=== PATIENT | female | born 1955 | race Caucasian/White ===

== ENCOUNTER 2016-08-28 02:28 | Inpatient (IN) | payer MEDICAID, OTHER ==
[~2016-08-28] VITALS: Ht 162.6 cm; Wt 75.0 kg
[~2016-08-28 02:28] MED LIST: AMLO5TAB4 PO; CEPH-443 PO; CIPR500T4 PO; FURO20TA3 PO; GLIM4TAB PO; LISI20TA11 PO; MTF1000T PO; SIMV10TA PO
[2016-08-28] MEDS ORDERED: ONDANSETRON 4 MG INJ IV STA (03:00)
[2016-08-28] MEDS ORDERED: morphine 4 MG/ML VIAL IV STA (03:00)
[2016-08-28 04:13] LABS: ADD SCAN DIFF NO
[2016-08-28 04:16] LABS: ADD UMIC NO; URINE BLOOD (Dip) NEGATIVE (NEGATIVE); URINE COLOR YELLOW (YELLOW); URINE GLUCOSE (Dip) >=1000 % (NEGATIVE); URINE KETONES (Dip) TRACE (NEGATIVE); URINE LEUKOCYTE ESTERASE (Dip) NEGATIVE (NEGATIVE); URINE NITRITE (Dip) NEGATIVE (NEGATIVE); URINE TOTAL PROTEIN (Dip) NEGATIVE (NEGATIVE); URINE UROBILINOGEN (Dip) 1.0 E.U./dL (0.1-1.0)
[2016-08-28 04:24] LABS: BASOPHILS % 0.6 % (0.0-2.0); EOSINOPHILS # 0.1 10^3/ul (0.0-0.5); EOSINOPHILS % 1.9 % (0.0-7.0); HEMATOCRIT 32.8 % (37.0-47.0); HEMOGLOBIN 10.6 g/dl (12.0-16.0); LYMPHOCYTES # 1.4 10^3/ul (0.8-2.9); MEAN CORPUSCULAR HEMOGLOBIN 29.7 pg (29.0-33.0); MEAN CORPUSCULAR HGB CONC 32.3 g/dl (32.0-37.0); MEAN CORPUSCULAR VOLUME 91.9 fl (82.0-101.0); MONOCYTE # 0.5 10^3/ul (0.3-0.9); MONOCYTES % 10.3 % (0.0-11.0); NEUTROPHIL # 2.7 10^3/ul (1.6-7.5); PLATELET COUNT 110 10^3/UL (140-415); RED BLOOD COUNT 3.57 10^6/ul (4.20-5.40); RED CELL DISTRIBUTION WIDTH 14.6 % (11.5-14.5); WHITE BLOOD COUNT 4.7 10^3/ul (4.8-10.8)
[2016-08-28 04:35] LABS: URINE BILIRUBIN (Dip) NEGATIVE (NEGATIVE)
[2016-08-28 04:37] LABS: ALBUMIN 3.1 g/dl (3.3-4.9)
[2016-08-28 04:38] LABS: POTASSIUM 3.8 mmol/L (3.5-5.1)
[2016-08-28 04:40] LABS: ALBUMIN/GLOBULIN RATIO 0.81; BILIRUBIN,INDIRECT 0.3 mg/dl (0-1.1); BILIRUBIN,TOTAL 0.3 mg/dl (0.2-1.3); CREATININE 0.52 mg/dl (0.44-1.00); TOTAL PROTEIN 6.9 g/dl (6.1-8.1)
[2016-08-28 04:41] LABS: CALCIUM 8.3 mg/dl (8.4-10.2)
--- NOTE | 2016-08-28 05:37 | ERA ---
ER Documentation Chief Complaint Date/Time DATE: 08/28/16 TIME: 05:36 Chief Complaint diffuse abd pain w/ distended abdomen, hx-liver cirrhosis HPI This is a 61 year from with diffuse abdominal distention abdomen. Patient has history of liver cirrhosis. She has her symptoms were getting progressively more distended. Denies any fevers or chills. Denies any other current complaints ROS All systems reviewed and are negative except as per history of present illness. Medications Home Meds Active Scripts Cephalexin* (Keflex*) 500 Mg Capsule, 500 MG PO QID for 7 Days, CAP Prov:DAVIAN HAIDER. 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 04/01/15 Furosemide* (Furosemide*) 20 Mg Tablet, 20 MG PO BID Y for ascites or edema , # 60 TAB Prov:LINDSEY CANTU 03/15/15 Ciprofloxacin Hcl* (Ciprofloxacin Hcl*) 500 Mg Tab, 500 MG PO BID@06,18 for 8 Days Prov:LINDSEY CANTU 03/15/15 Reported Medications Simvastatin* (Zocor*) 10 Mg Tablet, 10 MG PO HS, TAB 03/09/15 Lisinopril* (Lisinopril*) 20 Mg Tablet, 20 MG PO DAILY, TAB 03/09/15 Amlodipine Besylate* (Norvasc*) 5 Mg Tablet, 5 MG PO DAILY, TAB 03/09/15 Glimepiride* (Glimepiride*) 4 Mg Tablet, 4 MG PO DAILY, TAB 03/09/15 Metformin* (Glucophage*) 1,000 Mg Tablet, 1000 MG PO BID, TAB 03/09/15 Allergies Allergies: Coded Allergies: No Known Allergy (Unverified , 03/09/15) PMhx/Soc History of Surgery: Yes () Anesthesia Reaction: No Hx Neurological Disorder: No Hx Respiratory Disorders: No Hx Cardiac Disorders: Yes (HTN) Hx Psychiatric Problems: No Hx Miscellaneous Medical Probl: No Hx Alcohol Use: Yes (occasional) Hx Substance Use: No Hx Tobacco Use: No Smoking Status: Never smoker Physical Exam Vitals Vital Signs Date Time Temp Pulse Resp B/P Pulse Ox O2 Delivery O2 Flow Rate FiO2 08/28/16 02:30 98.2 94 20 161/73 97 Physical Exam Const: [] Head: Atraumatic Eyes: Normal Conjunctiva ENT: Normal External Ears, Nose and Mouth. Neck: Full range of motion..~ No meningismus. Resp: Clear to auscultation bilaterally Cardio: Regular rate and rhythm, no murmurs Abd: Soft, non tender, non distended. Normal bowel sounds Skin: No petechiae or rashes Back: No midline or flank tenderness Ext: No cyanosis, or edema Neur: Awake and alert Psych: Normal Mood and Affect Result Diagram: 08/28/16 0355 08/28/16 0355 Results 24 hrs Laboratory Tests Test 08/28/16 03:55 White Blood Count 4.710^3/ul Red Blood Count 3.5710^6/ul Hemoglobin 10.6g/dl Hematocrit 32.8% Mean Corpuscular Volume 91.9fl Mean Corpuscular Hemoglobin 29.7pg Mean Corpuscular Hemoglobin Concent 32.3g/dl Red Cell Distribution Width 14.6% Platelet Count 41846^3/UL Mean Platelet Volume 12.0fl Neutrophils % 58.0% Lymphocytes % 29.0% Monocytes % 10.3% Eosinophils % 1.9% Basophils % 0.6% Nucleated Red Blood Cells % 0.0/100WBC Neutrophils # 2.710^3/ul Lymphocytes # 1.410^3/ul Monocytes # 0.510^3/ul Eosinophils # 0.110^3/ul Basophils # 0.010^3/ul Nucleated Red Blood Cells # 0.010^3/ul Urine Color YELLOW Urine Clarity CLEAR Urine pH 6.0 Urine Specific [place] 1.025 Urine Ketones TRACE Urine Nitrite NEGATIVE Urine Bilirubin NEGATIVE Urine Urobilinogen 1.0 E.U./dL Urine Leukocyte Esterase NEGATIVE Urine Hemoglobin NEGATIVE Urine Glucose >=1000% Urine Total Protein NEGATIVE Sodium Level 138mmol/L Potassium Level 3.8mmol/L Chloride Level 104mmol/L Carbon Dioxide Level 27mmol/L Anion Gap 11 Blood Urea Nitrogen 11mg/dl Creatinine 0.52mg/dl Glucose Level 364mg/dl Calcium Level 8.3mg/dl Total Bilirubin 0.3mg/dl Direct Bilirubin 0.00mg/dl Indirect Bilirubin 0.3mg/dl Aspartate Amino Transf (AST/SGOT) 69IU/L Alanine Aminotransferase (ALT/SGPT) 47IU/L Alkaline Phosphatase 305IU/L Total Protein 6.9g/dl Albumin 3.1g/dl Globulin 3.80g/dl Albumin/Globulin Ratio 0.81 Lipase 127U/L Current Medications Medications (Trade) Dose Ordered Sig/Paul Route PRN Reason Start Time Stop Time Status Last Admin Dose Admin Morphine Sulfate (morphine) 4 mg ONCE STAT IV 08/28/16 03:00 08/28/16 03:01 DC 08/28/16 04:08 Ondansetron HCl (Zofran Inj) 4 mg ONCE STAT IV 08/28/16 03:00 08/28/16 03:01 DC 08/28/16 04:08 Procedures/MDM Medical decision-makin-year-old female with tense ascites. Patient will be admitted for therapeutic tap further evaluation and management. Departure Diagnosis: Primary Impression: Ascites Qualified Code: K70.31 - Ascites due to alcoholic cirrhosis Condition: Serious MELISSA JACK Aug 28, 2016 05:37
[2016-08-28 07:15] VITALS: TEMP 98.2
[2016-08-28] MEDS ORDERED: DEXTROSE 50% 50 ML SYRINGE IV PRN ×2 (09:00)
[2016-08-28] MEDS ORDERED: NACL 0.9% 3 ML SYG IV SCH (09:00)
[2016-08-28] MEDS ORDERED: ACETAMINOPHEN 325 MG TAB PO PRN (09:00)
[2016-08-28] MEDS ORDERED: GLUCAGON 1 MG INJ IM PRN (09:00)
[2016-08-28] MEDS ORDERED: GLUCOSE GEL 15 GRAM TUBE PO PRN ×2 (09:00)
[2016-08-28] MEDS ORDERED: GLUCOSE GEL 15 GRAM TUBE BUCCAL PRN (09:00)
[2016-08-28] MEDS ORDERED: ONDANSETRON 4 MG INJ IV PRN (09:00)
[2016-08-28] MEDS ORDERED: morphine 2 MG INJ IV PRN (09:00)
[2016-08-28 09:15] LABS: INR 1.13; PROTIME 14.5 Sec (12.2-14.2); PT RATIO 1.1
[2016-08-28] MEDS: LISINOPRIL 20 MG TAB PO SCH (09:19)
[2016-08-28] MEDS: AMLODIPINE 5 MG TAB PO SCH (09:19)
[2016-08-28 09:28] LABS: ALBUMIN 3.1 g/dl (3.3-4.9)
[2016-08-28 09:31] LABS: BILIRUBIN,INDIRECT 0.3 mg/dl (0-1.1); BILIRUBIN,TOTAL 0.3 mg/dl (0.2-1.3); TOTAL PROTEIN 6.9 g/dl (6.1-8.1)
--- NOTE | 2016-08-28 09:46 | HP ---
DATE OF ADMISSION: 08/28/2016 TIME SEEN: 6:30 a.m. CHIEF COMPLAINT: Abdominal pain and distention. HISTORY OF PRESENT ILLNESS: The patient is a 61-year-old female with a history of hypertension, omar betes, liver cirrhosis who presented to the emergency department with abdominal pain and distention. The patient was admitted here in March of last year for fevers and chills. 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 She was ta belle to the OR by Dr. Stevens from General Surgery and upon exploration of the liver and the gallbladd er it was found that the patient had dense cirrhosis and the gallbladder seems to be stuck to the [facility] inferior lobe of the liver along with the jim hepatis. It was deemed to be high risk attempt doing any resection or procedure; therefore, the surgery was aborted. The patient was evaluated by Dr. Raza Green from hepatobiliary, and at that time, plan was for referral for hepatology evaluat ion and management. The patient is now coming back with generalized abdominal pain and distention w hich has been progressively getting worse over the past 1 month. She stated she was seen at [facility], but nothing was done over there. The last time last time the patient was here doing diagnostic laparoscopy when she was found to have the dense cirrhosis and porcelain gallbladder, she was also found to have ascites measuring about 800 mL. When she presented to the ER this time, blood pressure 151/73, heart rate 94, respiratory rate ____, oxygen saturation 97% on room air. Laboratory value shows a WBC 4.7, hemoglobin 10.6, platelet cou nt 110. Glucose 364, alkaline phosphatase 305, AST 69. No imaging has been done in the ER. REVIEW OF SYSTEMS: A 12-point review of systems was performed and negative except as mentioned in t he HPI. PAST MEDICAL HISTORY: As per HPI. PAST SURGICAL HISTORY: As mentioned in the HPI as well as . ALLERGIES: NO KNOWN DRUG ALLERGIES. HOME MEDICATIONS: 1. Amlodipine. 2. Lisinopril. 3. Zocor. 4. Lasix. 5. Glimepiride. 6. Metformin. PHYSICAL EXAMINATION: VITAL SIGNS: Stable. GENERAL: The patient looks somehow uncomfortable due to abdominal pain and distention. HEENT: No obvious head deformity. Pupils react to light. Extraocular muscles intact. CARDIOVASCULAR: Regular rate and rhythm. No extra sounds. LUNGS: Clear. ABDOMEN: Distended, tender. There are positive bowel sounds. EXTREMITIES: Positive for some edema. LABORATORY: Pertinent positives as mentioned in the HPI. IMPRESSION: 1. Decompensated liver cirrhosis with ascites. 2. Abdominal pain and distention, secondary to ascites. 3. 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 4. History of diabetes with hyperglycemia. . 5. History of hypertension, currently blood pressure within goal. 6. Pancytopenia, likely related to her liver disease. We will obtain abdominal ultrasound and also therapeutic paracentesis. She will be continued with L asix and will add Aldactone. Strict ins and outs. She will be on restricted sodium diet. She will be on insulin for her diabetes. We will adjust her antihypertensives as needed. We will monitor h er hemoglobin and her platelets closely and transfuse as needed. Further workup and management per clinical course. Dictated By: MELISSA THURMAN/JEET Conf#: [id number] DID#: [id number]
[2016-08-28] MEDS ORDERED: LIDOCAINE 1% (MPF) 5 ML VIAL ONE (10:02)
[2016-08-28 11:31] VITALS: Ht 162.6 cm; Wt 75.0 kg
--- NOTE | 2016-08-28 11:36 | RADRPT ---
PROCEDURE: US guided paracentesis CLINICAL INDICATION: Ascites TECHNIQUE: Multiple sonographic images were obtained through the patient's abdomen. A site in the patient's RIGHT lower abdomen was selected and marked. The area was prepped and draped in the usual sterile fashion. 1% lidocaine was utilized. A 19-gauge Yueh needle was advanced into the peritonea l space and the introducer was connected to a vacuum drainage bottle. A total of 6800 cc of clear y ellow fluid were drained at the end of the procedure. The patient tolerated the procedure well. The specimen was sent for laboratory evaluation. COMPARISON: None FINDINGS: Ascites. RPTAT: AA IMPRESSION: Successful ultrasound-guided paracentesis. Physician Alok Date Time Electronically viewed and signed by Physician Alok on 08/28/2016 11:35 /
[2016-08-28 11:43] VITALS: BP 154/72; PULSE 76; RESP 18
[2016-08-28] MEDS: INSULIN ASPART [NOVOLOG] 3 ML PEN SC SCH ×5 (13:51→20:46)
[2016-08-28 16:10] LABS: FLUID APPEARANCE CLEAR; FLUID TYPE ASCITES
[2016-08-28 16:11] LABS: FLUID LYMPHOCYTES 65 %; FLUID MONOCYTES 20 %; FLUID NEUTROPHILS 10 %; FLUID RBC EST 0; FLUID WBC'S 305 /cmm
[2016-08-28 20:20] VITALS: BP 107/54; RESP 18
[2016-08-28] MEDS ORDERED: GUAIFENESIN/CODEINE 5ML CUP PO PRN (21:00)
[2016-08-28] MEDS ORDERED: ATORVASTATIN 10 MG TAB PO SCH (21:00)
[2016-08-29 05:52] LABS: ADD SCAN DIFF NO
[2016-08-29 06:05] LABS: BASOPHILS % 0.6 % (0.0-2.0); EOSINOPHILS # 0.1 10^3/ul (0.0-0.5); EOSINOPHILS % 1.9 % (0.0-7.0); HEMATOCRIT 33.1 % (37.0-47.0); HEMOGLOBIN 10.6 g/dl (12.0-16.0); LYMPHOCYTES # 1.9 10^3/ul (0.8-2.9); LYMPHOCYTES % 40.8 % (15.0-51.0); MEAN CORPUSCULAR HEMOGLOBIN 29.8 pg (29.0-33.0); MEAN PLATELET VOLUME 12.4 fl (7.4-10.4); MONOCYTE # 0.4 10^3/ul (0.3-0.9); MONOCYTES % 9.3 % (0.0-11.0); NEUTROPHIL # 2.2 10^3/ul (1.6-7.5); NEUTROPHILS % 47.2 % (39.0-77.0); PLATELET COUNT 102 10^3/UL (140-415); RED BLOOD COUNT 3.56 10^6/ul (4.20-5.40); RED CELL DISTRIBUTION WIDTH 14.6 % (11.5-14.5); WHITE BLOOD COUNT 4.8 10^3/ul (4.8-10.8)
[2016-08-29 06:24] LABS: ALBUMIN 2.3 g/dl (3.3-4.9)
[2016-08-29 06:25] LABS: POTASSIUM 4.1 mmol/L (3.5-5.1)
[2016-08-29 06:27] LABS: BILIRUBIN,INDIRECT 0.5 mg/dl (0-1.1); BILIRUBIN,TOTAL 0.5 mg/dl (0.2-1.3); CREATININE 0.55 mg/dl (0.44-1.00)
[2016-08-29 06:28] LABS: ALBUMIN/GLOBULIN RATIO 0.58; CALCIUM 7.9 mg/dl (8.4-10.2); CHOL/HDL RATIO 4.2 RATIO; TOTAL PROTEIN 6.2 g/dl (6.1-8.1)
[2016-08-29 07:40] VITALS: BP 107/55; RESP 18
[2016-08-29] MEDS ORDERED: INSULIN GLARGINE [LANtus] 3 ML PEN SC SCH (08:00)
[2016-08-29] MEDS: INSULIN ASPART [NOVOLOG] 3 ML PEN SC SCH ×6 (08:00→17:28)
[2016-08-29] MEDS: LISINOPRIL 20 MG TAB PO SCH (09:00)
[2016-08-29] MEDS: AMLODIPINE 5 MG TAB PO SCH (09:00)
[2016-08-29] MEDS ORDERED: NOVO3I SC (13:51)
[2016-08-29] MEDS ORDERED: LANT3I SC (13:51)
[2016-08-29] MEDS ORDERED: FURO20TA3 PO (13:51)
[2016-08-29] MEDS ORDERED: SPIR50TA PO (13:51)
--- NOTE | 2016-08-29 13:54 | PDOCDIS ---
Discharge Instructions DIAGNOSIS Discharge Diagnosis: 1. DECOMPENSATED LIVER CIRRHOSIS 2. diabetes CONDITION Patient Condition: Stable HOME CARE INSTRUCTIONS: Special Diet: 1800 tasneem 2g Na FOLLOW UP/APPOINTMENTS Appointments 1. Follow up with your primary care provider in one week 2. Follow up with [facility] for further management and care of your liver cirrhosis EDIE JAUREGUI Aug 29, 2016 13:53
== END 2016-08-29 17:58 | disposition home or self-care (01) | DRG 433 ==
LOC: E/R 02:28 → PP2 05:44
PROVIDERS: ADMIT Internal Medicine; ATTEND Internal Medicine
PROC: 0W9G3ZZ Drainage of Peritoneal Cavity, Percutaneous Approach (ICD-10-PCS; principal; 2016-08-28)
DX: K70.31 Alcoholic cirrhosis of liver with ascites (principal); D61.818 Other pancytopenia; E11.65 Type 2 diabetes mellitus with hyperglycemia; I10 Essential (primary) hypertension
CPT/HCPCS: 36415; 80053; 80061; 80076; 81003; 82042; 82962; 83036; 83690; 84157; 85025; 85610; 87070; 89050; 96372; 96374; 96375; J1815; J2270; J2405

== ENCOUNTER 2016-09-04 21:53 | Inpatient (IN) | payer MEDICAID ==
[~2016-09-04] VITALS: Ht 160 cm; Wt 81.5 kg
[~2016-09-04 21:53] MED LIST changes: -CEPH-443 PO; -CIPR500T4 PO; -GLIM4TAB PO; +LANT3I SC; -MTF1000T PO; +NOVO3I SC; +SPIR50TA PO
[2016-09-04] MEDS ORDERED: IPRATROPIUM (NEB) 0.5 MG/2.5 ML AMP NEB STA (23:36)
[2016-09-04] MEDS ORDERED: ALBUTEROL 0.083% (NEB) 2.5 MG/3 ML AMP NEB STA (23:36)
[2016-09-04 23:56] LABS: ADD SCAN DIFF NO
[2016-09-04 23:58] LABS: BASOPHIL # 0.1 10^3/ul (0.0-0.1); BASOPHILS % 1.1 % (0.0-2.0); EOSINOPHILS # 0.1 10^3/ul (0.0-0.5); EOSINOPHILS % 2.4 % (0.0-7.0); HEMATOCRIT 34.4 % (37.0-47.0); HEMOGLOBIN 11.4 g/dl (12.0-16.0); LYMPHOCYTES # 1.5 10^3/ul (0.8-2.9); LYMPHOCYTES % 32.4 % (15.0-51.0); MEAN CORPUSCULAR HEMOGLOBIN 30.2 pg (29.0-33.0); MEAN CORPUSCULAR HGB CONC 33.1 g/dl (32.0-37.0); MEAN CORPUSCULAR VOLUME 91.2 fl (82.0-101.0); MEAN PLATELET VOLUME 11.9 fl (7.4-10.4); MONOCYTE # 0.4 10^3/ul (0.3-0.9); MONOCYTES % 8.4 % (0.0-11.0); NEUTROPHIL # 2.5 10^3/ul (1.6-7.5); NEUTROPHILS % 55.5 % (39.0-77.0); PLATELET COUNT 117 10^3/UL (140-415); RED BLOOD COUNT 3.77 10^6/ul (4.20-5.40); WHITE BLOOD COUNT 4.5 10^3/ul (4.8-10.8)
[2016-09-05 00:06] LABS: ALBUMIN 2.9 g/dl (3.3-4.9)
[2016-09-05 00:07] LABS: POTASSIUM 4.2 mmol/L (3.5-5.1)
[2016-09-05 00:09] LABS: ALBUMIN/GLOBULIN RATIO 0.76; BILIRUBIN,INDIRECT 0.4 mg/dl (0-1.1); BILIRUBIN,TOTAL 0.4 mg/dl (0.2-1.3); CREATININE 0.66 mg/dl (0.44-1.00); TOTAL PROTEIN 6.7 g/dl (6.1-8.1)
[2016-09-05 00:10] LABS: CALCIUM 8.4 mg/dl (8.4-10.2)
--- NOTE | 2016-09-05 00:20 | ERA ---
ER Documentation Chief Complaint Date/Time DATE: 09/05/16 TIME: 00:19 Chief Complaint RECURRENT ASCITES. TAPPED LAST WEEK. ABD PAIN HPI This is a 61-year-old female with recurrent ascites. Tap last week. Patient complaining of mild abdominal pain. Patient has history of recurrent ascites with multiple peritoneal tabs in the past ROS All systems reviewed and are negative except as per history of present illness. Medications Home Meds Active Scripts Insulin Glargine* (Lantus*) 100 Unit/Ml Soln, 15 UNIT SC DAILY@08 for 30 Days Prov:EDIE JAUREGUI 08/29/16 Insulin Aspart* (Novolog Insulin Pen*) 100 Unit/Ml Soln, 5 UNIT SC WITH MEALS for 30 Days Prov:EDIE JAUREGUI 08/29/16 Spironolactone* (Aldactone*) 50 Mg Tablet, 50 MG PO BID, #60 TAB HOLD FOR SYSTOLIC BLOOD PRESSURE LESS THAN 100 Prov:EDIE JAUREGUI 08/29/16 Furosemide* (Furosemide*) 20 Mg Tablet, 20 MG PO BID, #60 TAB Prov:EDIE JAUREGUI 08/29/16 Reported Medications Simvastatin* (Zocor*) 10 Mg Tablet, 10 MG PO HS, TAB 03/09/15 Lisinopril* (Lisinopril*) 20 Mg Tablet, 20 MG PO DAILY, TAB 03/09/15 Amlodipine Besylate* (Norvasc*) 5 Mg Tablet, 5 MG PO DAILY, TAB 03/09/15 Discontinued Reported Medications Glimepiride* (Glimepiride*) 4 Mg Tablet, 4 MG PO DAILY, TAB 03/09/15 Metformin* (Glucophage*) 1,000 Mg Tablet, 1000 MG PO BID, TAB 03/09/15 Allergies Allergies: Coded Allergies: No Known Allergy (Unverified , 03/09/15) PMhx/Soc History of Surgery: Yes (c section 1988) Anesthesia Reaction: No Hx Neurological Disorder: Yes (tingling sensation BLE) Hx Respiratory Disorders: No Hx Cardiac Disorders: No (htn ) Hx Psychiatric Problems: No Hx Miscellaneous Medical Probl: Yes (diabetes mellitus, liver fx, and ascites) Hx Alcohol Use: Yes (occasionally ) Hx Substance Use: No Hx Tobacco Use: No Smoking Status: Never smoker Physical Exam Vitals Vital Signs Date Time Temp Pulse Resp B/P Pulse Ox O2 Delivery O2 Flow Rate FiO2 09/05/16 00:09 86 17 154/76 100 09/04/16 21:58 97.5 89 22 189/84 98 Physical Exam Const: [] Head: Atraumatic Eyes: Normal Conjunctiva ENT: Normal External Ears, Nose and Mouth. Neck: Full range of motion..~ No meningismus. Resp: Clear to auscultation bilaterally Cardio: Regular rate and rhythm, no murmurs Abd: Mild distention. Distant bowel sounds. Palpable fluid wave Skin: No petechiae or rashes Back: No midline or flank tenderness Ext: No cyanosis, or edema Neur: Awake and alert Psych: Normal Mood and Affect Result Diagram: 09/04/16 4560 Results 24 hrs Laboratory Tests Test 09/04/16 23:50 White Blood Count 4.510^3/ul Red Blood Count 3.7710^6/ul Hemoglobin 11.4g/dl Hematocrit 34.4% Mean Corpuscular Volume 91.2fl Mean Corpuscular Hemoglobin 30.2pg Mean Corpuscular Hemoglobin Concent 33.1g/dl Red Cell Distribution Width 14.0% Platelet Count 63440^3/UL Mean Platelet Volume 11.9fl Neutrophils % 55.5% Lymphocytes % 32.4% Monocytes % 8.4% Eosinophils % 2.4% Basophils % 1.1% Nucleated Red Blood Cells % 0.0/100WBC Neutrophils # 2.510^3/ul Lymphocytes # 1.510^3/ul Monocytes # 0.410^3/ul Eosinophils # 0.110^3/ul Basophils # 0.110^3/ul Nucleated Red Blood Cells # 0.010^3/ul Current Medications Medications (Trade) Dose Ordered Sig/Paul Route PRN Reason Start Time Stop Time Status Last Admin Dose Admin Albuterol (Proventil 0.083% (Neb)) 5 mg ONCE STAT NEB 09/04/16 23:36 09/04/16 23:38 DC Ipratropium [place] (Atrovent 0.02% (Neb)) 0.5 mg ONCE STAT NEB 09/04/16 23:36 09/04/16 23:38 DC Procedures/MDM Medical decision-making: This patient comes in with acute abdominal pain secondary to tense ascites. Patient was admitted for therapeutic tap patient admitted to hospitalist. No evidence of spontaneous bacterial peritonitis. No evidence of surgical abdomen on multiple serial abdominal examinations Departure Diagnosis: Primary Impression: Abdominal pain Qualified Code: R10.84 - Generalized abdominal pain Additional Impression: Ascites Qualified Code: R18.8 - Other ascites Condition: Serious MELISSA JACK Sep 05, 2016 00:20
[2016-09-05 00:24] LABS: INR 1.14; PROTIME 14.6 Sec (12.2-14.2); PT RATIO 1.1
[2016-09-05 00:25] LABS: PARTIAL THROMBOPLASTIN TIME 31.4 Sec (25.0-35.0)
--- NOTE | 2016-09-05 00:38 | HP ---
Date/Time of Note Date/Time of Note DATE: 09/05/16 TIME: 00:34 Assessment/Plan VTE Prophylaxis VTE Prophylaxis Intervention: other (Lovenox) Assessment/Plan Assessment/Plan 1) Decompensated liver cirrhosis ([place]) with ascites. - Admit to Med-Surg - Ultrasound-Guided Paracentesis with Radiologist in AM, requested already by ER Physician - NPO after MN 2) Abdominal pain and distention, secondary to ascites. - Pain control while awaiting Paracentesis 3) Elevated Alkaline Phosphatase - Alkaline Phosphatase Isoenzymes as I am concerned that she may have bony involvement as her Liver Enzymes would not be expected to elevated much becasue of her extensive cirrhosis. 4) Diabetes Type 2, uncontrolled with Hyperglycemia and Diabetic Peripheral Neuropathy . - Accu-Chek Q 4 hours with Insulin sliding Scale. Change to AC and HS once taking PO 5) Essential Hypertension - Continue current medications 6) Pancytopenia, likely related to her liver disease. HPI/ROS Admit Date/Time Admit Date/Time 09/05/16 0008 Hx of Present Illness Abdominal Pain/Tense Ascites Patient presents with a painful abdomen, swollen with fluid again. She was last seen here on 08/28/16 for the same thing, and almost 7L were removed by Paracentesis.She has Cirrhosis, non-alcoholic ([place]) and a "chrystallized" gallbladder per her daughter. I asked if it was a porcelain gallbladder, and she was sure it was not. 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 She also has Diabetes with peripheral neuropathy and with her complications, she is not a candidate for liver transplant. ROS General: Admits: Denies: Fever, Chills, Poor Appetite, Generalized Body Aches Eyes: Admits: Denies: Blurry Vision, Double Vision HENT: Admits: Denies: Ear Pain/Pressure, Runny/Stuffy Nose, Sore Throat Cardiovascular: Admits: Leg Swelling, not a lot Denies: Chest Pain, Palpitations Pulmonary: Admits: Cough, worse with taking a deep breath/Hard to take a deep breath. No sputum or blood Denies: Wheeze, Shortness of Breath Gastrointestinal: Admits: Abdominal Pain and Swelling. AThe pain is worsdt in the lower abdomen, right side worse than left Denies: Nausea, Vomiting, Diarrhea, Blood in Stool, Black-Colored Stool Urogenital: Admits: Denies: Burning with Urination, Urinary Frequency, Blood in Urine Musculoskeletal: Admits: Denies: Joint Pain, Joint Swelling, Muscle Pain Neurological: Admits: Numbness, Tingling and Burning pains in both feet. Her daughter admits that she has Neuropathy Denies: Headache, Dizziness, Shooting Pains Integumentary: Admits: Thickened Skin in lower abdomen Denies: Rash, Itch Endocrine: Admits: Excessive Thirst, Excessive Hunger Denies: , Intolerant to Cold, Intolerant to Heat PMH/Family/Social Past Medical History [place]; Decompensated Cirrhosis with Ascites; DM Type 2 with Peripheral Neuropathy ; HTN; Porcelain Gallbladder Past Surgical History ; Exploratory Laparotomy; Paracentesis x 2 Family History Significant Family History: cancer (Father from Liver Cancer) Social History Alcohol Use: none Smoking Status: Never smoker Drug Use: none Exam/Review of Systems Vital Signs Vitals Vital Signs Date Time Temp Pulse Resp B/P Pulse Ox O2 Delivery O2 Flow Rate FiO2 09/05/16 00:09 86 17 154/76 100 09/04/16 21:58 97.5 Exam Exam General: Pleasant, Cam[place]onian-Speaking female, alert and oriented, stoic, in mild to moderate distress due to abdominal pain. Eyes: Sclera White, EOMI HENT: Normocephalic/Atraumatic, External Ears/Nose Normal, Moist Mucus Membranes Neck: Supple, Trachea Midline Cardiovascular: Normal Rate, Regular Rhythm, Normal S1 and S2, No Murmur, No Extra Sounds. Radial pulse +2/4. Trace pedal Edema noted. Pulmonary: Clear to Auscultation Bilaterally, Normal Respiratory Effort, No Rales, Rhonchi or Wheezes Gastrointestinal: Normoactive Bowel Sounds, Soft, Non-Tender/Non-Distended, No Hepatosplenomegaly Appreciated, No Pulsatile Masses Urogenital: Deferred Musculoskeletal: Normal Muscle Bulk and Tone Neurological: CN II - XII Grossly Intact, Non-Focal, Speech Normal Integumentary: Normal Moisture and Temperature, Good Turgor, No Jaundice, No Rash Lymphatic: No Cervical Lymphadenopathy Psychiatric: Appropriate Mood and Affect, Good Eye Contact Labs Result Diagram: 09/04/16 2350 09/04/16 2350 Medications Medications Home Meds Active Scripts Insulin Glargine* (Lantus*) 100 Unit/Ml Soln, 15 UNIT SC DAILY@08 for 30 Days Prov:EDIE JAUREGUI 08/29/16 Insulin Aspart* (Novolog Insulin Pen*) 100 Unit/Ml Soln, 5 UNIT SC WITH MEALS for 30 Days Prov:EDIE JAUREGUI 08/29/16 Spironolactone* (Aldactone*) 50 Mg Tablet, 50 MG PO BID, #60 TAB HOLD FOR SYSTOLIC BLOOD PRESSURE LESS THAN 100 Prov:EDIE JAUREGUI 08/29/16 Furosemide* (Furosemide*) 20 Mg Tablet, 20 MG PO BID, #60 TAB Prov:EDIE JAUREGUI 08/29/16 Reported Medications Simvastatin* (Zocor*) 10 Mg Tablet, 10 MG PO HS, TAB 03/09/15 Lisinopril* (Lisinopril*) 20 Mg Tablet, 20 MG PO DAILY, TAB 03/09/15 Amlodipine Besylate* (Norvasc*) 5 Mg Tablet, 5 MG PO DAILY, TAB 03/09/15 Discontinued Reported Medications Glimepiride* (Glimepiride*) 4 Mg Tablet, 4 MG PO DAILY, TAB 03/09/15 Metformin* (Glucophage*) 1,000 Mg Tablet, 1000 MG PO BID, TAB 03/09/15 Current Medications Medications (Trade) Dose Ordered Sig/Paul Route PRN Reason Start Time Stop Time Status Last Admin Dose Admin Albuterol (Proventil 0.083% (Neb)) 5 mg ONCE STAT NEB 09/04/16 23:36 09/04/16 23:38 DC Ipratropium [place] (Atrovent 0.02% (Neb)) 0.5 mg ONCE STAT NEB 09/04/16 23:36 09/04/16 23:38 DC Procedures Procedures Laboratory Tests Test 09/04/16 23:50 White Blood Count 4.510^3/ul Red Blood Count 3.7710^6/ul Hemoglobin 11.4g/dl Hematocrit 34.4% Mean Corpuscular Volume 91.2fl Mean Corpuscular Hemoglobin 30.2pg Mean Corpuscular Hemoglobin Concent 33.1g/dl Red Cell Distribution Width 14.0% Platelet Count 45799^3/UL Mean Platelet Volume 11.9fl Neutrophils % 55.5% Lymphocytes % 32.4% Monocytes % 8.4% Eosinophils % 2.4% Basophils % 1.1% Nucleated Red Blood Cells % 0.0/100WBC Neutrophils # 2.510^3/ul Lymphocytes # 1.510^3/ul Monocytes # 0.410^3/ul Eosinophils # 0.110^3/ul Basophils # 0.110^3/ul Nucleated Red Blood Cells # 0.010^3/ul JUANCHO PORTILLO DO Sep 05, 2016 00:38
[2016-09-05 02:30] VITALS: BP 156/75; PULSE 87; RESP 18
[2016-09-05 02:43] VITALS: Ht 160 cm; Wt 81.5 kg
[2016-09-05] MEDS ORDERED: morphine 2 MG INJ IV PRN (03:00)
[2016-09-05] MEDS ORDERED: NACL 0.9% 3 ML SYG IV SCH (03:00)
[2016-09-05] MEDS ORDERED: GLUCOSE GEL 15 GRAM TUBE BUCCAL PRN (03:10)
[2016-09-05] MEDS ORDERED: DEXTROSE 50% 50 ML SYRINGE IV PRN ×2 (03:10)
[2016-09-05] MEDS ORDERED: GLUCOSE GEL 15 GRAM TUBE PO PRN ×2 (03:10)
[2016-09-05] MEDS ORDERED: GLUCAGON 1 MG INJ IM PRN (03:10)
[2016-09-05] MEDS: INSULIN ASPART [NOVOLOG] 3 ML PEN SC SCH ×2 (05:09→08:59)
[2016-09-05] MEDS: FUROSEMIDE 20 MG TAB PO SCH ×2 (05:55→17:32)
[2016-09-05] MEDS: FAMOTIDINE 20 MG INJ IV SCH ×2 (07:56→20:31)
[2016-09-05 08:10] VITALS: BP 107/62; RESP 18
[2016-09-05] MEDS: AMLODIPINE 5 MG TAB PO SCH (08:14)
[2016-09-05] MEDS: INSULIN GLARGINE [LANtus] 3 ML PEN SC SCH (08:14)
[2016-09-05] MEDS: SPIRONOLACTONE 50 MG TAB PO SCH ×2 (08:14→20:31)
[2016-09-05] MEDS: LISINOPRIL 20 MG TAB PO SCH (08:14)
[2016-09-05] MEDS: ENOXAPARIN 40 MG/0.4 ML SYG SC SCH (08:59)
[2016-09-05] MEDS: Insulin NOVOLOG SS MODERATE Algorithm (SS with meals and bedtime) SC SCH ×3 (12:15→20:37)
[2016-09-05] MEDS ORDERED: LIDOCAINE 1% (MPF) 5 ML VIAL ONE (17:00)
[2016-09-05] MEDS ORDERED: INSULIN ASPART [NOVOLOG] 3 ML PEN SC SCH (17:45)
--- NOTE | 2016-09-05 17:47 | RADRPT ---
PROCEDURE: Ultrasound guided paracentesis. CLINICAL INDICATION: Ascites and shortness of breath. COMPARISON: No prior studies are available for comparison. TECHNIQUE: The risks, benefits, and alternatives were explained to the patient and/or the patient's family, inc luding but not limited to bleeding, infection, pain, visceral or vascular damage, shock, and . The patient and/or the patient's family understood the risks and the alternatives and wished to pro ceed with the procedure. Informed written consent was obtained. A procedural time out was performed . The patient's name, date of , and procedure to be performed were verified. Utilizing ultrasound guidance, optimal location for entry to the peritoneal cavity was ascertained. The overlying skin was prepped and draped in the usual sterile fashion. Approximately 10 ml of 1% Xylocaine was injected locally for pain control. Using ultrasound guidance, an 8 [place] catheter wa s introduced into the peritoneal cavity in the right lower quadrant without difficulty. FINDINGS: Initial images demonstrate ascites. Approximately 4.1 liters of serous fluid was aspirated and disc arded. The patient tolerated the procedure well without complication. IMPRESSION: 1. Successful ultrasound-guided paracentesis. RPTAT: QQ .Dudley Lanza MD, Date Time Electronically viewed and signed by .Dudley Lanza MD, on 09/05/2016 17:46 .R/
[2016-09-05] MEDS: AMITRIPTYLINE 25 MG TAB PO SCH (20:31)
[2016-09-06] MEDS: FUROSEMIDE 20 MG TAB PO SCH ×2 (05:44→07:49)
[2016-09-06 05:46] LABS: ADD SCAN DIFF NO; BASOPHIL # 0.1 10^3/ul (0.0-0.1); BASOPHILS % 1.2 % (0.0-2.0); EOSINOPHILS # 0.1 10^3/ul (0.0-0.5); HEMATOCRIT 33.4 % (37.0-47.0); HEMOGLOBIN 10.9 g/dl (12.0-16.0); LYMPHOCYTES # 1.7 10^3/ul (0.8-2.9); LYMPHOCYTES % 41.1 % (15.0-51.0); MEAN CORPUSCULAR HEMOGLOBIN 29.9 pg (29.0-33.0); MEAN CORPUSCULAR HGB CONC 32.6 g/dl (32.0-37.0); MEAN CORPUSCULAR VOLUME 91.5 fl (82.0-101.0); MEAN PLATELET VOLUME 12.5 fl (7.4-10.4); MONOCYTE # 0.3 10^3/ul (0.3-0.9); MONOCYTES % 8.4 % (0.0-11.0); NEUTROPHIL # 1.9 10^3/ul (1.6-7.5); NEUTROPHILS % 47.1 % (39.0-77.0); PLATELET COUNT 113 10^3/UL (140-415); RED BLOOD COUNT 3.65 10^6/ul (4.20-5.40); RED CELL DISTRIBUTION WIDTH 14.3 % (11.5-14.5)
[2016-09-06 05:47] LABS: INR 1.29; PROTIME 16.2 Sec (12.2-14.2); PT RATIO 1.3
[2016-09-06 05:56] LABS: PARTIAL THROMBOPLASTIN TIME 26.9 Sec (25.0-35.0)
[2016-09-06 07:00] LABS: ALBUMIN 2.3 g/dl (3.3-4.9); POTASSIUM 3.6 mmol/L (3.5-5.1)
[2016-09-06 07:02] LABS: CREATININE 0.55 mg/dl (0.44-1.00)
[2016-09-06 07:03] LABS: ALBUMIN/GLOBULIN RATIO 0.69; BILIRUBIN,INDIRECT 0.6 mg/dl (0-1.1); BILIRUBIN,TOTAL 0.6 mg/dl (0.2-1.3); CALCIUM 7.8 mg/dl (8.4-10.2); TOTAL PROTEIN 5.6 g/dl (6.1-8.1)
[2016-09-06 07:39] LABS: CHOL/HDL RATIO 4.2 RATIO
[2016-09-06] MEDS: SPIRONOLACTONE 50 MG TAB PO SCH ×2 (07:49→21:00)
[2016-09-06] MEDS: FAMOTIDINE 20 MG INJ IV SCH ×2 (07:49→20:49)
[2016-09-06] MEDS: AMLODIPINE 5 MG TAB PO SCH (07:50)
[2016-09-06 08:10] LABS: THYROID STIMULATING HORMONE 3.41 MIU/L (0.465-4.680)
[2016-09-06] MEDS: ENOXAPARIN 40 MG/0.4 ML SYG SC SCH (08:17)
[2016-09-06] MEDS: INSULIN GLARGINE [LANtus] 3 ML PEN SC SCH (08:17)
[2016-09-06] MEDS: Insulin NOVOLOG SS MODERATE Algorithm (SS with meals and bedtime) SC SCH ×4 (08:17→21:00)
[2016-09-06] MEDS: LISINOPRIL 20 MG TAB PO SCH (08:21)
[2016-09-06] MEDS: HYDROCODONE/APAP (5/325) TAB PO PRN (08:21)
[2016-09-06 08:46] VITALS: BP 107/57; RESP 18
[2016-09-06 11:28] LABS: CARCINOEMBRYONIC ANTIGEN 6.8 ng/ml (0.0-5.0)
[2016-09-06 11:29] LABS: CANCER ANTIGEN 125 > 1000.0 U/ml (0.0-35.0)
[2016-09-06] MEDS: METOCLOPRAMIDE 10 MG INJ IV PRN (12:05)
[2016-09-06] MEDS: INSULIN ASPART [NOVOLOG] 3 ML PEN SC SCH ×2 (12:15→17:31)
[2016-09-06] MEDS ORDERED: BARIUM SULF 2% 450 ML BTL (BERRY SMOOTHIE) PO ONE (13:00)
[2016-09-06] MEDS: LACTULOSE 30ML CUP PO SCH ×2 (14:07→22:17)
--- NOTE | 2016-09-06 15:26 | PN ---
DATE: 09/06/2016 SUBJECTIVE DATA: Denies any abdominal pain. Denies any nausea or vomiting. Status post paracentesis on 09/05/2016. OBJECTIVE DATA: VITAL SIGNS: Temperature 97.6, pulse rate 82, respiratory rate 18, blood pressure 107/57, oxygen saturation 98% on room air. GENERAL: This is an obese female sitting in bed, in no apparent distress. HEENT: Head normocephalic and atraumatic. Eyes: Anicteric sclerae. Conjunctivae clear. ENT: Nasal septum is midline. Oral mucosa is moist. NECK: Supple. No JVD noticed. RESPIRATORY: Bilaterally diminished breath sounds. No adventitious breath sounds heard. No use of accessory muscles of respiration. ABDOMEN: Ascitic, nontender. Bowel sounds positive in all 4 quadrants. GENITOURINARY: Deferred. EXTREMITIES: No cyanosis, no clubbing, no edema. Peripheral pulses are palpable. NEUROLOGIC: The patient is awake, alert and oriented. Cranial nerves are grossly intact. LABORATORY AND DIAGNOSTIC DATA: WBC 4.0, hemoglobin 10.9, hematocrit 33.4, platelet count 130. Sodium 133, potassium 3.6, chloride 106, carbon dioxide 26 , anion gap 11, BUN 13, creatinine 0.57, glucose 217, calcium 7.8. Magnesium 1.8. Ammonia 59. Alpha-fetoprotein 2.61. CA 125 antigen greater than 1000. ASSESSMENT AND PLAN 1. End-stage liver disease. Status post paracentesis with drainage of 4.1 liters of ascitic fluid. Continue diuretics. 2. Hyperammonemia. We will start the patient on lactulose. 3. Type 2 diabetes mellitus, uncontrolled. Hemoglobin A1c is 9.3. We will add just insulin to obtain optimal blood sugar control. 4. Normocytic normochromic anemia. Most probably secondary to underlying liver cirrhosis. Monitor hemoglobin and hematocrit closely. Transfuse as needed. We will obtain an iron panel. 5. Essential hypertension. Continue antihypertensives. 6. Elevated tumor markers. We will obtain an oncology consult. We will repeat a paracentesis and send the ascitic fluid for cytology. 7. Fluid, electrolytes and nutrition. Carbohydrate controlled diet. 8. Deep venous thrombosis prophylaxis. Bilateral sequential compression devices. 9. Gastrointestinal prophylaxis. Histamine 2 receptor blockers. PLAN: We will obtain an oncology evaluation. We will obtain a CT scan of the abdomen, pelvis and chest. Repeat paracentesis will be ordered. Case discussed with Dr. Nina. Oncology consult was called. The plan of care was explained to the patient's daughter who was at the bedside. ALIYAH NINA MD, AM/JEET Conf#: [id number] DID#: [id number]
[2016-09-06] MEDS ORDERED: METOCLOPRAMIDE 10 MG INJ IV ONE (15:30)
[2016-09-06] MEDS ORDERED: SOD CHLORIDE 0.9% 100 ML ONE (15:44)
[2016-09-06] MEDS ORDERED: IOHEXOL 300MG/ML 150 ML BTL ONE (15:44)
--- NOTE | 2016-09-06 18:15 | RADRPT ---
AMENDMENT: 09/06/2016 6:22:21 PM Dagoberto Elliott M.d Porcelain gallbladder again apparent. PROCEDURE: CT Chest, Abdomen and Pelvis with contrast. CLINICAL INDICATION: Ascites. Evaluate for malignancy. TECHNIQUE: CT scan of the chest, abdomen, and pelvis with contrast was performed on a multi-detect or high-resolution CT scanner. The patient was scanned following the intravenous administration of 100 cc of Omnipaque 300 intravenous contrast. Oral contrast was administered. Coronal and sagittal r eformatted images were obtained from the axial source images. Images were reviewed on a high-resolut [employer] PACS workstation. The total exam CTDI equals 14.79 mGy and the total exam DLP equals 1016.17 mGy -cm. One or more the following does reduction techniques were utilized: Automated exposure control, adjus tment of the mA/ or kV according to patient's size, or use of iterative reconstruction technique. COMPARISON: 04/01/2015 FINDINGS: CT chest: Calcification in thoracic aorta and great vessels. Coronary artery calcification. No enlarged medi astinal lymph nodes are seen. Small pleural effusions left larger than right. Bilateral lower lobe partial atelectasis left greater than right. Degenerative changes in thoracic spine. CT abdomen: Hepatic cirrhosis again seen. Porcelain gallbladder is again apparent. No abnormality of the splee n is seen. Stomach is not fully distended. No abnormality of the pancreas is seen. No abnormality of the adrenals seen. Sub centimeter low density structures too small to characterize are again see n in the right kidney not significantly changed compared to previous study. No imaging follow-up of these is recommended. Minimal fluid in left renal collecting system again seen. Calcification in abdominal aorta. No abdominal aortic aneurysm is seen. No abnormality of the colon is seen. No dil ated small bowel loops are seen. Appendix is unremarkable. There is appearance of nonspecific wall thickening in several loops of the small bowel in the left abdomen and upper pelvis again seen. CT pelvis: Diffuse subcutaneous edema is mildly increased compared to previous study. There is a moderate amou nt of ascites in the pelvis and in the abdomen mildly increased compared to previous study. There is appearance of mild diffuse bladder wall thickening which may at least partially be secondary to und erdistension. No abnormality of the pelvic organs is seen on CT. Likely small bone island in the le ft ischium and see. Osteoarthrosis at hips. Degenerative changes in the thoracic spine. Lumbar sp ondylosis. Spinal stenosis in lumbar spine. IMPRESSION: No specific evidence of malignancy is seen. Small pleural effusions left larger than right decrease d on the left and appearing on the right compared to previous study. Hepatic cirrhosis again seen. Moderate amount of ascites mildly increased compared to previous study. Diffuse subcutaneous edema and anterior pelvic wall skin thickening mildly increased compared to previous study. Nonspecific wa ll thickening in several loops of the small bowel in the left abdomen and upper pelvis again seen. F indings could be secondary to portal hypertension. Enteritis is possible. Please see above. RPTAT: HJES .Dagoberto Elliott MD, MD Date Time Electronically viewed and signed by .Dagoberto Elliott MD, MD on 09/06/2016 18:22 .S/
[2016-09-06 20:16] VITALS: BP 105/57; RESP 16
[2016-09-06] MEDS: AMITRIPTYLINE 25 MG TAB PO SCH (21:00)
[2016-09-07 05:40] LABS: ADD SCAN DIFF NO
[2016-09-07 05:52] LABS: BASOPHILS % 0.9 % (0.0-2.0); EOSINOPHILS # 0.1 10^3/ul (0.0-0.5); EOSINOPHILS % 2.2 % (0.0-7.0); HEMATOCRIT 33.3 % (37.0-47.0); HEMOGLOBIN 10.9 g/dl (12.0-16.0); LYMPHOCYTES # 1.5 10^3/ul (0.8-2.9); LYMPHOCYTES % 32.5 % (15.0-51.0); MEAN CORPUSCULAR HEMOGLOBIN 29.9 pg (29.0-33.0); MEAN CORPUSCULAR HGB CONC 32.7 g/dl (32.0-37.0); MEAN CORPUSCULAR VOLUME 91.2 fl (82.0-101.0); MEAN PLATELET VOLUME 12.1 fl (7.4-10.4); MONOCYTE # 0.5 10^3/ul (0.3-0.9); MONOCYTES % 9.7 % (0.0-11.0); NEUTROPHIL # 2.5 10^3/ul (1.6-7.5); NEUTROPHILS % 54.5 % (39.0-77.0); PLATELET COUNT 109 10^3/UL (140-415); RED BLOOD COUNT 3.65 10^6/ul (4.20-5.40); RED CELL DISTRIBUTION WIDTH 14.1 % (11.5-14.5); WHITE BLOOD COUNT 4.7 10^3/ul (4.8-10.8)
[2016-09-07] MEDS: LACTULOSE 30ML CUP PO SCH ×3 (05:55→21:41)
[2016-09-07] MEDS: FUROSEMIDE 20 MG TAB PO SCH ×3 (05:55→19:05)
[2016-09-07 06:01] LABS: POTASSIUM 3.3 mmol/L (3.5-5.1)
[2016-09-07 06:04] LABS: CALCIUM 7.8 mg/dl (8.4-10.2); CREATININE 0.51 mg/dl (0.44-1.00)
[2016-09-07 06:57] LABS: MAGNESIUM 1.8 mg/dl (1.7-2.5); PHOSPHORUS 3.7 mg/dl (2.5-4.9)
[2016-09-07 07:01] LABS: IRON 18 ug/dl (35-150)
[2016-09-07 07:10] LABS: TOTAL IRON BINDING CAPACITY 291 ug/dl (241-421)
[2016-09-07 07:23] LABS: FERRITIN 16.3 ng/ml (11.1-264.0)
[2016-09-07] MEDS: INSULIN ASPART [NOVOLOG] 3 ML PEN SC SCH ×3 (08:15→17:24)
[2016-09-07] MEDS: FAMOTIDINE 20 MG INJ IV SCH ×2 (08:20→21:40)
[2016-09-07] MEDS: SPIRONOLACTONE 50 MG TAB PO SCH ×3 (08:24→21:00)
[2016-09-07] MEDS: INSULIN GLARGINE [LANtus] 3 ML PEN SC SCH (08:29)
[2016-09-07] MEDS: Insulin NOVOLOG SS MODERATE Algorithm (SS with meals and bedtime) SC SCH ×4 (08:32→21:53)
[2016-09-07 08:48] VITALS: BP 120/65; RESP 16
--- NOTE | 2016-09-07 10:49 | CONS ---
Date/Time of Note Date/Time of Note DATE: 09/07/16 TIME: 10:34 Assessment/Plan Assessment/Plan Chief Complaint/Hosp Course 61 female with [place] cirrhosis and ascites in the setting of a markedly elevated CA 125. 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 We still need to consider cancer of pancreatic or hepatobiliary origin given her history of porcelin gallbladder but the elevated CA 125 makes this less likely. # Ascites, concern for malignancy -will f/u cytology from paracentesis today -I have consulted Dr. Alcocer from [facility] to see the patient given my concern for [employer] OPER[employer] primary malignancy. Pt may benefit from an exploratory laparoscopy -CA 19-9 was ordered as well given history of porcelain gall bladder # Iron Deficiency Anemia - pt has Hg of 10 with iron sat 6% -will start IV iron today. Ferrlecit ordered Problems: Consultation Date/Type/Reason Admit Date/Time 09/05/168 Date of Consultation: Sep 07, 2016 Type of Consultation: oncology Reason for Consultation concern for underlying malignancy Referring Provider: ALIYAH RYAN [employer] Hx of Present Illness 61-year-old female with uncontrolled diabetes and liver cirrhosis who initially presented to the emergency department in last August with abdominal pain and distention. Her past medical history is significant for a liver cirrhosis and a porcelain gallbladder that was found in In March [address] A/P. She was taken to the OR by Dr. Stevens from General Surgery and upon exploration of the liver and the gallbladder it was found that the patient had dense cirrhosis and the gallbladder seems to be stuck to the right inferior lobe of the liver along with the jim hepatis. It was deemed to be high risk attempt doing any resection or procedure; therefore, the surgery was aborted. The patient was then evaluated by Dr. Raza Green from hepatobiliary, and at that time, plan was for referral for hepatology evaluation and management. The patient then presented in late august 2016 with generalized abdominal pain and distention which has been progressively getting worse over the course of a month. She was found with massive ascites and a paracentesis was done on . Unfortunately this fluid was never send for cytology Constitutional: no complaints Eyes: no complaints ENT: no complaints Respiratory: no complaints Cardiovascular: no complaints Gastrointestinal: decreased appetite, nausea, other (increased abdominal distention) Genitourinary: no complaints Musculoskeletal: no complaints Past Medical History [place]; Decompensated Cirrhosis with Ascites; DM Type 2 with Peripheral Neuropathy ; HTN; Porcelain Gallbladder Past Surgical History ; Exploratory Laparotomy Mar 2015 Paracentesis x 2 Family History Significant Family History: other (father from lung cancer) Social History Alcohol Use: none Smoking Status: Never smoker Drug Use: none Exam/Review of Systems Vital Signs Vitals Vital Signs Date Time Temp Pulse Resp B/P Pulse Ox O2 Delivery O2 Flow Rate FiO2 09/07/16 08:48 98.4 78 16 120/65 95 09/05/16 02:30 Room Air Intake and Output 09/06/16 09/06/16 09/07/16 15:00 23:00 07:00 Intake Total 220 ml 200 ml Balance 220 ml 200 ml Exam Constitutional: obese Head: normocephalic ENMT: nl external ears & nose Neck: supple Respiratory: clear to auscultation, normal air movement Cardiovascular: regular rate and rhythm Gastrointestinal: ascites, soft Musculoskeletal: nl extremities to inspection, nl gait and stance Results Result Diagram: 09/07/16 0505 09/07/16 0505 Results 24 hrs Laboratory Tests Test 09/06/16 12:02 09/06/16 17:14 09/06/16 20:48 09/07/16 02:17 Bedside Glucose 223 H 178 233 H 240 H Test 09/07/16 05:05 09/07/16 08:18 White Blood Count 4.7 L Red Blood Count 3.65 L Hemoglobin 10.9 L Hematocrit 33.3 L Mean Corpuscular Volume 91.2 Mean Corpuscular Hemoglobin 29.9 Mean Corpuscular Hemoglobin Concent 32.7 Red Cell Distribution Width 14.1 Platelet Count 109 L Mean Platelet Volume 12.1 H Neutrophils % 54.5 Lymphocytes % 32.5 Monocytes % 9.7 Eosinophils % 2.2 Basophils % 0.9 Nucleated Red Blood Cells % 0.0 Neutrophils # 2.5 Lymphocytes # 1.5 Monocytes # 0.5 Eosinophils # 0.1 Basophils # 0.0 Nucleated Red Blood Cells # 0.0 Sodium Level 138 Potassium Level 3.3 L Chloride Level 105 Carbon Dioxide Level 25 Anion Gap 11 Blood Urea Nitrogen 13 Creatinine 0.51 Glucose Level 239 H Calcium Level 7.8 L Phosphorus Level 3.7 Magnesium Level 1.8 Iron Level 18 L Total Iron Binding Capacity 291 Percent Iron Saturation 6 L Ferritin 16.3 Ammonia 24 # Bedside Glucose 208 Medications Medications Current Medications Metoclopramide HCl (Reglan) 10 mg Q6H PRN IV NAUSEA AND/OR VOMITING Last administered on 09/06/16 12:05; Admin Dose 10 MG; Start 09/05/16 at 03:00 Ibuprofen (Motrin) 600 mg Q6H PRN PO PAIN LEVEL 1-3; Start 09/05/16 at 03:00 Acetaminophen/ Hydrocodone Bitart ([place] (5/325)) 1 tab Q6H PRN PO MODERATE PAIN LEVEL 4-6 Last administered on 09/06/16 08:21; Admin Dose 1 TAB; Start 09/05 at 03:00 Morphine Sulfate (morphine) 2 mg Q4H PRN IV SEVERE PAIN LEVEL 7-10; Start at 03:00 Famotidine (Pepcid Iv) 20 mg Q12 IV Last administered on 09/07/16 08:20; Admin Dose 20 MG; Start 09/05/16 at 09:00 Amlodipine Besylate (Norvasc) 5 mg DAILY PO Last administered on 09/06/16 07:50 ; Admin Dose 5 MG; Start 09/05/16 at 09:00 Lisinopril (Zestril) 20 mg DAILY PO Last administered on 09/06/16 08:21; Admin Dose 20 MG; Start 09/05/16 at 09:00 Spironolactone (Aldactone) 50 mg BID PO Last administered on 09/06/16 07:49; Admin Dose 50 MG; Start 09/05/16 at 09:00 Amitriptyline HCl (Elavil) 25 mg HS PO Last administered on 09/05/16 20:31; Admin Dose 25 MG; Start 09/05/16 at 21:00 Miscellaneous Information 1 ea NOTE XX ; Start 09/05/16 at 03:10 Glucose (Glutose) 15 gm Q15M PRN PO DECREASED GLUCOSE; Start 09/05/16 at 03:10 Glucose (Glutose) 22.5 gm Q15M PRN PO DECREASED GLUCOSE; Start 09/05/16 at 03:10 Dextrose (D50w Syringe) 25 ml Q15M PRN IV DECREASED GLUCOSE; Start 09/05/16 at 03:10 Dextrose (D50w Syringe) 50 ml Q15M PRN IV DECREASED GLUCOSE; Start 09/05/16 at 03:10 Glucagon (Glucagen) 1 mg Q15M PRN IM DECREASED GLUCOSE; Start 09/05/16 at 03:10 Glucose (Glutose) 15 gm Q15M PRN BUCCAL DECREASED GLUCOSE; Start 09/05/16 at 03: 10 Lactulose (Enulose) 10 gm Q8 PO Last administered on 09/06/16 22:17; Admin Dose 10 GM; Start 09/06/16 at 14:00 Insulin Glargine (Lantus) 15 unit DAILY@08 SC Last administered on 09/07/16 08: 29; Admin Dose 15 UNIT; Start 09/07/16 at 08:00 YOLANDA PUENTES M.D. Sep 07, 2016 10:44
[2016-09-07] MEDS ORDERED: POTASSIUM CHLORIDE (SR) 20 MEQ TAB PO STA (10:54)
[2016-09-07] MEDS ORDERED: SOD FERRIC GLUC COMPLX 125 MG in SOD CHLORIDE 0.9% 100 ML IVPB SCH (11:00)
[2016-09-07] MEDS ORDERED: LIDOCAINE 1% (MPF) 5 ML VIAL ONE (11:26)
--- NOTE | 2016-09-07 11:32 | PN ---
Date/Time of Note Date/Time of Note DATE: 09/07/16 TIME: 11:31 Assessment/Plan VTE Prophylaxis VTE Prophylaxis Intervention: SCD's Lines/Catheters IV [facility] Saline Lock Urinary Cath still in place: No Assessment/Plan Chief Complaint/Hosp Course 1. End-stage liver disease. 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 Status post paracentesis with drainage of 4.1 liters of ascitic fluid on 09/05/2016. Continue diuretics. 2. Hyperammonemia. Continue lactulose. 3. Type 2 diabetes mellitus, uncontrolled. Hemoglobin A1c is 9.3. Will add just insulin to obtain optimal blood sugar control. 4. Diabetic neuropathy. Will start the patient on gabapentin. 5. Normocytic normochromic anemia. Iron panel showing iron deficiency. Start the patient on iron supplements. 6. Essential hypertension. Continue antihypertensives. 7. Elevated tumor markers. Oncology consult was obtained. Oncology is recommending Nitrocellulose Operator/Onc consultation. Ascites fluid has been sent for cytology. 8. Fluid, electrolytes and nutrition. Carbohydrate controlled diet. 9. Deep venous thrombosis prophylaxis. Bilateral sequential compression devices. 10. Gastrointestinal prophylaxis. Histamine 2 receptor blockers. PLAN: Continue current medical care. Await cytology from the ascites fluid. Call Nitrocellulose Operator/Onc consultation. Case discussed with Dr. Murray. Case discussed with oncology. Plan of care was explained to the patient's family, who was at the bedside. Problems: Subjective 24 Hr Interval Summary Free Text/Dictation Denies any abdominal pain. Denies any dyspnea. Exam/Review of Systems Vital Signs Vitals Vital Signs Date Time Temp Pulse Resp B/P Pulse Ox O2 Delivery O2 Flow Rate FiO2 09/07/16 08:48 98.4 78 16 120/65 95 09/05/16 02:30 Room Air Intake and Output 09/06/16 09/06/16 09/07/16 15:00 23:00 07:00 Intake Total 220 ml 200 ml Balance 220 ml 200 ml Exam GENERAL: This is an obese female sitting in bed, in no apparent distress. HEENT: Head normocephalic and atraumatic. Eyes: Anicteric sclerae. Conjunctivae clear. ENT: Nasal septum is midline. Oral mucosa is moist. NECK: Supple. No JVD noticed. RESPIRATORY: Bilaterally diminished breath sounds. No adventitious breath sounds heard. No use of accessory muscles of respiration. ABDOMEN: Ascitic, nontender. Bowel sounds positive in all 4 quadrants. GENITOURINARY: Deferred. EXTREMITIES: No cyanosis, no clubbing, no edema. Peripheral pulses are palpable. NEUROLOGIC: The patient is awake, alert and oriented. Cranial nerves are grossly intact. Results Result Diagram: 09/07/16 0505 09/07/16 0505 Results 24 hrs Laboratory Tests Test 09/06/16 12:02 09/06/16 17:14 09/06/16 20:48 09/07/16 02:17 Bedside Glucose 223 H 178 233 H 240 H Test 09/07/16 05:05 09/07/16 08:18 White Blood Count 4.7 L Red Blood Count 3.65 L Hemoglobin 10.9 L Hematocrit 33.3 L Mean Corpuscular Volume 91.2 Mean Corpuscular Hemoglobin 29.9 Mean Corpuscular Hemoglobin Concent 32.7 Red Cell Distribution Width 14.1 Platelet Count 109 L Mean Platelet Volume 12.1 H Neutrophils % 54.5 Lymphocytes % 32.5 Monocytes % 9.7 Eosinophils % 2.2 Basophils % 0.9 Nucleated Red Blood Cells % 0.0 Neutrophils # 2.5 Lymphocytes # 1.5 Monocytes # 0.5 Eosinophils # 0.1 Basophils # 0.0 Nucleated Red Blood Cells # 0.0 Sodium Level 138 Potassium Level 3.3 L Chloride Level 105 Carbon Dioxide Level 25 Anion Gap 11 Blood Urea Nitrogen 13 Creatinine 0.51 Glucose Level 239 H Calcium Level 7.8 L Phosphorus Level 3.7 Magnesium Level 1.8 Iron Level 18 L Total Iron Binding Capacity 291 Percent Iron Saturation 6 L Ferritin 16.3 Ammonia 24 # Bedside Glucose 208 Medications Medications Current Medications Metoclopramide HCl (Reglan) 10 mg Q6H PRN IV NAUSEA AND/OR VOMITING Last administered on 09/06/16 12:05; Admin Dose 10 MG; Start 09/05/16 at 03:00 Ibuprofen (Motrin) 600 mg Q6H PRN PO PAIN LEVEL 1-3; Start 09/05/16 at 03:00 Acetaminophen/ Hydrocodone Bitart ([place] (5/325)) 1 tab Q6H PRN PO MODERATE PAIN LEVEL 4-6 Last administered on 09/06/16 08:21; Admin Dose 1 TAB; Start 09/05 at 03:00 Morphine Sulfate (morphine) 2 mg Q4H PRN IV SEVERE PAIN LEVEL 7-10; Start at 03:00 Famotidine (Pepcid Iv) 20 mg Q12 IV Last administered on 09/07/16 08:20; Admin Dose 20 MG; Start 09/05/16 at 09:00 Amlodipine Besylate (Norvasc) 5 mg DAILY PO Last administered on 09/06/16 07:50 ; Admin Dose 5 MG; Start 09/05/16 at 09:00 Lisinopril (Zestril) 20 mg DAILY PO Last administered on 09/06/16 08:21; Admin Dose 20 MG; Start 09/05/16 at 09:00 Spironolactone (Aldactone) 50 mg BID PO Last administered on 09/06/16 07:49; Admin Dose 50 MG; Start 09/05/16 at 09:00 Amitriptyline HCl (Elavil) 25 mg HS PO Last administered on 09/05/16 20:31; Admin Dose 25 MG; Start 09/05/16 at 21:00 Miscellaneous Information 1 ea NOTE XX ; Start 09/05/16 at 03:10 Glucose (Glutose) 15 gm Q15M PRN PO DECREASED GLUCOSE; Start 09/05/16 at 03:10 Glucose (Glutose) 22.5 gm Q15M PRN PO DECREASED GLUCOSE; Start 09/05/16 at 03:10 Dextrose (D50w Syringe) 25 ml Q15M PRN IV DECREASED GLUCOSE; Start 09/05/16 at 03:10 Dextrose (D50w Syringe) 50 ml Q15M PRN IV DECREASED GLUCOSE; Start 09/05/16 at 03:10 Glucagon (Glucagen) 1 mg Q15M PRN IM DECREASED GLUCOSE; Start 09/05/16 at 03:10 Glucose (Glutose) 15 gm Q15M PRN BUCCAL DECREASED GLUCOSE; Start 09/05/16 at 03: 10 Lactulose (Enulose) 10 gm Q8 PO Last administered on 09/06/16 22:17; Admin Dose 10 GM; Start 09/06/16 at 14:00 Insulin Glargine 15 unit 15 unit DAILY@08 SC Last administered on 09/07/16 08: 29; Admin Dose 15 UNIT; Start 09/07/16 at 08:00 Ferric Sodium Gluconate Complex/ Sodium Chloride (Ferrlecit/NS) 110 ml @ 110 mls/hr Q24H IVPB ; Start 09/07/16 at 12:00; Stop 09/11/16 at 12:59 Gabapentin (Neurontin) 300 mg TID PO ; Start 09/07/16 at 13:00; Status UNV ALIYAH RYAN DIRECTOR [employer] Sep 07, 2016 11:32
[2016-09-07 13:34] LABS: FLUID TYPE ASCITES FLUID
[2016-09-07 13:35] LABS: FLUID AMYLASE < 30 U/L; FLUID GLUCOSE 203 mg/dl; FLUID TYPE ASCITES FLUID; FLUID TYPE ASCITIES FLUID
[2016-09-07] MEDS: GABAPENTIN 300 MG CAP PO SCH ×2 (13:48→21:41)
[2016-09-07] MEDS: LISINOPRIL 20 MG TAB PO SCH (13:49)
[2016-09-07] MEDS: AMLODIPINE 5 MG TAB PO SCH (13:49)
[2016-09-07] MEDS: SOD FERRIC GLUC COMPLX 125 MG in SOD CHLORIDE 0.9% 100 ML IVPB SCH (14:01)
[2016-09-07 14:15] LABS: FLUID APPEARANCE HAZY; FLUID TYPE PARACENTHESIS
[2016-09-07 14:16] LABS: FLUID RBC EST 0; FLUID WBC'S 250 /cmm
[2016-09-07 14:18] LABS: FLUID LYMPHOCYTES 86 %; FLUID MONOCYTES 3 %; FLUID NEUTROPHILS 7 %
--- NOTE | 2016-09-07 15:27 | RADRPT ---
PROCEDURE: Ultrasound guided paracentesis. CLINICAL INDICATION: Ascites and shortness of breath. COMPARISON: 09/05/2016 TECHNIQUE: The risks, benefits, and alternatives were explained to the patient and/or the patient's family, inc luding but not limited to bleeding, infection, pain, visceral or vascular damage, shock, and . The patient and/or the patient's family understood the risks and the alternatives and wished to pro ceed with the procedure. Informed written consent was obtained. A procedural time out was performed . The patient's name, date of , and procedure to be performed were verified. Utilizing ultrasound guidance, optimal location for entry to the peritoneal cavity was ascertained. The overlying skin was prepped and draped in the usual sterile fashion. Approximately 10 ml of 1% Xylocaine was injected locally for pain control. Using ultrasound guidance, an 8 Greek catheter wa s introduced into the peritoneal cavity in the right lower quadrant without difficulty. FINDINGS: Initial images demonstrate ascites. Approximately 0.825 liters of serous fluid was aspirated and se nt for laboratory analysis. The patient tolerated the procedure well without complication. IMPRESSION: 1. Successful ultrasound-guided paracentesis. RPTAT: QQ .Dudley Lanza MD, Date Time Electronically viewed and signed by .Dudley Lanza MD, on 09/07/2016 15:27 .R/
[2016-09-07 19:05] VITALS: BP 98/54
[2016-09-07] MEDS: AMITRIPTYLINE 25 MG TAB PO SCH (21:00)
--- NOTE | 2016-09-07 22:57 | PN ---
Date/Time of Note Date/Time of Note DATE: 09/07/16 TIME: 22:52 Assessment/Plan VTE Prophylaxis VTE Prophylaxis Intervention: SCD's Lines/Catheters [facility] Saline Lock Urinary Cath still in place: No Assessment/Plan Chief Complaint/Hosp Course ascites Problems: Assessment/Plan possible laparoscopy Subjective 24 Hr Interval Summary Free Text/Dictation 61 y/o female with ascites and hx of "porcelin liver" and anatomy precluding cholecystectomy all due to uncontrolled type 2 DM. Issue now is worse ascites and some nausea. Discussed with Dr. Robles and will further review chart. Examined patient in detail. Will complete consultation note rosalio Thank you, Julien Wall M.D. Exam/Review of Systems Vital Signs Vitals Vital Signs Date Time Temp Pulse Resp B/P Pulse Ox O2 Delivery O2 Flow Rate FiO2 09/07/16 19:05 98/54 09/07/16 08:48 98.4 78 16 95 09/05/16 02:30 Room Air Intake and Output 09/06/16 09/06/16 09/07/16 15:00 23:00 07:00 Intake Total 220 ml 200 ml Balance 220 ml 200 ml Results Result Diagram: 09/07/16 0505 09/07/16 0505 Results 24 hrs Laboratory Tests Test 09/07/16 02:17 09/07/16 05:05 09/07/16 08:18 09/07/16 11:50 Bedside Glucose 240 H 208 White Blood Count 4.7 L Red Blood Count 3.65 L Hemoglobin 10.9 L Hematocrit 33.3 L Mean Corpuscular Volume 91.2 Mean Corpuscular Hemoglobin 29.9 Mean Corpuscular Hemoglobin Concent 32.7 Red Cell Distribution Width 14.1 Platelet Count 109 L Mean Platelet Volume 12.1 H Neutrophils % 54.5 Lymphocytes % 32.5 Monocytes % 9.7 Eosinophils % 2.2 Basophils % 0.9 Nucleated Red Blood Cells % 0.0 Neutrophils # 2.5 Lymphocytes # 1.5 Monocytes # 0.5 Eosinophils # 0.1 Basophils # 0.0 Nucleated Red Blood Cells # 0.0 Sodium Level 138 Potassium Level 3.3 L Chloride Level 105 Carbon Dioxide Level 25 Anion Gap 11 Blood Urea Nitrogen 13 Creatinine 0.51 Glucose Level 239 H Calcium Level 7.8 L Phosphorus Level 3.7 Magnesium Level 1.8 Iron Level 18 L Total Iron Binding Capacity 291 Percent Iron Saturation 6 L Ferritin 16.3 Ammonia 24 # CA 19-9 Antigen 53.0 H Body Fluid Type ASCITIES FLUID Body Fluid Volume 650.0 Body Fluid Color YELLOW Body Fluid Appearance HAZY Body Fluid WBC 250 Body Fluid RBC 0 Body Fluid Neutrophils % 7 Body Fluid Lymphocytes (%) 86 Body Fluid Monocytes % 3 Body Fluid Other Cells (%) 4 Body Fluid Glucose 203 Body Fluid Lactate Dehydrogenase Body Fluid Amylase < 30 Test 09/07/16 13:28 09/07/16 17:19 09/07/16 21:38 Bedside Glucose 158 164 245 H Medications Medications Current Medications Metoclopramide HCl (Reglan) 10 mg Q6H PRN IV NAUSEA AND/OR VOMITING Last administered on 09/06/16 12:05; Admin Dose 10 MG; Start 09/05/16 at 03:00 Ibuprofen (Motrin) 600 mg Q6H PRN PO PAIN LEVEL 1-3; Start 09/05/16 at 03:00 Acetaminophen/ Hydrocodone Bitart ([place] (5/325)) 1 tab Q6H PRN PO MODERATE PAIN LEVEL 4-6 Last administered on 09/06/16 08:21; Admin Dose 1 TAB; Start 09/05 at 03:00 Morphine Sulfate (morphine) 2 mg Q4H PRN IV SEVERE PAIN LEVEL 7-10; Start at 03:00 Famotidine (Pepcid Iv) 20 mg Q12 IV Last administered on 09/07/16 21:40; Admin Dose 20 MG; Start 09/05/16 at 09:00 Amlodipine Besylate (Norvasc) 5 mg DAILY PO Last administered on 09/07/16 13:49 ; Admin Dose 5 MG; Start 09/05/16 at 09:00 Lisinopril (Zestril) 20 mg DAILY PO Last administered on 09/07/16 13:49; Admin Dose 20 MG; Start 09/05/16 at 09:00 Spironolactone (Aldactone) 50 mg BID PO Last administered on 09/07/16 13:49; Admin Dose 50 MG; Start 09/05/16 at 09:00 Amitriptyline HCl (Elavil) 25 mg HS PO Last administered on 09/05/16 20:31; Admin Dose 25 MG; Start 09/05/16 at 21:00 Miscellaneous Information 1 ea NOTE XX ; Start 09/05/16 at 03:10 Glucose (Glutose) 15 gm Q15M PRN PO DECREASED GLUCOSE; Start 09/05/16 at 03:10 Glucose (Glutose) 22.5 gm Q15M PRN PO DECREASED GLUCOSE; Start 09/05/16 at 03:10 Dextrose (D50w Syringe) 25 ml Q15M PRN IV DECREASED GLUCOSE; Start 09/05/16 at 03:10 Dextrose (D50w Syringe) 50 ml Q15M PRN IV DECREASED GLUCOSE; Start 09/05/16 at 03:10 Glucagon (Glucagen) 1 mg Q15M PRN IM DECREASED GLUCOSE; Start 09/05/16 at 03:10 Glucose (Glutose) 15 gm Q15M PRN BUCCAL DECREASED GLUCOSE; Start 09/05/16 at 03: 10 Lactulose (Enulose) 10 gm Q8 PO Last administered on 09/07/16 21:41; Admin Dose 10 GM; Start 09/06/16 at 14:00 Insulin Glargine 15 unit 15 unit DAILY@08 SC Last administered on 09/07/16 08: 29; Admin Dose 15 UNIT; Start 09/07/16 at 08:00 Ferric Sodium Gluconate Complex/ Sodium Chloride (Ferrlecit/NS) 110 ml @ 110 mls/hr Q24H IVPB Last administered on 09/07/16 14:01; Admin Dose 110 MLS/HR; Start 09/07/16 at 12:00; Stop 09/11/16 at 12:59 Gabapentin (Neurontin) 300 mg TID PO Last administered on 09/07/16 21:41; Admin Dose 300 MG; Start 09/07/16 at 13:00 JULIEN WALL MD Sep 07, 2016 22:57
[2016-09-07] MEDS: HYDROCODONE/APAP (5/325) TAB PO PRN (23:37)
[2016-09-08] VITALS (12 sets, daily range): BP systolic 60–166; BP diastolic 33–70; PULSE 93–100; RESP 17–20
[2016-09-08 05:33] LABS: ADD SCAN DIFF NO; BASOPHILS % 0.3 % (0.0-2.0); EOSINOPHILS % 0.1 % (0.0-7.0); HEMATOCRIT 33.8 % (37.0-47.0); HEMOGLOBIN 11.1 g/dl (12.0-16.0); LYMPHOCYTES # 1.4 10^3/ul (0.8-2.9); LYMPHOCYTES % 19.8 % (15.0-51.0); MEAN CORPUSCULAR HEMOGLOBIN 29.8 pg (29.0-33.0); MEAN CORPUSCULAR HGB CONC 32.8 g/dl (32.0-37.0); MEAN CORPUSCULAR VOLUME 90.6 fl (82.0-101.0); MEAN PLATELET VOLUME 12.8 fl (7.4-10.4); MONOCYTE # 0.5 10^3/ul (0.3-0.9); MONOCYTES % 6.6 % (0.0-11.0); NEUTROPHILS % 72.8 % (39.0-77.0); PLATELET COUNT 120 10^3/UL (140-415); RED BLOOD COUNT 3.73 10^6/ul (4.20-5.40); RED CELL DISTRIBUTION WIDTH 14.4 % (11.5-14.5); WHITE BLOOD COUNT 6.8 10^3/ul (4.8-10.8)
[2016-09-08 05:44] LABS: MAGNESIUM 1.7 mg/dl (1.7-2.5); PHOSPHORUS 3.3 mg/dl (2.5-4.9)
[2016-09-08 05:48] LABS: ALBUMIN 2.2 g/dl (3.3-4.9); ALBUMIN/GLOBULIN RATIO 0.68; BILIRUBIN,INDIRECT 0.5 mg/dl (0-1.1); BILIRUBIN,TOTAL 0.5 mg/dl (0.2-1.3); CALCIUM 7.4 mg/dl (8.4-10.2); CREATININE 0.82 mg/dl (0.44-1.00); TOTAL PROTEIN 5.4 g/dl (6.1-8.1)
[2016-09-08] MEDS: FUROSEMIDE 20 MG TAB PO SCH ×2 (06:00→17:29)
[2016-09-08] MEDS: LACTULOSE 30ML CUP PO SCH ×3 (06:00→21:29)
[2016-09-08] MEDS ORDERED: ALBUMIN HUMAN 25% 100 ML IV ONE (07:00)
--- NOTE | 2016-09-08 08:16 | CONS ---
Date/Time of Note Date/Time of Note DATE: 09/08/16 TIME: 08:14 Assessment/Plan Assessment/Plan Chief Complaint/Hosp Course 61 female with [place] cirrhosis and ascites in the setting of a markedly elevated CA 125. 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 We still need to consider cancer of pancreatic or hepatobiliary origin given her history of porcelin gallbladder but the significantly elevated CA 125 makes this less likely as CA 19-9 (53) and CEA (6.8) only mildly elevated. # Ascites, concern for malignancy -will f/u cytology from paracentesis today -I have consulted Dr. Alcocer from [employer] [facility] to see the patient given my concern for [employer] SUPER[employer]OR primary malignancy. Pt may benefit from an exploratory laparoscopy # Iron Deficiency Anemia - pt has Hg of 10 with iron sat 6% -Ferrlecit started 09/07/16 Problems: Consultation Date/Type/Reason Admit Date/Time Sep 05, 2016 at 00:09 Initial Consult Date 09/07/16 Type of Consultation: oncology Referring Provider: ALIYAH RYAN [employer] ERECTOR 24 HR Interval Summary Free Text/Dictation The patient had a fever this morning and symptomatic hypotension. Cultures were drawn, NS and albumin given, zosyn started and patient being transferred to tele. Patient is more alert now. Exam/Review of Systems Vital Signs Vitals Vital Signs Date Time Temp Pulse Resp B/P Pulse Ox O2 Delivery O2 Flow Rate FiO2 09/08/16 08:01 91/50 09/08/16 07:58 101.1 95 18 93 09/08/16 06:39 Room Air Intake and Output 09/07/16 09/07/16 09/08/16 15:00 23:00 07:00 Intake Total 110 ml 1260 ml 240 ml Balance 110 ml 1260 ml 240 ml Exam Constitutional: obese Head: normocephalic ENMT: nl external ears & nose Neck: supple Respiratory: clear to auscultation, normal air movement Cardiovascular: regular rate and rhythm Gastrointestinal: ascites, soft Musculoskeletal: nl extremities to inspection, nl gait and stance Results Result Diagram: 09/08/16 0458 09/08/16 0458 Results 24 hrs Laboratory Tests Test 09/07/16 08:18 09/07/16 11:50 09/07/16 13:28 09/07/16 17:19 Bedside Glucose 208 158 164 Body Fluid Type ASCITIES FLUID Body Fluid Volume 650.0 Body Fluid Color YELLOW Body Fluid Appearance HAZY Body Fluid WBC 250 Body Fluid RBC 0 Body Fluid Neutrophils % 7 Body Fluid Lymphocytes (%) 86 Body Fluid Monocytes % 3 Body Fluid Other Cells (%) 4 Body Fluid Glucose 203 Body Fluid Lactate Dehydrogenase Body Fluid Amylase < 30 Test 09/07/16 21:38 09/08/16 01:57 09/08/16 04:58 09/08/16 07:47 Bedside Glucose 245 H 210 246 H White Blood Count 6.8 # Red Blood Count 3.73 L Hemoglobin 11.1 L Hematocrit 33.8 L Mean Corpuscular Volume 90.6 Mean Corpuscular Hemoglobin 29.8 Mean Corpuscular Hemoglobin Concent 32.8 Red Cell Distribution Width 14.4 Platelet Count 120 L Mean Platelet Volume 12.8 H Neutrophils % 72.8 Lymphocytes % 19.8 Monocytes % 6.6 Eosinophils % 0.1 Basophils % 0.3 Nucleated Red Blood Cells % 0.0 Neutrophils # 5.0 Lymphocytes # 1.4 Monocytes # 0.5 Eosinophils # 0.0 Basophils # 0.0 Nucleated Red Blood Cells # 0.0 Sodium Level 135 Potassium Level 4.0 Chloride Level 108 Carbon Dioxide Level 24 Anion Gap 7 L Blood Urea Nitrogen 18 Creatinine 0.82 Glucose Level 216 Calcium Level 7.4 L Phosphorus Level 3.3 Magnesium Level 1.7 Total Bilirubin 0.5 Direct Bilirubin 0.00 Indirect Bilirubin 0.5 Aspartate Amino Transf (AST/SGOT) 71 H Alanine Aminotransferase (ALT/SGPT) 43 Alkaline Phosphatase 232 H Ammonia 42 #H Total Protein 5.4 L Albumin 2.2 L Globulin 3.20 Albumin/Globulin Ratio 0.68 Test 09/08/16 07:59 Bedside Glucose 245 H Medications Medications Current Medications Metoclopramide HCl (Reglan) 10 mg Q6H PRN IV NAUSEA AND/OR VOMITING Last administered on 09/06/16 12:05; Admin Dose 10 MG; Start 09/05/16 at 03:00 Ibuprofen (Motrin) 600 mg Q6H PRN PO PAIN LEVEL 1-3; Start 09/05/16 at 03:00 Acetaminophen/ Hydrocodone Bitart ([place] (5/325)) 1 tab Q6H PRN PO MODERATE PAIN LEVEL 4-6 Last administered on 09/07/16 23:37; Admin Dose 1 TAB; Start 09/05 at 03:00 Morphine Sulfate (morphine) 2 mg Q4H PRN IV SEVERE PAIN LEVEL 7-10; Start at 03:00 Famotidine (Pepcid Iv) 20 mg Q12 IV Last administered on 09/07/16 21:40; Admin Dose 20 MG; Start 09/05/16 at 09:00 Amlodipine Besylate (Norvasc) 5 mg DAILY PO Last administered on 09/07/16 13:49 ; Admin Dose 5 MG; Start 09/05/16 at 09:00 Lisinopril (Zestril) 20 mg DAILY PO Last administered on 09/07/16 13:49; Admin Dose 20 MG; Start 09/05/16 at 09:00 Spironolactone (Aldactone) 50 mg BID PO Last administered on 09/07/16 13:49; Admin Dose 50 MG; Start 09/05/16 at 09:00 Amitriptyline HCl (Elavil) 25 mg HS PO Last administered on 09/05/16 20:31; Admin Dose 25 MG; Start 09/05/16 at 21:00 Miscellaneous Information 1 ea NOTE XX ; Start 09/05/16 at 03:10 Glucose (Glutose) 15 gm Q15M PRN PO DECREASED GLUCOSE; Start 09/05/16 at 03:10 Glucose (Glutose) 22.5 gm Q15M PRN PO DECREASED GLUCOSE; Start 09/05/16 at 03:10 Dextrose (D50w Syringe) 25 ml Q15M PRN IV DECREASED GLUCOSE; Start 09/05/16 at 03:10 Dextrose (D50w Syringe) 50 ml Q15M PRN IV DECREASED GLUCOSE; Start 09/05/16 at 03:10 Glucagon (Glucagen) 1 mg Q15M PRN IM DECREASED GLUCOSE; Start 09/05/16 at 03:10 Glucose (Glutose) 15 gm Q15M PRN BUCCAL DECREASED GLUCOSE; Start 09/05/16 at 03: 10 Lactulose (Enulose) 10 gm Q8 PO Last administered on 09/07/16 21:41; Admin Dose 10 GM; Start 09/06/16 at 14:00 Insulin Glargine 15 unit 15 unit DAILY@08 SC Last administered on 09/07/16 08: 29; Admin Dose 15 UNIT; Start 09/07/16 at 08:00 Ferric Sodium Gluconate Complex/ Sodium Chloride (Ferrlecit/NS) 110 ml @ 110 mls/hr Q24H IVPB Last administered on 09/07/16 14:01; Admin Dose 110 MLS/HR; Start 09/07/16 at 12:00; Stop 09/11/16 at 12:59 Gabapentin (Neurontin) 300 mg TID PO Last administered on 09/07/16 21:41; Admin Dose 300 MG; Start 09/07/16 at 13:00 KENNEDI LEGGETT MD Sep 08, 2016 08:16
[2016-09-08] MEDS: Insulin NOVOLOG SS MODERATE Algorithm (SS with meals and bedtime) SC SCH ×4 (08:24→21:00)
[2016-09-08] MEDS: INSULIN ASPART [NOVOLOG] 3 ML PEN SC SCH ×3 (08:25→17:33)
[2016-09-08] MEDS: INSULIN GLARGINE [LANtus] 3 ML PEN SC SCH (08:25)
[2016-09-08] MEDS: GABAPENTIN 300 MG CAP PO SCH (09:00)
[2016-09-08] MEDS: LISINOPRIL 20 MG TAB PO SCH (09:00)
[2016-09-08] MEDS: AMLODIPINE 5 MG TAB PO SCH (09:00)
[2016-09-08] MEDS: SPIRONOLACTONE 50 MG TAB PO SCH ×2 (09:00→21:30)
[2016-09-08] MEDS ORDERED: SOD CHLORIDE 0.9% 500 ML IV ONE (09:00)
[2016-09-08] MEDS: FAMOTIDINE 20 MG INJ IV SCH ×2 (09:58→21:30)
[2016-09-08] MEDS ORDERED: IBUPROFEN 200 MG TAB PO ONE (10:00)
[2016-09-08] MEDS ORDERED: PIPER-TAZO 3.375 GM IV (PMX) 100 ML IVPB SCH (10:00)
--- NOTE | 2016-09-08 12:09 | PN ---
Date/Time of Note Date/Time of Note DATE: 09/08/16 TIME: 12:03 Assessment/Plan VTE Prophylaxis VTE Prophylaxis Intervention: SCD's Lines/Catheters IV [facility]from [facility] [place] Urinary Cath still in place: No Assessment/Plan Chief Complaint/Hosp Course 1. End-stage liver disease. 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 Status post paracentesis with drainage of 4.1 liters of ascitic fluid on 09/05/2016. Continue diuretics. 2. Hyperammonemia. Continue lactulose. 3. Type 2 diabetes mellitus, uncontrolled. Hemoglobin A1c is 9.3. Will add just insulin to obtain optimal blood sugar control. 4. Sepsis. BP improved with fluid resuscitation. Start empiric antibiotics for any possible underlying SBP. Obtain lactic acid levels. 5. Normocytic normochromic anemia. Iron panel showing iron deficiency. Continue iron supplements. 6. Essential hypertension. Currently hypotensive. Hold antihypertensives. 7. Elevated tumor markers. Oncology consult and Director Music/Onc consultation obtained. Ascites fluid has been sent for cytology. 8. Fluid, electrolytes and nutrition. Carbohydrate controlled diet. 9. Deep venous thrombosis prophylaxis. Bilateral sequential compression devices. 10. Gastrointestinal prophylaxis. Histamine 2 receptor blockers. PLAN: Continue current medical care. Await cytology from the ascites fluid. Transfer the patient to telemetry floor. Obtain a 12-lead EKG, stat chest x-ray , troponins, and lactic acid levels. If the patient remains hypotensive, the patient may need to be transferred to intensive care unit for IV pressors. Case discussed with Dr. Murray. Case discussed with oncology. Plan of care was explained to the patient's family, who was at the bedside. Problems: Subjective 24 Hr Interval Summary Free Text/Dictation The patient has been hypotensive since last night. Minimal improvement in blood pressure with fluid resuscitation. Patient complains of dizziness and generalized weakness. Was also complaining of abdominal pain earlier. Denies any chest pain or dyspnea. Exam/Review of Systems Vital Signs Vitals Vital Signs Date Time Temp Pulse Resp B/P Pulse Ox O2 Delivery O2 Flow Rate FiO2 09/08/16 10:13 99.1 95/50 09/08/16 07:58 95 18 93 09/08/16 06:39 Room Air Intake and Output 09/07/16 09/07/16 09/08/16 15:00 23:00 07:00 Intake Total 110 ml 1260 ml 240 ml Balance 110 ml 1260 ml 240 ml Exam GENERAL: This is an obese female lying in bed, in no apparent distress. HEENT: Head normocephalic and atraumatic. Eyes: Anicteric sclerae. Conjunctivae clear. ENT: Nasal septum is midline. Oral mucosa is moist. NECK: Supple. No JVD noticed. RESPIRATORY: Bilaterally diminished breath sounds. No adventitious breath sounds heard. No use of accessory muscles of respiration. ABDOMEN: Ascitic, nontender. Bowel sounds positive in all 4 quadrants. GENITOURINARY: Deferred. EXTREMITIES: No cyanosis, no clubbing, no edema. Peripheral pulses are palpable. NEUROLOGIC: The patient is awake, alert and oriented. Cranial nerves are grossly intact. Results Result Diagram: 09/08/16 0458 09/08/16 0458 Results 24 hrs Laboratory Tests Test 09/07/16 13:28 09/07/16 17:19 09/07/16 21:38 09/08/16 01:57 Bedside Glucose 158 164 245 H 210 Test 09/08/16 04:58 09/08/16 07:47 09/08/16 07:59 09/08/16 11:48 White Blood Count 6.8 # Red Blood Count 3.73 L Hemoglobin 11.1 L Hematocrit 33.8 L Mean Corpuscular Volume 90.6 Mean Corpuscular Hemoglobin 29.8 Mean Corpuscular Hemoglobin Concent 32.8 Red Cell Distribution Width 14.4 Platelet Count 120 L Mean Platelet Volume 12.8 H Neutrophils % 72.8 Lymphocytes % 19.8 Monocytes % 6.6 Eosinophils % 0.1 Basophils % 0.3 Nucleated Red Blood Cells % 0.0 Neutrophils # 5.0 Lymphocytes # 1.4 Monocytes # 0.5 Eosinophils # 0.0 Basophils # 0.0 Nucleated Red Blood Cells # 0.0 Sodium Level 135 Potassium Level 4.0 Chloride Level 108 Carbon Dioxide Level 24 Anion Gap 7 L Blood Urea Nitrogen 18 Creatinine 0.82 Glucose Level 216 Calcium Level 7.4 L Phosphorus Level 3.3 Magnesium Level 1.7 Total Bilirubin 0.5 Direct Bilirubin 0.00 Indirect Bilirubin 0.5 Aspartate Amino Transf (AST/SGOT) 71 H Alanine Aminotransferase (ALT/SGPT) 43 Alkaline Phosphatase 232 H Ammonia 42 #H Total Protein 5.4 L Albumin 2.2 L Globulin 3.20 Albumin/Globulin Ratio 0.68 Bedside Glucose 246 H 245 H 243 H Medications Medications Current Medications Metoclopramide HCl (Reglan) 10 mg Q6H PRN IV NAUSEA AND/OR VOMITING Last administered on 09/06/16 12:05; Admin Dose 10 MG; Start 09/05/16 at 03:00 Ibuprofen (Motrin) 600 mg Q6H PRN PO PAIN LEVEL 1-3; Start 09/05/16 at 03:00 Acetaminophen/ Hydrocodone Bitart ([place] (5/325)) 1 tab Q6H PRN PO MODERATE PAIN LEVEL 4-6 Last administered on 09/07/16 23:37; Admin Dose 1 TAB; Start 09/05 at 03:00 Morphine Sulfate (morphine) 2 mg Q4H PRN IV SEVERE PAIN LEVEL 7-10; Start at 03:00 Famotidine (Pepcid Iv) 20 mg Q12 IV Last administered on 09/08/16 09:58; Admin Dose 20 MG; Start 09/05/16 at 09:00 Amlodipine Besylate (Norvasc) 5 mg DAILY PO Last administered on 09/07/16 13:49 ; Admin Dose 5 MG; Start 09/05/16 at 09:00 Lisinopril (Zestril) 20 mg DAILY PO Last administered on 09/07/16 13:49; Admin Dose 20 MG; Start 09/05/16 at 09:00 Spironolactone (Aldactone) 50 mg BID PO Last administered on 09/07/16 13:49; Admin Dose 50 MG; Start 09/05/16 at 09:00 Amitriptyline HCl (Elavil) 25 mg HS PO Last administered on 09/05/16 20:31; Admin Dose 25 MG; Start 09/05/16 at 21:00 Miscellaneous Information 1 ea NOTE XX ; Start 09/05/16 at 03:10 Glucose (Glutose) 15 gm Q15M PRN PO DECREASED GLUCOSE; Start 09/05/16 at 03:10 Glucose (Glutose) 22.5 gm Q15M PRN PO DECREASED GLUCOSE; Start 09/05/16 at 03:10 Dextrose (D50w Syringe) 25 ml Q15M PRN IV DECREASED GLUCOSE; Start 09/05/16 at 03:10 Dextrose (D50w Syringe) 50 ml Q15M PRN IV DECREASED GLUCOSE; Start 09/05/16 at 03:10 Glucagon (Glucagen) 1 mg Q15M PRN IM DECREASED GLUCOSE; Start 09/05/16 at 03:10 Glucose (Glutose) 15 gm Q15M PRN BUCCAL DECREASED GLUCOSE; Start 09/05/16 at 03: 10 Lactulose (Enulose) 10 gm Q8 PO Last administered on 09/07/16 21:41; Admin Dose 10 GM; Start 09/06/16 at 14:00 Insulin Glargine 15 unit 15 unit DAILY@08 SC Last administered on 09/08/16 08: 25; Admin Dose 15 UNIT; Start 09/07/16 at 08:00 Ferric Sodium Gluconate Complex 125 mg/Sodium Chloride 110 ml @ 110 mls/hr Q24H IVPB Last administered on 09/07/16 14:01; Admin Dose 110 MLS/HR; Start 09/07/16 at 12:00; Stop 09/11/16 at 12:59 Piperacillin Sod/ Tazobactam Sod (Zosyn 3.375gm/ 100 ml (Pmx)) 100 ml @ 200 mls /hr Q8 IVPB ; Start 09/08/16 at 12:00 ALIYAH RYAN NP Sep 08, 2016 12:09 ALIYAH RYAN NP Sep 08, 2016 12:09
[2016-09-08] MEDS: PIPER-TAZO 3.375 GM IV (PMX) 100 ML IVPB SCH ×2 (12:15→21:32)
--- NOTE | 2016-09-08 12:24 | RADRPT ---
PROCEDURE: XR Chest. CLINICAL INDICATION: Shortness of breath. TECHNIQUE: Single frontal view. COMPARISON: 03/09/2015. FINDINGS: There is mild atelectasis at the lung bases. The lungs are otherwise clear. The heart size is normal. There is calcification in the aorta consistent with atherosclerosis. There is no pleural effusion. There is no pneumothorax. IMPRESSION: 1. Mild atelectasis at the lung bases. 2. Atherosclerosis. 3. Otherwise normal chest x-ray. RPTAT: QQ .Dudley Lanza MD, MD Date Time Electronically viewed and signed by .Dudley Lanza MD, MD on 09/08/2016 12:23 .R/
[2016-09-08 12:42] LABS: CREATINE KINASE 24 IU/L (23-200)
[2016-09-08 12:54] LABS: TROPONIN-I 0.026 ng/ml (0.00-0.12)
[2016-09-08 12:58] LABS: CK-MB < 0.22 ng/ml (0.0-2.4)
--- NOTE | 2016-09-08 13:12 | CONS ---
Date/Time of Note Date/Time of Note DATE: 09/08/16 TIME: 13:11 Assessment/Plan Assessment/Plan Chief Complaint/Hosp Course ascites Problems: Consultation Date/Type/Reason Admit Date/Time Sep 05, 2016 at 00:09 Hx of Present Illness Julien Wall M.D. 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 Recently has increasing severe ascites Medical history/ROS: dm,htn, reviewed. 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 Medications: reviewed gardisil Allergies: No active allergies recorded Family Hx: non-contributary Social HX: non-contributary ROS: as above Colonoscopy Physical Examination General: Alert. HEENT: Pupils are equal, round, reactive to light and accommodation. Neck: Supple with no masses of lymphadenopathy. Breast: Deferred due to recent examination and responsibility of primary care physician. Chest: Clear to auscultation Heart: Normal rhythm with no murmur. Abdomen: tender, massive ascites nor organomeglay. Pelvic exam: no masses or cul-de-sac nodularity noted Rectal: confirmatory with pelvic exam. Neurological: Grossly intact Assessment: assites with known liver failure but concern about coexant primary other Plan: concur can get CT and markers and eval for pacreatic and if IM/Med Onc concur I can complete laparoscopy. Julien Wall M.D. Constitutional: no complaints Eyes: no complaints ENT: no complaints Respiratory: no complaints Cardiovascular: no complaints Gastrointestinal: decreased appetite, nausea, other (increased abdominal distention) Genitourinary: no complaints Musculoskeletal: no complaints Social History Alcohol Use: none Smoking Status: Never smoker Drug Use: none Exam/Review of Systems Vital Signs Vitals Vital Signs Date Time Temp Pulse Resp B/P Pulse Ox O2 Delivery O2 Flow Rate FiO2 09/08/16 10:13 99.1 95/50 09/08/16 07:58 95 18 93 09/08/16 06:39 Room Air Intake and Output 09/07/16 09/07/16 09/08/16 15:00 23:00 07:00 Intake Total 110 ml 1260 ml 240 ml Balance 110 ml 1260 ml 240 ml Results Result Diagram: 09/08/16 0458 09/08/16 0458 Results 24 hrs Laboratory Tests Test 09/07/16 13:28 09/07/16 17:19 09/07/16 21:38 09/08/16 01:57 Bedside Glucose 158 164 245 H 210 Test 09/08/16 04:58 09/08/16 07:47 09/08/16 07:59 09/08/16 11:48 White Blood Count 6.8 # Red Blood Count 3.73 L Hemoglobin 11.1 L Hematocrit 33.8 L Mean Corpuscular Volume 90.6 Mean Corpuscular Hemoglobin 29.8 Mean Corpuscular Hemoglobin Concent 32.8 Red Cell Distribution Width 14.4 Platelet Count 120 L Mean Platelet Volume 12.8 H Neutrophils % 72.8 Lymphocytes % 19.8 Monocytes % 6.6 Eosinophils % 0.1 Basophils % 0.3 Nucleated Red Blood Cells % 0.0 Neutrophils # 5.0 Lymphocytes # 1.4 Monocytes # 0.5 Eosinophils # 0.0 Basophils # 0.0 Nucleated Red Blood Cells # 0.0 Sodium Level 135 Potassium Level 4.0 Chloride Level 108 Carbon Dioxide Level 24 Anion Gap 7 L Blood Urea Nitrogen 18 Creatinine 0.82 Glucose Level 216 Calcium Level 7.4 L Phosphorus Level 3.3 Magnesium Level 1.7 Total Bilirubin 0.5 Direct Bilirubin 0.00 Indirect Bilirubin 0.5 Aspartate Amino Transf (AST/SGOT) 71 H Alanine Aminotransferase (ALT/SGPT) 43 Alkaline Phosphatase 232 H Ammonia 42 #H Total Protein 5.4 L Albumin 2.2 L Globulin 3.20 Albumin/Globulin Ratio 0.68 Bedside Glucose 246 H 245 H 243 H Test 09/08/16 11:55 Lactic Acid Level 1.9 Creatine Kinase 24 Creatine Kinase Index 0.9 Creatinine Kinase MB (Mass) < 0.22 Troponin I 0.026 Medications Medications Current Medications Metoclopramide HCl (Reglan) 10 mg Q6H PRN IV NAUSEA AND/OR VOMITING Last administered on 09/06/16t 12:05; Admin Dose 10 MG; Start 09/05/16 at 03:00 Ibuprofen (Motrin) 600 mg Q6H PRN PO PAIN LEVEL 1-3; Start 09/05/16 at 03:00 Acetaminophen/ Hydrocodone Bitart ([place] (5/325)) 1 tab Q6H PRN PO MODERATE PAIN LEVEL 4-6 Last administered on 09/07/16 23:37; Admin Dose 1 TAB; Start 09/05 at 03:00 Morphine Sulfate (morphine) 2 mg Q4H PRN IV SEVERE PAIN LEVEL 7-10; Start at 03:00 Famotidine (Pepcid Iv) 20 mg Q12 IV Last administered on 09/08/16 09:58; Admin Dose 20 MG; Start 09/05/16 at 09:00 Amlodipine Besylate (Norvasc) 5 mg DAILY PO Last administered on 09/07/16 13:49 ; Admin Dose 5 MG; Start 09/05/16 at 09:00 Lisinopril (Zestril) 20 mg DAILY PO Last administered on 09/07/16 13:49; Admin Dose 20 MG; Start 09/05/16 at 09:00 Spironolactone (Aldactone) 50 mg BID PO Last administered on 09/07/16 13:49; Admin Dose 50 MG; Start 09/05/16 at 09:00 Amitriptyline HCl (Elavil) 25 mg HS PO Last administered on 09/05/16 20:31; Admin Dose 25 MG; Start 09/05/16 at 21:00 Miscellaneous Information 1 ea NOTE XX ; Start 09/05/16 at 03:10 Glucose (Glutose) 15 gm Q15M PRN PO DECREASED GLUCOSE; Start 09/05/16 at 03:10 Glucose (Glutose) 22.5 gm Q15M PRN PO DECREASED GLUCOSE; Start 09/05/16 at 03:10 Dextrose (D50w Syringe) 25 ml Q15M PRN IV DECREASED GLUCOSE; Start 09/05/16 at 03:10 Dextrose (D50w Syringe) 50 ml Q15M PRN IV DECREASED GLUCOSE; Start 09/05/16 at 03:10 Glucagon (Glucagen) 1 mg Q15M PRN IM DECREASED GLUCOSE; Start 09/05/16 at 03:10 Glucose (Glutose) 15 gm Q15M PRN BUCCAL DECREASED GLUCOSE; Start 09/05/16 at 03: 10 Lactulose (Enulose) 10 gm Q8 PO Last administered on 09/07/16 21:41; Admin Dose 10 GM; Start 09/06/16 at 14:00 Insulin Glargine 15 unit 15 unit DAILY@08 SC Last administered on 09/08/16 08: 25; Admin Dose 15 UNIT; Start 09/07/16 at 08:00 Ferric Sodium Gluconate Complex 125 mg/Sodium Chloride 110 ml @ 110 mls/hr Q24H IVPB Last administered on 09/07/16 14:01; Admin Dose 110 MLS/HR; Start 09/07/16 at 12:00; Stop 09/11/16 at 12:59 Piperacillin Sod/ Tazobactam Sod (Zosyn 3.375gm/ 100 ml (Pmx)) 100 ml @ 200 mls /hr Q8 IVPB Last administered on 09/08/16 12:15; Admin Dose 200 MLS/HR; Start 09/08/16 at 12:00 JULIEN WALL MD Sep 08, 2016 13:12
[2016-09-08] MEDS: SOD FERRIC GLUC COMPLX 125 MG in SOD CHLORIDE 0.9% 100 ML IVPB SCH (15:03)
[2016-09-08 15:11] LABS: ALKALINE PHOSPHATASE 229 U/L (33-130); PLACENTAL ISOENZYMES 0 % (UNDETECTABLE)
[2016-09-08 17:43] LABS: CREATINE KINASE 25 IU/L (23-200)
[2016-09-08 17:54] LABS: CK-MB < 0.22 ng/ml (0.0-2.4)
[2016-09-08] MEDS: AMITRIPTYLINE 25 MG TAB PO SCH (21:00)
--- NOTE | 2016-09-08 22:49 | PN ---
Date/Time of Note Date/Time of Note DATE: 09/08/16 TIME: 22:45 Assessment/Plan VTE Prophylaxis VTE Prophylaxis Intervention: SCD's Lines/Catheters IV Catheter Type (from [facility]): Saline Lock Urinary Cath still in place: No Assessment/Plan Chief Complaint/Hosp Course Julien Wall M.D. [facility] History and Physical Examination Ekta Godoy Date:Sep 08, 2016 :1955 Age: 61 Physicians: Director Shopper Marketing Head Automatic Sawyer Oncologist Referring MD: History of the Present Illness: A 61 year old female with a known severe liver disease presumaly due to type 2 DM. Recently has increasing severe ascites Medical history/ROS: dm,htn, reviewed. 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 Medications: reviewed gardisil Allergies: No active allergies recorded Family Hx: non-contributary Social HX: non-contributary ROS: as above Colonoscopy Physical Examination General: Alert. HEENT: Pupils are equal, round, reactive to light and accommodation. Neck: Supple with no masses of lymphadenopathy. Breast: Deferred due to recent examination and responsibility of primary care physician. Chest: Clear to auscultation Heart: Normal rhythm with no murmur. Abdomen: tender, massive ascites nor organomeglay. Pelvic exam: no masses or cul-de-sac nodularity noted Rectal: confirmatory with pelvic exam. Neurological: Grossly intact Assessment: assites with known liver failure but concern about coexant primary other Plan: concur can get CT and markers and eval for pacreatic and if IM/Med Onc concur I can complete laparoscopy. Julien Wall M.D. Problems: Subjective 24 Hr Interval Summary Free Text/Dictation S- feels better since transfer to [facility] earlier. No problem eating and with family O Abd- unchgd Ext- some bilateral edema NT A- DM and severe liver dysfct vs same with other P - discuss with IM and Onc to determne whether additional imaging possible and whether laparoscopy would be helpful. Exam/Review of Systems Vital Signs Vitals Vital Signs Date Time Temp Pulse Resp B/P Pulse Ox O2 Delivery O2 Flow Rate FiO2 09/08/16 20:25 93 09/08/16 20:00 97.9 18 110/58 99 09/08/16 14:39 Room Air Intake and Output 09/07/16 09/07/16 09/08/16 15:00 23:00 07:00 Intake Total 110 ml 1260 ml 240 ml Balance 110 ml 1260 ml 240 ml Results Result Diagram: 09/08/16 0458 09/08/16 0458 Results 24 hrs Laboratory Tests Test 09/08/16 01:57 09/08/16 04:58 09/08/16 07:47 09/08/16 07:59 Bedside Glucose 210 246 H 245 H White Blood Count 6.8 # Red Blood Count 3.73 L Hemoglobin 11.1 L Hematocrit 33.8 L Mean Corpuscular Volume 90.6 Mean Corpuscular Hemoglobin 29.8 Mean Corpuscular Hemoglobin Concent 32.8 Red Cell Distribution Width 14.4 Platelet Count 120 L Mean Platelet Volume 12.8 H Neutrophils % 72.8 Lymphocytes % 19.8 Monocytes % 6.6 Eosinophils % 0.1 Basophils % 0.3 Nucleated Red Blood Cells % 0.0 Neutrophils # 5.0 Lymphocytes # 1.4 Monocytes # 0.5 Eosinophils # 0.0 Basophils # 0.0 Nucleated Red Blood Cells # 0.0 Sodium Level 135 Potassium Level 4.0 Chloride Level 108 Carbon Dioxide Level 24 Anion Gap 7 L Blood Urea Nitrogen 18 Creatinine 0.82 Glucose Level 216 Calcium Level 7.4 L Phosphorus Level 3.3 Magnesium Level 1.7 Total Bilirubin 0.5 Direct Bilirubin 0.00 Indirect Bilirubin 0.5 Aspartate Amino Transf (AST/SGOT) 71 H Alanine Aminotransferase (ALT/SGPT) 43 Alkaline Phosphatase 232 H Ammonia 42 #H Total Protein 5.4 L Albumin 2.2 L Globulin 3.20 Albumin/Globulin Ratio 0.68 Test 09/08/16 11:48 09/08/16 11:55 09/08/16 17:20 09/08/16 17:22 Bedside Glucose 243 H 178 Lactic Acid Level 1.9 1.5 Creatine Kinase 24 25 Creatine Kinase Index 0.9 0.9 Creatinine Kinase MB (Mass) < 0.22 < 0.22 Troponin I 0.026 0.020 Test 09/08/16 21:27 Bedside Glucose 171 Medications Medications Current Medications Metoclopramide HCl (Reglan) 10 mg Q6H PRN IV NAUSEA AND/OR VOMITING Last administered on 09/06/16 12:05; Admin Dose 10 MG; Start 09/05/16 at 03:00 Ibuprofen (Motrin) 600 mg Q6H PRN PO PAIN LEVEL 1-3; Start 09/05/16 at 03:00 Acetaminophen/ Hydrocodone Bitart ([place] (5/325)) 1 tab Q6H PRN PO MODERATE PAIN LEVEL 4-6 Last administered on 09/07/16 23:37; Admin Dose 1 TAB; Start 09/05 at 03:00 Morphine Sulfate (morphine) 2 mg Q4H PRN IV SEVERE PAIN LEVEL 7-10; Start at 03:00 Famotidine (Pepcid Iv) 20 mg Q12 IV Last administered on 09/08/16 21:30; Admin Dose 20 MG; Start 09/05/16 at 09:00 Amlodipine Besylate (Norvasc) 5 mg DAILY PO Last administered on 09/07/16 13:49 ; Admin Dose 5 MG; Start 09/05/16 at 09:00 Lisinopril (Zestril) 20 mg DAILY PO Last administered on 09/07/16 13:49; Admin Dose 20 MG; Start 09/05/16 at 09:00 Spironolactone (Aldactone) 50 mg BID PO Last administered on 09/08/16 21:30; Admin Dose 50 MG; Start 09/05/16 at 09:00 Amitriptyline HCl (Elavil) 25 mg HS PO Last administered on 09/05/16 20:31; Admin Dose 25 MG; Start 09/05/16 at 21:00 Miscellaneous Information 1 ea NOTE XX ; Start 09/05/16 at 03:10 Glucose (Glutose) 15 gm Q15M PRN PO DECREASED GLUCOSE; Start 09/05/16 at 03:10 Glucose (Glutose) 22.5 gm Q15M PRN PO DECREASED GLUCOSE; Start 09/05/16 at 03:10 Dextrose (D50w Syringe) 25 ml Q15M PRN IV DECREASED GLUCOSE; Start 09/05/16 at 03:10 Dextrose (D50w Syringe) 50 ml Q15M PRN IV DECREASED GLUCOSE; Start 09/05/16 at 03:10 Glucagon (Glucagen) 1 mg Q15M PRN IM DECREASED GLUCOSE; Start 09/05/16 at 03:10 Glucose (Glutose) 15 gm Q15M PRN BUCCAL DECREASED GLUCOSE; Start 09/05/16 at 03: 10 Lactulose (Enulose) 10 gm Q8 PO Last administered on 09/08/16 21:29; Admin Dose 10 GM; Start 09/06/16 at 14:00 Insulin Glargine 15 unit 15 unit DAILY@08 SC Last administered on 09/08/16 08: 25; Admin Dose 15 UNIT; Start 09/07/16 at 08:00 Ferric Sodium Gluconate Complex 125 mg/Sodium Chloride 110 ml @ 110 mls/hr Q24H IVPB Last administered on 09/08/16 15:03; Admin Dose 110 MLS/HR; Start 09/07/16 at 12:00; Stop 09/11/16 at 12:59 Piperacillin Sod/ Tazobactam Sod (Zosyn 3.375gm/ 100 ml (Pmx)) 100 ml @ 200 mls /hr Q8 IVPB Last administered on 09/08/16 21:32; Admin Dose 200 MLS/HR; Start 09/08/16 at 12:00 JULIEN WALL MD Sep 08, 2016 22:48
[2016-09-09] VITALS (10 sets, daily range): BP systolic 87–142; BP diastolic 48–65; PULSE 83–98; RESP 18–20
[2016-09-09] MEDS: LACTULOSE 30ML CUP PO SCH ×3 (06:00→21:52)
[2016-09-09] MEDS: FUROSEMIDE 20 MG TAB PO SCH ×2 (06:02→16:58)
[2016-09-09] MEDS: PIPER-TAZO 3.375 GM IV (PMX) 100 ML IVPB SCH ×3 (06:02→21:51)
[2016-09-09 06:46] LABS: ADD SCAN DIFF NO; BASOPHILS % 0.5 % (0.0-2.0); EOSINOPHILS % 0.5 % (0.0-7.0); HEMATOCRIT 31.9 % (37.0-47.0); HEMOGLOBIN 10.4 g/dl (12.0-16.0); LYMPHOCYTES # 2.2 10^3/ul (0.8-2.9); LYMPHOCYTES % 29.1 % (15.0-51.0); MEAN CORPUSCULAR HEMOGLOBIN 29.6 pg (29.0-33.0); MEAN CORPUSCULAR HGB CONC 32.6 g/dl (32.0-37.0); MEAN CORPUSCULAR VOLUME 90.9 fl (82.0-101.0); MEAN PLATELET VOLUME 12.1 fl (7.4-10.4); MONOCYTE # 0.8 10^3/ul (0.3-0.9); MONOCYTES % 11.3 % (0.0-11.0); NEUTROPHIL # 4.4 10^3/ul (1.6-7.5); NEUTROPHILS % 58.3 % (39.0-77.0); PLATELET COUNT 117 10^3/UL (140-415); RED BLOOD COUNT 3.51 10^6/ul (4.20-5.40); RED CELL DISTRIBUTION WIDTH 14.5 % (11.5-14.5); WHITE BLOOD COUNT 7.5 10^3/ul (4.8-10.8)
[2016-09-09 06:53] LABS: ALBUMIN 2.3 g/dl (3.3-4.9); POTASSIUM 3.6 mmol/L (3.5-5.1)
[2016-09-09 06:55] LABS: CREATININE 0.69 mg/dl (0.44-1.00)
[2016-09-09 06:56] LABS: ALBUMIN/GLOBULIN RATIO 0.74; BILIRUBIN,INDIRECT 0.9 mg/dl (0-1.1); BILIRUBIN,TOTAL 0.9 mg/dl (0.2-1.3); TOTAL PROTEIN 5.4 g/dl (6.1-8.1)
[2016-09-09 06:57] LABS: CALCIUM 7.5 mg/dl (8.4-10.2)
[2016-09-09 07:10] LABS: MAGNESIUM 1.8 mg/dl (1.7-2.5); PHOSPHORUS 3.5 mg/dl (2.5-4.9)
[2016-09-09] MEDS: Insulin NOVOLOG SS MODERATE Algorithm (SS with meals and bedtime) SC SCH ×4 (07:55→21:55)
[2016-09-09] MEDS: FAMOTIDINE 20 MG INJ IV SCH (08:13)
[2016-09-09] MEDS: INSULIN ASPART [NOVOLOG] 3 ML PEN SC SCH ×3 (08:18→17:27)
[2016-09-09] MEDS: INSULIN GLARGINE [LANtus] 3 ML PEN SC SCH (08:30)
[2016-09-09] MEDS: AMLODIPINE 5 MG TAB PO SCH (09:00)
[2016-09-09] MEDS: SPIRONOLACTONE 50 MG TAB PO SCH ×2 (09:00→22:01)
[2016-09-09] MEDS: LISINOPRIL 20 MG TAB PO SCH (09:00)
--- NOTE | 2016-09-09 09:50 | PN ---
Date/Time of Note Date/Time of Note DATE: 09/09/16 TIME: 09:49 Assessment/Plan VTE Prophylaxis VTE Prophylaxis Intervention: SCD's Lines/Catheters IV [facility] Saline Lock Urinary Cath still in place: No Assessment/Plan Chief Complaint/Hosp Course 1. End-stage liver disease. 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 Status post paracentesis with drainage of 4.1 liters of ascitic fluid on 09/05/2016. Continue diuretics. 2. Hyperammonemia. Continue lactulose. 3. Type 2 diabetes mellitus, uncontrolled. Hemoglobin A1c is 9.3. Will add just insulin to obtain optimal blood sugar control. 4. S/P Sepsis. BP improved with fluid resuscitation. On empiric antibiotics for any possible underlying SBP. Antunez cultures pending. 5. Normocytic normochromic anemia. Iron panel showing iron deficiency. Continue iron supplements. 6. Essential hypertension. Hold antihypertensives if hypotensive. 7. Elevated tumor markers. Oncology consult and Design Lead/Onc consultation obtained. Ascites fluid has been sent for cytology. 8. Fluid, electrolytes and nutrition. Carbohydrate controlled diet. 9. Deep venous thrombosis prophylaxis. Bilateral sequential compression devices. 10. Gastrointestinal prophylaxis. Histamine 2 receptor blockers. PLAN: Continue current medical care. Await cytology from the ascites fluid. Case discussed with Dr. Murray. Plan of care was explained to the patient's family, who was at the bedside. Problems: Subjective 24 Hr Interval Summary Free Text/Dictation The patient remains afebrile. No more episodes of hypotension. Exam/Review of Systems Vital Signs Vitals Vital Signs Date Time Temp Pulse Resp B/P Pulse Ox O2 Delivery O2 Flow Rate FiO2 09/09/16 08:13 83 09/09/16 07:28 98.6 19 87/48 92 09/08/16 14:39 Room Air Intake and Output 09/08/16 09/08/16 09/09/16 15:00 23:00 07:00 Intake Total 100 ml 200 ml Balance 100 ml 200 ml Exam GENERAL: This is an obese female lying in bed, in no apparent distress. HEENT: Head normocephalic and atraumatic. Eyes: Anicteric sclerae. Conjunctivae clear. ENT: Nasal septum is midline. Oral mucosa is moist. NECK: Supple. No JVD noticed. RESPIRATORY: Bilaterally diminished breath sounds. No adventitious breath sounds heard. No use of accessory muscles of respiration. ABDOMEN: Ascitic, nontender. Bowel sounds positive in all 4 quadrants. GENITOURINARY: Deferred. EXTREMITIES: No cyanosis, no clubbing, no edema. Peripheral pulses are palpable. NEUROLOGIC: The patient is awake, alert and oriented. Cranial nerves are grossly intact. Results Result Diagram: 09/09/16 0605 09/09/16 0605 Results 24 hrs Laboratory Tests Test 09/08/16 11:48 09/08/16 11:55 09/08/16 17:20 09/08/16 17:22 Bedside Glucose 243 H 178 Lactic Acid Level 1.9 1.5 Creatine Kinase 24 25 Creatine Kinase Index 0.9 0.9 Creatinine Kinase MB (Mass) < 0.22 < 0.22 Troponin I 0.026 0.020 Test 09/08/16 21:27 09/09/16 06:05 09/09/16 07:58 Bedside Glucose 171 127 White Blood Count 7.5 Red Blood Count 3.51 L Hemoglobin 10.4 L Hematocrit 31.9 L Mean Corpuscular Volume 90.9 Mean Corpuscular Hemoglobin 29.6 Mean Corpuscular Hemoglobin Concent 32.6 Red Cell Distribution Width 14.5 Platelet Count 117 L Mean Platelet Volume 12.1 H Neutrophils % 58.3 Lymphocytes % 29.1 Monocytes % 11.3 H Eosinophils % 0.5 Basophils % 0.5 Nucleated Red Blood Cells % 0.0 Neutrophils # 4.4 Lymphocytes # 2.2 Monocytes # 0.8 Eosinophils # 0.0 Basophils # 0.0 Nucleated Red Blood Cells # 0.0 Sodium Level 135 Potassium Level 3.6 Chloride Level 104 Carbon Dioxide Level 25 Anion Gap 10 Blood Urea Nitrogen 20 Creatinine 0.69 Glucose Level 134 # Lactic Acid Level 1.0 Calcium Level 7.5 L Phosphorus Level 3.5 Magnesium Level 1.8 Total Bilirubin 0.9 Direct Bilirubin 0.00 Indirect Bilirubin 0.9 Aspartate Amino Transf (AST/SGOT) 51 H Alanine Aminotransferase (ALT/SGPT) 40 Alkaline Phosphatase 172 H Ammonia 12 # Total Protein 5.4 L Albumin 2.3 L Globulin 3.10 Albumin/Globulin Ratio 0.74 Medications Medications Current Medications Metoclopramide HCl (Reglan) 10 mg Q6H PRN IV NAUSEA AND/OR VOMITING Last administered on 09/06/16 12:05; Admin Dose 10 MG; Start 09/05/16 at 03:00 Ibuprofen (Motrin) 600 mg Q6H PRN PO PAIN LEVEL 1-3; Start 09/05/16 at 03:00 Acetaminophen/ Hydrocodone Bitart ([place] (5/325)) 1 tab Q6H PRN PO MODERATE PAIN LEVEL 4-6 Last administered on 09/07/16 23:37; Admin Dose 1 TAB; Start 09/05 at 03:00 Morphine Sulfate (morphine) 2 mg Q4H PRN IV SEVERE PAIN LEVEL 7-10; Start at 03:00 Famotidine (Pepcid Iv) 20 mg Q12 IV Last administered on 09/09/16 08:13; Admin Dose 20 MG; Start 09/05/16 at 09:00 Amlodipine Besylate (Norvasc) 5 mg DAILY PO Last administered on 09/07/16 13:49 ; Admin Dose 5 MG; Start 09/05/16 at 09:00 Lisinopril (Zestril) 20 mg DAILY PO Last administered on 09/07/16 13:49; Admin Dose 20 MG; Start 09/05/16 at 09:00 Spironolactone (Aldactone) 50 mg BID PO Last administered on 09/08/16 21:30; Admin Dose 50 MG; Start 09/05/16 at 09:00 Amitriptyline HCl (Elavil) 25 mg HS PO Last administered on 09/05/16 20:31; Admin Dose 25 MG; Start 09/05/16 at 21:00 Miscellaneous Information 1 ea NOTE XX ; Start 09/05/16 at 03:10 Glucose (Glutose) 15 gm Q15M PRN PO DECREASED GLUCOSE; Start 09/05/16 at 03:10 Glucose (Glutose) 22.5 gm Q15M PRN PO DECREASED GLUCOSE; Start 09/05/16 at 03:10 Dextrose (D50w Syringe) 25 ml Q15M PRN IV DECREASED GLUCOSE; Start 09/05/16 at 03:10 Dextrose (D50w Syringe) 50 ml Q15M PRN IV DECREASED GLUCOSE; Start 09/05/16 at 03:10 Glucagon (Glucagen) 1 mg Q15M PRN IM DECREASED GLUCOSE; Start 09/05/16 at 03:10 Glucose (Glutose) 15 gm Q15M PRN BUCCAL DECREASED GLUCOSE; Start 09/05/16 at 03: 10 Lactulose (Enulose) 10 gm Q8 PO Last administered on 09/09/16 06:00; Admin Dose 10 GM; Start 09/06/16 at 14:00 Insulin Glargine 15 unit 15 unit DAILY@08 SC Last administered on 09/09/16 08: 30; Admin Dose 15 UNIT; Start 09/07/16 at 08:00 Ferric Sodium Gluconate Complex 125 mg/Sodium Chloride 110 ml @ 110 mls/hr Q24H IVPB Last administered on 09/08/16 15:03; Admin Dose 110 MLS/HR; Start 09/07/16 at 12:00; Stop 09/11/16 at 12:59 Piperacillin Sod/ Tazobactam Sod (Zosyn 3.375gm/ 100 ml (Pmx)) 100 ml @ 200 mls /hr Q8 IVPB Last administered on 09/09/16 06:02; Admin Dose 200 MLS/HR; Start 09/08/16 at 12:00 ALIYAH RYAN NP Sep 09, 2016 09:50
[2016-09-09] MEDS: SOD FERRIC GLUC COMPLX 125 MG in SOD CHLORIDE 0.9% 100 ML IVPB SCH (12:37)
[2016-09-09] MEDS: AMITRIPTYLINE 25 MG TAB PO SCH (21:00)
[2016-09-09] MEDS: FAMOTIDINE 20 MG TAB PO SCH (21:51)
[2016-09-10] VITALS (7 sets, daily range): BP systolic 99–121; BP diastolic 55–66; PULSE 66–91; RESP 18–19
[2016-09-10] MEDS: IBUPROFEN 600 MG TAB PO PRN (03:12)
[2016-09-10] MEDS: LACTULOSE 30ML CUP PO SCH ×3 (06:00→22:00)
[2016-09-10] MEDS: PIPER-TAZO 3.375 GM IV (PMX) 100 ML IVPB SCH ×3 (06:24→22:42)
[2016-09-10] MEDS: FUROSEMIDE 20 MG TAB PO SCH ×2 (06:25→17:48)
[2016-09-10 07:11] LABS: ADD SCAN DIFF NO
[2016-09-10 07:14] LABS: BASOPHILS % 0.5 % (0.0-2.0); EOSINOPHILS # 0.1 10^3/ul (0.0-0.5); HEMATOCRIT 30.7 % (37.0-47.0); HEMOGLOBIN 10.2 g/dl (12.0-16.0); LYMPHOCYTES # 1.9 10^3/ul (0.8-2.9); LYMPHOCYTES % 30.9 % (15.0-51.0); MEAN CORPUSCULAR HEMOGLOBIN 30.4 pg (29.0-33.0); MEAN CORPUSCULAR HGB CONC 33.2 g/dl (32.0-37.0); MEAN CORPUSCULAR VOLUME 91.4 fl (82.0-101.0); MONOCYTE # 0.7 10^3/ul (0.3-0.9); MONOCYTES % 11.3 % (0.0-11.0); NEUTROPHIL # 3.4 10^3/ul (1.6-7.5); NEUTROPHILS % 56.1 % (39.0-77.0); PLATELET COUNT 124 10^3/UL (140-415); RED BLOOD COUNT 3.36 10^6/ul (4.20-5.40); RED CELL DISTRIBUTION WIDTH 14.4 % (11.5-14.5); WHITE BLOOD COUNT 6.1 10^3/ul (4.8-10.8)
[2016-09-10 07:25] LABS: ALBUMIN 2.1 g/dl (3.3-4.9)
[2016-09-10 07:26] LABS: POTASSIUM 3.5 mmol/L (3.5-5.1)
[2016-09-10 07:28] LABS: ALBUMIN/GLOBULIN RATIO 0.7; BILIRUBIN,INDIRECT 0.8 mg/dl (0-1.1); BILIRUBIN,TOTAL 0.8 mg/dl (0.2-1.3); CREATININE 0.61 mg/dl (0.44-1.00); TOTAL PROTEIN 5.1 g/dl (6.1-8.1)
[2016-09-10 07:29] LABS: CALCIUM 7.5 mg/dl (8.4-10.2)
[2016-09-10 08:04] LABS: PHOSPHORUS 3.1 mg/dl (2.5-4.9)
[2016-09-10] MEDS: AMLODIPINE 5 MG TAB PO SCH (09:00)
[2016-09-10] MEDS: LISINOPRIL 20 MG TAB PO SCH (09:00)
[2016-09-10] MEDS: SPIRONOLACTONE 50 MG TAB PO SCH ×2 (09:34→21:30)
[2016-09-10] MEDS: FAMOTIDINE 20 MG TAB PO SCH ×2 (09:34→21:30)
[2016-09-10] MEDS: Insulin NOVOLOG SS MODERATE Algorithm (SS with meals and bedtime) SC SCH ×4 (09:39→21:00)
[2016-09-10] MEDS: INSULIN ASPART [NOVOLOG] 3 ML PEN SC SCH ×3 (09:40→17:52)
[2016-09-10] MEDS: INSULIN GLARGINE [LANtus] 3 ML PEN SC SCH (09:41)
[2016-09-10] MEDS: SOD FERRIC GLUC COMPLX 125 MG in SOD CHLORIDE 0.9% 100 ML IVPB SCH (12:30)
--- NOTE | 2016-09-10 14:59 | PN ---
Date/Time of Note Date/Time of Note DATE: 09/10/16 TIME: 14:56 Assessment/Plan VTE Prophylaxis VTE Prophylaxis Intervention: SCD's Lines/Catheters IV [facility] Type [facility]from [facility] Saline Lock Urinary Cath still in place: No Assessment/Plan Chief Complaint/Hosp Course Assessment and plan 1. End-stage liver disease. Nonalcoholic. Patient status post paracentesis. Continue on diuretics with monitoring for hypertension. We will increase diuretic medication as tolerated 2. Hyperammonemia. Continue lactulose 3. Type 2 diabetes. A1c noted at 9.3. Continue on insulin regimen and adjust as needed 4. Suspect SBP. Currently on antibiotics. We'll monitor 5. Iron anemia. Continue on iron supplement 6. Essential hypertension. Continue antihypertensives and adjust as needed 7. Elevated tumor markers. Surgical oncologist and oncologist following. Follow up on ascites cytology. Follow-up with recommendation should surgical intervention needed. GERD prophylaxis: His H2 maggie DVT prophylaxis: His SCDs Disposition and plan: Continue diuretics and consider possible increase in diuretic therapy. Follow-up cytology of ascites fluid. Await oncology and surgical oncology recommendations. Continue inpatient monitoring for now. Discussed plan of care with Dr. Younger Problems: Subjective 24 Hr Interval Summary Free Text/Dictation Still with reported abdominal discomfort. But less today Exam/Review of Systems Vital Signs Vitals Vital Signs Date Time Temp Pulse Resp B/P Pulse Ox O2 Delivery O2 Flow Rate FiO2 09/10/16 12:00 97.7 73 18 99/58 98 Room Air Intake and Output 09/09/16 09/09/16 09/10/16 15:00 23:00 07:00 Intake Total 250 ml 400 ml Balance 250 ml 400 ml Exam General: Minimal distress secondary to abdominal discomfort Eyes: Lately anicteric sclera Neck: Supple nontender, no JVD Cardiac: S1, S2 auscultated, regular rhythm and rate Pulmonary: No coarse rhonchi or breathing auscultated GI: Distended. Soft minimally tender Extremities: Some edema noted bilateral lower extremities Skin: Clean dry and intact Neurologic: Alert to person place and time and situation Results Result Diagram: 09/10/1628 09/10/16627 Results 24 hrs Laboratory Tests Test 09/09/16 16:52 09/09/16 21:49 09/10/16 02:36 09/10/16 06:28 Bedside Glucose 128 245 H 193 White Blood Count 6.1 Red Blood Count 3.36 L Hemoglobin 10.2 L Hematocrit 30.7 L Mean Corpuscular Volume 91.4 Mean Corpuscular Hemoglobin 30.4 Mean Corpuscular Hemoglobin Concent 33.2 Red Cell Distribution Width 14.4 Platelet Count 124 L Mean Platelet Volume 12.0 H Neutrophils % 56.1 Lymphocytes % 30.9 Monocytes % 11.3 H Eosinophils % 1.0 Basophils % 0.5 Nucleated Red Blood Cells % 0.0 Neutrophils # 3.4 Lymphocytes # 1.9 Monocytes # 0.7 Eosinophils # 0.1 Basophils # 0.0 Nucleated Red Blood Cells # 0.0 Sodium Level 135 Potassium Level 3.5 Chloride Level 105 Carbon Dioxide Level 24 Anion Gap 10 Blood Urea Nitrogen 17 Creatinine 0.61 Glucose Level 169 Calcium Level 7.5 L Phosphorus Level 3.1 Magnesium Level 2.0 Total Bilirubin 0.8 Direct Bilirubin 0.00 Indirect Bilirubin 0.8 Aspartate Amino Transf (AST/SGOT) 49 H Alanine Aminotransferase (ALT/SGPT) 34 Alkaline Phosphatase 182 H Ammonia 18 Total Protein 5.1 L Albumin 2.1 L Globulin 3.00 Albumin/Globulin Ratio 0.70 Test 09/10/16 08:15 09/10/16 12:24 Bedside Glucose 149 153 Medications Medications Current Medications Metoclopramide HCl (Reglan) 10 mg Q6H PRN IV NAUSEA AND/OR VOMITING Last administered on 09/06/16 12:05; Admin Dose 10 MG; Start 09/05/16 at 03:00 Ibuprofen (Motrin) 600 mg Q6H PRN PO PAIN LEVEL 1-3 Last administered on 03:12; Admin Dose 600 MG; Start 09/05/16 at 03:00 Acetaminophen/ Hydrocodone Bitart ([place] (5/325)) 1 tab Q6H PRN PO MODERATE PAIN LEVEL 4-6 Last administered on 09/07/16 23:37; Admin Dose 1 TAB; Start 09/05 at 03:00 Morphine Sulfate (morphine) 2 mg Q4H PRN IV SEVERE PAIN LEVEL 7-10; Start at 03:00 Amlodipine Besylate (Norvasc) 5 mg DAILY PO Last administered on 09/07/16 13:49 ; Admin Dose 5 MG; Start 09/05/16 at 09:00 Lisinopril (Zestril) 20 mg DAILY PO Last administered on 09/07/16 13:49; Admin Dose 20 MG; Start 09/05/16 at 09:00 Spironolactone (Aldactone) 50 mg BID PO Last administered on 09/10/16 09:34; Admin Dose 50 MG; Start 09/05/16 at 09:00 Amitriptyline HCl (Elavil) 25 mg HS PO Last administered on 09/05/16 20:31; Admin Dose 25 MG; Start 09/05/16 at 21:00 Miscellaneous Information 1 ea NOTE XX ; Start 09/05/16 at 03:10 Glucose (Glutose) 15 gm Q15M PRN PO DECREASED GLUCOSE; Start 09/05/16 at 03:10 Glucose (Glutose) 22.5 gm Q15M PRN PO DECREASED GLUCOSE; Start 09/05/16 at 03:10 Dextrose (D50w Syringe) 25 ml Q15M PRN IV DECREASED GLUCOSE; Start 09/05/16 at 03:10 Dextrose (D50w Syringe) 50 ml Q15M PRN IV DECREASED GLUCOSE; Start 09/05/16 at 03:10 Glucagon (Glucagen) 1 mg Q15M PRN IM DECREASED GLUCOSE; Start 09/05/16 at 03:10 Glucose (Glutose) 15 gm Q15M PRN BUCCAL DECREASED GLUCOSE; Start 09/05/16 at 03: 10 Lactulose (Enulose) 10 gm Q8 PO Last administered on 09/09/16 06:00; Admin Dose 10 GM; Start 09/06/16 at 14:00 Insulin Glargine 15 unit 15 unit DAILY@08 SC Last administered on 09/10/16 09: 41; Admin Dose 15 UNIT; Start 09/07/16 at 08:00 Ferric Sodium Gluconate Complex 125 mg/Sodium Chloride 110 ml @ 110 mls/hr Q24H IVPB Last administered on 09/10/16 12:30; Admin Dose 110 MLS/HR; Start at 12:00; Stop 09/11/16 at 12:59 Piperacillin Sod/ Tazobactam Sod (Zosyn 3.375gm/ 100 ml (Pmx)) 100 ml @ 200 mls /hr Q8 IVPB Last administered on 09/10/16 14:01; Admin Dose 200 MLS/HR; Start 09/08/16 at 12:00 Famotidine (Pepcid) 20 mg Q12 PO Last administered on 09/10/16t 09:34; Admin Dose 20 MG; Start 09/09/16 at 21:00 DEIE JAUREGUI Sep 10, 2016 14:59
--- NOTE | 2016-09-10 15:33 | CONS ---
Date/Time of Note Date/Time of Note DATE: 09/10/16 TIME: 15:32 Assessment/Plan Assessment/Plan Chief Complaint/Hosp Course 61 female with [place] cirrhosis and ascites in the setting of a markedly elevated CA 125. 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 # Ascites, concern for malignancy -will f/u cytology from paracentesis -Appreciates recs from Dr. Noyola given my concern for GROUP PRODUCT MANAGER primary malignancy. Agree that pt may benefit from an exploratory laparoscopy. # Iron Deficiency Anemia - pt has Hg of 10 with iron sat 6% -Ferrlecit started 09/07/16 (planned for 5 doses through 09/11/16) Problems: Consultation Date/Type/Reason Admit Date/Time Sep 05, 2016 at 00:09 Initial Consult Date 09/07/16 Type of Consultation: oncology Referring Provider: ALIYAH RYAN AIR CONDITIONING SERVICE TECHNICIAN 24 HR Interval Summary Free Text/Dictation Patient is doing well though states ascites appears to be reaccumulating. Exam/Review of Systems Vital Signs Vitals Vital Signs Date Time Temp Pulse Resp B/P Pulse Ox O2 Delivery O2 Flow Rate FiO2 09/10/16 12:00 97.7 73 18 99/58 98 Room Air Intake and Output 09/09/16 09/09/16 09/10/16 15:00 23:00 07:00 Intake Total 250 ml 400 ml Balance 250 ml 400 ml Exam Constitutional: obese Head: normocephalic ENMT: nl external ears & nose Neck: supple Respiratory: clear to auscultation, normal air movement Cardiovascular: regular rate and rhythm Gastrointestinal: ascites, soft Musculoskeletal: nl extremities to inspection, nl gait and stance Results Result Diagram: 09/10/1662709/10/16627 Results 24 hrs Laboratory Tests Test 09/09/16 16:52 09/09/16 21:49 09/10/16 02:36 09/10/16 06:28 Bedside Glucose 128 245 H 193 White Blood Count 6.1 Red Blood Count 3.36 L Hemoglobin 10.2 L Hematocrit 30.7 L Mean Corpuscular Volume 91.4 Mean Corpuscular Hemoglobin 30.4 Mean Corpuscular Hemoglobin Concent 33.2 Red Cell Distribution Width 14.4 Platelet Count 124 L Mean Platelet Volume 12.0 H Neutrophils % 56.1 Lymphocytes % 30.9 Monocytes % 11.3 H Eosinophils % 1.0 Basophils % 0.5 Nucleated Red Blood Cells % 0.0 Neutrophils # 3.4 Lymphocytes # 1.9 Monocytes # 0.7 Eosinophils # 0.1 Basophils # 0.0 Nucleated Red Blood Cells # 0.0 Sodium Level 135 Potassium Level 3.5 Chloride Level 105 Carbon Dioxide Level 24 Anion Gap 10 Blood Urea Nitrogen 17 Creatinine 0.61 Glucose Level 169 Calcium Level 7.5 L Phosphorus Level 3.1 Magnesium Level 2.0 Total Bilirubin 0.8 Direct Bilirubin 0.00 Indirect Bilirubin 0.8 Aspartate Amino Transf (AST/SGOT) 49 H Alanine Aminotransferase (ALT/SGPT) 34 Alkaline Phosphatase 182 H Ammonia 18 Total Protein 5.1 L Albumin 2.1 L Globulin 3.00 Albumin/Globulin Ratio 0.70 Test 09/10/16 08:15 09/10/16 12:24 Bedside Glucose 149 153 Medications Medications Current Medications Metoclopramide HCl (Reglan) 10 mg Q6H PRN IV NAUSEA AND/OR VOMITING Last administered on 09/06/16 12:05; Admin Dose 10 MG; Start 09/05/16 at 03:00 Ibuprofen (Motrin) 600 mg Q6H PRN PO PAIN LEVEL 1-3 Last administered on 03:12; Admin Dose 600 MG; Start 09/05/16 at 03:00 Acetaminophen/ Hydrocodone Bitart ([place] (5/325)) 1 tab Q6H PRN PO MODERATE PAIN LEVEL 4-6 Last administered on 09/07/16 23:37; Admin Dose 1 TAB; Start 09/05 at 03:00 Morphine Sulfate (morphine) 2 mg Q4H PRN IV SEVERE PAIN LEVEL 7-10; Start at 03:00 Amlodipine Besylate (Norvasc) 5 mg DAILY PO Last administered on 09/07/16 13:49 ; Admin Dose 5 MG; Start 09/05/16 at 09:00 Lisinopril (Zestril) 20 mg DAILY PO Last administered on 09/07/16 13:49; Admin Dose 20 MG; Start 09/05/16 at 09:00 Spironolactone (Aldactone) 50 mg BID PO Last administered on 09/10/16 09:34; Admin Dose 50 MG; Start 09/05/16 at 09:00 Amitriptyline HCl (Elavil) 25 mg HS PO Last administered on 09/05/16 20:31; Admin Dose 25 MG; Start 09/05/16 at 21:00 Miscellaneous Information 1 ea NOTE XX ; Start 09/05/16 at 03:10 Glucose (Glutose) 15 gm Q15M PRN PO DECREASED GLUCOSE; Start 09/05/16 at 03:10 Glucose (Glutose) 22.5 gm Q15M PRN PO DECREASED GLUCOSE; Start 09/05/16 at 03:10 Dextrose (D50w Syringe) 25 ml Q15M PRN IV DECREASED GLUCOSE; Start 09/05/16 at 03:10 Dextrose (D50w Syringe) 50 ml Q15M PRN IV DECREASED GLUCOSE; Start 09/05/16 at 03:10 Glucagon (Glucagen) 1 mg Q15M PRN IM DECREASED GLUCOSE; Start 09/05/16 at 03:10 Glucose (Glutose) 15 gm Q15M PRN BUCCAL DECREASED GLUCOSE; Start 09/05/16 at 03: 10 Lactulose (Enulose) 10 gm Q8 PO Last administered on 09/09/16 06:00; Admin Dose 10 GM; Start 09/06/16 at 14:00 Insulin Glargine 15 unit 15 unit DAILY@08 SC Last administered on 09/10/16 09: 41; Admin Dose 15 UNIT; Start 09/07/16 at 08:00 Ferric Sodium Gluconate Complex 125 mg/Sodium Chloride 110 ml @ 110 mls/hr Q24H IVPB Last administered on 09/10/16 12:30; Admin Dose 110 MLS/HR; Start at 12:00; Stop 09/11/16 at 12:59 Piperacillin Sod/ Tazobactam Sod (Zosyn 3.375gm/ 100 ml (Pmx)) 100 ml @ 200 mls /hr Q8 IVPB Last administered on 09/10/16 14:01; Admin Dose 200 MLS/HR; Start 09/08/16 at 12:00 Famotidine (Pepcid) 20 mg Q12 PO Last administered on 09/10/16t 09:34; Admin Dose 20 MG; Start 09/09/16 at 21:00 TOKENNEDI MD Sep 10, 2016 15:33
[2016-09-10] MEDS: AMITRIPTYLINE 25 MG TAB PO SCH (21:00)
[2016-09-11] VITALS (12 sets, daily range): BP systolic 106–129; BP diastolic 56–72; PULSE 80–95; RESP 18–20
[2016-09-11] MEDS: FUROSEMIDE 20 MG TAB PO SCH ×2 (06:00→18:13)
[2016-09-11] MEDS: LACTULOSE 30ML CUP PO SCH ×3 (06:00→22:00)
[2016-09-11] MEDS: PIPER-TAZO 3.375 GM IV (PMX) 100 ML IVPB SCH ×3 (06:00→21:02)
[2016-09-11] MEDS: INSULIN GLARGINE [LANtus] 3 ML PEN SC SCH (08:23)
[2016-09-11] MEDS: INSULIN ASPART [NOVOLOG] 3 ML PEN SC SCH ×4 (08:24→18:05)
[2016-09-11] MEDS: Insulin NOVOLOG SS MODERATE Algorithm (SS with meals and bedtime) SC SCH ×4 (08:24→21:00)
[2016-09-11] MEDS: AMLODIPINE 5 MG TAB PO SCH ×2 (09:00→09:12)
[2016-09-11] MEDS: FAMOTIDINE 20 MG TAB PO SCH ×3 (09:00→21:00)
[2016-09-11] MEDS: LISINOPRIL 20 MG TAB PO SCH ×2 (09:00→09:12)
[2016-09-11] MEDS: SPIRONOLACTONE 50 MG TAB PO SCH ×2 (09:12→21:00)
--- NOTE | 2016-09-11 10:16 | RADRPT ---
Vent Rate: 93 bpm RR Interval: 0 msec [place] Interval: 142 msec QRS Duration: 94 msec QT Interval: 370 msec QTC Interval: 460 msec P-R-T [place]: 30 - -16 - 25 degrees Normal sinus rhythm Minimal voltage criteria for LVH, may be normal variant Anterolateral infarct , age undetermined Abnormal ECG Electronically Signed By: Amauri Diaz [id number]
--- NOTE | 2016-09-11 15:52 | PN ---
Date/Time of Note Date/Time of Note DATE: 09/11/16 TIME: 15:48 Assessment/Plan VTE Prophylaxis VTE Prophylaxis Intervention: SCD's Lines/Catheters IV [facility]ter Type (from [facility] Saline Lock Urinary Cath still in place: No Assessment/Plan Chief Complaint/Hosp Course Assessment and plan 1. End-stage liver disease. Nonalcoholic. Patient status post paracentesis for recurrent ascites. Continue on diuretics with monitoring for hypotension. We will increase diuretic medication as tolerated. plan for paracentesis prn 2. Hyperammonemia. Continue lactulose 3. Type 2 diabetes. A1c noted at 9.3. Continue on insulin regimen and adjust as needed 4. Suspect SBP. Currently on antibiotics. We'll monitor 5. Iron anemia. Continue on iron supplement 6. Essential hypertension. Continue antihypertensives and adjust as needed 7. Elevated tumor markers. Surgical oncologist and oncologist following. Follow up on ascites cytology. Follow-up with recommendation should surgical intervention needed. GERD prophylaxis: H2 maggie DVT prophylaxis: SCDs Disposition and plan:follow up cytology for fluids. machine assistant to follow for pre-op. follow up with onc recs for possible exploratory lap. Discussed plan of care with Dr. Younger Problems: Subjective 24 Hr Interval Summary Free Text/Dictation reports abd pain but little less. states she has some abd distention Exam/Review of Systems Vital Signs Vitals Vital Signs Date Time Temp Pulse Resp B/P Pulse Ox O2 Delivery O2 Flow Rate FiO2 09/11/16 15:25 98.1 88 20 106/56 98 09/10/16 16:00 Room Air Intake and Output 09/10/16 09/10/16 09/11/16 15:00 23:00 07:00 Intake Total 210 ml 600 ml Output Total 400 ml Balance 210 ml 200 ml Exam General: no s/s of distress Eyes: equal round Neck: Supple nontender, no JVD Cardiac: S1, S2 auscultated, regular rhythm and rate Pulmonary: No coarse rhonchi or breathing auscultated GI: Distended, tender Extremities: Some edema noted bilateral lower extremities Skin: Clean dry and intact Neurologic: Alert to person place and time and situation Results Result Diagram: 09/10/16 0628 09/10/1628 Results 24 hrs Laboratory Tests Test 09/10/16 17:43 09/10/16 21:29 09/11/16 08:19 09/11/16 12:10 Bedside Glucose 136 159 168 172 Medications Medications Current Medications Metoclopramide HCl (Reglan) 10 mg Q6H PRN IV NAUSEA AND/OR VOMITING Last administered on 09/06/16 12:05; Admin Dose 10 MG; Start 09/05/16 at 03:00 Ibuprofen (Motrin) 600 mg Q6H PRN PO PAIN LEVEL 1-3 Last administered on 03:12; Admin Dose 600 MG; Start 09/05/16 at 03:00 Acetaminophen/ Hydrocodone Bitart ([place] (5/325)) 1 tab Q6H PRN PO MODERATE PAIN LEVEL 4-6 Last administered on 09/07/16 23:37; Admin Dose 1 TAB; Start 09/05 at 03:00 Morphine Sulfate (morphine) 2 mg Q4H PRN IV SEVERE PAIN LEVEL 7-10; Start at 03:00 Amlodipine Besylate (Norvasc) 5 mg DAILY PO Last administered on 09/07/16 13:49 ; Admin Dose 5 MG; Start 09/05/16 at 09:00 Lisinopril (Zestril) 20 mg DAILY PO Last administered on 09/07/16 13:49; Admin Dose 20 MG; Start 09/05/16 at 09:00 Spironolactone (Aldactone) 50 mg BID PO Last administered on 09/11/16 09:12; Admin Dose 50 MG; Start 09/05/16 at 09:00 Amitriptyline HCl (Elavil) 25 mg HS PO Last administered on 09/05/16 20:31; Admin Dose 25 MG; Start 09/05/16 at 21:00 Miscellaneous Information 1 ea NOTE XX ; Start 09/05/16 at 03:10 Glucose (Glutose) 15 gm Q15M PRN PO DECREASED GLUCOSE; Start 09/05/16 at 03:10 Glucose (Glutose) 22.5 gm Q15M PRN PO DECREASED GLUCOSE; Start 09/05/16 at 03:10 Dextrose (D50w Syringe) 25 ml Q15M PRN IV DECREASED GLUCOSE; Start 09/05/16 at 03:10 Dextrose (D50w Syringe) 50 ml Q15M PRN IV DECREASED GLUCOSE; Start 09/05/16 at 03:10 Glucagon (Glucagen) 1 mg Q15M PRN IM DECREASED GLUCOSE; Start 09/05/16 at 03:10 Glucose (Glutose) 15 gm Q15M PRN BUCCAL DECREASED GLUCOSE; Start 09/05/16 at 03: 10 Lactulose (Enulose) 10 gm Q8 PO Last administered on 09/09/16 06:00; Admin Dose 10 GM; Start 09/06/16 at 14:00 Insulin Glargine 15 unit 15 unit DAILY@08 SC Last administered on 09/11/16 08: 23; Admin Dose 15 UNIT; Start 09/07/16 at 08:00 Piperacillin Sod/ Tazobactam Sod (Zosyn 3.375gm/ 100 ml (Pmx)) 100 ml @ 200 mls /hr Q8 IVPB Last administered on 09/11/16 14:41; Admin Dose 200 MLS/HR; Start 09/08/16 at 12:00 Famotidine (Pepcid) 20 mg Q12 PO Last administered on 09/10/16 21:30; Admin Dose 20 MG; Start 09/09/16 at 21:00 EDIE JAUREGUI Sep 11, 2016 15:51
[2016-09-11] MEDS: SOD FERRIC GLUC COMPLX 125 MG in SOD CHLORIDE 0.9% 100 ML IVPB SCH (16:01)
--- NOTE | 2016-09-11 16:18 | CONS ---
Date/Time of Note Date/Time of Note DATE: 09/11/16 TIME: 16:17 Assessment/Plan Assessment/Plan Chief Complaint/Hosp Course 61 female with [place] cirrhosis and ascites in the setting of a markedly elevated CA 125. At this time, I am very concerned for cancer of GYRO MECHANIC given the CA 125> 10,000. 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 # Ascites, concern for malignancy -ascitic fluid cytology 09/07/16 showed no malignant cells -Appreciates recs from Dr. Noyola given my concern for GYRO MECHANIC primary malignancy. Agree that pt may benefit from an exploratory laparoscopy. Pending cardiology clearance for surgery. # Iron Deficiency Anemia - pt has Hg of 10 with iron sat 6% -Ferrlecit started 09/07/16 (planned for 5 doses through 09/11/16) Problems: Consultation Date/Type/Reason Admit Date/Time Sep 05, 2016 at 00:09 Initial Consult Date 09/07/16 Type of Consultation: oncology Referring Provider: ALIYAH RYAN ASSEMBLER ARRANGER 24 HR Interval Summary Free Text/Dictation Patient states that she is having increased ascites, otherwise no complaints. Exam/Review of Systems Vital Signs Vitals Vital Signs Date Time Temp Pulse Resp B/P Pulse Ox O2 Delivery O2 Flow Rate FiO2 09/11/16 15:25 98.1 88 20 106/56 98 09/10/16 16:00 Room Air Intake and Output 09/10/16 09/10/16 09/11/16 15:00 23:00 07:00 Intake Total 210 ml 600 ml Output Total 400 ml Balance 210 ml 200 ml Exam Constitutional: obese Head: normocephalic ENMT: nl external ears & nose Neck: supple Respiratory: clear to auscultation, normal air movement Cardiovascular: regular rate and rhythm Gastrointestinal: ascites, soft Musculoskeletal: nl extremities to inspection, nl gait and stance Results Result Diagram: 09/10/16 0628 09/10/16627 Results 24 hrs Laboratory Tests Test 09/10/16 17:43 09/10/16 21:29 09/11/16 08:19 09/11/16 12:10 Bedside Glucose 136 159 168 172 Medications Medications Current Medications Metoclopramide HCl (Reglan) 10 mg Q6H PRN IV NAUSEA AND/OR VOMITING Last administered on 09/06/16 12:05; Admin Dose 10 MG; Start 09/05/16 at 03:00 Ibuprofen (Motrin) 600 mg Q6H PRN PO PAIN LEVEL 1-3 Last administered on 03:12; Admin Dose 600 MG; Start 09/05/16 at 03:00 Acetaminophen/ Hydrocodone Bitart ([place] (5/325)) 1 tab Q6H PRN PO MODERATE PAIN LEVEL 4-6 Last administered on 09/07/16 23:37; Admin Dose 1 TAB; Start 09/05 at 03:00 Morphine Sulfate (morphine) 2 mg Q4H PRN IV SEVERE PAIN LEVEL 7-10; Start at 03:00 Amlodipine Besylate (Norvasc) 5 mg DAILY PO Last administered on 09/07/16 13:49 ; Admin Dose 5 MG; Start 09/05/16 at 09:00 Lisinopril (Zestril) 20 mg DAILY PO Last administered on 09/07/16 13:49; Admin Dose 20 MG; Start 09/05/16 at 09:00 Spironolactone (Aldactone) 50 mg BID PO Last administered on 09/11/16 09:12; Admin Dose 50 MG; Start 09/05/16 at 09:00 Amitriptyline HCl (Elavil) 25 mg HS PO Last administered on 09/05/16 20:31; Admin Dose 25 MG; Start 09/05/16 at 21:00 Miscellaneous Information 1 ea NOTE XX ; Start 09/05/16 at 03:10 Glucose (Glutose) 15 gm Q15M PRN PO DECREASED GLUCOSE; Start 09/05/16 at 03:10 Glucose (Glutose) 22.5 gm Q15M PRN PO DECREASED GLUCOSE; Start 09/05/16 at 03:10 Dextrose (D50w Syringe) 25 ml Q15M PRN IV DECREASED GLUCOSE; Start 09/05/16 at 03:10 Dextrose (D50w Syringe) 50 ml Q15M PRN IV DECREASED GLUCOSE; Start 09/05/16 at 03:10 Glucagon (Glucagen) 1 mg Q15M PRN IM DECREASED GLUCOSE; Start 09/05/16 at 03:10 Glucose (Glutose) 15 gm Q15M PRN BUCCAL DECREASED GLUCOSE; Start 09/05/16 at 03: 10 Lactulose (Enulose) 10 gm Q8 PO Last administered on 09/09/16 06:00; Admin Dose 10 GM; Start 09/06/16 at 14:00 Insulin Glargine 15 unit 15 unit DAILY@08 SC Last administered on 09/11/16 08: 23; Admin Dose 15 UNIT; Start 09/07/16 at 08:00 Piperacillin Sod/ Tazobactam Sod (Zosyn 3.375gm/ 100 ml (Pmx)) 100 ml @ 200 mls /hr Q8 IVPB Last administered on 09/11/16 14:41; Admin Dose 200 MLS/HR; Start 09/08/16 at 12:00 Famotidine (Pepcid) 20 mg Q12 PO Last administered on 09/10/16 21:30; Admin Dose 20 MG; Start 09/09/16 at 21:00 KENNEDI LEGGETT MD Sep 11, 2016 16:18
--- NOTE | 2016-09-11 16:19 | RADRPT ---
Echocardiogram Report Patient Name: HERRERA CHAPIN Gender: Female Date: 1955 Study Date: 11-Sep-2016 Embedded Software Engineer: Location: [id number] Ref. Physician: EDIE JAUREGUI Quality: Adequate Procedures: Transthoracic echocardiogram with complete 2D, M-Mode, and doppler examination. Indications: Pre-op. 2D/M Mode Doppler Measurement Value Normal Ranges Measurement Value Normal Ranges LVIDd 2D 4.2 3.5 - 5.6 cm AV Peak Aydin 1.4 m/sec LVIDs 2D 2.5 2.1 - 4.1 cm AV Peak PG 7.8 mmHg LVPWd 2D 1.3 0.6 - 1.1 cm LVOT Peak Aydin 0.9 m/sec IVSd 2D 1.3 0.6 - 1.1 cm LVOT Peak PG 3.2 mmHg AoR Diam 2D 3.1 2.0 - 3.7 cm MV E Peak Aydin 1.0 m/sec EDV 2D 77.5 cm3 MV A Peak Aydin 1.1 m/sec ESV 2D 16.2 cm3 MV E/A 0.9 MV Decel Time 175 msec MV Decel Weston 5 MV E/A 0.9 Findings Left Ventricle: Normal left ventricular systolic function. Normal left ventricular cavity size. Moderate concentric left ventricular hypertrophy. Ejection fraction is visually estimated at 65 %. Tissue Doppler/Mitral Doppler indices are consistent with impaired relaxation (Stage I diastolic dysfunction). Right Ventricle: Normal right ventricular size. Normal right ventricular systolic function. Left Atrium: There is mild enlargement of left atrium. Right Atrium: The right atrium is normal in size. Mitral Valve: Moderate mitral annular calcification. Trace mitral regurgitation. Aortic Valve: No significant aortic stenosis or insufficiency. Aortic cusps appear mildly calcified. Tricuspid Valve: Unable to obtain RVSP due to minimal presence of tricuspid regurgitation. There is trace tricuspid regurgitation. Pulmonic Valve: There is trace pulmonic regurgitation. Pericardium: Normal pericardium with no significant pericardial effusion. Aorta: Normal aortic root. IVC: Normal size and normal respiratory collapse consistent with normal right atrial pressure. Conclusions 1.Normal left ventricular systolic function. Normal left ventricular cavity size. Moderate concentric left ventricular hypertrophy. Ejection fraction is visually estimated at 65 %. Tissue Doppler/Mitral Doppler indices are consistent with impaired relaxation (Stage I diastolic dysfunction). 2.No significant valvular stenosis or regurgitation seen. 3.Unable to obtain RVSP due to minimal presence of tricuspid regurgitation. RA pressure is 3 mmHg. Electronically Signed By: Dean Veloz 11-Sep-2016 16:18:02 -0700 Patient Name: HERRERA CHAPNI Study Date: 11-Sep-[id number]
--- NOTE | 2016-09-11 16:38 | CONS ---
Date/Time of Note Date/Time of Note DATE: 09/11/16 TIME: 16:32 Assessment/Plan Assessment/Plan Chief Complaint/Hosp Course Pre-operative evaluation: The pt is to undergo moderate risk surgery. She is asymptomatic with activity. She has normal LVEF by echo, no suggestion of ischemia, no heart failure, or cardiac arrhythmias. She is at low-intermediate risk for her surgery and can proceed without further testing. 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 The plan is for exploratory laparoscopy. The pt denies prior cardiac history, MD, CVA. She denies exertional dyspnea or chest pain. She has intermittent leg edema but better after diuretics for her liver disease. Non-smoker. per HPI Constitutional: no complaints Eyes: no complaints ENT: no complaints Respiratory: no complaints Cardiovascular: no complaints Gastrointestinal: decreased appetite, nausea, other (increased abdominal distention) Genitourinary: no complaints Musculoskeletal: no complaints Social History Alcohol Use: none Smoking Status: Never smoker Drug Use: none Exam/Review of Systems Vital Signs Vitals Vital Signs Date Time Temp Pulse Resp B/P Pulse Ox O2 Delivery O2 Flow Rate FiO2 09/11/16 16:22 83 09/11/16 15:25 98.1 20 106/56 98 09/10/16 16:00 Room Air Intake and Output 09/10/16 09/10/16 09/11/16 15:00 23:00 07:00 Intake Total 210 ml 600 ml Output Total 400 ml Balance 210 ml 200 ml Exam Constitutional: alert, oriented Psych: nl mood/affect, no complaints Head: atraumatic, normocephalic Neck: No jvd Respiratory: clear to auscultation, No crackles/rales Cardiovascular: regular rate and rhythm, systolic murmur (2/6 ROSAMARIA), No edema Gastrointestinal: non-tender, soft Neurological: nl mental status, nl speech Results Result Diagram: 09/10/1662709/10/16627 Results 24 hrs Laboratory Tests Test 09/10/16 17:43 09/10/16 21:29 09/11/16 08:19 09/11/16 12:10 Bedside Glucose 136 159 168 172 Medications Medications Current Medications Metoclopramide HCl (Reglan) 10 mg Q6H PRN IV NAUSEA AND/OR VOMITING Last administered on 09/06/16 12:05; Admin Dose 10 MG; Start 09/05/16 at 03:00 Ibuprofen (Motrin) 600 mg Q6H PRN PO PAIN LEVEL 1-3 Last administered on 03:12; Admin Dose 600 MG; Start 09/05/16 at 03:00 Acetaminophen/ Hydrocodone Bitart ([place] (5/325)) 1 tab Q6H PRN PO MODERATE PAIN LEVEL 4-6 Last administered on 09/07/16 23:37; Admin Dose 1 TAB; Start 09/05 at 03:00 Morphine Sulfate (morphine) 2 mg Q4H PRN IV SEVERE PAIN LEVEL 7-10; Start at 03:00 Amlodipine Besylate (Norvasc) 5 mg DAILY PO Last administered on 09/07/16 13:49 ; Admin Dose 5 MG; Start 09/05/16 at 09:00 Lisinopril (Zestril) 20 mg DAILY PO Last administered on 09/07/16 13:49; Admin Dose 20 MG; Start 09/05/16 at 09:00 Spironolactone (Aldactone) 50 mg BID PO Last administered on 09/11/16 09:12; Admin Dose 50 MG; Start 09/05/16 at 09:00 Amitriptyline HCl (Elavil) 25 mg HS PO Last administered on 09/05/16 20:31; Admin Dose 25 MG; Start 09/05/16 at 21:00 Miscellaneous Information 1 ea NOTE XX ; Start 09/05/16 at 03:10 Glucose (Glutose) 15 gm Q15M PRN PO DECREASED GLUCOSE; Start 09/05/16 at 03:10 Glucose (Glutose) 22.5 gm Q15M PRN PO DECREASED GLUCOSE; Start 09/05/16 at 03:10 Dextrose (D50w Syringe) 25 ml Q15M PRN IV DECREASED GLUCOSE; Start 09/05/16 at 03:10 Dextrose (D50w Syringe) 50 ml Q15M PRN IV DECREASED GLUCOSE; Start 09/05/16 at 03:10 Glucagon (Glucagen) 1 mg Q15M PRN IM DECREASED GLUCOSE; Start 09/05/16 at 03:10 Glucose (Glutose) 15 gm Q15M PRN BUCCAL DECREASED GLUCOSE; Start 09/05/16 at 03: 10 Lactulose (Enulose) 10 gm Q8 PO Last administered on 09/09/16 06:00; Admin Dose 10 GM; Start 09/06/16 at 14:00 Insulin Glargine 15 unit 15 unit DAILY@08 SC Last administered on 09/11/16 08: 23; Admin Dose 15 UNIT; Start 09/07/16 at 08:00 Piperacillin Sod/ Tazobactam Sod (Zosyn 3.375gm/ 100 ml (Pmx)) 100 ml @ 200 mls /hr Q8 IVPB Last administered on 09/11/16 14:41; Admin Dose 200 MLS/HR; Start 09/08/16 at 12:00 Famotidine (Pepcid) 20 mg Q12 PO Last administered on 09/10/16 21:30; Admin Dose 20 MG; Start 09/09/16 at 21:00 DARIAN KAY Sep 11, 2016 16:38
--- NOTE | 2016-09-11 19:51 | PN ---
Date/Time of Note Date/Time of Note DATE: 09/11/16 TIME: 19:47 Assessment/Plan VTE Prophylaxis VTE Prophylaxis Intervention: LMWH Lines/Catheters IV Catheter Type (from [facility] [place] Saline Lock Urinary Cath still in place: No Assessment/Plan Chief Complaint/Hosp Course Ascites with known liver failure but concern about coexant primary other Problems: Assessment/Plan A- ascites and cirrhosis but r/o peritoneal ca P- Given clearance willl see when ORT available Subjective 24 Hr Interval Summary Free Text/Dictation S- feels slightly better but still compromised by ascites and immobility O- Resp- clear CVS-nsr Abd no chg ext- baseline edema A- ascites and cirrhosis but r/o peritoneal ca P- Given clearance willl see when ORT available Exam/Review of Systems Vital Signs Vitals Vital Signs Date Time Temp Pulse Resp B/P Pulse Ox O2 Delivery O2 Flow Rate FiO2 09/11/16 16:22 83 09/11/16 15:25 98.1 20 106/56 98 09/10/16 16:00 Room Air Intake and Output 09/10/16 09/10/16 09/11/16 15:00 23:00 07:00 Intake Total 210 ml 600 ml Output Total 400 ml Balance 210 ml 200 ml Results Result Diagram: 09/10/1628 09/10/16627 Results 24 hrs Laboratory Tests Test 09/10/16 21:29 09/11/16 08:19 09/11/16 12:10 09/11/16 17:28 Bedside Glucose 159 168 172 123 Medications Medications Current Medications Metoclopramide HCl (Reglan) 10 mg Q6H PRN IV NAUSEA AND/OR VOMITING Last administered on 09/06/16 12:05; Admin Dose 10 MG; Start 09/05/16 at 03:00 Ibuprofen (Motrin) 600 mg Q6H PRN PO PAIN LEVEL 1-3 Last administered on 03:12; Admin Dose 600 MG; Start 09/05/16 at 03:00 Acetaminophen/ Hydrocodone Bitart ([place] (5/325)) 1 tab Q6H PRN PO MODERATE PAIN LEVEL 4-6 Last administered on 09/07/16 23:37; Admin Dose 1 TAB; Start 09/05 at 03:00 Morphine Sulfate (morphine) 2 mg Q4H PRN IV SEVERE PAIN LEVEL 7-10; Start at 03:00 Amlodipine Besylate (Norvasc) 5 mg DAILY PO Last administered on 09/07/16 13:49 ; Admin Dose 5 MG; Start 09/05/16 at 09:00 Lisinopril (Zestril) 20 mg DAILY PO Last administered on 09/07/16 13:49; Admin Dose 20 MG; Start 09/05/16 at 09:00 Spironolactone (Aldactone) 50 mg BID PO Last administered on 09/11/16 09:12; Admin Dose 50 MG; Start 09/05/16 at 09:00 Amitriptyline HCl (Elavil) 25 mg HS PO Last administered on 09/05/16 20:31; Admin Dose 25 MG; Start 09/05/16 at 21:00 Miscellaneous Information 1 ea NOTE XX ; Start 09/05/16 at 03:10 Glucose (Glutose) 15 gm Q15M PRN PO DECREASED GLUCOSE; Start 09/05/16 at 03:10 Glucose (Glutose) 22.5 gm Q15M PRN PO DECREASED GLUCOSE; Start 09/05/16 at 03:10 Dextrose (D50w Syringe) 25 ml Q15M PRN IV DECREASED GLUCOSE; Start 09/05/16 at 03:10 Dextrose (D50w Syringe) 50 ml Q15M PRN IV DECREASED GLUCOSE; Start 09/05/16 at 03:10 Glucagon (Glucagen) 1 mg Q15M PRN IM DECREASED GLUCOSE; Start 09/05/16 at 03:10 Glucose (Glutose) 15 gm Q15M PRN BUCCAL DECREASED GLUCOSE; Start 09/05/16 at 03: 10 Lactulose (Enulose) 10 gm Q8 PO Last administered on 09/09/16 06:00; Admin Dose 10 GM; Start 09/06/16 at 14:00 Insulin Glargine 15 unit 15 unit DAILY@08 SC Last administered on 09/11/16 08: 23; Admin Dose 15 UNIT; Start 09/07/16 at 08:00 Piperacillin Sod/ Tazobactam Sod (Zosyn 3.375gm/ 100 ml (Pmx)) 100 ml @ 200 mls /hr Q8 IVPB Last administered on 09/11/16 14:41; Admin Dose 200 MLS/HR; Start 09/08/16 at 12:00 Famotidine (Pepcid) 20 mg Q12 PO Last administered on 09/10/16t 21:30; Admin Dose 20 MG; Start 09/09/16 at 21:00 CARIN WALL MD Sep 11, 2016 19:51
[2016-09-11] MEDS: AMITRIPTYLINE 25 MG TAB PO SCH (21:00)
[2016-09-12] VITALS (10 sets, daily range): BP systolic 120–137; BP diastolic 58–73; PULSE 73–87; RESP 16–20
[2016-09-12] MEDS: LACTULOSE 30ML CUP PO SCH ×3 (06:12→22:11)
[2016-09-12] MEDS: PIPER-TAZO 3.375 GM IV (PMX) 100 ML IVPB SCH ×3 (06:13→22:11)
[2016-09-12] MEDS: FUROSEMIDE 20 MG TAB PO SCH (06:13)
[2016-09-12 06:59] LABS: ADD SCAN DIFF NO
[2016-09-12 07:01] LABS: BASOPHILS % 0.7 % (0.0-2.0); EOSINOPHILS # 0.1 10^3/ul (0.0-0.5); EOSINOPHILS % 1.8 % (0.0-7.0); HEMATOCRIT 31.6 % (37.0-47.0); HEMOGLOBIN 10.4 g/dl (12.0-16.0); LYMPHOCYTES # 1.7 10^3/ul (0.8-2.9); LYMPHOCYTES % 38.1 % (15.0-51.0); MEAN CORPUSCULAR HEMOGLOBIN 30.4 pg (29.0-33.0); MEAN CORPUSCULAR HGB CONC 32.9 g/dl (32.0-37.0); MEAN CORPUSCULAR VOLUME 92.4 fl (82.0-101.0); MEAN PLATELET VOLUME 11.3 fl (7.4-10.4); MONOCYTE # 0.5 10^3/ul (0.3-0.9); MONOCYTES % 10.9 % (0.0-11.0); NEUTROPHIL # 2.2 10^3/ul (1.6-7.5); NEUTROPHILS % 48.3 % (39.0-77.0); PLATELET COUNT 157 10^3/UL (140-415); RED BLOOD COUNT 3.42 10^6/ul (4.20-5.40); RED CELL DISTRIBUTION WIDTH 14.6 % (11.5-14.5); WHITE BLOOD COUNT 4.5 10^3/ul (4.8-10.8)
[2016-09-12 07:23] LABS: CALCIUM 7.6 mg/dl (8.4-10.2); CREATININE 0.53 mg/dl (0.44-1.00); POTASSIUM 3.9 mmol/L (3.5-5.1)
[2016-09-12] MEDS: LISINOPRIL 20 MG TAB PO SCH (09:00)
[2016-09-12] MEDS: AMLODIPINE 5 MG TAB PO SCH (09:00)
[2016-09-12] MEDS: FAMOTIDINE 20 MG TAB PO SCH ×2 (09:00→22:11)
[2016-09-12] MEDS: INSULIN GLARGINE [LANtus] 3 ML PEN SC SCH (09:04)
[2016-09-12] MEDS: Insulin NOVOLOG SS MODERATE Algorithm (SS with meals and bedtime) SC SCH ×4 (09:04→22:00)
[2016-09-12] MEDS: INSULIN ASPART [NOVOLOG] 3 ML PEN SC SCH ×4 (09:05→18:18)
[2016-09-12] MEDS: SPIRONOLACTONE 50 MG TAB PO SCH ×2 (09:43→16:11)
--- NOTE | 2016-09-12 15:01 | PN ---
Date/Time of Note Date/Time of Note DATE: 09/12/16 TIME: 14:58 Assessment/Plan VTE Prophylaxis VTE Prophylaxis Intervention: SCD's Lines/Catheters IV [facility]from [facility] Saline Lock Urinary Cath still in place: No Assessment/Plan Chief Complaint/Hosp Course Assessment and plan 1. End-stage liver disease. Nonalcoholic. Patient status post paracentesis for recurrent ascites. Continue on diuretics with monitoring for renal function. Diuretic increased. Patient with abdominal distention and ascites. Using paracentesis today. Will follow up 2. Hyperammonemia. Continue lactulose 3. Type 2 diabetes. A1c noted at 9.3. Continue on insulin regimen and adjust as needed 4. Suspect SBP. Currently on antibiotics. We'll monitor 5. Iron anemia. Continue on iron supplement 6. Essential hypertension. On antihypertensives 7. Elevated tumor markers. Surgical oncologist and oncologist following. Pathology of ascites fluid negative for malignancy. Continue with the neurologist recommendations. GERD prophylaxis: H2 maggie DVT prophylaxis: SCDs Disposition and plan: Diuretic increased. Still noted with abdominal distention. Patient refusing paracentesis today. Will follow up. Follow-up with surgeon for possible surgical intervention Discussed plan of care with Dr. Younger Problems: Subjective 24 Hr Interval Summary Free Text/Dictation Reports having abdominal distention. Little worse today Exam/Review of Systems Vital Signs Vitals Vital Signs Date Time Temp Pulse Resp B/P Pulse Ox O2 Delivery O2 Flow Rate FiO2 09/12/16 12:14 98.5 85 19 130/67 96 09/10/16 16:00 Room Air Intake and Output 09/11/16 09/11/16 09/12/16 15:00 23:00 07:00 Intake Total 660 ml 100 ml Output Total 350 ml Balance 310 ml 100 ml Exam General: Minimal distress because of reported abdominal distention Eyes: equal round Neck: Supple nontender, no JVD Cardiac: S1, S2 auscultated, regular rhythm and rate Pulmonary: No coarse rhonchi or breathing auscultated GI: Distended, tender Extremities: edema noted bilateral lower extremities Skin: Clean dry and intact Neurologic: Alert to person place and time and situation Results Result Diagram: 09/12/16 0630 09/12/16 0630 Results 24 hrs Laboratory Tests Test 09/11/16 17:28 09/11/16 20:55 09/12/16 06:30 09/12/16 09:01 Bedside Glucose 123 152 151 White Blood Count 4.5 #L Red Blood Count 3.42 L Hemoglobin 10.4 L Hematocrit 31.6 L Mean Corpuscular Volume 92.4 Mean Corpuscular Hemoglobin 30.4 Mean Corpuscular Hemoglobin Concent 32.9 Red Cell Distribution Width 14.6 H Platelet Count 157 # Mean Platelet Volume 11.3 H Neutrophils % 48.3 Lymphocytes % 38.1 Monocytes % 10.9 Eosinophils % 1.8 Basophils % 0.7 Nucleated Red Blood Cells % 0.0 Neutrophils # 2.2 Lymphocytes # 1.7 Monocytes # 0.5 Eosinophils # 0.1 Basophils # 0.0 Nucleated Red Blood Cells # 0.0 Sodium Level 135 Potassium Level 3.9 Chloride Level 107 Carbon Dioxide Level 25 Anion Gap 7 L Blood Urea Nitrogen 10 Creatinine 0.53 Glucose Level 122 Calcium Level 7.6 L Test 09/12/16 09:20 09/12/16 11:24 Lab Scanned Report REFERENCE LAB Bedside Glucose 140 Medications Medications Current Medications Metoclopramide HCl (Reglan) 10 mg Q6H PRN IV NAUSEA AND/OR VOMITING Last administered on 09/06/16 12:05; Admin Dose 10 MG; Start 09/05/16 at 03:00 Ibuprofen (Motrin) 600 mg Q6H PRN PO PAIN LEVEL 1-3 Last administered on 03:12; Admin Dose 600 MG; Start 09/05/16 at 03:00 Acetaminophen/ Hydrocodone Bitart ([place] (5/325)) 1 tab Q6H PRN PO MODERATE PAIN LEVEL 4-6 Last administered on 09/07/16 23:37; Admin Dose 1 TAB; Start 09/05 at 03:00 Morphine Sulfate (morphine) 2 mg Q4H PRN IV SEVERE PAIN LEVEL 7-10; Start at 03:00 Amlodipine Besylate (Norvasc) 5 mg DAILY PO Last administered on 09/07/16 13:49 ; Admin Dose 5 MG; Start 09/05/16 at 09:00 Lisinopril (Zestril) 20 mg DAILY PO Last administered on 09/07/16 13:49; Admin Dose 20 MG; Start 09/05/16 at 09:00 Spironolactone (Aldactone) 50 mg BID PO Last administered on 09/12/16 09:43; Admin Dose 50 MG; Start 09/05/16 at 09:00 Amitriptyline HCl (Elavil) 25 mg HS PO Last administered on 09/05/16 20:31; Admin Dose 25 MG; Start 09/05/16 at 21:00 Miscellaneous Information 1 ea NOTE XX ; Start 09/05/16 at 03:10 Glucose (Glutose) 15 gm Q15M PRN PO DECREASED GLUCOSE; Start 09/05/16 at 03:10 Glucose (Glutose) 22.5 gm Q15M PRN PO DECREASED GLUCOSE; Start 09/05/16 at 03:10 Dextrose (D50w Syringe) 25 ml Q15M PRN IV DECREASED GLUCOSE; Start 09/05/16 at 03:10 Dextrose (D50w Syringe) 50 ml Q15M PRN IV DECREASED GLUCOSE; Start 09/05/16 at 03:10 Glucagon (Glucagen) 1 mg Q15M PRN IM DECREASED GLUCOSE; Start 09/05/16 at 03:10 Glucose (Glutose) 15 gm Q15M PRN BUCCAL DECREASED GLUCOSE; Start 09/05/16 at 03: 10 Lactulose (Enulose) 10 gm Q8 PO Last administered on 09/12/16 06:12; Admin Dose 10 GM; Start 09/06/16 at 14:00 Insulin Glargine 15 unit 15 unit DAILY@08 SC Last administered on 09/12/16 09: 04; Admin Dose 15 UNIT; Start 09/07/16 at 08:00 Piperacillin Sod/ Tazobactam Sod (Zosyn 3.375gm/ 100 ml (Pmx)) 100 ml @ 200 mls /hr Q8 IVPB Last administered on 09/12/16 14:05; Admin Dose 200 MLS/HR; Start 09/08/16 at 12:00 Famotidine (Pepcid) 20 mg Q12 PO Last administered on 09/10/16 21:30; Admin Dose 20 MG; Start 09/09/16 at 21:00 Spironolactone (Aldactone) 100 mg DAILY PO ; Start 09/12/16 at 14:30 EDIE JAUREGUI Sep 12, 2016 15:01
--- NOTE | 2016-09-12 17:55 | QN ---
Documentation Comment Reviewed and briefly see. Surgery being schedule depending OR availability; likely Saturday or Saturday. CARIN WALL MD Sep 12, 2016 17:55
[2016-09-12] MEDS: FUROSEMIDE 40 MG INJ IV SCH (18:55)
[2016-09-12] MEDS: AMITRIPTYLINE 25 MG TAB PO SCH (21:00)
[2016-09-13] VITALS (12 sets, daily range): BP systolic 104–129; BP diastolic 55–70; PULSE 72–83; RESP 18–20
[2016-09-13] MEDS: LACTULOSE 30ML CUP PO SCH ×4 (06:00→22:00)
[2016-09-13] MEDS: PIPER-TAZO 3.375 GM IV (PMX) 100 ML IVPB SCH ×3 (06:09→22:19)
[2016-09-13] MEDS: FUROSEMIDE 40 MG INJ IV SCH ×2 (06:09→18:01)
[2016-09-13 07:23] LABS: ADD SCAN DIFF NO
[2016-09-13 07:25] LABS: BASOPHIL # 0.1 10^3/ul (0.0-0.1); BASOPHILS % 0.8 % (0.0-2.0); EOSINOPHILS # 0.1 10^3/ul (0.0-0.5); HEMATOCRIT 33.6 % (37.0-47.0); HEMOGLOBIN 10.9 g/dl (12.0-16.0); LYMPHOCYTES # 2.2 10^3/ul (0.8-2.9); LYMPHOCYTES % 36.3 % (15.0-51.0); MEAN CORPUSCULAR HEMOGLOBIN 29.7 pg (29.0-33.0); MEAN CORPUSCULAR HGB CONC 32.4 g/dl (32.0-37.0); MEAN CORPUSCULAR VOLUME 91.6 fl (82.0-101.0); MEAN PLATELET VOLUME 11.4 fl (7.4-10.4); MONOCYTE # 0.5 10^3/ul (0.3-0.9); MONOCYTES % 8.7 % (0.0-11.0); NEUTROPHIL # 3.2 10^3/ul (1.6-7.5); NEUTROPHILS % 51.9 % (39.0-77.0); PLATELET COUNT 192 10^3/UL (140-415); RED BLOOD COUNT 3.67 10^6/ul (4.20-5.40); RED CELL DISTRIBUTION WIDTH 15.1 % (11.5-14.5); WHITE BLOOD COUNT 6.1 10^3/ul (4.8-10.8)
[2016-09-13] MEDS: Insulin NOVOLOG SS MODERATE Algorithm (SS with meals and bedtime) SC SCH ×4 (07:49→21:00)
[2016-09-13] MEDS: SPIRONOLACTONE 50 MG TAB PO SCH (08:16)
[2016-09-13] MEDS: FAMOTIDINE 20 MG TAB PO SCH ×2 (08:16→22:19)
[2016-09-13] MEDS: AMLODIPINE 5 MG TAB PO SCH (08:18)
[2016-09-13] MEDS: LISINOPRIL 20 MG TAB PO SCH (08:19)
[2016-09-13 08:32] LABS: CALCIUM 7.8 mg/dl (8.4-10.2); CREATININE 0.56 mg/dl (0.44-1.00); POTASSIUM 3.7 mmol/L (3.5-5.1)
[2016-09-13] MEDS: INSULIN ASPART [NOVOLOG] 3 ML PEN SC SCH ×3 (09:02→17:50)
[2016-09-13] MEDS: INSULIN GLARGINE [LANtus] 3 ML PEN SC SCH (09:03)
--- NOTE | 2016-09-13 13:38 | PN ---
Date/Time of Note Date/Time of Note DATE: 09/13/16 TIME: 13:36 Assessment/Plan VTE Prophylaxis VTE Prophylaxis Intervention: SCD's Lines/Catheters [facility] Type [facility] Saline Lock Urinary Cath still in place: No Assessment/Plan Chief Complaint/Hosp Course Assessment and plan 1. End-stage liver disease. Nonalcoholic. Patient status post paracentesis for recurrent ascites. Continue on diuretics with monitoring for hypotension. We will increase diuretic medication as tolerated. Willing for paracentesis today. Will order 2. Hyperammonemia. Continue lactulose 3. Type 2 diabetes. A1c noted at 9.3. Continue on insulin regimen and adjust as needed 4. Suspect SBP. Currently on antibiotics. We'll monitor 5. Iron anemia. Continue on iron supplement 6. Essential hypertension. Continue antihypertensives and adjust as needed 7. Elevated tumor markers. Surgical oncologist and oncologist following. Tentative plan for exploratory lap per surgeon GERD prophylaxis: H2 maggie DVT prophylaxis: SCDs Disposition and plan: Plan for paracentesis. exploratory lap per surgeon once time available in OR Discussed plan of care with Dr. Younger Problems: Subjective 24 Hr Interval Summary Free Text/Dictation reports worse abdominal distention at this time Exam/Review of Systems Vital Signs Vitals Vital Signs Date Time Temp Pulse Resp B/P Pulse Ox O2 Delivery O2 Flow Rate FiO2 09/13/16 12:07 72 09/13/16 12:00 98.3 18 126/68 97 09/10/16 16:00 Room Air Intake and Output 09/12/16 09/12/16 09/13/16 15:00 23:00 07:00 Intake Total 700 ml 700 ml Balance 700 ml 700 ml Exam General: Minimal distress because of reported abdominal distention, no dyspnea today Eyes: equal round Neck:No JVD seen Cardiac: remains regular rate Pulmonary: No coarse rhonchi or breathing auscultated GI: Distended, tender Extremities: edema noted bilateral lower extremities Skin: Clean dry and intact Neurologic: Alert to person place and time and situation Results Result Diagram: 09/13/16 0640 09/13/16 0640 Results 24 hrs Laboratory Tests Test 09/12/16 17:47 09/12/16 22:10 09/13/16 06:40 09/13/16 07:40 Bedside Glucose 92 128 128 White Blood Count 6.1 # Red Blood Count 3.67 L Hemoglobin 10.9 L Hematocrit 33.6 L Mean Corpuscular Volume 91.6 Mean Corpuscular Hemoglobin 29.7 Mean Corpuscular Hemoglobin Concent 32.4 Red Cell Distribution Width 15.1 H Platelet Count 192 # Mean Platelet Volume 11.4 H Neutrophils % 51.9 Lymphocytes % 36.3 Monocytes % 8.7 Eosinophils % 2.0 Basophils % 0.8 Nucleated Red Blood Cells % 0.0 Neutrophils # 3.2 Lymphocytes # 2.2 Monocytes # 0.5 Eosinophils # 0.1 Basophils # 0.1 Nucleated Red Blood Cells # 0.0 Sodium Level 136 Potassium Level 3.7 Chloride Level 105 Carbon Dioxide Level 24 Anion Gap 11 Blood Urea Nitrogen 9 Creatinine 0.56 Glucose Level 114 Calcium Level 7.8 L Test 09/13/16 11:44 Bedside Glucose 123 Medications Medications Current Medications Metoclopramide HCl (Reglan) 10 mg Q6H PRN IV NAUSEA AND/OR VOMITING Last administered on 09/06/16 12:05; Admin Dose 10 MG; Start 09/05/16 at 03:00 Ibuprofen (Motrin) 600 mg Q6H PRN PO PAIN LEVEL 1-3 Last administered on 03:12; Admin Dose 600 MG; Start 09/05/16 at 03:00 Acetaminophen/ Hydrocodone Bitart ([place] (5/325)) 1 tab Q6H PRN PO MODERATE PAIN LEVEL 4-6 Last administered on 09/07/16 23:37; Admin Dose 1 TAB; Start 09/05 at 03:00 Morphine Sulfate (morphine) 2 mg Q4H PRN IV SEVERE PAIN LEVEL 7-10; Start at 03:00 Amlodipine Besylate (Norvasc) 5 mg DAILY PO Last administered on 09/07/16 13:49 ; Admin Dose 5 MG; Start 09/05/16 at 09:00 Lisinopril (Zestril) 20 mg DAILY PO Last administered on 09/07/16 13:49; Admin Dose 20 MG; Start 09/05/16 at 09:00 Amitriptyline HCl (Elavil) 25 mg HS PO Last administered on 09/05/16 20:31; Admin Dose 25 MG; Start 09/05/16 at 21:00 Miscellaneous Information 1 ea NOTE XX ; Start 09/05/16 at 03:10 Glucose (Glutose) 15 gm Q15M PRN PO DECREASED GLUCOSE; Start 09/05/16 at 03:10 Glucose (Glutose) 22.5 gm Q15M PRN PO DECREASED GLUCOSE; Start 09/05/16 at 03:10 Dextrose (D50w Syringe) 25 ml Q15M PRN IV DECREASED GLUCOSE; Start 09/05/16 at 03:10 Dextrose (D50w Syringe) 50 ml Q15M PRN IV DECREASED GLUCOSE; Start 09/05/16 at 03:10 Glucagon (Glucagen) 1 mg Q15M PRN IM DECREASED GLUCOSE; Start 09/05/16 at 03:10 Glucose (Glutose) 15 gm Q15M PRN BUCCAL DECREASED GLUCOSE; Start 09/05/16 at 03: 10 Lactulose (Enulose) 10 gm Q8 PO Last administered on 09/12/16 22:11; Admin Dose 10 GM; Start 09/06/16 at 14:00 Insulin Glargine 15 unit 15 unit DAILY@08 SC Last administered on 09/13/16 09: 03; Admin Dose 15 UNIT; Start 09/07/16 at 08:00 Piperacillin Sod/ Tazobactam Sod (Zosyn 3.375gm/ 100 ml (Pmx)) 100 ml @ 200 mls /hr Q8 IVPB Last administered on 09/13/16 06:09; Admin Dose 200 MLS/HR; Start 09/08/16 at 12:00 Famotidine (Pepcid) 20 mg Q12 PO Last administered on 09/13/16 08:16; Admin Dose 20 MG; Start 09/09/16 at 21:00 Spironolactone (Aldactone) 100 mg DAILY PO Last administered on 09/13/16 08:16 ; Admin Dose 100 MG; Start 09/12/16 at 14:30 EDIE JAUREGUI Sep 13, 2016 13:38
--- NOTE | 2016-09-13 15:27 | CONS ---
Date/Time of Note Date/Time of Note DATE: 09/13/16 TIME: 15:26 Assessment/Plan Assessment/Plan Chief Complaint/Hosp Course 61 female with [place] cirrhosis and ascites in the setting of a markedly elevated CA 125. At this time, I am very concerned for cancer of INORGANIC CHEMIST given the CA 125> 10,000. 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 # Ascites, concern for malignancy -ascitic fluid cytology 09/07/16 showed no malignant cells -appreciates recs from Dr. Noyola given my concern for INORGANIC CHEMIST primary malignancy. Agree that pt may benefit from an exploratory laparoscopy. Cardiology clearance for surgery received, pending OR time possibly Saturday or Saturday -plan for repeat paracentesis today # Iron Deficiency Anemia - pt has Hg of 10 with iron sat 6%. Hgb stable. -Ferrlecit started 09/07/16 (planned for 5 doses through 09/11/16) Problems: Consultation Date/Type/Reason Admit Date/Time Sep 05, 2016 at 00:09 Initial Consult Date 09/07/16 Type of Consultation: Oncology Referring Provider: EDIE JAUREGUI 24 HR Interval Summary Free Text/Dictation Patient in radiology for paracentesis. Exam/Review of Systems Vital Signs Vitals Vital Signs Date Time Temp Pulse Resp B/P Pulse Ox O2 Delivery O2 Flow Rate FiO2 09/13/16 12:07 72 09/13/16 12:00 98.3 18 126/68 97 09/10/16 16:00 Room Air Intake and Output 09/12/16 09/12/16 09/13/16 15:00 23:00 07:00 Intake Total 700 ml 700 ml Balance 700 ml 700 ml Results Result Diagram: 09/13/16 0640 09/13/16 0640 Results 24 hrs Laboratory Tests Test 09/12/16 17:47 09/12/16 22:10 09/13/16 06:40 09/13/16 07:40 Bedside Glucose 92 128 128 White Blood Count 6.1 # Red Blood Count 3.67 L Hemoglobin 10.9 L Hematocrit 33.6 L Mean Corpuscular Volume 91.6 Mean Corpuscular Hemoglobin 29.7 Mean Corpuscular Hemoglobin Concent 32.4 Red Cell Distribution Width 15.1 H Platelet Count 192 # Mean Platelet Volume 11.4 H Neutrophils % 51.9 Lymphocytes % 36.3 Monocytes % 8.7 Eosinophils % 2.0 Basophils % 0.8 Nucleated Red Blood Cells % 0.0 Neutrophils # 3.2 Lymphocytes # 2.2 Monocytes # 0.5 Eosinophils # 0.1 Basophils # 0.1 Nucleated Red Blood Cells # 0.0 Sodium Level 136 Potassium Level 3.7 Chloride Level 105 Carbon Dioxide Level 24 Anion Gap 11 Blood Urea Nitrogen 9 Creatinine 0.56 Glucose Level 114 Calcium Level 7.8 L Test 09/13/16 11:44 Bedside Glucose 123 Medications Medications Current Medications Metoclopramide HCl (Reglan) 10 mg Q6H PRN IV NAUSEA AND/OR VOMITING Last administered on 09/06/16 12:05; Admin Dose 10 MG; Start 09/05/16 at 03:00 Ibuprofen (Motrin) 600 mg Q6H PRN PO PAIN LEVEL 1-3 Last administered on 03:12; Admin Dose 600 MG; Start 09/05/16 at 03:00 Acetaminophen/ Hydrocodone Bitart ([place] (5/325)) 1 tab Q6H PRN PO MODERATE PAIN LEVEL 4-6 Last administered on 09/07/16 23:37; Admin Dose 1 TAB; Start 09/05 at 03:00 Morphine Sulfate (morphine) 2 mg Q4H PRN IV SEVERE PAIN LEVEL 7-10; Start at 03:00 Amlodipine Besylate (Norvasc) 5 mg DAILY PO Last administered on 09/07/16 13:49 ; Admin Dose 5 MG; Start 09/05/16 at 09:00 Lisinopril (Zestril) 20 mg DAILY PO Last administered on 09/07/16 13:49; Admin Dose 20 MG; Start 09/05/16 at 09:00 Amitriptyline HCl (Elavil) 25 mg HS PO Last administered on 09/05/16 20:31; Admin Dose 25 MG; Start 09/05/16 at 21:00 Miscellaneous Information 1 ea NOTE XX ; Start 09/05/16 at 03:10 Glucose (Glutose) 15 gm Q15M PRN PO DECREASED GLUCOSE; Start 09/05/16 at 03:10 Glucose (Glutose) 22.5 gm Q15M PRN PO DECREASED GLUCOSE; Start 09/05/16 at 03:10 Dextrose (D50w Syringe) 25 ml Q15M PRN IV DECREASED GLUCOSE; Start 09/05/16 at 03:10 Dextrose (D50w Syringe) 50 ml Q15M PRN IV DECREASED GLUCOSE; Start 09/05/16 at 03:10 Glucagon (Glucagen) 1 mg Q15M PRN IM DECREASED GLUCOSE; Start 09/05/16 at 03:10 Glucose (Glutose) 15 gm Q15M PRN BUCCAL DECREASED GLUCOSE; Start 09/05/16 at 03: 10 Lactulose (Enulose) 10 gm Q8 PO Last administered on 09/12/16 22:11; Admin Dose 10 GM; Start 09/06/16 at 14:00 Insulin Glargine 15 unit 15 unit DAILY@08 SC Last administered on 09/13/16 09: 03; Admin Dose 15 UNIT; Start 09/07/16 at 08:00 Piperacillin Sod/ Tazobactam Sod (Zosyn 3.375gm/ 100 ml (Pmx)) 100 ml @ 200 mls /hr Q8 IVPB Last administered on 09/13/16 13:52; Admin Dose 200 MLS/HR; Start 09/08/16 at 12:00 Famotidine (Pepcid) 20 mg Q12 PO Last administered on 09/13/16 08:16; Admin Dose 20 MG; Start 09/09/16 at 21:00 Spironolactone (Aldactone) 100 mg DAILY PO Last administered on 09/13/16 08:16 ; Admin Dose 100 MG; Start 09/12/16 at 14:30 TOKENNEDI MD Sep 13, 2016 15:27 Spironolactone (Aldactone) 100 mg DAILY PO Last administered on 09/13/16 08:16 ; Admin Dose 100 MG; Start 09/12/16 at 14:30 KENNEDI LEGGETT MD Sep 13, 2016 15:27
--- NOTE | 2016-09-13 18:00 | RADRPT ---
PROCEDURE: Ultrasound guided paracentesis. CLINICAL INDICATION: Ascites and shortness of breath. COMPARISON: 09/07/2016. TECHNIQUE: The risks, benefits, and alternatives were explained to the patient and/or the patient's family, inc luding but not limited to bleeding, infection, pain, visceral or vascular damage, shock, and . The patient and/or the patient's family understood the risks and the alternatives and wished to pro ceed with the procedure. Informed written consent was obtained. A procedural time out was performed . The patient's name, date of , and procedure to be performed were verified. Utilizing ultrasound guidance, optimal location for entry to the peritoneal cavity was ascertained. The overlying skin was prepped and draped in the usual sterile fashion. Approximately 10 ml of 1% Xylocaine was injected locally for pain control. Using ultrasound guidance, an 8 [place] catheter wa s introduced into the peritoneal cavity in the right upper quadrant without difficulty. FINDINGS: Initial images demonstrate ascites. Approximately 3.6 liters of serous fluid was aspirated and disc arded. The patient tolerated the procedure well without complication. IMPRESSION: 1. Successful ultrasound-guided paracentesis. RPTAT: QQ .Dudley Lanza MD, Date Time Electronically viewed and signed by .Dudley Lanza MD, on 09/13/2016 17:59 .R/
--- NOTE | 2016-09-13 21:08 | PN ---
Date/Time of Note Date/Time of Note DATE: 09/13/16 TIME: 21:06 Assessment/Plan VTE Prophylaxis VTE Prophylaxis Intervention: LMWH Lines/Catheters IV [facility] Type [facility]from [email or web address] Saline Lock Urinary Cath still in place: No Assessment/Plan Chief Complaint/Hosp Course Ascites with known liver failure but concern about coexant primary other Problems: Assessment/Plan A- ascites and cirrhosis but r/o peritoneal ca P- awaits paracentesis apparently due to resp issues Laparoscopy schd Saturday Subjective 24 Hr Interval Summary Free Text/Dictation S- feels uncomfortable due to ascites with immobility O- Resp- clear CVS-nsr Abd no chg ext- baseline edema A- ascites and cirrhosis but r/o peritoneal ca P- awaits paracentesis apparently due to resp issues Laparoscopy schd Saturday Exam/Review of Systems Vital Signs Vitals Vital Signs Date Time Temp Pulse Resp B/P Pulse Ox O2 Delivery O2 Flow Rate FiO2 09/13/16 20:01 97.5 85 20 118/56 99 09/10/16 16:00 Room Air Intake and Output 09/12/16 09/12/16 09/13/16 15:00 23:00 07:00 Intake Total 700 ml 700 ml Balance 700 ml 700 ml Results Result Diagram: 09/13/16 0640 09/13/16 0640 Results 24 hrs Laboratory Tests Test 09/12/16 22:10 09/13/16 06:40 09/13/16 07:40 09/13/16 11:44 Bedside Glucose 128 128 123 White Blood Count 6.1 # Red Blood Count 3.67 L Hemoglobin 10.9 L Hematocrit 33.6 L Mean Corpuscular Volume 91.6 Mean Corpuscular Hemoglobin 29.7 Mean Corpuscular Hemoglobin Concent 32.4 Red Cell Distribution Width 15.1 H Platelet Count 192 # Mean Platelet Volume 11.4 H Neutrophils % 51.9 Lymphocytes % 36.3 Monocytes % 8.7 Eosinophils % 2.0 Basophils % 0.8 Nucleated Red Blood Cells % 0.0 Neutrophils # 3.2 Lymphocytes # 2.2 Monocytes # 0.5 Eosinophils # 0.1 Basophils # 0.1 Nucleated Red Blood Cells # 0.0 Sodium Level 136 Potassium Level 3.7 Chloride Level 105 Carbon Dioxide Level 24 Anion Gap 11 Blood Urea Nitrogen 9 Creatinine 0.56 Glucose Level 114 Calcium Level 7.8 L Test 09/13/16 17:45 Bedside Glucose 114 Medications Medications Current Medications Metoclopramide HCl (Reglan) 10 mg Q6H PRN IV NAUSEA AND/OR VOMITING Last administered on 09/06/16 12:05; Admin Dose 10 MG; Start 09/05/16 at 03:00 Ibuprofen (Motrin) 600 mg Q6H PRN PO PAIN LEVEL 1-3 Last administered on 03:12; Admin Dose 600 MG; Start 09/05/16 at 03:00 Acetaminophen/ Hydrocodone Bitart ([place] (5/325)) 1 tab Q6H PRN PO MODERATE PAIN LEVEL 4-6 Last administered on 09/07/16 23:37; Admin Dose 1 TAB; Start 09/05 at 03:00 Morphine Sulfate (morphine) 2 mg Q4H PRN IV SEVERE PAIN LEVEL 7-10; Start at 03:00 Amlodipine Besylate (Norvasc) 5 mg DAILY PO Last administered on 09/07/16 13:49 ; Admin Dose 5 MG; Start 09/05/16 at 09:00 Lisinopril (Zestril) 20 mg DAILY PO Last administered on 09/07/16 13:49; Admin Dose 20 MG; Start 09/05/16 at 09:00 Amitriptyline HCl (Elavil) 25 mg HS PO Last administered on 09/05/16 20:31; Admin Dose 25 MG; Start 09/05/16 at 21:00 Miscellaneous Information 1 ea NOTE XX ; Start 09/05/16 at 03:10 Glucose (Glutose) 15 gm Q15M PRN PO DECREASED GLUCOSE; Start 09/05/16 at 03:10 Glucose (Glutose) 22.5 gm Q15M PRN PO DECREASED GLUCOSE; Start 09/05/16 at 03:10 Dextrose (D50w Syringe) 25 ml Q15M PRN IV DECREASED GLUCOSE; Start 09/05/16 at 03:10 Dextrose (D50w Syringe) 50 ml Q15M PRN IV DECREASED GLUCOSE; Start 09/05/16 at 03:10 Glucagon (Glucagen) 1 mg Q15M PRN IM DECREASED GLUCOSE; Start 09/05/16 at 03:10 Glucose (Glutose) 15 gm Q15M PRN BUCCAL DECREASED GLUCOSE; Start 09/05/16 at 03: 10 Lactulose (Enulose) 10 gm Q8 PO Last administered on 09/12/16 22:11; Admin Dose 10 GM; Start 09/06/16 at 14:00 Insulin Glargine 15 unit 15 unit DAILY@08 SC Last administered on 09/13/16 09: 03; Admin Dose 15 UNIT; Start 09/07/16 at 08:00 Piperacillin Sod/ Tazobactam Sod (Zosyn 3.375gm/ 100 ml (Pmx)) 100 ml @ 200 mls /hr Q8 IVPB Last administered on 09/13/16 13:52; Admin Dose 200 MLS/HR; Start 09/08/16 at 12:00 Famotidine (Pepcid) 20 mg Q12 PO Last administered on 09/13/16 08:16; Admin Dose 20 MG; Start 09/09/16 at 21:00 Spironolactone (Aldactone) 100 mg DAILY PO Last administered on 09/13/16 08:16 ; Admin Dose 100 MG; Start 09/12/16 at 14:30 CARIN WALL MD Sep 13, 2016 21:08
[2016-09-13] MEDS ORDERED: LIDOCAINE 1% (MPF) 5 ML VIAL ONE ×2 (21:43→21:44)
[2016-09-13] MEDS: AMITRIPTYLINE 25 MG TAB PO SCH (22:19)
[2016-09-14] VITALS (12 sets, daily range): BP systolic 103–124; BP diastolic 53–76; PULSE 77–85; RESP 18–20
[2016-09-14] MEDS: LACTULOSE 30ML CUP PO SCH ×3 (06:00→21:44)
[2016-09-14] MEDS: PIPER-TAZO 3.375 GM IV (PMX) 100 ML IVPB SCH ×3 (06:39→21:45)
[2016-09-14] MEDS: FUROSEMIDE 40 MG INJ IV SCH ×2 (06:39→17:51)
[2016-09-14 07:06] LABS: ADD SCAN DIFF NO
[2016-09-14 07:12] LABS: POTASSIUM 3.6 mmol/L (3.5-5.1)
[2016-09-14 07:14] LABS: CREATININE 0.58 mg/dl (0.44-1.00)
[2016-09-14 07:15] LABS: BASOPHILS % 0.9 % (0.0-2.0); CALCIUM 7.9 mg/dl (8.4-10.2); EOSINOPHILS # 0.1 10^3/ul (0.0-0.5); EOSINOPHILS % 1.9 % (0.0-7.0); HEMATOCRIT 31.8 % (37.0-47.0); HEMOGLOBIN 10.6 g/dl (12.0-16.0); LYMPHOCYTES # 1.5 10^3/ul (0.8-2.9); MEAN CORPUSCULAR HEMOGLOBIN 30.8 pg (29.0-33.0); MEAN CORPUSCULAR HGB CONC 33.3 g/dl (32.0-37.0); MEAN CORPUSCULAR VOLUME 92.4 fl (82.0-101.0); MEAN PLATELET VOLUME 11.3 fl (7.4-10.4); MONOCYTE # 0.5 10^3/ul (0.3-0.9); MONOCYTES % 10.7 % (0.0-11.0); NEUTROPHIL # 2.2 10^3/ul (1.6-7.5); PLATELET COUNT 150 10^3/UL (140-415); RED BLOOD COUNT 3.44 10^6/ul (4.20-5.40); RED CELL DISTRIBUTION WIDTH 14.9 % (11.5-14.5); WHITE BLOOD COUNT 4.3 10^3/ul (4.8-10.8)
[2016-09-14] MEDS: FAMOTIDINE 20 MG TAB PO SCH ×2 (08:16→21:42)
[2016-09-14] MEDS: SPIRONOLACTONE 50 MG TAB PO SCH (08:17)
[2016-09-14] MEDS: AMLODIPINE 5 MG TAB PO SCH (08:17)
[2016-09-14] MEDS: LISINOPRIL 20 MG TAB PO SCH (08:17)
[2016-09-14] MEDS: INSULIN GLARGINE [LANtus] 3 ML PEN SC SCH (08:19)
[2016-09-14] MEDS: Insulin NOVOLOG SS MODERATE Algorithm (SS with meals and bedtime) SC SCH ×4 (08:20→21:00)
[2016-09-14] MEDS: INSULIN ASPART [NOVOLOG] 3 ML PEN SC SCH ×3 (08:20→17:52)
--- NOTE | 2016-09-14 15:34 | PN ---
Date/Time of Note Date/Time of Note DATE: 09/14/16 TIME: 15:32 Assessment/Plan VTE Prophylaxis VTE Prophylaxis Intervention: SCD's Lines/Catheters IV Catheter Type (from Nrs): Peripheral IV Urinary Cath still in place: No Assessment/Plan Chief Complaint/Hosp Course Assessment and plan 1. End-stage liver disease. Nonalcoholic. Continue paracentesis as needed. Continue on diuretics with monitoring for hypotension. Continue on diuretic. 2. Hyperammonemia. Continue lactulose 3. Type 2 diabetes. A1c noted at 9.3. Continue on insulin regimen and adjust as needed 4. Suspect SBP. Currently on antibiotics. We'll monitor 5. Iron anemia. Continue on iron supplement 6. Essential hypertension. Continue antihypertensives and adjust as needed 7. Elevated tumor markers. Surgical oncologist and oncologist following. Tentative plan for exploratory lap per surgeon GERD prophylaxis: H2 maggie DVT prophylaxis: SCDs Disposition and plan: exploratory lap per surgeon once time available in OR. Continue supportive care. Monitor respiratory status. Discussed plan of care with Dr. Younger Problems: Subjective 24 Hr Interval Summary Free Text/Dictation reports less abd pain s/p paracentesis 09/13/16 Exam/Review of Systems Vital Signs Vitals Vital Signs Date Time Temp Pulse Resp B/P Pulse Ox O2 Delivery O2 Flow Rate FiO2 09/14/16 15:15 98.0 78 18 124/64 95 09/10/16 16:00 Room Air Intake and Output 09/13/16 09/13/16 09/14/16 15:00 23:00 07:00 Intake Total 650 ml 800 ml Balance 650 ml 800 ml Exam Constitutional: alert Psych: nl mood/affect, no complaints Head: atraumatic, normocephalic Eyes: nl conjunctiva Neck: non-tender, supple Respiratory: clear to auscultation, normal air movement Cardiovascular: regular rate and rhythm Gastrointestinal: ascites, distended Musculoskeletal: swelling (ble) Extremities: normal pulses 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, nl mental status, nl speech Results Result Diagram: 09/14/16 0600 09/14/16 0600 Results 24 hrs Laboratory Tests Test 09/13/16 17:45 09/13/16 22:22 09/14/16 06:00 09/14/16 07:49 Bedside Glucose 114 173 188 White Blood Count 4.3 #L Red Blood Count 3.44 L Hemoglobin 10.6 L Hematocrit 31.8 L Mean Corpuscular Volume 92.4 Mean Corpuscular Hemoglobin 30.8 Mean Corpuscular Hemoglobin Concent 33.3 Red Cell Distribution Width 14.9 H Platelet Count 150 # Mean Platelet Volume 11.3 H Neutrophils % 52.0 Lymphocytes % 34.0 Monocytes % 10.7 Eosinophils % 1.9 Basophils % 0.9 Nucleated Red Blood Cells % 0.0 Neutrophils # 2.2 Lymphocytes # 1.5 Monocytes # 0.5 Eosinophils # 0.1 Basophils # 0.0 Nucleated Red Blood Cells # 0.0 Sodium Level 136 Potassium Level 3.6 Chloride Level 104 Carbon Dioxide Level 26 Anion Gap 10 Blood Urea Nitrogen 11 Creatinine 0.58 Glucose Level 218 # Calcium Level 7.9 L Test 09/14/16 11:49 Bedside Glucose 202 Medications Medications Current Medications Metoclopramide HCl (Reglan) 10 mg Q6H PRN IV NAUSEA AND/OR VOMITING Last administered on 09/06/16 12:05; Admin Dose 10 MG; Start 09/05/16 at 03:00 Ibuprofen (Motrin) 600 mg Q6H PRN PO PAIN LEVEL 1-3 Last administered on 03:12; Admin Dose 600 MG; Start 09/05/16 at 03:00 Acetaminophen/ Hydrocodone Bitart ([place] (5/325)) 1 tab Q6H PRN PO MODERATE PAIN LEVEL 4-6 Last administered on 09/07/16 23:37; Admin Dose 1 TAB; Start 09/05 at 03:00 Morphine Sulfate (morphine) 2 mg Q4H PRN IV SEVERE PAIN LEVEL 7-10; Start at 03:00 Amlodipine Besylate (Norvasc) 5 mg DAILY PO Last administered on 09/07/16 13:49 ; Admin Dose 5 MG; Start 09/05/16 at 09:00 Lisinopril (Zestril) 20 mg DAILY PO Last administered on 09/07/16 13:49; Admin Dose 20 MG; Start 09/05/16 at 09:00 Amitriptyline HCl (Elavil) 25 mg HS PO Last administered on 09/13/16 22:19; Admin Dose 25 MG; Start 09/05/16 at 21:00 Miscellaneous Information 1 ea NOTE XX ; Start 09/05/16 at 03:10 Glucose (Glutose) 15 gm Q15M PRN PO DECREASED GLUCOSE; Start 09/05/16 at 03:10 Glucose (Glutose) 22.5 gm Q15M PRN PO DECREASED GLUCOSE; Start 09/05/16 at 03:10 Dextrose (D50w Syringe) 25 ml Q15M PRN IV DECREASED GLUCOSE; Start 09/05/16 at 03:10 Dextrose (D50w Syringe) 50 ml Q15M PRN IV DECREASED GLUCOSE; Start 09/05/16 at 03:10 Glucagon (Glucagen) 1 mg Q15M PRN IM DECREASED GLUCOSE; Start 09/05/16 at 03:10 Glucose (Glutose) 15 gm Q15M PRN BUCCAL DECREASED GLUCOSE; Start 09/05/16 at 03: 10 Lactulose (Enulose) 10 gm Q8 PO Last administered on 09/12/16 22:11; Admin Dose 10 GM; Start 09/06/16 at 14:00 Insulin Glargine 15 unit 15 unit DAILY@08 SC Last administered on 09/14/16 08: 19; Admin Dose 15 UNIT; Start 09/07/16 at 08:00 Piperacillin Sod/ Tazobactam Sod (Zosyn 3.375gm/ 100 ml (Pmx)) 100 ml @ 200 mls /hr Q8 IVPB Last administered on 09/14/16 14:27; Admin Dose 200 MLS/HR; Start 09/08/16 at 12:00 Famotidine (Pepcid) 20 mg Q12 PO Last administered on 09/14/16 08:16; Admin Dose 20 MG; Start 09/09/16 at 21:00 Spironolactone (Aldactone) 100 mg DAILY PO Last administered on 09/13/16 08:16 ; Admin Dose 100 MG; Start 09/12/16 at 14:30 EDIE JAUREGUI Sep 14, 2016 15:34
[2016-09-14] MEDS: CARBOXYMETHYLCELLULOSE 0.5% 0.1 ML OPH BOTH EYES SCH ×2 (17:56→21:42)
--- NOTE | 2016-09-14 19:46 | CONS ---
Date/Time of Note Date/Time of Note DATE: 09/14/16 TIME: 19:45 Assessment/Plan Assessment/Plan Chief Complaint/Hosp Course 61 female with [place] cirrhosis and ascites in the setting of a markedly elevated CA 125. At this time, I am very concerned for cancer of INTAKE NURSE given the CA 125> 10,000. 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 # Ascites, concern for malignancy -ascitic fluid cytology 09/07/16 showed no malignant cells -appreciates recs from Dr. Noyola given my concern for INTAKE NURSE primary malignancy. Agree that pt may benefit from an exploratory laparoscopy. Cardiology clearance for surgery received, laparoscopy scheduled for Saturday per Dr. Noyola. -s/p repeat paracentesis yesterday 09/13/16 with 3.6L removed # Iron Deficiency Anemia - pt has Hg of 10 with iron sat 6%. Hgb stable. -Ferrlecit started 09/07/16 (planned for 5 doses through 09/11/16) Problems: Consultation Date/Type/Reason Admit Date/Time Sep 05, 2016 at 00:09 Initial Consult Date 09/07/16 Type of Consultation: Oncology Referring Provider: EDIE JAUREGUI 24 HR Interval Summary Free Text/Dictation Patient doing well, eating dinner. States abdominal pressure improved status post paracentesis yesterday. Exam/Review of Systems Vital Signs Vitals Vital Signs Date Time Temp Pulse Resp B/P Pulse Ox O2 Delivery O2 Flow Rate FiO2 09/14/16 19:03 98.6 86 18 124/65 99 09/10/16 16:00 Room Air Intake and Output 09/13/16 09/13/16 09/14/16 15:00 23:00 07:00 Intake Total 650 ml 800 ml Balance 650 ml 800 ml Exam Constitutional: obese Head: normocephalic ENMT: nl external ears & nose Neck: supple Respiratory: clear to auscultation, normal air movement Cardiovascular: regular rate and rhythm Gastrointestinal: ascites, soft Musculoskeletal: nl extremities to inspection, nl gait and stance Results Result Diagram: 09/14/16 0600 09/14/16 0600 Results 24 hrs Laboratory Tests Test 09/13/16 22:22 09/14/16 06:00 09/14/16 07:49 09/14/16 11:49 Bedside Glucose 173 188 202 White Blood Count 4.3 #L Red Blood Count 3.44 L Hemoglobin 10.6 L Hematocrit 31.8 L Mean Corpuscular Volume 92.4 Mean Corpuscular Hemoglobin 30.8 Mean Corpuscular Hemoglobin Concent 33.3 Red Cell Distribution Width 14.9 H Platelet Count 150 # Mean Platelet Volume 11.3 H Neutrophils % 52.0 Lymphocytes % 34.0 Monocytes % 10.7 Eosinophils % 1.9 Basophils % 0.9 Nucleated Red Blood Cells % 0.0 Neutrophils # 2.2 Lymphocytes # 1.5 Monocytes # 0.5 Eosinophils # 0.1 Basophils # 0.0 Nucleated Red Blood Cells # 0.0 Sodium Level 136 Potassium Level 3.6 Chloride Level 104 Carbon Dioxide Level 26 Anion Gap 10 Blood Urea Nitrogen 11 Creatinine 0.58 Glucose Level 218 # Calcium Level 7.9 L Test 09/14/16 16:53 Bedside Glucose 164 Medications Medications Current Medications Metoclopramide HCl (Reglan) 10 mg Q6H PRN IV NAUSEA AND/OR VOMITING Last administered on 09/06/16 12:05; Admin Dose 10 MG; Start 09/05/16 at 03:00 Ibuprofen (Motrin) 600 mg Q6H PRN PO PAIN LEVEL 1-3 Last administered on 03:12; Admin Dose 600 MG; Start 09/05/16 at 03:00 Acetaminophen/ Hydrocodone Bitart ([place] (5/325)) 1 tab Q6H PRN PO MODERATE PAIN LEVEL 4-6 Last administered on 09/07/16 23:37; Admin Dose 1 TAB; Start 09/05 at 03:00 Morphine Sulfate (morphine) 2 mg Q4H PRN IV SEVERE PAIN LEVEL 7-10; Start at 03:00 Amlodipine Besylate (Norvasc) 5 mg DAILY PO Last administered on 09/07/16 13:49 ; Admin Dose 5 MG; Start 09/05/16 at 09:00 Lisinopril (Zestril) 20 mg DAILY PO Last administered on 09/07/16 13:49; Admin Dose 20 MG; Start 09/05/16 at 09:00 Amitriptyline HCl (Elavil) 25 mg HS PO Last administered on 09/13/16 22:19; Admin Dose 25 MG; Start 09/05/16 at 21:00 Miscellaneous Information 1 ea NOTE XX ; Start 09/05/16 at 03:10 Glucose (Glutose) 15 gm Q15M PRN PO DECREASED GLUCOSE; Start 09/05/16 at 03:10 Glucose (Glutose) 22.5 gm Q15M PRN PO DECREASED GLUCOSE; Start 09/05/16 at 03:10 Dextrose (D50w Syringe) 25 ml Q15M PRN IV DECREASED GLUCOSE; Start 09/05/16 at 03:10 Dextrose (D50w Syringe) 50 ml Q15M PRN IV DECREASED GLUCOSE; Start 09/05/16 at 03:10 Glucagon (Glucagen) 1 mg Q15M PRN IM DECREASED GLUCOSE; Start 09/05/16 at 03:10 Glucose (Glutose) 15 gm Q15M PRN BUCCAL DECREASED GLUCOSE; Start 09/05/16 at 03: 10 Lactulose (Enulose) 10 gm Q8 PO Last administered on 09/12/16 22:11; Admin Dose 10 GM; Start 09/06/16 at 14:00 Insulin Glargine 15 unit 15 unit DAILY@08 SC Last administered on 09/14/16 08: 19; Admin Dose 15 UNIT; Start 09/07/16 at 08:00 Piperacillin Sod/ Tazobactam Sod (Zosyn 3.375gm/ 100 ml (Pmx)) 100 ml @ 200 mls /hr Q8 IVPB Last administered on 09/14/16 14:27; Admin Dose 200 MLS/HR; Start 09/08/16 at 12:00 Famotidine (Pepcid) 20 mg Q12 PO Last administered on 09/14/16 08:16; Admin Dose 20 MG; Start 09/09/16 at 21:00 Spironolactone (Aldactone) 100 mg DAILY PO Last administered on 09/13/16 08:16 ; Admin Dose 100 MG; Start 09/12/16 at 14:30 Eye Lubricant (Refresh Plus) 1 drop QID BOTH EYES Last administered on 17:56; Admin Dose 1 DROP; Start 09/14/16 at 18:00 KENNEDI LEGGETT MD Sep 14, 2016 19:46
[2016-09-14] MEDS: AMITRIPTYLINE 25 MG TAB PO SCH (21:00)
[2016-09-15] VITALS (9 sets, daily range): BP systolic 106–119; BP diastolic 56–83; PULSE 72–90; RESP 17–20
[2016-09-15] MEDS: PIPER-TAZO 3.375 GM IV (PMX) 100 ML IVPB SCH ×2 (05:24→14:14)
[2016-09-15] MEDS: FUROSEMIDE 40 MG INJ IV SCH ×2 (05:26→18:36)
[2016-09-15] MEDS: LACTULOSE 30ML CUP PO SCH ×3 (05:26→21:32)
[2016-09-15 06:15] LABS: ADD SCAN DIFF NO
[2016-09-15 06:27] LABS: BASOPHILS % 0.6 % (0.0-2.0); EOSINOPHILS # 0.1 10^3/ul (0.0-0.5); EOSINOPHILS % 1.5 % (0.0-7.0); HEMATOCRIT 34.5 % (37.0-47.0); HEMOGLOBIN 11.1 g/dl (12.0-16.0); LYMPHOCYTES % 37.8 % (15.0-51.0); MEAN CORPUSCULAR HEMOGLOBIN 29.8 pg (29.0-33.0); MEAN CORPUSCULAR HGB CONC 32.2 g/dl (32.0-37.0); MEAN CORPUSCULAR VOLUME 92.5 fl (82.0-101.0); MONOCYTE # 0.4 10^3/ul (0.3-0.9); MONOCYTES % 8.3 % (0.0-11.0); NEUTROPHIL # 2.7 10^3/ul (1.6-7.5); NEUTROPHILS % 51.6 % (39.0-77.0); PLATELET COUNT 162 10^3/UL (140-415); RED BLOOD COUNT 3.73 10^6/ul (4.20-5.40); RED CELL DISTRIBUTION WIDTH 15.3 % (11.5-14.5); WHITE BLOOD COUNT 5.2 10^3/ul (4.8-10.8)
[2016-09-15 06:47] LABS: POTASSIUM 3.8 mmol/L (3.5-5.1)
[2016-09-15 06:50] LABS: CALCIUM 8.3 mg/dl (8.4-10.2); CREATININE 0.61 mg/dl (0.44-1.00)
[2016-09-15] MEDS: INSULIN ASPART [NOVOLOG] 3 ML PEN SC SCH ×4 (07:55→17:55)
[2016-09-15] MEDS: Insulin NOVOLOG SS MODERATE Algorithm (SS with meals and bedtime) SC SCH ×4 (07:55→21:37)
[2016-09-15] MEDS: LISINOPRIL 20 MG TAB PO SCH (09:00)
[2016-09-15] MEDS: AMLODIPINE 5 MG TAB PO SCH (09:00)
[2016-09-15] MEDS: SPIRONOLACTONE 50 MG TAB PO SCH (09:26)
[2016-09-15] MEDS: CARBOXYMETHYLCELLULOSE 0.5% 0.1 ML OPH BOTH EYES SCH ×4 (09:26→21:38)
[2016-09-15] MEDS: FAMOTIDINE 20 MG TAB PO SCH ×2 (09:28→21:38)
[2016-09-15] MEDS: INSULIN GLARGINE [LANtus] 3 ML PEN SC SCH (09:41)
--- NOTE | 2016-09-15 15:18 | PN ---
Date/Time of Note Date/Time of Note DATE: 09/15/16 TIME: 15:09 Assessment/Plan VTE Prophylaxis VTE Prophylaxis Intervention: SCD's Lines/Catheters [facility] [facility] Urinary Cath still in place: No Assessment/Plan Chief Complaint/Hosp Course Assessment and plan 1. End-stage liver disease. Nonalcoholic. Continue paracentesis as needed. Continue on diuretics with monitoring for hypotension. Continue on diuretic. 2. Hyperammonemia. Continue lactulose 3. Type 2 diabetes. A1c noted at 9.3. Continue on insulin regimen and adjust as needed 4. Iron anemia. Continue on iron supplement 5. Essential hypertension. Continue antihypertensives and adjust as needed 6. Elevated tumor markers. Surgical oncologist and oncologist following. Tentative plan for exploratory lap per surgeon GERD prophylaxis: H2 maggie DVT prophylaxis: SCDs Disposition and plan: exploratory lap per surgeon 09/17/16. Continue supportive care. Monitor respiratory status. Discussed plan of care with Dr. Younger Problems: Subjective 24 Hr Interval Summary Free Text/Dictation no s/s of distress. comfortable Exam/Review of Systems Vital Signs Vitals Vital Signs Date Time Temp Pulse Resp B/P Pulse Ox O2 Delivery O2 Flow Rate FiO2 09/15/16 12:17 79 09/15/16 11:24 98.5 17 108/63 96 09/15/16 04:06 Room Air Intake and Output 09/14/16 09/14/16 09/15/16 15:00 23:00 07:00 Intake Total 1050 ml 700 ml Balance 1050 ml 700 ml Exam Constitutional: alert, oriented Psych: nl mood/affect, no complaints Head: normocephalic Eyes: nl conjunctiva Neck: non-tender, supple Respiratory: clear to auscultation Cardiovascular: regular rate and rhythm Gastrointestinal: distended, soft Extremities: No edema Neurological: NURSE CASE MANAGEMENT II-XII intact, nl mental status, nl speech Skin: nl turgor, rash or lesions Results Result Diagram: 09/15/16 0535 09/15/16 0535 Results 24 hrs Laboratory Tests Test 09/14/16 16:53 09/14/16 21:35 09/15/16 05:35 09/15/16 08:18 Bedside Glucose 164 138 126 White Blood Count 5.2 # Red Blood Count 3.73 L Hemoglobin 11.1 L Hematocrit 34.5 L Mean Corpuscular Volume 92.5 Mean Corpuscular Hemoglobin 29.8 Mean Corpuscular Hemoglobin Concent 32.2 Red Cell Distribution Width 15.3 H Platelet Count 162 Mean Platelet Volume 11.0 H Neutrophils % 51.6 Lymphocytes % 37.8 Monocytes % 8.3 Eosinophils % 1.5 Basophils % 0.6 Nucleated Red Blood Cells % 0.0 Neutrophils # 2.7 Lymphocytes # 2.0 Monocytes # 0.4 Eosinophils # 0.1 Basophils # 0.0 Nucleated Red Blood Cells # 0.0 Sodium Level 139 Potassium Level 3.8 Chloride Level 101 Carbon Dioxide Level 27 Anion Gap 15 Blood Urea Nitrogen 9 Creatinine 0.61 Glucose Level 120 # Calcium Level 8.3 L Test 09/15/16 09:24 09/15/16 12:06 Bedside Glucose 193 97 Medications Medications Current Medications Metoclopramide HCl (Reglan) 10 mg Q6H PRN IV NAUSEA AND/OR VOMITING Last administered on 09/06/16 12:05; Admin Dose 10 MG; Start 09/05/16 at 03:00 Ibuprofen (Motrin) 600 mg Q6H PRN PO PAIN LEVEL 1-3 Last administered on 03:12; Admin Dose 600 MG; Start 09/05/16 at 03:00 Acetaminophen/ Hydrocodone Bitart ([place] (5/325)) 1 tab Q6H PRN PO MODERATE PAIN LEVEL 4-6 Last administered on 09/07/16 23:37; Admin Dose 1 TAB; Start 09/05 at 03:00 Morphine Sulfate (morphine) 2 mg Q4H PRN IV SEVERE PAIN LEVEL 7-10; Start at 03:00 Amlodipine Besylate (Norvasc) 5 mg DAILY PO Last administered on 09/07/16 13:49 ; Admin Dose 5 MG; Start 09/05/16 at 09:00 Lisinopril (Zestril) 20 mg DAILY PO Last administered on 09/07/16 13:49; Admin Dose 20 MG; Start 09/05/16 at 09:00 Amitriptyline HCl (Elavil) 25 mg HS PO Last administered on 09/13/16 22:19; Admin Dose 25 MG; Start 09/05/16 at 21:00 Miscellaneous Information 1 ea NOTE XX ; Start 09/05/16 at 03:10 Glucose (Glutose) 15 gm Q15M PRN PO DECREASED GLUCOSE; Start 09/05/16 at 03:10 Glucose (Glutose) 22.5 gm Q15M PRN PO DECREASED GLUCOSE; Start 09/05/16 at 03:10 Dextrose (D50w Syringe) 25 ml Q15M PRN IV DECREASED GLUCOSE; Start 09/05/16 at 03:10 Dextrose (D50w Syringe) 50 ml Q15M PRN IV DECREASED GLUCOSE; Start 09/05/16 at 03:10 Glucagon (Glucagen) 1 mg Q15M PRN IM DECREASED GLUCOSE; Start 09/05/16 at 03:10 Glucose (Glutose) 15 gm Q15M PRN BUCCAL DECREASED GLUCOSE; Start 09/05/16 at 03: 10 Lactulose (Enulose) 10 gm Q8 PO Last administered on 09/12/16 22:11; Admin Dose 10 GM; Start 09/06/16 at 14:00 Insulin Glargine 15 unit 15 unit DAILY@08 SC Last administered on 09/15/16 09: 41; Admin Dose 15 UNIT; Start 09/07/16 at 08:00 Piperacillin Sod/ Tazobactam Sod (Zosyn 3.375gm/ 100 ml (Pmx)) 100 ml @ 200 mls /hr Q8 IVPB Last administered on 09/15/16 14:14; Admin Dose 200 MLS/HR; Start 09/08/16 at 12:00 Famotidine (Pepcid) 20 mg Q12 PO Last administered on 09/15/16 09:28; Admin Dose 20 MG; Start 09/09/16 at 21:00 Spironolactone (Aldactone) 100 mg DAILY PO Last administered on 09/15/16 09:26 ; Admin Dose 100 MG; Start 09/12/16 at 14:30 Eye Lubricant (Refresh Plus) 1 drop QID BOTH EYES Last administered on 14:14; Admin Dose 1 DROP; Start 09/14/16 at 18:00 EDIE JAUREGUI Sep 15, 2016 15:18
--- NOTE | 2016-09-15 20:06 | PN ---
Date/Time of Note Date/Time of Note DATE: 09/15/16 TIME: 20:04 Assessment/Plan VTE Prophylaxis VTE Prophylaxis Intervention: SCD's Lines/Catheters IV Catheter Type (from [facility]): Saline Lock Urinary Cath still in place: No Assessment/Plan Chief Complaint/Hosp Course Ascites with known liver failure but concern about coexant primary other Problems: Assessment/Plan A- ascites and cirrhosis but r/o peritoneal ca P- Laparoscopy schd Saturday Subjective 24 Hr Interval Summary Free Text/Dictation S- feels uncomfortable due to ascites with immobility but some impvt O- Resp- clear CVS-nsr Abd no chg ext- baseline edema A- ascites and cirrhosis but r/o peritoneal ca P- Laparoscopy schd Saturday Exam/Review of Systems Vital Signs Vitals Vital Signs Date Time Temp Pulse Resp B/P Pulse Ox O2 Delivery O2 Flow Rate FiO2 09/15/16 16:04 81 09/15/16 15:48 98.0 17 115/83 96 09/15/16 04:06 Room Air Intake and Output 09/14/16 09/14/16 09/15/16 15:00 23:00 07:00 Intake Total 1050 ml 700 ml Balance 1050 ml 700 ml Results Result Diagram: 09/15/16 0535 09/15/16 0535 Results 24 hrs Laboratory Tests Test 09/14/16 21:35 09/15/16 05:35 09/15/16 08:18 09/15/16 09:24 Bedside Glucose 138 126 193 White Blood Count 5.2 # Red Blood Count 3.73 L Hemoglobin 11.1 L Hematocrit 34.5 L Mean Corpuscular Volume 92.5 Mean Corpuscular Hemoglobin 29.8 Mean Corpuscular Hemoglobin Concent 32.2 Red Cell Distribution Width 15.3 H Platelet Count 162 Mean Platelet Volume 11.0 H Neutrophils % 51.6 Lymphocytes % 37.8 Monocytes % 8.3 Eosinophils % 1.5 Basophils % 0.6 Nucleated Red Blood Cells % 0.0 Neutrophils # 2.7 Lymphocytes # 2.0 Monocytes # 0.4 Eosinophils # 0.1 Basophils # 0.0 Nucleated Red Blood Cells # 0.0 Sodium Level 139 Potassium Level 3.8 Chloride Level 101 Carbon Dioxide Level 27 Anion Gap 15 Blood Urea Nitrogen 9 Creatinine 0.61 Glucose Level 120 # Calcium Level 8.3 L Test 09/15/16 12:06 09/15/16 17:43 Bedside Glucose 97 143 Medications Medications Current Medications Metoclopramide HCl (Reglan) 10 mg Q6H PRN IV NAUSEA AND/OR VOMITING Last administered on 09/06/16 12:05; Admin Dose 10 MG; Start 09/05/16 at 03:00 Ibuprofen (Motrin) 600 mg Q6H PRN PO PAIN LEVEL 1-3 Last administered on 03:12; Admin Dose 600 MG; Start 09/05/16 at 03:00 Acetaminophen/ Hydrocodone Bitart ([place] (5/325)) 1 tab Q6H PRN PO MODERATE PAIN LEVEL 4-6 Last administered on 09/07/16 23:37; Admin Dose 1 TAB; Start 09/05 at 03:00 Morphine Sulfate (morphine) 2 mg Q4H PRN IV SEVERE PAIN LEVEL 7-10; Start at 03:00 Amlodipine Besylate (Norvasc) 5 mg DAILY PO Last administered on 09/07/16 13:49 ; Admin Dose 5 MG; Start 09/05/16 at 09:00 Lisinopril (Zestril) 20 mg DAILY PO Last administered on 09/07/16 13:49; Admin Dose 20 MG; Start 09/05/16 at 09:00 Amitriptyline HCl (Elavil) 25 mg HS PO Last administered on 09/13/16 22:19; Admin Dose 25 MG; Start 09/05/16 at 21:00 Miscellaneous Information 1 ea NOTE XX ; Start 09/05/16 at 03:10 Glucose (Glutose) 15 gm Q15M PRN PO DECREASED GLUCOSE; Start 09/05/16 at 03:10 Glucose (Glutose) 22.5 gm Q15M PRN PO DECREASED GLUCOSE; Start 09/05/16 at 03:10 Dextrose (D50w Syringe) 25 ml Q15M PRN IV DECREASED GLUCOSE; Start 09/05/16 at 03:10 Dextrose (D50w Syringe) 50 ml Q15M PRN IV DECREASED GLUCOSE; Start 09/05/16 at 03:10 Glucagon (Glucagen) 1 mg Q15M PRN IM DECREASED GLUCOSE; Start 09/05/16 at 03:10 Glucose (Glutose) 15 gm Q15M PRN BUCCAL DECREASED GLUCOSE; Start 09/05/16 at 03: 10 Lactulose (Enulose) 10 gm Q8 PO Last administered on 09/12/16 22:11; Admin Dose 10 GM; Start 09/06/16 at 14:00 Insulin Glargine (Lantus) 15 unit DAILY@08 SC Last administered on 09/15/16 09 :41; Admin Dose 15 UNIT; Start 09/07/16 at 08:00 Famotidine (Pepcid) 20 mg Q12 PO Last administered on 09/15/16 09:28; Admin Dose 20 MG; Start 09/09/16 at 21:00 Spironolactone (Aldactone) 100 mg DAILY PO Last administered on 09/15/16 09:26 ; Admin Dose 100 MG; Start 09/12/16 at 14:30 Eye Lubricant (Refresh Plus) 1 drop QID BOTH EYES Last administered on 14:14; Admin Dose 1 DROP; Start 09/14/16 at 18:00 CARIN WALL MD Sep 15, 2016 20:06
[2016-09-15] MEDS: AMITRIPTYLINE 25 MG TAB PO SCH (21:00)
[2016-09-16] VITALS (12 sets, daily range): BP systolic 106–129; BP diastolic 58–85; PULSE 82–90; RESP 18–20
[2016-09-16] MEDS: LACTULOSE 30ML CUP PO SCH ×3 (05:36→22:00)
[2016-09-16] MEDS: FUROSEMIDE 40 MG INJ IV SCH ×2 (05:37→18:02)
[2016-09-16 06:29] LABS: ADD SCAN DIFF NO
[2016-09-16 06:47] LABS: CALCIUM 7.9 mg/dl (8.4-10.2); CREATININE 0.57 mg/dl (0.44-1.00); POTASSIUM 3.8 mmol/L (3.5-5.1)
[2016-09-16 06:54] LABS: BASOPHILS % 0.7 % (0.0-2.0); EOSINOPHILS # 0.1 10^3/ul (0.0-0.5); EOSINOPHILS % 1.4 % (0.0-7.0); HEMATOCRIT 32.2 % (37.0-47.0); HEMOGLOBIN 10.8 g/dl (12.0-16.0); LYMPHOCYTES # 1.7 10^3/ul (0.8-2.9); LYMPHOCYTES % 30.1 % (15.0-51.0); MEAN CORPUSCULAR HEMOGLOBIN 30.9 pg (29.0-33.0); MEAN CORPUSCULAR HGB CONC 33.5 g/dl (32.0-37.0); MEAN PLATELET VOLUME 11.2 fl (7.4-10.4); MONOCYTE # 0.6 10^3/ul (0.3-0.9); MONOCYTES % 10.4 % (0.0-11.0); NEUTROPHIL # 3.3 10^3/ul (1.6-7.5); NEUTROPHILS % 57.1 % (39.0-77.0); PLATELET COUNT 165 10^3/UL (140-415); RED CELL DISTRIBUTION WIDTH 15.4 % (11.5-14.5); WHITE BLOOD COUNT 5.8 10^3/ul (4.8-10.8)
[2016-09-16] MEDS: INSULIN ASPART [NOVOLOG] 3 ML PEN SC SCH ×3 (08:32→17:41)
[2016-09-16] MEDS: Insulin NOVOLOG SS MODERATE Algorithm (SS with meals and bedtime) SC SCH ×4 (08:43→21:00)
[2016-09-16] MEDS: LISINOPRIL 20 MG TAB PO SCH (09:00)
[2016-09-16] MEDS: AMLODIPINE 5 MG TAB PO SCH (09:00)
[2016-09-16] MEDS: FAMOTIDINE 20 MG TAB PO SCH ×2 (09:22→23:07)
[2016-09-16] MEDS: CARBOXYMETHYLCELLULOSE 0.5% 0.1 ML OPH BOTH EYES SCH ×4 (09:22→23:08)
[2016-09-16] MEDS: SPIRONOLACTONE 50 MG TAB PO SCH (09:23)
[2016-09-16] MEDS: INSULIN GLARGINE [LANtus] 3 ML PEN SC SCH (09:26)
--- NOTE | 2016-09-16 14:13 | PN ---
Date/Time of Note Date/Time of Note DATE: 09/16/16 TIME: 14:11 Assessment/Plan VTE Prophylaxis VTE Prophylaxis Intervention: SCD's Lines/Catheters IV Catheter Type (from [facility]): Saline Lock Urinary Cath still in place: No Assessment/Plan Chief Complaint/Hosp Course Assessment and plan 1. End-stage liver disease. Nonalcoholic. Continue paracentesis as needed. Continue on diuretics with monitoring for hypotension. Continue on diuretic. 2. Hyperammonemia. Continue lactulose 3. Type 2 diabetes. A1c noted at 9.3. Continue on insulin regimen and adjust as needed. stable 4. Iron anemia. Continue on iron supplement 5. Essential hypertension. Continue antihypertensives and adjust as needed 6. Elevated tumor markers. Surgeon and oncologist following. Tentative plan for exploratory lap per surgeon GERD prophylaxis: H2 maggie DVT prophylaxis: SCDs Disposition and plan: exploratory lap per surgeon 09/17/16. Continue diuretics. Follow-up a.m. labs Discussed plan of care with Dr. Younger Problems: Subjective 24 Hr Interval Summary Free Text/Dictation No specific complaints. Comfortable at present Exam/Review of Systems Vital Signs Vitals Vital Signs Date Time Temp Pulse Resp B/P Pulse Ox O2 Delivery O2 Flow Rate FiO2 09/16/16 12:19 90 09/16/16 11:32 98.1 20 125/85 99 09/16/16 04:19 Room Air Intake and Output 09/15/16 09/15/16 09/16/16 15:00 23:00 07:00 Intake Total 100 ml 950 ml 800 ml Balance 100 ml 950 ml 800 ml Exam Constitutional: alert, oriented Psych: nl mood/affect Head: normocephalic Eyes: nl conjunctiva Neck: non-tender, supple, No jvd Respiratory: clear to auscultation, normal air movement Cardiovascular: regular rate and rhythm Gastrointestinal: distended, soft Neurological: [employer] II-XII intact, nl mental status, nl speech Skin: nl turgor Results Result Diagram: 09/16/1651609/16/16516 Results 24 hrs Laboratory Tests Test 09/15/16 17:43 09/15/16 21:31 09/16/16 02:45 09/16/16 05:17 Bedside Glucose 143 211 233 H White Blood Count 5.8 Red Blood Count 3.50 L Hemoglobin 10.8 L Hematocrit 32.2 L Mean Corpuscular Volume 92.0 Mean Corpuscular Hemoglobin 30.9 Mean Corpuscular Hemoglobin Concent 33.5 Red Cell Distribution Width 15.4 H Platelet Count 165 Mean Platelet Volume 11.2 H Neutrophils % 57.1 Lymphocytes % 30.1 Monocytes % 10.4 Eosinophils % 1.4 Basophils % 0.7 Nucleated Red Blood Cells % 0.0 Neutrophils # 3.3 Lymphocytes # 1.7 Monocytes # 0.6 Eosinophils # 0.1 Basophils # 0.0 Nucleated Red Blood Cells # 0.0 Sodium Level 133 L Potassium Level 3.8 Chloride Level 103 Carbon Dioxide Level 26 Anion Gap 8 Blood Urea Nitrogen 12 Creatinine 0.57 Glucose Level 185 Calcium Level 7.9 L Test 09/16/16 08:20 09/16/16 12:11 Bedside Glucose 157 207 Medications Medications Current Medications Metoclopramide HCl (Reglan) 10 mg Q6H PRN IV NAUSEA AND/OR VOMITING Last administered on 09/06/16 12:05; Admin Dose 10 MG; Start 09/05/16 at 03:00 Ibuprofen (Motrin) 600 mg Q6H PRN PO PAIN LEVEL 1-3 Last administered on 03:12; Admin Dose 600 MG; Start 09/05/16 at 03:00 Acetaminophen/ Hydrocodone Bitart ([place] (5/325)) 1 tab Q6H PRN PO MODERATE PAIN LEVEL 4-6 Last administered on 09/07/16 23:37; Admin Dose 1 TAB; Start 09/05 at 03:00 Morphine Sulfate (morphine) 2 mg Q4H PRN IV SEVERE PAIN LEVEL 7-10; Start at 03:00 Amlodipine Besylate (Norvasc) 5 mg DAILY PO Last administered on 09/07/16 13:49 ; Admin Dose 5 MG; Start 09/05/16 at 09:00 Lisinopril (Zestril) 20 mg DAILY PO Last administered on 09/07/16 13:49; Admin Dose 20 MG; Start 09/05/16 at 09:00 Amitriptyline HCl (Elavil) 25 mg HS PO Last administered on 09/13/16 22:19; Admin Dose 25 MG; Start 09/05/16 at 21:00 Miscellaneous Information 1 ea NOTE XX ; Start 4/5/17 at 03:10 Glucose (Glutose) 15 gm Q15M PRN PO DECREASED GLUCOSE; Start 09/05/16 at 03:10 Glucose (Glutose) 22.5 gm Q15M PRN PO DECREASED GLUCOSE; Start 09/05/16 at 03:10 Dextrose (D50w Syringe) 25 ml Q15M PRN IV DECREASED GLUCOSE; Start 09/05/16 at 03:10 Dextrose (D50w Syringe) 50 ml Q15M PRN IV DECREASED GLUCOSE; Start 09/05/16 at 03:10 Glucagon (Glucagen) 1 mg Q15M PRN IM DECREASED GLUCOSE; Start 09/05/16 at 03:10 Glucose (Glutose) 15 gm Q15M PRN BUCCAL DECREASED GLUCOSE; Start 09/05/16 at 03: 10 Lactulose (Enulose) 10 gm Q8 PO Last administered on 09/12/16 22:11; Admin Dose 10 GM; Start 09/06/16 at 14:00 Insulin Glargine (Lantus) 15 unit DAILY@08 SC Last administered on 09/16/16 09 :26; Admin Dose 15 UNIT; Start 09/07/16 at 08:00 Famotidine (Pepcid) 20 mg Q12 PO Last administered on 09/16/16 09:22; Admin Dose 20 MG; Start 09/09/16 at 21:00 Spironolactone (Aldactone) 100 mg DAILY PO Last administered on 09/16/16 09:23 ; Admin Dose 100 MG; Start 09/12/16 at 14:30 Eye Lubricant (Refresh Plus) 1 drop QID BOTH EYES Last administered on 13:33; Admin Dose 1 DROP; Start 09/14/16 at 18:00 EDIE JAUREGUI Sep 16, 2016 14:13
[2016-09-16] MEDS ORDERED: MAGNESIUM CITRATE 300 ML BTL PO ONE (18:30)
[2016-09-16 18:58] LABS: INR 1.14; PROTIME 14.6 Sec (12.2-14.2); PT RATIO 1.1
[2016-09-16] MEDS: AMITRIPTYLINE 25 MG TAB PO SCH ×2 (21:00→23:07)
[2016-09-17] VITALS (22 sets, daily range): BP systolic 92–193; BP diastolic 50–92; PULSE 64–103; RESP 12–20
[2016-09-17] MEDS: LACTULOSE 30ML CUP PO SCH ×3 (05:42→22:00)
[2016-09-17] MEDS: FUROSEMIDE 40 MG INJ IV SCH ×2 (05:43→18:19)
[2016-09-17] MEDS ORDERED: EPHEDrine SULFATE 50 MG/5 ML SYG ONE (07:00)
[2016-09-17] MEDS: INSULIN ASPART [NOVOLOG] 3 ML PEN SC SCH ×3 (07:36→18:18)
[2016-09-17] MEDS: Insulin NOVOLOG SS MODERATE Algorithm (SS with meals and bedtime) SC SCH ×4 (07:37→20:15)
[2016-09-17] MEDS ORDERED: THROMBIN 5000 UNIT VIAL ONE (07:38)
[2016-09-17] MEDS ORDERED: METHYLENE BLUE 1% 10 ML INJ ONE (07:38)
[2016-09-17] MEDS ORDERED: VASOPRESSIN 20 UNITS INJ ONE (07:38)
[2016-09-17] MEDS ORDERED: morphine SULFATE/PF (10 MG/10 ML) INJ ONE (07:50)
[2016-09-17] MEDS ORDERED: PROPOFOL 20 ML ONE (07:50)
[2016-09-17] MEDS ORDERED: ROCURONIUM 50 MG INJ ONE (07:50)
[2016-09-17] MEDS ORDERED: MIDAZOLAM 1 MG/ML 2 ML INJ ONE (07:51)
[2016-09-17] MEDS ORDERED: FENTAnyl 50 MCG/ML VIAL ONE (07:51)
[2016-09-17] MEDS ORDERED: LIDOCAINE 1% (MDV) 20 ML INJ ONE (08:15)
[2016-09-17] MEDS ORDERED: ETOMIDATE 20 MG INJ ONE (08:15)
[2016-09-17] MEDS ORDERED: PHENYLephrine (100 MCG/ML) 5ML SYG ONE ×3 (08:25→10:43)
[2016-09-17] MEDS ORDERED: metroNIDAZOLE 500 MG/NS (PMX) 100 ML IVPB ONE (08:39)
[2016-09-17] MEDS ORDERED: CEFAZOLIN 1 GM INJ ONE (08:39)
[2016-09-17] MEDS ORDERED: ONDANSETRON 4 MG INJ ONE (08:59)
[2016-09-17] MEDS ORDERED: FAMOTIDINE 20 MG INJ ONE (09:00)
[2016-09-17] MEDS: CARBOXYMETHYLCELLULOSE 0.5% 0.1 ML OPH BOTH EYES SCH ×4 (09:00→20:13)
[2016-09-17] MEDS ORDERED: DEXAMETHASONE 4 MG/ML 1 ML INJ ONE (09:00)
[2016-09-17] MEDS: AMLODIPINE 5 MG TAB PO SCH ×2 (09:00→13:27)
[2016-09-17] MEDS ORDERED: ROPIVACAINE 0.5 % 30 ML VIAL ONE (10:18)
[2016-09-17] MEDS ORDERED: GLYCOPYRROLATE 0.4 MG INJ ONE (10:30)
[2016-09-17] MEDS ORDERED: NEOSTIGMINE 3 MG/3 ML SYRINGE ONE (10:30)
[2016-09-17] MEDS ORDERED: morphine 2 MG INJ IV PRN (11:00)
[2016-09-17] MEDS ORDERED: metroNIDAZOLE 500 MG/NS (PMX) 100 ML IVPB SCH (11:00)
[2016-09-17] MEDS ORDERED: OXYCODONE/ACETAMINOPHEN (5/325) TAB PO PRN (11:00)
--- NOTE | 2016-09-17 11:48 | PN ---
Date/Time of Note Date/Time of Note DATE: 09/17/16 TIME: 11:46 Assessment/Plan VTE Prophylaxis VTE Prophylaxis Intervention: SCD's Lines/Catheters IV Catheter Type (from Nrsg): A Line Urinary Cath still in place: No Assessment/Plan Chief Complaint/Hosp Course Assessment and plan 1. End-stage liver disease. Nonalcoholic. Continue paracentesis as needed. Continue on diuretics with monitoring for hypotension. Continue on diuretic. patient for exploratory lap today 2. Hyperammonemia. Continue lactulose 3. Type 2 diabetes. A1c noted at 9.3. Continue on insulin regimen and adjust as needed. stable 4. Iron anemia. Continue on iron supplement 5. Essential hypertension. Continue antihypertensives and adjust as needed 6. Elevated tumor markers. Surgeon and oncologist followingplan for exploratory lap per surgeon today GERD prophylaxis: H2 maggie DVT prophylaxis: SCDs Disposition and plan: exploratory lap per surgeon 09/17/16. follow up post up care. follow up clinical education consultant recs and findings Discussed plan of care with Dr. Murray Problems: Subjective 24 Hr Interval Summary Free Text/Dictation patient for exploratory lap Exam/Review of Systems Vital Signs Vitals Vital Signs Date Time Temp Pulse Resp B/P Pulse Ox O2 Delivery O2 Flow Rate FiO2 09/17/16 04:32 80 09/17/16 04:12 98.2 20 106/63 97 09/16/16 04:19 Room Air Intake and Output 09/16/16 09/16/16 09/17/16 15:00 23:00 07:00 Intake Total 780 ml 360 ml Balance 780 ml 360 ml Exam patient for exploratory lap Results Result Diagram: 09/16/16 0517 09/16/16516 Results 24 hrs Laboratory Tests Test 09/16/16 12:11 09/16/16 17:40 09/16/16 18:40 09/16/16 22:33 Bedside Glucose 207 102 163 Prothrombin Time 14.6 H Prothrombin Time Ratio 1.1 INR International Normalized Ratio 1.14 Test 09/17/16 05:56 Bedside Glucose 115 Medications Medications Current Medications Metoclopramide HCl (Reglan) 10 mg Q6H PRN IV NAUSEA AND/OR VOMITING Last administered on 09/06/16t 12:05; Admin Dose 10 MG; Start 09/05/16 at 03:00 Ibuprofen (Motrin) 600 mg Q6H PRN PO PAIN LEVEL 1-3 Last administered on 03:12; Admin Dose 600 MG; Start 09/05/16 at 03:00 Acetaminophen/ Hydrocodone Bitart ([place] (5/325)) 1 tab Q6H PRN PO MODERATE PAIN LEVEL 4-6 Last administered on 09/07/16 23:37; Admin Dose 1 TAB; Start 09/05 at 03:00 Morphine Sulfate (morphine) 2 mg Q4H PRN IV SEVERE PAIN LEVEL 7-10; Start at 03:00 Amlodipine Besylate (Norvasc) 5 mg DAILY PO Last administered on 09/07/16 13:49 ; Admin Dose 5 MG; Start 09/05/16 at 09:00 Lisinopril (Zestril) 20 mg DAILY PO Last administered on 09/07/16 13:49; Admin Dose 20 MG; Start 09/05/16 at 09:00 Amitriptyline HCl (Elavil) 25 mg HS PO Last administered on 09/13/16 22:19; Admin Dose 25 MG; Start 09/05/16 at 21:00 Miscellaneous Information 1 ea NOTE XX ; Start 09/05/16 at 03:10 Glucose (Glutose) 15 gm Q15M PRN PO DECREASED GLUCOSE; Start 09/05/16 at 03:10 Glucose (Glutose) 22.5 gm Q15M PRN PO DECREASED GLUCOSE; Start 09/05/16 at 03:10 Dextrose (D50w Syringe) 25 ml Q15M PRN IV DECREASED GLUCOSE; Start 09/05/16 at 03:10 Dextrose (D50w Syringe) 50 ml Q15M PRN IV DECREASED GLUCOSE; Start 09/05/16 at 03:10 Glucagon (Glucagen) 1 mg Q15M PRN IM DECREASED GLUCOSE; Start 09/05/16 at 03:10 Glucose (Glutose) 15 gm Q15M PRN BUCCAL DECREASED GLUCOSE; Start 09/05/16 at 03: 10 Lactulose (Enulose) 10 gm Q8 PO Last administered on 09/12/16 22:11; Admin Dose 10 GM; Start 09/06/16 at 14:00 Insulin Glargine (Lantus) 15 unit DAILY@08 SC Last administered on 09/16/16 09 :26; Admin Dose 15 UNIT; Start 09/07/16 at 08:00 Famotidine (Pepcid) 20 mg Q12 PO Last administered on 09/16/16 23:07; Admin Dose 20 MG; Start 09/09/16 at 21:00 Spironolactone (Aldactone) 100 mg DAILY PO Last administered on 09/16/16 09:23 ; Admin Dose 100 MG; Start 09/12/16 at 14:30 Eye Lubricant 1 drop 1 drop QID BOTH EYES Last administered on 09/16/16 23:08 ; Admin Dose 1 DROP; Start 09/14/16 at 18:00 Cefotaxime Sodium 50 ml @ 100 mls/hr Q8H IVPB ; Start 09/17/16 at 11:00; Stop 09/18/16 at 10:59 Metronidazole (Flagyl 500 Mg (Pmx)) 100 ml @ 100 mls/hr Q8H IVPB ; Start at 11:00; Stop 09/18/16 at 10:59 Morphine Sulfate (morphine) 2 mg Q2H PRN IV PAIN LEVEL 6-10; Start 09/17/16 at 11:00 Oxycodone/ Acetaminophen (Percocet (5/ 325)) 1 tab Q6H PRN PO PAIN LEVEL 6-10; Start 09/17/16 at 11:00 Ondansetron HCl (Zofran Inj) 4 mg Q6H PRN IV NAUSEA AND/OR VOMITING; Start at 11:00 Famotidine 20 mg 20 mg Q12 IV ; Start 09/17/16 at 21:00 Potassium Chloride/Lactated Ringer's (KCl/Lr) 1,010 ml @ 100 mls/hr Q10H6M IV ; Start 09/17/16 at 10:44 EDIE JAUREGUI Sep 17, 2016 11:48
[2016-09-17] MEDS: ONDANSETRON 4 MG INJ IV PRN (11:51)
[2016-09-17] MEDS: POTASSIUM CHLORIDE 20 MEQ in LACTATED RINGER'S 1,000 ML IV SCH ×2 (12:57→20:13)
[2016-09-17] MEDS: FAMOTIDINE 20 MG TAB PO SCH ×2 (12:59→20:12)
[2016-09-17] MEDS ORDERED: ZOLPIDEM 5 MG TAB PO PRN (13:00)
[2016-09-17] MEDS ORDERED: NALOXONE (0.4 MG/ML) INJ IV PRN (13:00)
[2016-09-17] MEDS ORDERED: HYDROmorphONE 1 MG/ML SYG IV PRN ×2 (13:00)
[2016-09-17] MEDS ORDERED: ONDANSETRON 4 MG INJ IV PRN (13:00)
[2016-09-17] MEDS: LISINOPRIL 20 MG TAB PO SCH (13:01)
[2016-09-17] MEDS: INSULIN GLARGINE [LANtus] 3 ML PEN SC SCH (13:03)
[2016-09-17] MEDS: SPIRONOLACTONE 50 MG TAB PO SCH (13:26)
[2016-09-17] MEDS: CEFOTAXIME 1 GM/50 ML (PMX) 50 ML IVPB SCH ×2 (15:38→18:29)
--- NOTE | 2016-09-17 15:54 | CONS ---
Date/Time of Note Date/Time of Note DATE: 09/17/16 TIME: 15:51 Assessment/Plan Assessment/Plan Chief Complaint/Hosp Course 61 female with [place] cirrhosis and ascites in the setting of a markedly elevated CA 125. At this time, I am very concerned for cancer of HEAD HOLDER given the CA 125> 10,000. We still need to consider cancer of pancreatic or hepatobiliary origin ( given her history of "crystallized" gallbladder) gallbladder but the significantly elevated CA 125 makes this less likely as CA 19-9 (53) and CEA ( 6.8) only mildly elevated. # Ascites, concern for malignancy -ascitic fluid cytology 09/07/16 showed no malignant cells -appreciates recs from Dr. Noyola given my concern for HEAD HOLDER primary malignancy. pt now s/p exploratory laparoscopy. Cardiology clearance for surgery received. -s/p repeat paracentesis yesterday 09/13/16 with 3.6L removed -will follow up pathology # Iron Deficiency Anemia - pt has Hg of 10 with iron sat 6%. Hgb stable. -Ferrlecit started 09/07/16, s/p 5 doses Problems: Consultation Date/Type/Reason Admit Date/Time Sep 05, 2016 at 00:09 Initial Consult Date 09/11/16 Type of Consultation: Oncology Reason for Consultation HEAD HOLDER malignancy Referring Provider: EDIE JAUREGUI 24 HR Interval Summary Free Text/Dictation s/p laparoscopy this morning Exam/Review of Systems Vital Signs Vitals Vital Signs Date Time Temp Pulse Resp B/P Pulse Ox O2 Delivery O2 Flow Rate FiO2 09/17/16 15:28 97.8 101 20 111/59 96 09/17/16 14:31 Nasal Cannula 2.0 Intake and Output 09/16/16 09/16/16 09/17/16 15:00 23:00 07:00 Intake Total 780 ml 360 ml Balance 780 ml 360 ml Exam Constitutional: alert, distress, oriented, other ([place]) Psych: anxiety, depression Head: normocephalic Eyes: nl conjunctiva Neck: non-tender, supple Respiratory: clear to auscultation Cardiovascular: regular rate and rhythm Gastrointestinal: ascites, soft, tender Musculoskeletal: nl extremities to inspection Extremities: normal pulses Results Result Diagram: 09/16/1651609/16/1617 Results 24 hrs Laboratory Tests Test 09/16/16 17:40 09/16/16 18:40 09/16/16 22:33 09/17/16 05:56 Bedside Glucose 102 163 115 Prothrombin Time 14.6 H Prothrombin Time Ratio 1.1 INR International Normalized Ratio 1.14 Test 09/17/16 12:32 Bedside Glucose 179 Medications Medications Current Medications Metoclopramide HCl (Reglan) 10 mg Q6H PRN IV NAUSEA AND/OR VOMITING Last administered on 09/06/16 12:05; Admin Dose 10 MG; Start 09/05/16 at 03:00 Ibuprofen (Motrin) 600 mg Q6H PRN PO PAIN LEVEL 1-3 Last administered on 03:12; Admin Dose 600 MG; Start 09/05/16 at 03:00 Acetaminophen/ Hydrocodone Bitart ([place] (5/325)) 1 tab Q6H PRN PO MODERATE PAIN LEVEL 4-6 Last administered on 09/07/16 23:37; Admin Dose 1 TAB; Start 09/05 at 03:00 Morphine Sulfate (morphine) 2 mg Q4H PRN IV SEVERE PAIN LEVEL 7-10; Start at 03:00 Amlodipine Besylate (Norvasc) 5 mg DAILY PO Last administered on 09/17/16 13: 27; Admin Dose 5 MG; Start 09/05/16 at 09:00 Lisinopril (Zestril) 20 mg DAILY PO Last administered on 09/17/16 13:01; Admin Dose 20 MG; Start 09/05/16 at 09:00 Amitriptyline HCl (Elavil) 25 mg HS PO Last administered on 09/13/16 22:19; Admin Dose 25 MG; Start 09/05/16 at 21:00 Miscellaneous Information 1 ea NOTE XX ; Start 09/05/16 at 03:10 Glucose (Glutose) 15 gm Q15M PRN PO DECREASED GLUCOSE; Start 09/05/16 at 03:10 Glucose (Glutose) 22.5 gm Q15M PRN PO DECREASED GLUCOSE; Start 09/05/16 at 03:10 Dextrose (D50w Syringe) 25 ml Q15M PRN IV DECREASED GLUCOSE; Start 09/05/16 at 03:10 Dextrose (D50w Syringe) 50 ml Q15M PRN IV DECREASED GLUCOSE; Start 09/05/16 at 03:10 Glucagon (Glucagen) 1 mg Q15M PRN IM DECREASED GLUCOSE; Start 09/05/16 at 03:10 Glucose (Glutose) 15 gm Q15M PRN BUCCAL DECREASED GLUCOSE; Start 09/05/16 at 03: 10 Lactulose (Enulose) 10 gm Q8 PO Last administered on 09/12/16 22:11; Admin Dose 10 GM; Start 09/06/16 at 14:00 Insulin Glargine (Lantus) 15 unit DAILY@08 SC Last administered on 09/17/16 13 :03; Admin Dose 15 UNIT; Start 09/07/16 at 08:00 Famotidine (Pepcid) 20 mg Q12 PO Last administered on 09/17/16 12:59; Admin Dose 20 MG; Start 09/09/16 at 21:00 Spironolactone (Aldactone) 100 mg DAILY PO Last administered on 09/17/16 13:26 ; Admin Dose 100 MG; Start 09/12/16 at 14:30 Eye Lubricant 1 drop 1 drop QID BOTH EYES Last administered on 09/16/16 23:08 ; Admin Dose 1 DROP; Start 09/14/16 at 18:00 Cefotaxime Sodium 50 ml @ 100 mls/hr Q8H IVPB Last administered on 09/17/16 15:38; Admin Dose 100 MLS/HR; Start 09/17/16 at 11:00; Stop 09/18/16 at 10:59 Metronidazole (Flagyl 500 Mg (Pmx)) 100 ml @ 100 mls/hr Q8H IVPB Last administered on 09/17/16 12:58; Admin Dose 100 MLS/HR; Start 09/17/16 at 11:00 ; Stop 09/18/16 at 10:59 Morphine Sulfate (morphine) 2 mg Q2H PRN IV PAIN LEVEL 6-10; Start 09/17/16 at 11:00 Oxycodone/ Acetaminophen (Percocet (5/ 325)) 1 tab Q6H PRN PO PAIN LEVEL 6-10; Start 09/17/16 at 11:00 Ondansetron HCl (Zofran Inj) 4 mg Q6H PRN IV NAUSEA AND/OR VOMITING Last administered on 09/17/16 11:51; Admin Dose 4 MG; Start 09/17/16 at 11:00 Famotidine 20 mg 20 mg Q12 IV ; Start 09/17/16 at 21:00 Potassium Chloride/Lactated Ringer's (KCl/Lr) 1,010 ml @ 100 mls/hr Q10H6M IV Last administered on 09/17/16 12:57; Admin Dose 100 MLS/HR; Start 09/17/16 at 10:44 Naloxone HCl (Narcan) 0.1 mg Q2M PRN IV FOR RESP RATE 8 OR LESS; Start at 13:00; Stop 09/18/16 at 12:59 Hydromorphone HCl (Dilaudid) 0.2 mg Q3H PRN IV PAIN LEVEL 1-5; Start 09/17/16 at 13:00; Stop 09/18/16 at 12:59 Hydromorphone HCl (Dilaudid) 0.4 mg Q3H PRN IV PAIN LEVEL 6-10; Start 09/17/16 at 13:00; Stop 09/18/16 at 12:59 Ondansetron HCl (Zofran Inj) 4 mg Q6H PRN IV NAUSEA AND/OR VOMITING Last administered on 09/17/16 13:35; Admin Dose 4 MG; Start 09/17/16 at 13:00; Stop 09/18/16 at 12:59 YOLANDA PUENTES M.D. Sep 17, 2016 15:54
[2016-09-17] MEDS: METOCLOPRAMIDE 10 MG INJ IV PRN (17:43)
[2016-09-17] MEDS: AMITRIPTYLINE 25 MG TAB PO SCH (20:12)
[2016-09-17] MEDS: FAMOTIDINE 20 MG INJ IV SCH (20:13)
[2016-09-17] MEDS: metroNIDAZOLE 500 MG/NS (PMX) 100 ML IVPB SCH (22:06)
[2016-09-18] VITALS (11 sets, daily range): BP systolic 70–104; BP diastolic 41–57; PULSE 67–81; RESP 16–18
[2016-09-18] MEDS: CEFOTAXIME 1 GM/50 ML (PMX) 50 ML IVPB SCH (02:58)
[2016-09-18] MEDS: LACTULOSE 30ML CUP PO SCH ×3 (05:31→22:00)
[2016-09-18] MEDS: FUROSEMIDE 40 MG INJ IV SCH ×2 (05:35→18:00)
[2016-09-18] MEDS: metroNIDAZOLE 500 MG/NS (PMX) 100 ML IVPB SCH ×2 (05:35→15:01)
[2016-09-18] MEDS: POTASSIUM CHLORIDE 20 MEQ in LACTATED RINGER'S 1,000 ML IV SCH ×2 (06:09→15:02)
[2016-09-18] MEDS: INSULIN ASPART [NOVOLOG] 3 ML PEN SC SCH ×3 (08:09→18:26)
[2016-09-18] MEDS: Insulin NOVOLOG SS MODERATE Algorithm (SS with meals and bedtime) SC SCH ×4 (08:10→20:24)
[2016-09-18] MEDS: INSULIN GLARGINE [LANtus] 3 ML PEN SC SCH (08:11)
[2016-09-18 08:12] LABS: ADD SCAN DIFF NO
[2016-09-18] MEDS: CARBOXYMETHYLCELLULOSE 0.5% 0.1 ML OPH BOTH EYES SCH ×4 (08:17→20:20)
[2016-09-18] MEDS: FAMOTIDINE 20 MG TAB PO SCH (08:17)
[2016-09-18 08:18] LABS: HEMATOCRIT 31.3 % (37.0-47.0); HEMOGLOBIN 10.5 g/dl (12.0-16.0); LYMPHOCYTES # 1.3 10^3/ul (0.8-2.9); LYMPHOCYTES % 16.9 % (15.0-51.0); MEAN CORPUSCULAR HEMOGLOBIN 31.3 pg (29.0-33.0); MEAN CORPUSCULAR HGB CONC 33.5 g/dl (32.0-37.0); MEAN CORPUSCULAR VOLUME 93.4 fl (82.0-101.0); MEAN PLATELET VOLUME 11.3 fl (7.4-10.4); MONOCYTE # 0.6 10^3/ul (0.3-0.9); MONOCYTES % 7.7 % (0.0-11.0); NEUTROPHIL # 5.6 10^3/ul (1.6-7.5); PLATELET COUNT 145 10^3/UL (140-415); RED BLOOD COUNT 3.35 10^6/ul (4.20-5.40); RED CELL DISTRIBUTION WIDTH 15.3 % (11.5-14.5); WHITE BLOOD COUNT 7.5 10^3/ul (4.8-10.8)
[2016-09-18] MEDS: SPIRONOLACTONE 50 MG TAB PO SCH (08:22)
[2016-09-18] MEDS: LISINOPRIL 20 MG TAB PO SCH (08:22)
[2016-09-18] MEDS: FAMOTIDINE 20 MG INJ IV SCH ×2 (08:22→20:20)
[2016-09-18 08:26] LABS: INR 1.38; PT RATIO 1.3
[2016-09-18 08:28] LABS: CALCIUM 7.4 mg/dl (8.4-10.2); CREATININE 0.58 mg/dl (0.44-1.00); POTASSIUM 4.6 mmol/L (3.5-5.1)
[2016-09-18] MEDS: ONDANSETRON 4 MG INJ IV PRN (15:05)
[2016-09-18] MEDS: IBUPROFEN 600 MG TAB PO PRN (15:11)
--- NOTE | 2016-09-18 15:34 | PN ---
Date/Time of Note Date/Time of Note DATE: 09/18/16 TIME: 15:31 Assessment/Plan VTE Prophylaxis VTE Prophylaxis Intervention: SCD's Lines/Catheters [facility] Saline Lock [place] line still needed: Yes Urinary Cath still in place: Yes Reason Cath still needed: urinary retention Assessment/Plan Chief Complaint/Hosp Course Ascites with known liver failure but concern about coexant primary other Problems: Assessment/Plan A- doing well. P- adv diet. Discussed no cancer finding with patient and family per IM/GI/Onc Subjective 24 Hr Interval Summary Free Text/Dictation comfortable and + flatus. OOB Exam/Review of Systems Vital Signs Vitals Vital Signs Date Time Temp Pulse Resp B/P Pulse Ox O2 Delivery O2 Flow Rate FiO2 09/18/16 15:15 97.8 74 18 90/54 98 09/18/16 10:00 Nasal Cannula 2.0 Intake and Output 09/17/16 09/17/16 09/18/16 15:00 23:00 07:00 Intake Total 1500 ml 800 ml Output Total 285 ml 230 ml Balance 1215 ml 570 ml Exam O- resp- clear cvs-nsr abd- clean, NT, less distension ext- nt mild edema Results Result Diagram: 09/18/16 0730 09/18/16 0730 Results 24 hrs Laboratory Tests Test 09/17/16 17:40 09/17/16 20:11 09/18/16 07:30 09/18/16 07:51 Bedside Glucose 219 254 H 200 White Blood Count 7.5 # Red Blood Count 3.35 L Hemoglobin 10.5 L Hematocrit 31.3 L Mean Corpuscular Volume 93.4 Mean Corpuscular Hemoglobin 31.3 Mean Corpuscular Hemoglobin Concent 33.5 Red Cell Distribution Width 15.3 H Platelet Count 145 Mean Platelet Volume 11.3 H Neutrophils % 75.0 Lymphocytes % 16.9 Monocytes % 7.7 Eosinophils % 0.0 Basophils % 0.0 Nucleated Red Blood Cells % 0.0 Neutrophils # 5.6 Lymphocytes # 1.3 Monocytes # 0.6 Eosinophils # 0.0 Basophils # 0.0 Nucleated Red Blood Cells # 0.0 Prothrombin Time 17.0 H Prothrombin Time Ratio 1.3 INR International Normalized Ratio 1.38 Sodium Level 136 Potassium Level 4.6 Chloride Level 108 Carbon Dioxide Level 25 Anion Gap 8 Blood Urea Nitrogen 16 Creatinine 0.58 Glucose Level 182 Calcium Level 7.4 L Test 09/18/16 11:54 Bedside Glucose 187 Medications Medications Current Medications Metoclopramide HCl (Reglan) 10 mg Q6H PRN IV NAUSEA AND/OR VOMITING Last administered on 09/17/16 17:43; Admin Dose 10 MG; Start 09/05/16 at 03:00 Ibuprofen (Motrin) 600 mg Q6H PRN PO PAIN LEVEL 1-3 Last administered on 15:11; Admin Dose 600 MG; Start 09/05/16 at 03:00 Acetaminophen/ Hydrocodone Bitart ([place] (5/325)) 1 tab Q6H PRN PO MODERATE PAIN LEVEL 4-6 Last administered on 09/07/16 23:37; Admin Dose 1 TAB; Start 09/05 at 03:00 Morphine Sulfate (morphine) 2 mg Q4H PRN IV SEVERE PAIN LEVEL 7-10; Start at 03:00 Amlodipine Besylate (Norvasc) 5 mg DAILY PO Last administered on 09/17/16 13: 27; Admin Dose 5 MG; Start 09/05/16 at 09:00 Lisinopril (Zestril) 20 mg DAILY PO Last administered on 09/18/16 08:22; Admin Dose 20 MG; Start 09/05/16 at 09:00 Amitriptyline HCl (Elavil) 25 mg HS PO Last administered on 09/13/16 22:19; Admin Dose 25 MG; Start 09/05/16 at 21:00 Miscellaneous Information 1 ea NOTE XX ; Start 09/05/16 at 03:10 Glucose (Glutose) 15 gm Q15M PRN PO DECREASED GLUCOSE; Start 09/05/16 at 03:10 Glucose (Glutose) 22.5 gm Q15M PRN PO DECREASED GLUCOSE; Start 09/05/16 at 03:10 Dextrose (D50w Syringe) 25 ml Q15M PRN IV DECREASED GLUCOSE; Start 09/05/16 at 03:10 Dextrose (D50w Syringe) 50 ml Q15M PRN IV DECREASED GLUCOSE; Start 09/05/16 at 03:10 Glucagon (Glucagen) 1 mg Q15M PRN IM DECREASED GLUCOSE; Start 09/05/16 at 03:10 Glucose (Glutose) 15 gm Q15M PRN BUCCAL DECREASED GLUCOSE; Start 09/05/16 at 03: 10 Lactulose (Enulose) 10 gm Q8 PO Last administered on 09/12/16 22:11; Admin Dose 10 GM; Start 09/06/16 at 14:00 Insulin Glargine (Lantus) 15 unit DAILY@08 SC Last administered on 09/18/16 08 :11; Admin Dose 15 UNIT; Start 09/07/16 at 08:00 Famotidine (Pepcid) 20 mg Q12 PO Last administered on 09/18/16 08:17; Admin Dose 20 MG; Start 09/09/16 at 21:00 Spironolactone (Aldactone) 100 mg DAILY PO Last administered on 09/18/16 08:22 ; Admin Dose 100 MG; Start 09/12/16 at 14:30 Eye Lubricant (Refresh Plus) 1 drop QID BOTH EYES Last administered on 08:17; Admin Dose 1 DROP; Start 09/14/16 at 18:00 Morphine Sulfate (morphine) 2 mg Q2H PRN IV PAIN LEVEL 6-10; Start 09/17/16 at 11:00 Oxycodone/ Acetaminophen (Percocet (5/ 325)) 1 tab Q6H PRN PO PAIN LEVEL 6-10; Start 09/17/16 at 11:00 Ondansetron HCl (Zofran Inj) 4 mg Q6H PRN IV NAUSEA AND/OR VOMITING Last administered on 09/18/16 15:05; Admin Dose 4 MG; Start 09/17/16 at 11:00 Famotidine 20 mg 20 mg Q12 IV Last administered on 09/17/16 20:13; Admin Dose 20 MG; Start 09/17/16 at 21:00 Potassium Chloride/Lactated Ringer's (KCl/Lr) 1,010 ml @ 100 mls/hr Q10H6M IV Last administered on 09/18/16 15:02; Admin Dose 100 MLS/HR; Start 09/17/16 at 10:44 CARIN WALL MD Sep 18, 2016 15:34
[2016-09-18] MEDS: AMITRIPTYLINE 25 MG TAB PO SCH (20:21)
--- NOTE | 2016-09-18 21:00 | OPR ---
Date/Time of Note Date/Time of Note DATE: 09/18/16 TIME: 21:00 Operative Report Free Text/Dictation 3 OPERATIVE REPORT [facility] Name: Ekta Godoy Medical Date: 09/17/16 Preoperative Diagnosis: 1- Ascites and elevated CA-125 2- Anasarca 3- Pelvic/abdominal discomfort Postoperative Diagnosis: 1- Cirrhosis- pathology pending 2- Extensive anterior adhesions 3- Pelvic adhesions 4- Umbilical hernia Procedures: 1- Bilateral left salpingoophorectomy 2- Left ureteral dissection with repositioning 3- Liver biopsy and needle biopsies 4- Umbilical hernia repair 5- Extensive enterolysis Surgeon: Dr. Noyola Pearl Diver: Dr. Charla Neely [facility] Anesthesia: General Indications for procedure: The patient is a 61- year old female with fatigue, discomfort some SOB, anasarca , some ascites and an elevated CA-125 and history of cirrhosis with increasing symptoms and ascites. She was taken to the operating room to undertake a diagnostic laparoscopic procedure with possible unilateral or bilateral salpingoophorectomy with omental and liver biopsies with possibl Name: Ekta Scott debulking if needed after considering all options with risks and benefits. Findings and Summary After laparoscopic placement extensive anterior omental adhesions densely adherent to the anterior abdominal wall which were lysed with sharp dissection and the Omni and Thunderbeat when able. Subsequently an omental biopsy was completed and left salpingoophorectomy with a ureteral dissection with repositioning due to adhesions distorting the retroperitoneal anatomy. Additional enterolysis was completed and the liver biopsies completed without incident. The specimens were removed periumbilically with repair of a hernia Procedure: After being prepped and draped in the usual manner we placed a 5 mm trocar cephlad to the umbilicus without incident due to a midline incision and an umbilical level incisional hernia, and insufflated to 15 mm Hg, after which we noted extensive omental adhesions densely adherent to the anterior abdominal wall and placed two 5 millimeter trocars laterally. Omental adhesions densely adherent to the anterior abdominal wall which were lysed with sharp dissection and the Omni and Thunderbeat when able leaving a section of distal omentum attached to the anterior abdomen which was then removed with the Thunderbeat and Omni an used as a partial omentectomy. Subsequently a 12-millimeter trocar was inserted periumbilically just distal to the hernia. Subsequently we explored and noted small adnexia densely adherent to the pelvic sidewalls with additional small bowel adhesions that were lysed with sharp dissection although there was still distortion the retroperitoneal anatomy with the left adnexia irregular in shape. Hence, on the left side, the round ligament was cauterized and transected with a Thunderbeat and the retroperitoneum opened parallel to the infundibulo-pelvic (IP) ligament with the Thunderbeat and Omni laterally. The sigmoid colon was mobilized without incident with sharp dissection and the Omni, Name: Ekta [facility] after which the ureter was identified, and noted to be also be adherent to the adnexia requiring a ureteral dissection/repositioning as a separate procedure. The ureter was dissected away and repositioned with care using the endo- dissector, with both the Omni and the Thunderbeat, after which the ureter was repositioned laterally. Of note there was no enlarged wei tissue. The Omni and the Thunderbeat were used to address any small bleeding areas with the ureter visualized. This process was carried out throughout the ureteral length in the pelvis and it peristalsed normally once repositioned. Subsequently, the IP ligament was cauterized and transected with a Thunderbeat. The adnexia with adherent peritoneum was mobilized with a Omni while visualizing the ureter. Hence the andexia were fully by transaction of the triple pedicle with a Thunderbeat. The adnexia and omentum were removed in a sac thru the periumbilical site and trocar reinserted. Subsequently, additional upper abdominal enterolysis and omental adhesions were addressed adjacent to the liver and a liver needle was used to biopsy with nodular white minimal tissue, due to fibrosis and nodularity. Hence a ratcheted laparoscopic grasping instrument was used to retract the edge of the right lobe and a scissors used to begin a wedge resection/biopsy after which the process was continued with a Thunderbeat and the specimen removed thru the 12-millimeter trocar. The aforementioned resection site was further ablated with the argon beam avionics systems technician as were the needle biopsy sites. After irrigating and assuring hemostasis the 12 millimeter trocar was removed and the fascia/hernia was removed and closed with 1- Prolene suture using an endo-close devise. The gas was removed and the skin of all sites then closed with 6-0 Monocryl suture. The EBL was 50ml and the patient tolerated the procedure well and left the OR in good condition. Julien Noyola M.D. JULIEN NOYOLA MD Sep 18, 2016 21:00
[2016-09-19] VITALS (11 sets, daily range): BP systolic 89–137; BP diastolic 44–68; PULSE 55–101; RESP 16–19
[2016-09-19] MEDS: IBUPROFEN 600 MG TAB PO PRN (02:57)
[2016-09-19] MEDS: POTASSIUM CHLORIDE 20 MEQ in LACTATED RINGER'S 1,000 ML IV SCH ×2 (03:08→14:30)
[2016-09-19] MEDS: FUROSEMIDE 40 MG INJ IV SCH ×2 (05:00→18:23)
[2016-09-19] MEDS: LACTULOSE 30ML CUP PO SCH ×3 (05:00→21:01)
[2016-09-19] MEDS: Insulin NOVOLOG SS MODERATE Algorithm (SS with meals and bedtime) SC SCH ×4 (07:55→21:15)
[2016-09-19] MEDS: AMLODIPINE 5 MG TAB PO SCH (08:39)
[2016-09-19] MEDS: LISINOPRIL 20 MG TAB PO SCH (08:41)
[2016-09-19] MEDS: FAMOTIDINE 20 MG INJ IV SCH (09:00)
[2016-09-19] MEDS: CARBOXYMETHYLCELLULOSE 0.5% 0.1 ML OPH BOTH EYES SCH ×4 (09:00→20:59)
[2016-09-19] MEDS: SPIRONOLACTONE 50 MG TAB PO SCH (09:00)
[2016-09-19] MEDS: INSULIN ASPART [NOVOLOG] 3 ML PEN SC SCH ×3 (09:19→17:55)
[2016-09-19] MEDS: INSULIN GLARGINE [LANtus] 3 ML PEN SC SCH (09:19)
--- NOTE | 2016-09-19 16:20 | PN ---
Date/Time of Note Date/Time of Note DATE: 09/19/16 TIME: 16:18 Assessment/Plan VTE Prophylaxis VTE Prophylaxis Intervention: SCD's Lines/Catheters IV [facility] Type (from [facility] Saline Lock Urinary Cath still in place: No Assessment/Plan Assessment/Plan 1. End-stage liver disease. Nonalcoholic. Continue paracentesis as needed. Continue on diuretics with monitoring for hypotension. Continue on diuretic. patient for exploratory lap today 2. Hyperammonemia. Continue lactulose 3. Type 2 diabetes. A1c noted at 9.3. Continue on insulin regimen and adjust as needed. stable 4. Iron anemia. Continue on iron supplement 5. Essential hypertension. Continue antihypertensives and adjust as needed 6. Elevated tumor markers. Surgeon and oncologist followingplan for exploratory lap per surgeon today GERD prophylaxis: H2 maggie DVT prophylaxis: SCDs Subjective 24 Hr Interval Summary Free Text/Dictation pt refused to take meds and IVF Exam/Review of Systems Vital Signs Vitals Vital Signs Date Time Temp Pulse Resp B/P Pulse Ox O2 Delivery O2 Flow Rate FiO2 09/19/16 16:05 94 09/19/16 12:37 98.2 19 137/68 97 Room Air 09/18/16 10:00 2.0 Intake and Output 09/18/16 09/18/16 09/19/16 15:00 23:00 07:00 Intake Total 1720 ml 600 ml Output Total 1100 ml 600 ml Balance 620 ml 0 ml Exam Constitutional: alert, oriented, well developed Head: atraumatic, normocephalic Eyes: EOMI, PERRL Neck: non-tender, supple Respiratory: clear to auscultation, normal air movement Cardiovascular: nl pulses, regular rate and rhythm Gastrointestinal: soft, surgical scars, tender (at surgical site) Extremities: normal pulses Results Result Diagram: 09/18/16 0730 09/18/16 0730 Results 24 hrs Laboratory Tests Test 09/18/16 17:42 09/18/16 20:23 09/19/16 07:49 09/19/16 09:18 Bedside Glucose 140 115 79 126 Test 09/19/16 12:33 Bedside Glucose 153 Medications Medications Current Medications Metoclopramide HCl (Reglan) 10 mg Q6H PRN IV NAUSEA AND/OR VOMITING Last administered on 09/17/16t 17:43; Admin Dose 10 MG; Start 09/05/16 at 03:00 Ibuprofen (Motrin) 600 mg Q6H PRN PO PAIN LEVEL 1-3 Last administered on 02:57; Admin Dose 600 MG; Start 09/05/16 at 03:00 Acetaminophen/ Hydrocodone Bitart ([place] (5/325)) 1 tab Q6H PRN PO MODERATE PAIN LEVEL 4-6 Last administered on 09/07/16 23:37; Admin Dose 1 TAB; Start 09/05 at 03:00 Morphine Sulfate (morphine) 2 mg Q4H PRN IV SEVERE PAIN LEVEL 7-10; Start at 03:00 Amlodipine Besylate (Norvasc) 5 mg DAILY PO Last administered on 09/17/16 13: 27; Admin Dose 5 MG; Start 09/05/16 at 09:00 Lisinopril (Zestril) 20 mg DAILY PO Last administered on 09/18/16 08:22; Admin Dose 20 MG; Start 09/05/16 at 09:00 Amitriptyline HCl (Elavil) 25 mg HS PO Last administered on 09/13/16 22:19; Admin Dose 25 MG; Start 09/05/16 at 21:00 Miscellaneous Information 1 ea NOTE XX ; Start 09/05/16 at 03:10 Glucose (Glutose) 15 gm Q15M PRN PO DECREASED GLUCOSE; Start 09/05/16 at 03:10 Glucose (Glutose) 22.5 gm Q15M PRN PO DECREASED GLUCOSE; Start 09/05/16 at 03:10 Dextrose (D50w Syringe) 25 ml Q15M PRN IV DECREASED GLUCOSE; Start 09/05/16 at 03:10 Dextrose (D50w Syringe) 50 ml Q15M PRN IV DECREASED GLUCOSE; Start 09/05/16 at 03:10 Glucagon (Glucagen) 1 mg Q15M PRN IM DECREASED GLUCOSE; Start 09/05/16 at 03:10 Glucose (Glutose) 15 gm Q15M PRN BUCCAL DECREASED GLUCOSE; Start 09/05/16 at 03: 10 Lactulose (Enulose) 10 gm Q8 PO Last administered on 09/12/16 22:11; Admin Dose 10 GM; Start 09/06/16 at 14:00 Insulin Glargine (Lantus) 15 unit DAILY@08 SC Last administered on 09/18/16 08 :11; Admin Dose 15 UNIT; Start 09/07/16 at 08:00 Spironolactone (Aldactone) 100 mg DAILY PO Last administered on 09/18/16 08:22 ; Admin Dose 100 MG; Start 09/12/16 at 14:30 Eye Lubricant (Refresh Plus) 1 drop QID BOTH EYES Last administered on 08:17; Admin Dose 1 DROP; Start 09/14/16 at 18:00 Morphine Sulfate (morphine) 2 mg Q2H PRN IV PAIN LEVEL 6-10; Start 09/17/16 at 11:00 Oxycodone/ Acetaminophen (Percocet (5/ 325)) 1 tab Q6H PRN PO PAIN LEVEL 6-10; Start 09/17/16 at 11:00 Ondansetron HCl 4 mg 4 mg Q6H PRN IV NAUSEA AND/OR VOMITING Last administered on 09/18/16 15:05; Admin Dose 4 MG; Start 09/17/16 at 11:00 Potassium Chloride/Lactated Ringer's (KCl/Lr) 1,010 ml @ 100 mls/hr Q10H6M IV Last administered on 09/18/16 15:02; Admin Dose 100 MLS/HR; Start 09/17/16 at 10:44 Famotidine (Pepcid) 20 mg Q12 PO ; Start 09/19/16 at 21:00 MELISSA BOSWELL MD Sep 19, 2016 16:20
[2016-09-19] MEDS ORDERED: ALBUMIN HUMAN 25% 50 ML IV ONE (18:30)
[2016-09-19] MEDS: FAMOTIDINE 20 MG TAB PO SCH (21:00)
[2016-09-19] MEDS: AMITRIPTYLINE 25 MG TAB PO SCH (21:00)
--- NOTE | 2016-09-19 22:25 | PN ---
Date/Time of Note Date/Time of Note DATE: 09/19/16 TIME: 22:20 Assessment/Plan VTE Prophylaxis VTE Prophylaxis Intervention: SCD's Lines/Catheters IV Catheter Type (from Nrs): Saline Lock Urinary Cath still in place: No Assessment/Plan Chief Complaint/Hosp Course Ascites with known liver failure but concern about coexant primary other Problems: Assessment/Plan A- doing well surgically but apparently symptomatic due to cirrhosis P- Please note that although path is pending the issue is hepatic Subjective 24 Hr Interval Summary Free Text/Dictation minimal discomfort and tolerated diet; although tolerated less and less appetite as ascites increases Exam/Review of Systems Vital Signs Vitals Vital Signs Date Time Temp Pulse Resp B/P Pulse Ox O2 Delivery O2 Flow Rate FiO2 09/19/16 20:21 101 09/19/16 20:20 98.2 16 122/58 98 09/19/16 16:25 Room Air 09/18/16 10:00 2.0 Intake and Output 09/18/16 09/18/16 09/19/16 15:00 23:00 07:00 Intake Total 1720 ml 600 ml Output Total 1100 ml 600 ml Balance 620 ml 0 ml Exam Resp- clear CVS- NSR Abd- NT with ascites. incisions clean Ext- NT with baseline edema Results Result Diagram: 09/18/16 0730 09/18/16 0730 Results 24 hrs Laboratory Tests Test 09/19/16 07:49 09/19/16 09:18 09/19/16 12:33 09/19/16 18:13 Bedside Glucose 79 126 153 211 Test 09/19/16 21:05 Bedside Glucose 240 H Medications Medications Current Medications Metoclopramide HCl (Reglan) 10 mg Q6H PRN IV NAUSEA AND/OR VOMITING Last administered on 09/17/16 17:43; Admin Dose 10 MG; Start 09/05/16 at 03:00 Ibuprofen (Motrin) 600 mg Q6H PRN PO PAIN LEVEL 1-3 Last administered on 02:57; Admin Dose 600 MG; Start 09/05/16 at 03:00 Acetaminophen/ Hydrocodone Bitart ([place] (5/325)) 1 tab Q6H PRN PO MODERATE PAIN LEVEL 4-6 Last administered on 09/07/16 23:37; Admin Dose 1 TAB; Start 09/05 at 03:00 Morphine Sulfate (morphine) 2 mg Q4H PRN IV SEVERE PAIN LEVEL 7-10; Start at 03:00 Amlodipine Besylate (Norvasc) 5 mg DAILY PO Last administered on 09/17/16 13: 27; Admin Dose 5 MG; Start 09/05/16 at 09:00 Lisinopril (Zestril) 20 mg DAILY PO Last administered on 09/18/16 08:22; Admin Dose 20 MG; Start 09/05/16 at 09:00 Amitriptyline HCl (Elavil) 25 mg HS PO Last administered on 09/13/16 22:19; Admin Dose 25 MG; Start 09/05/16 at 21:00 Miscellaneous Information 1 ea NOTE XX ; Start 09/05/16 at 03:10 Glucose (Glutose) 15 gm Q15M PRN PO DECREASED GLUCOSE; Start 09/05/16 at 03:10 Glucose (Glutose) 22.5 gm Q15M PRN PO DECREASED GLUCOSE; Start 09/05/16 at 03:10 Dextrose (D50w Syringe) 25 ml Q15M PRN IV DECREASED GLUCOSE; Start 09/05/16 at 03:10 Dextrose (D50w Syringe) 50 ml Q15M PRN IV DECREASED GLUCOSE; Start 09/05/16 at 03:10 Glucagon (Glucagen) 1 mg Q15M PRN IM DECREASED GLUCOSE; Start 09/05/16 at 03:10 Glucose (Glutose) 15 gm Q15M PRN BUCCAL DECREASED GLUCOSE; Start 09/05/16 at 03: 10 Lactulose (Enulose) 10 gm Q8 PO Last administered on 09/12/16 22:11; Admin Dose 10 GM; Start 09/06/16 at 14:00 Insulin Glargine (Lantus) 15 unit DAILY@08 SC Last administered on 09/18/16 08 :11; Admin Dose 15 UNIT; Start 09/07/16 at 08:00 Spironolactone (Aldactone) 100 mg DAILY PO Last administered on 09/18/16 08:22 ; Admin Dose 100 MG; Start 09/12/16 at 14:30 Eye Lubricant (Refresh Plus) 1 drop QID BOTH EYES Last administered on 20:59; Admin Dose 1 DROP; Start 4/14/17 at 18:00 Morphine Sulfate (morphine) 2 mg Q2H PRN IV PAIN LEVEL 6-10; Start 09/17/16 at 11:00 Oxycodone/ Acetaminophen (Percocet (5/ 325)) 1 tab Q6H PRN PO PAIN LEVEL 6-10; Start 09/17/16 at 11:00 Ondansetron HCl (Zofran Inj) 4 mg Q6H PRN IV NAUSEA AND/OR VOMITING Last administered on 09/18/16t 15:05; Admin Dose 4 MG; Start 09/17/16 at 11:00 Famotidine (Pepcid) 20 mg Q12 PO ; Start 09/19/16 at 21:00 CARIN WALL MD Sep 19, 2016 22:25
[2016-09-20] VITALS (12 sets, daily range): BP systolic 106–141; BP diastolic 53–67; PULSE 89–100; RESP 16–19
[2016-09-20] MEDS: LACTULOSE 30ML CUP PO SCH ×3 (05:43→22:00)
[2016-09-20] MEDS: FUROSEMIDE 40 MG INJ IV SCH ×2 (06:01→17:52)
[2016-09-20] MEDS: INSULIN ASPART [NOVOLOG] 3 ML PEN SC SCH ×3 (08:42→17:49)
[2016-09-20] MEDS: Insulin NOVOLOG SS MODERATE Algorithm (SS with meals and bedtime) SC SCH ×4 (08:43→20:22)
[2016-09-20] MEDS: INSULIN GLARGINE [LANtus] 3 ML PEN SC SCH (08:44)
[2016-09-20] MEDS: AMLODIPINE 5 MG TAB PO SCH (09:00)
[2016-09-20] MEDS: FAMOTIDINE 20 MG TAB PO SCH ×3 (09:00→20:20)
[2016-09-20] MEDS: CARBOXYMETHYLCELLULOSE 0.5% 0.1 ML OPH BOTH EYES SCH ×4 (09:00→20:17)
[2016-09-20] MEDS: LISINOPRIL 20 MG TAB PO SCH (09:00)
[2016-09-20] MEDS: SPIRONOLACTONE 50 MG TAB PO SCH (09:14)
--- NOTE | 2016-09-20 11:57 | PN ---
Date/Time of Note Date/Time of Note DATE: 09/20/16 TIME: 11:53 Assessment/Plan VTE Prophylaxis VTE Prophylaxis Intervention: SCD's Lines/Catheters Urinary Cath still in place: No Assessment/Plan Chief Complaint/Hosp Course Assessment/Plan 1. End-stage liver disease. Nonalcoholic. Continue paracentesis as needed - apparently discussed with surgery team and family yesterday - possibly needs it again today. Continue on diuretics with monitoring for hypotension. 2. Hyperammonemia - will recheck NH3 levels in AM, pt alert. Continue lactulose 3. Type 2 diabetes. A1c noted at 9.3. Continue on insulin regimen and adjust as needed. stable 4. Iron anemia. Continue on iron supplement 5. Essential hypertension. Continue antihypertensives and adjust as needed 6. Elevated tumor markers - pt s/p Bilateral left salpingoophorectomy, Left ureteral dissection with repositioning, Liver biopsy and needle biopsies, Umbilical hernia repair, Extensive enterolysis POD # 2 - f/u Surgeon and oncologist following GERD prophylaxis: H2 maggie DVT prophylaxis: SCDs Problems: Subjective 24 Hr Interval Summary Free Text/Dictation Pt complaining of some abd discomfort/distension, alert. Exam/Review of Systems Vital Signs Vitals Vital Signs Date Time Temp Pulse Resp B/P Pulse Ox O2 Delivery O2 Flow Rate FiO2 09/20/16 08:09 90 09/20/16 08:02 98.6 18 119/65 98 09/19/16 16:25 Room Air 09/18/16 10:00 2.0 Intake and Output 09/19/16 09/19/16 09/20/16 15:00 23:00 07:00 Intake Total 100 ml 600 ml Balance 100 ml 600 ml Exam Constitutional: alert, oriented, well developed Head: atraumatic, normocephalic Eyes: EOMI, PERRL Neck: non-tender, supple Respiratory: clear to auscultation, normal air movement Cardiovascular: nl pulses, regular rate and rhythm Gastrointestinal: soft, surgical scars, tender (at surgical site) Extremities: normal pulses Results Result Diagram: 09/18/16 0730 09/18/16 0730 Results 24 hrs Laboratory Tests Test 09/19/16 12:33 09/19/16 18:13 09/19/16 21:05 09/20/16 08:37 Bedside Glucose 153 211 240 H 163 Medications Medications Current Medications Metoclopramide HCl (Reglan) 10 mg Q6H PRN IV NAUSEA AND/OR VOMITING Last administered on 09/17/16 17:43; Admin Dose 10 MG; Start 09/05/16 at 03:00 Ibuprofen (Motrin) 600 mg Q6H PRN PO PAIN LEVEL 1-3 Last administered on 02:57; Admin Dose 600 MG; Start 09/05/16 at 03:00 Acetaminophen/ Hydrocodone Bitart ([place] (5/325)) 1 tab Q6H PRN PO MODERATE PAIN LEVEL 4-6 Last administered on 09/07/16 23:37; Admin Dose 1 TAB; Start 09/05 at 03:00 Morphine Sulfate (morphine) 2 mg Q4H PRN IV SEVERE PAIN LEVEL 7-10; Start at 03:00 Amlodipine Besylate (Norvasc) 5 mg DAILY PO Last administered on 09/17/16 13: 27; Admin Dose 5 MG; Start 09/05/16 at 09:00 Lisinopril (Zestril) 20 mg DAILY PO Last administered on 09/18/16 08:22; Admin Dose 20 MG; Start 09/05/16 at 09:00 Amitriptyline HCl (Elavil) 25 mg HS PO Last administered on 09/13/16 22:19; Admin Dose 25 MG; Start 09/05/16 at 21:00 Miscellaneous Information 1 ea NOTE XX ; Start 09/05/16 at 03:10 Glucose (Glutose) 15 gm Q15M PRN PO DECREASED GLUCOSE; Start 09/05/16 at 03:10 Glucose (Glutose) 22.5 gm Q15M PRN PO DECREASED GLUCOSE; Start 09/05/16 at 03:10 Dextrose (D50w Syringe) 25 ml Q15M PRN IV DECREASED GLUCOSE; Start 09/05/16 at 03:10 Dextrose (D50w Syringe) 50 ml Q15M PRN IV DECREASED GLUCOSE; Start 09/05/16 at 03:10 Glucagon (Glucagen) 1 mg Q15M PRN IM DECREASED GLUCOSE; Start 09/05/16 at 03:10 Glucose (Glutose) 15 gm Q15M PRN BUCCAL DECREASED GLUCOSE; Start 09/05/16 at 03: 10 Lactulose (Enulose) 10 gm Q8 PO Last administered on 09/12/16 22:11; Admin Dose 10 GM; Start 09/06/16 at 14:00 Insulin Glargine (Lantus) 15 unit DAILY@08 SC Last administered on 09/20/16 08 :44; Admin Dose 15 UNIT; Start 09/07/16 at 08:00 Spironolactone (Aldactone) 100 mg DAILY PO Last administered on 09/20/16 09:14 ; Admin Dose 100 MG; Start 09/12/16 at 14:30 Eye Lubricant (Refresh Plus) 1 drop QID BOTH EYES Last administered on 20:59; Admin Dose 1 DROP; Start 09/14/16 at 18:00 Morphine Sulfate (morphine) 2 mg Q2H PRN IV PAIN LEVEL 6-10; Start 09/17/16 at 11:00 Oxycodone/ Acetaminophen (Percocet (5/ 325)) 1 tab Q6H PRN PO PAIN LEVEL 6-10; Start 09/17/16 at 11:00 Ondansetron HCl (Zofran Inj) 4 mg Q6H PRN IV NAUSEA AND/OR VOMITING Last administered on 09/18/16 15:05; Admin Dose 4 MG; Start 09/17/16 at 11:00 Famotidine (Pepcid) 20 mg Q12 PO ; Start 09/19/16 at 21:00 MYLA MARTINEZ Sep 20, 2016 11:57
--- NOTE | 2016-09-20 15:20 | CONS ---
Date/Time of Note Date/Time of Note DATE: 09/20/16 TIME: 15:16 Assessment/Plan Assessment/Plan Chief Complaint/Hosp Course 61 female with [place] cirrhosis and ascites in the setting of a markedly elevated CA 125. At this time, I am very concerned for cancer of BRICK MAKER given the CA 125> 10,000. We still need to consider cancer of pancreatic or hepatobiliary origin ( given her history of "crystallized" gallbladder) gallbladder but the significantly elevated CA 125 makes this less likely as CA 19-9 (53) and CEA ( 6.8) only mildly elevated. # Ascites, concern for malignancy -ascitic fluid cytology 09/07/16 showed no malignant cells -appreciates recs from Dr. Noyola given my concern for BRICK MAKER primary malignancy. pt now s/p exploratory laparoscopy. -s/p repeat paracentesis yesterday 09/13/16 with 3.6L removed -will follow up pathology -Exploratory laparoscopy did not reveal evidence of cancer per BRICK MAKER ONC . pt's ascites is likely secondary to [place] cirrhosis # Iron Deficiency Anemia - pt has Hg of 10 with iron sat 6%. Hgb stable. -Ferrlecit started 09/07/16, s/p 5 doses Problems: Consultation Date/Type/Reason Admit Date/Time Sep 05, 2016 at 00:09 Initial Consult Date 09/11/16 Type of Consultation: Oncology Reason for Consultation concern for BRICK MAKER malignancy Referring Provider: EDIE JAUREGUI 24 HR Interval Summary Free Text/Dictation pt states her ascites is slightly worse since surgery. supposed to have paracentesis today Exam/Review of Systems Vital Signs Vitals Vital Signs Date Time Temp Pulse Resp B/P Pulse Ox O2 Delivery O2 Flow Rate FiO2 09/20/16 12:09 92 09/20/16 12:08 98.3 18 127/67 99 09/19/16 16:25 Room Air 09/18/16 10:00 2.0 Intake and Output 09/19/16 09/19/16 09/20/16 15:00 23:00 07:00 Intake Total 100 ml 600 ml Balance 100 ml 600 ml Exam Constitutional: alert, frail, oriented Psych: depression, no complaints Head: normocephalic Eyes: nl conjunctiva ENMT: nl external ears & nose Neck: non-tender, supple Respiratory: clear to auscultation Cardiovascular: nl pulses, regular rate and rhythm Gastrointestinal: ascites, other (eccymosis), soft Musculoskeletal: nl extremities to inspection, nl gait and stance Results Result Diagram: 09/18/16 0730 09/18/16 0730 Results 24 hrs Laboratory Tests Test 09/19/16 18:13 09/19/16 21:05 09/20/16 08:37 09/20/16 12:23 Bedside Glucose 211 240 H 163 232 H Medications Medications Current Medications Metoclopramide HCl (Reglan) 10 mg Q6H PRN IV NAUSEA AND/OR VOMITING Last administered on 09/17/16 17:43; Admin Dose 10 MG; Start 09/05/16 at 03:00 Ibuprofen (Motrin) 600 mg Q6H PRN PO PAIN LEVEL 1-3 Last administered on 02:57; Admin Dose 600 MG; Start 09/05/16 at 03:00 Acetaminophen/ Hydrocodone Bitart ([place] (5/325)) 1 tab Q6H PRN PO MODERATE PAIN LEVEL 4-6 Last administered on 09/07/16 23:37; Admin Dose 1 TAB; Start 09/05 at 03:00 Morphine Sulfate (morphine) 2 mg Q4H PRN IV SEVERE PAIN LEVEL 7-10; Start at 03:00 Amlodipine Besylate (Norvasc) 5 mg DAILY PO Last administered on 09/17/16 13: 27; Admin Dose 5 MG; Start 09/05/16 at 09:00 Lisinopril (Zestril) 20 mg DAILY PO Last administered on 09/18/16 08:22; Admin Dose 20 MG; Start 09/05/16 at 09:00 Amitriptyline HCl (Elavil) 25 mg HS PO Last administered on 09/13/16 22:19; Admin Dose 25 MG; Start 09/05/16 at 21:00 Miscellaneous Information 1 ea NOTE XX ; Start 09/05/16 at 03:10 Glucose (Glutose) 15 gm Q15M PRN PO DECREASED GLUCOSE; Start 09/05/16 at 03:10 Glucose (Glutose) 22.5 gm Q15M PRN PO DECREASED GLUCOSE; Start 09/05/16 at 03:10 Dextrose (D50w Syringe) 25 ml Q15M PRN IV DECREASED GLUCOSE; Start 09/05/16 at 03:10 Dextrose (D50w Syringe) 50 ml Q15M PRN IV DECREASED GLUCOSE; Start 09/05/16 at 03:10 Glucagon (Glucagen) 1 mg Q15M PRN IM DECREASED GLUCOSE; Start 09/05/16 at 03:10 Glucose (Glutose) 15 gm Q15M PRN BUCCAL DECREASED GLUCOSE; Start 09/05/16 at 03: 10 Lactulose (Enulose) 10 gm Q8 PO Last administered on 09/12/16 22:11; Admin Dose 10 GM; Start 09/06/16 at 14:00 Insulin Glargine (Lantus) 15 unit DAILY@08 SC Last administered on 09/20/16 08 :44; Admin Dose 15 UNIT; Start 09/07/16 at 08:00 Spironolactone (Aldactone) 100 mg DAILY PO Last administered on 09/20/16 09:14 ; Admin Dose 100 MG; Start 09/12/16 at 14:30 Eye Lubricant (Refresh Plus) 1 drop QID BOTH EYES Last administered on 20:59; Admin Dose 1 DROP; Start 09/14/16 at 18:00 Morphine Sulfate (morphine) 2 mg Q2H PRN IV PAIN LEVEL 6-10; Start 09/17/16 at 11:00 Oxycodone/ Acetaminophen (Percocet (5/ 325)) 1 tab Q6H PRN PO PAIN LEVEL 6-10; Start 09/17/16 at 11:00 Ondansetron HCl (Zofran Inj) 4 mg Q6H PRN IV NAUSEA AND/OR VOMITING Last administered on 09/18/16 15:05; Admin Dose 4 MG; Start 09/17/16 at 11:00 Famotidine (Pepcid) 20 mg Q12 PO ; Start 09/19/16 at 21:00 YOLANDA PUENTES M.D. Sep 20, 2016 15:20
[2016-09-20] MEDS: AMITRIPTYLINE 25 MG TAB PO SCH ×2 (20:18→20:20)
[2016-09-21] VITALS (10 sets, daily range): BP systolic 113–140; BP diastolic 56–78; PULSE 84–97; RESP 16–20
[2016-09-21] MEDS: IBUPROFEN 600 MG TAB PO PRN (00:19)
[2016-09-21] MEDS: LACTULOSE 30ML CUP PO SCH ×2 (05:57→12:59)
[2016-09-21] MEDS: FUROSEMIDE 40 MG INJ IV SCH (05:59)
[2016-09-21 06:06] LABS: ADD SCAN DIFF NO
[2016-09-21 06:29] LABS: BASOPHILS % 0.3 % (0.0-2.0); EOSINOPHILS # 0.1 10^3/ul (0.0-0.5); EOSINOPHILS % 0.8 % (0.0-7.0); HEMATOCRIT 32.5 % (37.0-47.0); HEMOGLOBIN 10.8 g/dl (12.0-16.0); LYMPHOCYTES # 2.2 10^3/ul (0.8-2.9); LYMPHOCYTES % 29.1 % (15.0-51.0); MEAN CORPUSCULAR HEMOGLOBIN 30.6 pg (29.0-33.0); MEAN CORPUSCULAR HGB CONC 33.2 g/dl (32.0-37.0); MEAN CORPUSCULAR VOLUME 92.1 fl (82.0-101.0); MEAN PLATELET VOLUME 10.9 fl (7.4-10.4); MONOCYTE # 0.6 10^3/ul (0.3-0.9); MONOCYTES % 8.4 % (0.0-11.0); NEUTROPHIL # 4.6 10^3/ul (1.6-7.5); NEUTROPHILS % 61.1 % (39.0-77.0); PLATELET COUNT 153 10^3/UL (140-415); RED BLOOD COUNT 3.53 10^6/ul (4.20-5.40); RED CELL DISTRIBUTION WIDTH 15.8 % (11.5-14.5); WHITE BLOOD COUNT 7.5 10^3/ul (4.8-10.8)
[2016-09-21 07:00] LABS: CALCIUM 7.9 mg/dl (8.4-10.2); CREATININE 0.67 mg/dl (0.44-1.00); POTASSIUM 4.2 mmol/L (3.5-5.1)
[2016-09-21] MEDS: Insulin NOVOLOG SS MODERATE Algorithm (SS with meals and bedtime) SC SCH ×2 (07:55→12:23)
[2016-09-21] MEDS: CARBOXYMETHYLCELLULOSE 0.5% 0.1 ML OPH BOTH EYES SCH ×2 (08:42→12:23)
[2016-09-21] MEDS: INSULIN GLARGINE [LANtus] 3 ML PEN SC SCH (08:44)
[2016-09-21] MEDS: FAMOTIDINE 20 MG TAB PO SCH (08:47)
[2016-09-21] MEDS: INSULIN ASPART [NOVOLOG] 3 ML PEN SC SCH ×2 (08:47→12:22)
[2016-09-21] MEDS: SPIRONOLACTONE 50 MG TAB PO SCH (08:47)
[2016-09-21] MEDS: LISINOPRIL 20 MG TAB PO SCH (08:47)
[2016-09-21] MEDS: AMLODIPINE 5 MG TAB PO SCH (08:47)
--- NOTE | 2016-09-21 09:10 | PN ---
Date/Time of Note Date/Time of Note DATE: 09/21/16 TIME: 09:08 Assessment/Plan VTE Prophylaxis VTE Prophylaxis Intervention: SCD's Lines/Catheters IV C[facility]ter Type [facility]from [facility] Saline Lock Urinary Cath still in place: No Assessment/Plan Chief Complaint/Hosp Course Assessment/Plan 1. End-stage liver disease. Nonalcoholic. Continue paracentesis as needed - scheduled for today. Continue on diuretics with monitoring for hypotension. 2. Hyperammonemia - NH3 levels nL, pt alert. Continue lactulose 3. Type 2 diabetes. A1c noted at 9.3. Continue on insulin regimen and adjust as needed. stable 4. Iron anemia. Continue on iron supplement 5. Essential hypertension. Continue antihypertensives and adjust as needed 6. Elevated tumor markers - pt s/p Bilateral left salpingoophorectomy, Left ureteral dissection with repositioning, Liver biopsy and needle biopsies, Umbilical hernia repair, Extensive enterolysis POD # 3 - f/u Surgeon and oncologist rec's GERD prophylaxis: H2 maggie DVT prophylaxis: SCDs Problems: Subjective 24 Hr Interval Summary Free Text/Dictation Pt ordered for paracentesis, but will be scheduled for today. No acute events overnight. Exam/Review of Systems Vital Signs Vitals Vital Signs Date Time Temp Pulse Resp B/P Pulse Ox O2 Delivery O2 Flow Rate FiO2 09/21/16 09:01 84 09/21/16 07:22 97.9 16 140/73 97 09/20/16 20:00 Room Air 09/20/16 20:00 2.0 Intake and Output 09/20/16 09/20/16 09/21/16 15:00 23:00 07:00 Intake Total 600 ml 400 ml Balance 600 ml 400 ml Exam Constitutional: alert, oriented, well developed Head: atraumatic, normocephalic Eyes: EOMI, PERRL Neck: non-tender, supple Respiratory: clear to auscultation, normal air movement Cardiovascular: nl pulses, regular rate and rhythm Gastrointestinal: soft, surgical scars, tender (at surgical site) Extremities: normal pulses Results Result Diagram: 09/21/16 0540 09/21/16 0540 Results 24 hrs Laboratory Tests Test 09/20/16 12:23 09/20/16 17:43 09/20/16 20:22 09/21/16 05:40 Bedside Glucose 232 H 171 136 White Blood Count 7.5 Red Blood Count 3.53 L Hemoglobin 10.8 L Hematocrit 32.5 L Mean Corpuscular Volume 92.1 Mean Corpuscular Hemoglobin 30.6 Mean Corpuscular Hemoglobin Concent 33.2 Red Cell Distribution Width 15.8 H Platelet Count 153 Mean Platelet Volume 10.9 H Neutrophils % 61.1 Lymphocytes % 29.1 Monocytes % 8.4 Eosinophils % 0.8 Basophils % 0.3 Nucleated Red Blood Cells % 0.0 Neutrophils # 4.6 Lymphocytes # 2.2 Monocytes # 0.6 Eosinophils # 0.1 Basophils # 0.0 Nucleated Red Blood Cells # 0.0 Sodium Level 133 L Potassium Level 4.2 Chloride Level 107 Carbon Dioxide Level 25 Anion Gap 5 L Blood Urea Nitrogen 18 Creatinine 0.67 Glucose Level 165 Calcium Level 7.9 L Test 09/21/16 05:44 09/21/16 08:09 Ammonia 20 Bedside Glucose 143 Medications Medications Current Medications Metoclopramide HCl (Reglan) 10 mg Q6H PRN IV NAUSEA AND/OR VOMITING Last administered on 09/17/16 17:43; Admin Dose 10 MG; Start 09/05/16 at 03:00 Ibuprofen (Motrin) 600 mg Q6H PRN PO PAIN LEVEL 1-3 Last administered on 00:19; Admin Dose 600 MG; Start 09/05/16 at 03:00 Acetaminophen/ Hydrocodone Bitart ([place] (5/325)) 1 tab Q6H PRN PO MODERATE PAIN LEVEL 4-6 Last administered on 09/07/16 23:37; Admin Dose 1 TAB; Start 09/05 at 03:00 Morphine Sulfate (morphine) 2 mg Q4H PRN IV SEVERE PAIN LEVEL 7-10; Start at 03:00 Amlodipine Besylate (Norvasc) 5 mg DAILY PO Last administered on 09/17/16 13: 27; Admin Dose 5 MG; Start 09/05/16 at 09:00 Lisinopril (Zestril) 20 mg DAILY PO Last administered on 09/18/16 08:22; Admin Dose 20 MG; Start 09/05/16 at 09:00 Amitriptyline HCl (Elavil) 25 mg HS PO Last administered on 09/13/16 22:19; Admin Dose 25 MG; Start 09/05/16 at 21:00 Miscellaneous Information 1 ea NOTE XX ; Start 09/05/16 at 03:10 Glucose (Glutose) 15 gm Q15M PRN PO DECREASED GLUCOSE; Start 09/05/16 at 03:10 Glucose (Glutose) 22.5 gm Q15M PRN PO DECREASED GLUCOSE; Start 09/05/16 at 03:10 Dextrose (D50w Syringe) 25 ml Q15M PRN IV DECREASED GLUCOSE; Start 09/05/16 at 03:10 Dextrose (D50w Syringe) 50 ml Q15M PRN IV DECREASED GLUCOSE; Start 09/05/16 at 03:10 Glucagon (Glucagen) 1 mg Q15M PRN IM DECREASED GLUCOSE; Start 09/05/16 at 03:10 Glucose (Glutose) 15 gm Q15M PRN BUCCAL DECREASED GLUCOSE; Start 09/05/16 at 03: 10 Lactulose (Enulose) 10 gm Q8 PO Last administered on 09/12/16 22:11; Admin Dose 10 GM; Start 09/06/16 at 14:00 Insulin Glargine (Lantus) 15 unit DAILY@08 SC Last administered on 09/21/16 08 :44; Admin Dose 15 UNIT; Start 09/07/16 at 08:00 Spironolactone (Aldactone) 100 mg DAILY PO Last administered on 09/20/16 09:14 ; Admin Dose 100 MG; Start 09/12/16 at 14:30 Eye Lubricant (Refresh Plus) 1 drop QID BOTH EYES Last administered on 08:42; Admin Dose 1 DROP; Start 09/14/16 at 18:00 Morphine Sulfate (morphine) 2 mg Q2H PRN IV PAIN LEVEL 6-10; Start 09/17/16 at 11:00 Oxycodone/ Acetaminophen (Percocet (5/ 325)) 1 tab Q6H PRN PO PAIN LEVEL 6-10; Start 09/17/16 at 11:00 Ondansetron HCl (Zofran Inj) 4 mg Q6H PRN IV NAUSEA AND/OR VOMITING Last administered on 09/18/16 15:05; Admin Dose 4 MG; Start 09/17/16 at 11:00 Famotidine (Pepcid) 20 mg Q12 PO ; Start 09/19/16 at 21:00 MYLA MARTINEZ Sep 21, 2016 09:10
--- NOTE | 2016-09-21 14:09 | CONS ---
Date/Time of Note Date/Time of Note DATE: 09/21/16 TIME: 14:04 Assessment/Plan Assessment/Plan Chief Complaint/Hosp Course 61 female with [place] cirrhosis and ascites in the setting of a markedly elevated CA 125. At this time, I am very concerned for cancer of RECREATION MANAGER given the CA 125> 10,000. We still need to consider cancer of pancreatic or hepatobiliary origin ( given her history of "crystallized" gallbladder) gallbladder but the significantly elevated CA 125 makes this less likely as CA 19-9 (53) and CEA ( 6.8) only mildly elevated. # Ascites, concern for malignancy -ascitic fluid cytology 09/07/16 showed no malignant cells -appreciates recs from Dr. Noyola given my concern for RECREATION MANAGER primary malignancy. pt now s/p exploratory laparoscopy. -s/p repeat paracentesis yesterday 09/13/16 with 3.6L removed -pathology demonstrates no evidence of malignancy -Exploratory laparoscopy did not reveal evidence of cancer per RECREATION MANAGER ONC . pt's ascites is likely secondary to [place] cirrhosis # Iron Deficiency Anemia - pt has Hg of 10 with iron sat 6%. Hgb stable. -Ferrlecit started 09/07/16, s/p 5 doses Problems: Consultation Date/Type/Reason Admit Date/Time Sep 05, 2016 at 00:09 Initial Consult Date 09/11/16 Type of Consultation: Oncology Reason for Consultation concern for ovarian cancer Referring Provider: EDIE JAUREGUI 24 HR Interval Summary Free Text/Dictation no acute overnight events. pt had paracentesis yesterday. feels better Exam/Review of Systems Vital Signs Vitals Vital Signs Date Time Temp Pulse Resp B/P Pulse Ox O2 Delivery O2 Flow Rate FiO2 09/21/16 12:07 93 09/21/16 11:03 98.2 16 121/68 99 09/20/16 20:00 Room Air 09/20/16 20:00 2.0 Intake and Output 09/20/16 09/20/16 09/21/16 15:00 23:00 07:00 Intake Total 600 ml 400 ml Balance 600 ml 400 ml Exam Constitutional: alert, oriented Psych: nl mood/affect, no complaints Head: atraumatic, normocephalic Eyes: nl conjunctiva ENMT: nl external ears & nose Neck: non-tender, supple Respiratory: clear to auscultation, normal air movement Cardiovascular: regular rate and rhythm Gastrointestinal: ascites, soft Musculoskeletal: nl extremities to inspection, nl gait and stance Results Result Diagram: 09/21/16 0540 09/21/16 0540 Results 24 hrs Laboratory Tests Test 09/20/16 17:43 09/20/16 20:22 09/21/16 05:40 09/21/16 05:44 Bedside Glucose 171 136 White Blood Count 7.5 Red Blood Count 3.53 L Hemoglobin 10.8 L Hematocrit 32.5 L Mean Corpuscular Volume 92.1 Mean Corpuscular Hemoglobin 30.6 Mean Corpuscular Hemoglobin Concent 33.2 Red Cell Distribution Width 15.8 H Platelet Count 153 Mean Platelet Volume 10.9 H Neutrophils % 61.1 Lymphocytes % 29.1 Monocytes % 8.4 Eosinophils % 0.8 Basophils % 0.3 Nucleated Red Blood Cells % 0.0 Neutrophils # 4.6 Lymphocytes # 2.2 Monocytes # 0.6 Eosinophils # 0.1 Basophils # 0.0 Nucleated Red Blood Cells # 0.0 Sodium Level 133 L Potassium Level 4.2 Chloride Level 107 Carbon Dioxide Level 25 Anion Gap 5 L Blood Urea Nitrogen 18 Creatinine 0.67 Glucose Level 165 Calcium Level 7.9 L Ammonia 20 Test 09/21/16 08:09 09/21/16 12:21 Bedside Glucose 143 178 Medications Medications Current Medications Metoclopramide HCl (Reglan) 10 mg Q6H PRN IV NAUSEA AND/OR VOMITING Last administered on 09/17/16 17:43; Admin Dose 10 MG; Start 09/05/16 at 03:00 Ibuprofen (Motrin) 600 mg Q6H PRN PO PAIN LEVEL 1-3 Last administered on 00:19; Admin Dose 600 MG; Start 09/05/16 at 03:00 Acetaminophen/ Hydrocodone Bitart ([place] (5/325)) 1 tab Q6H PRN PO MODERATE PAIN LEVEL 4-6 Last administered on 09/07/16 23:37; Admin Dose 1 TAB; Start 09/05 at 03:00 Morphine Sulfate (morphine) 2 mg Q4H PRN IV SEVERE PAIN LEVEL 7-10; Start at 03:00 Amlodipine Besylate (Norvasc) 5 mg DAILY PO Last administered on 09/17/16 13: 27; Admin Dose 5 MG; Start 09/05/16 at 09:00 Lisinopril (Zestril) 20 mg DAILY PO Last administered on 09/18/16 08:22; Admin Dose 20 MG; Start 09/05/16 at 09:00 Amitriptyline HCl (Elavil) 25 mg HS PO Last administered on 09/13/16 22:19; Admin Dose 25 MG; Start 09/05/16 at 21:00 Miscellaneous Information 1 ea NOTE XX ; Start 09/05/16 at 03:10 Glucose (Glutose) 15 gm Q15M PRN PO DECREASED GLUCOSE; Start 09/05/16 at 03:10 Glucose (Glutose) 22.5 gm Q15M PRN PO DECREASED GLUCOSE; Start 09/05/16 at 03:10 Dextrose (D50w Syringe) 25 ml Q15M PRN IV DECREASED GLUCOSE; Start 09/05/16 at 03:10 Dextrose (D50w Syringe) 50 ml Q15M PRN IV DECREASED GLUCOSE; Start 09/05/16 at 03:10 Glucagon (Glucagen) 1 mg Q15M PRN IM DECREASED GLUCOSE; Start 09/05/16 at 03:10 Glucose (Glutose) 15 gm Q15M PRN BUCCAL DECREASED GLUCOSE; Start 09/05/16 at 03: 10 Lactulose (Enulose) 10 gm Q8 PO Last administered on 09/12/16 22:11; Admin Dose 10 GM; Start 09/06/16 at 14:00 Insulin Glargine (Lantus) 15 unit DAILY@08 SC Last administered on 09/21/16 08 :44; Admin Dose 15 UNIT; Start 09/07/16 at 08:00 Spironolactone (Aldactone) 100 mg DAILY PO Last administered on 09/20/16 09:14 ; Admin Dose 100 MG; Start 09/12/16 at 14:30 Eye Lubricant (Refresh Plus) 1 drop QID BOTH EYES Last administered on 08:42; Admin Dose 1 DROP; Start 09/14/16 at 18:00 Morphine Sulfate (morphine) 2 mg Q2H PRN IV PAIN LEVEL 6-10; Start 09/17/16 at 11:00 Oxycodone/ Acetaminophen (Percocet (5/ 325)) 1 tab Q6H PRN PO PAIN LEVEL 6-10; Start 09/17/16 at 11:00 Ondansetron HCl (Zofran Inj) 4 mg Q6H PRN IV NAUSEA AND/OR VOMITING Last administered on 09/18/16t 15:05; Admin Dose 4 MG; Start 09/17/16 at 11:00 Famotidine (Pepcid) 20 mg Q12 PO ; Start 09/19/16 at 21:00 YOLANDA PUENTES M.D. Sep 21, 2016 14:09
--- NOTE | 2016-09-21 15:15 | PDOCDIS ---
Discharge Instructions CONDITION Patient Condition: Stable HOME CARE INSTRUCTIONS: Special Diet: mechanical soft ACTIVITY: Activity Restrictions: Slowly Increase Activity FOLLOW UP/APPOINTMENTS Appointments Take your medications as prescribed. See your doctor in one week. MYLA MARTINEZ Sep 21, 2016 15:15
[2016-09-21] MEDS ORDERED: AMLO-145 PO (15:20)
[2016-09-21] MEDS ORDERED: NOVO3I SC (15:20)
[2016-09-21] MEDS ORDERED: SPIR50TA PO (15:20)
[2016-09-21] MEDS ORDERED: LISI20TA11 PO (15:20)
[2016-09-21] MEDS ORDERED: LANT3I SC (15:20)
[2016-09-21] MEDS ORDERED: AMI25 PO (15:20)
[2016-09-21] MEDS ORDERED: SIMV10TA PO (15:20)
[2016-09-21] MEDS ORDERED: FURO20TA3 PO (15:20)
--- NOTE | 2016-09-21 15:31 | RADRPT ---
PROCEDURE: Abdominal ultrasound CLINICAL INDICATION: Abdominal pain and distension TECHNIQUE: Axial and longitudinal camejo scale images of the four abdominal quadrants COMPARISON: None FINDINGS: Four quadrant abdominal ultrasound demonstrates no ascites. IMPRESSION: No ascites identified RPTAT: HH .Marco Antonio Busby MD, MD Date Time Electronically viewed and signed by .Marco Antonio Busby MD, MD on 09/21/2016 15:31 .W/
--- NOTE | 2016-09-21 18:45 | DS ---
DATE OF ADMISSION: 09/05/2016 DATE OF DISCHARGE: 09/21/2016 HOSPITAL COURSE: This is a 61-year-old female originally admitted on 09/05/2016 and being discharge d home pending approval from AQUATICS COORDINATOR/ONC surgery team on 09/21/2016. The patient initially came in with abdominal pain with a painful abdomen and swollen with fluid. She was diagnosed with decompensated liver, possible liver cirrhosis versus [place] with ascites. She was admitted and underwent ultrasoun d-guided paracentesis during this hospital stay. She actually had that performed 3 separate times d uring this hospital stay and there were some blood tests performed and there was a concern about fly vated tumor markers, as she was found with elevated CEA level, CA 19-9 level and CA-125 level, so h ematology/oncology team and AQUATICS COORDINATOR/ONC team were consulted as well. The ascitic fluid that was drained from the paracentesis was negative for any malignant cells, however. The patient was also treated for iron deficiency anemia and started on ____ as well and the AQUATICS COORDINATOR/ONC team performed surgery as wel l, specifically exploratory laparotomy, and also ended up undergoing a bilateral left salpingo-oopho rectomy and left ureteral dissection with respositioning. A liver biopsy and needle biopsies were p erformed. There was an umbilical hernia repair and extent enterolysis was performed as well. The patient's pathology report was negative for malignancy, including negative in the ovarian area tube, fallopian tube area, omental area and liver area. There was, however, the ____diagnosis of cirrhos is but again, all negative for malignancy from where the biopsies were taken, as mentioned above. A fterwards, the patient was given pain control medications. She was able to ambulate and tolerate a p.o. diet. After speaking with hematology/oncology team, they felt the patient was stable for outpa tient followup and we are going to speak the AQUATICS COORDINATOR/ONC team, given the fact that the patient did have a surgery on 09/18/2014 and she seems to be recovering well. If she gets clearance from the AQUATICS COORDINATOR/ON C surgery team, she will be discharged home today in improved condition. If she does go today, she will be sent with the following medications: DISCHARGE MEDICATIONS: 1. Elavil 25 mg at bedtime. 2. Amlodipine 5 mg daily. 3. Lisinopril 20 mg daily. 4. Aldactone 100 mg daily. 5. Lasix 20 mg b.i.d. 6. Aspart insulin 5 units with meals. 7. Lantus 15 units daily. 8. Zocor 10 mg at bedtime. She will need to follow up with the primary care doctor in the clinic in the next 1 to 2 weeks. FINAL DIAGNOSES: 1. Abdominal pain with ascites most likely secondary to a combination of cirrhosis and possible non -alcoholic steatohepatitis. Status post exploratory laparotomy with negative malignancy of either t he AQUATICS COORDINATOR/ONC area or liver area. 2. Elevated tumor markers again, but negative biopsy results. 3. Iron deficiency anemia. 4. Type 2 diabetes with A1c of 9.3. 5. Elevated ammonia levels, now stable after getting lactulose. 6. Essential hypertension. Time spent discharging patient 50 minutes. Dictated By: MYLA WOOD Conf#: [id number] DID#: [id number]
== END 2016-09-21 16:49 | disposition home or self-care (01) | DRG 420 ==
LOC: E/R 21:53 → MS2 09-05 00:09 → TEL 09-08 13:46
PROVIDERS: ADMIT Family Medicine; ATTEND Family Medicine
PROC: 0W9G3ZZ Drainage of Peritoneal Cavity, Percutaneous Approach (ICD-10-PCS; 2016-09-05)
PROC: 0W9G3ZX Drainage of Peritoneal Cavity, Percutaneous Approach, Diagnostic (ICD-10-PCS; 2016-09-07)
PROC: 0W9G3ZZ Drainage of Peritoneal Cavity, Percutaneous Approach (ICD-10-PCS; 2016-09-13)
PROC: 0FB04ZX Excision of Liver, Percutaneous Endoscopic Approach, Diagnostic (ICD-10-PCS; 2016-09-17)
PROC: 0DNS4ZZ (ICD-10-PCS; 2016-09-17)
PROC: 0UT64ZZ Resection of Left Fallopian Tube, Percutaneous Endoscopic Approach (ICD-10-PCS; 2016-09-17)
PROC: 0WQF4ZZ Repair Abdominal Wall, Percutaneous Endoscopic Approach (ICD-10-PCS; 2016-09-17)
PROC: 0TS74ZZ Reposition Left Ureter, Percutaneous Endoscopic Approach (ICD-10-PCS; 2016-09-17)
PROC: 0DBS4ZX (ICD-10-PCS; 2016-09-17)
PROC: 0UT14ZZ Resection of Left Ovary, Percutaneous Endoscopic Approach (ICD-10-PCS; principal; 2016-09-17 07:30)
DX: K74.69 Other cirrhosis of liver (principal); A41.9 Sepsis, unspecified organism; D61.818 Other pancytopenia; R18.8 Other ascites; E72.20 Disorder of urea cycle metabolism, unspecified; I10 Essential (primary) hypertension; K75.81 Nonalcoholic steatohepatitis (NASH); R74.8 Abnormal levels of other serum enzymes; E11.65 Type 2 diabetes mellitus with hyperglycemia; E11.42 Type 2 diabetes mellitus with diabetic polyneuropathy; Z80.0 Family history of malignant neoplasm of digestive organs; R97.1 Elevated cancer antigen 125 [CA 125]; R97.0 Elevated carcinoembryonic antigen [CEA]; K66.0 Peritoneal adhesions (postprocedural) (postinfection); K42.9 Umbilical hernia without obstruction or gangrene; K72.90 Hepatic failure, unspecified without coma; D50.9 Iron deficiency anemia, unspecified; Z79.4 Long term (current) use of insulin
CPT/HCPCS: 36415; 71010; 71260; 74177; 76705; 80048; 80053; 80061; 82105; 82140; 82150; 82378; 82550; 82553; 82728; 82945; 82962; 83036; 83540; 83605; 83615; 83690; 83735; 84080; 84100; 84439; 84443; 84484; 85025; 85610; 85730; 86301; 86304; 86850; 86870; 86900; 86901; 86902; 86920; 87040; 87070; 87081; 87086; 88104; 88305; 88307; 88311; 89050; 93005; 93306; J0690; J0698; J1100; J1644; J1650; J1815; J1940; J2250; J2270; J2274; J2370; J2405; J2543; J2710; J2765; J2795; J2916; J3010; J3480; J7040; J7120; P9047; Q9967

== ENCOUNTER 2016-09-28 20:11 | Emergency (ER) | payer MEDICAID ==
[~2016-09-28] VITALS: Ht 157.5 cm; Wt 79.5 kg
[~2016-09-28 20:11] MED LIST changes: +AMI25 PO; +AMLO-145 PO; -AMLO5TAB4 PO
[2016-09-28 21:03] VITALS: Ht 157.5 cm; Wt 79.5 kg
--- NOTE | 2016-09-28 22:29 | ERA ---
ER Documentation Chief Complaint Date/Time DATE: 09/28/16 TIME: 22:27 Chief Complaint Abdominal distention HPI The patient is a 61-year-old female, presenting to the ER because of abdominal distention. She was admitted and discharged last week when she had abdominocentesis that remove 8 L and 4 L about 2 day later. She had exploratory laparotomy for possible malignancy, with left salpingo-oophorectomy , left ureteral dissection and reposition, liver biopsy, enterolysis, umbilical herniorrhaphy. She came back to the ER because of recurrent abdominal distention, denies fever, chills, cough, neck pain, chest pain, dyspnea, nausea , vomiting, dysuria, diarrhea. She does not smoke or drink Past medical history: Diabetes mellitus, hypertension, dyslipidemia, anemia, cirrhosis ROS All systems reviewed and are negative except as per history of present illness. Medications Home Meds Active Scripts Spironolactone* (Aldactone*) 50 Mg Tablet, 100 MG PO DAILY for 30 Days, TAB 3 Refills Prov:MYLA MARTINEZ S. 09/21/16 Amitriptyline Hcl* (Elavil*) 25 Mg Tab, 25 MG PO HS, #30 TAB 2 Refills Prov:MYLA MARTINEZ S. 09/21/16 Lisinopril* (Lisinopril*) 20 Mg Tablet, 20 MG PO DAILY, #30 TAB 2 Refills Prov:MYLA MARTINEZ S. 09/21/16 Amlodipine Besylate* (Amlodipine Besylate*) 5 Mg Tablet, 5 MG PO DAILY, #30 TAB 2 Refills Prov:MYLA MARTINEZ S. 09/21/16 Insulin Glargine* (Lantus*) 100 Unit/Ml Soln, 15 UNIT SC DAILY@08 for 30 Days, # 1 4 Refills Prov:MYLA MARTINEZ S. 09/21/16 Insulin Aspart* (Novolog Insulin Pen*) 100 Unit/Ml Soln, 5 UNIT SC WITH MEALS for 30 Days, #1 4 Refills Prov:MYLA MARTINEZ S. 09/21/16 Furosemide* (Furosemide*) 20 Mg Tablet, 20 MG PO BID, #60 TAB 2 Refills Prov:MYLA MARTINEZ S. 09/21/16 Simvastatin* (Zocor*) 10 Mg Tablet, 10 MG PO HS, #30 TAB 3 Refills Prov:MYLA MARTINEZ 09/21/16 Reported Medications Ibuprofen* (Ibuprofen*) 800 Mg Tab, 800 MG PO QID, TAB 09/28/16 Ibuprofen* (Ibuprofen*) 600 Mg Tablet, 600 MG PO Q8 Y for PAIN, TAB 09/28/16 Allergies Allergies: Coded Allergies: No Known Allergy (Unverified , 09/28/16) PMhx/Soc History of Surgery: Yes ( X1) Anesthesia Reaction: No Hx Neurological Disorder: Yes (NEUROPATHY) Hx Respiratory Disorders: No Hx Cardiac Disorders: Yes (HTN) Hx Psychiatric Problems: No Hx Miscellaneous Medical Probl: No Hx Alcohol Use: Yes (OCCASIONAL) Hx Substance Use: No Hx Tobacco Use: No Physical Exam Vitals Vital Signs Date Time Temp Pulse Resp B/P Pulse Ox O2 Delivery O2 Flow Rate FiO2 09/29/16 00:57 80 16 123/67 98 Room Air 09/28/16 22:29 94 16 142/85 98 Room Air 09/28/16 21:03 99.4 94 16 150/71 96 Physical Exam Const: No acute distress. Head: Atraumatic. Eyes: Normal Conjunctiva. ENT: Normal External Ears, Nose and Mouth. Neck: Full range of motion. No meningismus. Resp: Clear to auscultation bilaterally. Cardio: Regular rate and rhythm, no murmurs. Abd: Soft, non distended, normal bowel sounds, massive ascites, puncture wound is healing well Skin: No petechiae or rashes. Back: No midline or flank tenderness. Ext: No cyanosis, or edema. Neur: Awake and alert. No focal deficit Psych: Normal Mood and Affect. Result Diagram: 09/28/16224609/28/162246 Results 24 hrs Laboratory Tests Test 09/28/16 22:47 09/28/16 22:51 09/28/16 23:00 White Blood Count 5.810^3/ul Red Blood Count 3.8310^6/ul Hemoglobin 11.9g/dl Hematocrit 34.9% Mean Corpuscular Volume 91.1fl Mean Corpuscular Hemoglobin 31.1pg Mean Corpuscular Hemoglobin Concent 34.1g/dl Red Cell Distribution Width 16.3% Platelet Count 06746^3/UL Mean Platelet Volume 10.9fl Neutrophils % 66.0% Lymphocytes % 22.9% Monocytes % 9.3% Eosinophils % 1.0% Basophils % 0.5% Nucleated Red Blood Cells % 0.0/100WBC Neutrophils # 3.810^3/ul Lymphocytes # 1.310^3/ul Monocytes # 0.510^3/ul Eosinophils # 0.110^3/ul Basophils # 0.010^3/ul Nucleated Red Blood Cells # 0.010^3/ul Sodium Level 132mmol/L Potassium Level 4.3mmol/L Chloride Level 105mmol/L Carbon Dioxide Level 25mmol/L Anion Gap 6 Blood Urea Nitrogen 14mg/dl Creatinine 0.57mg/dl Glucose Level 318mg/dl Calcium Level 8.0mg/dl Total Bilirubin 0.2mg/dl Direct Bilirubin 0.00mg/dl Indirect Bilirubin 0.2mg/dl Aspartate Amino Transf (AST/SGOT) 95IU/L Alanine Aminotransferase (ALT/SGPT) 65IU/L Alkaline Phosphatase 345IU/L Total Protein 5.9g/dl Albumin 2.5g/dl Globulin 3.40g/dl Albumin/Globulin Ratio 0.73 Lipase 100U/L Bedside Urine pH (LAB) 5.5 Bedside Urine Protein (LAB) Negative Bedside Urine Glucose (UA) 0.50% Bedside Urine Ketones (LAB) Negative Bedside Urine Blood Negative Bedside Urine Nitrite (LAB) Negative Bedside Urine Leukocyte Esterase (L Negative Prothrombin Time 15.1Sec Prothrombin Time Ratio 1.2 INR International Normalized Ratio 1.18 Activated Partial Thromboplast Time 25.6Sec Procedures/[place] [id number] Radiology Main Line: [phone] DIAGNOSTIC IMAGING REPORT Patient: HERRERA CHAPIN : 1955 Age: 61 Sex: F MR #: [id number] DOS: 09/28/16 0000 Ordering MD: ZULEIKA MCCARTY MD Location: E/R Room/Bed: PROCEDURE: XR Chest. CLINICAL INDICATION: Shortness of breath. TECHNIQUE: Portable AP upright view of the chest was obtained. COMPARISON: 03/09/2015 FINDINGS: The cardiomediastinal silhouette is within normal limits. The lungs are clear. There is no evidence for pleural effusion, pneumothorax or pulmonary vascular congestion. The osseous structures are intact with no evidence for acute abnormality. RPTAT:HJJR IMPRESSION: No evidence for acute intrathoracic pathology. Pepito Stevens Physician Date Time Electronically viewed and signed by Pepito Stevens Physician on 09/29/2016 00:06 JR/ CC: ZULEIKA MCCARTY MD MEDICAL MAKING DECISION: The patient is a 61-year-old female, presenting with acute recurrent ascites, acute diabetic hyperglycemia. She will be admitted for abdominal paracentesis in the morning. The differential diagnoses considered include but are not limited to SBP, cholelithiasis, cholecystitis, cystitis, pancreatitis, hepatitis, gastritis, peptic ulcer disease, gastric ulcer, appendicitis, diverticulitis, cholangitis, choledocholithiasis, partial small bowel obstruction. Departure Diagnosis: Primary Impression: Ascites Additional Impressions: Diabetes mellitus with hyperglycemia Anemia Condition: Stable Comments I discussed the findings with the patient. I discussed the patient with the on- call hospitalist Dr. Christine who was made aware of the lab, the treatment, the patient condition. The patient is admitted to medical surgery bed ZULEIKA MCCARTY MD Sep 28, 2016 22:29
[2016-09-28] MEDS ORDERED: IBUP800T25 PO (22:35)
[2016-09-28] MEDS ORDERED: IBUP-1542 PO (22:35)
[2016-09-28 22:50] LABS: URINE BLOOD (Dip) POC Negative (NEGATIVE)
[2016-09-28 22:57] LABS: ADD SCAN DIFF NO
[2016-09-28 23:07] LABS: BASOPHILS % 0.5 % (0.0-2.0); EOSINOPHILS # 0.1 10^3/ul (0.0-0.5); HEMATOCRIT 34.9 % (37.0-47.0); HEMOGLOBIN 11.9 g/dl (12.0-16.0); LYMPHOCYTES # 1.3 10^3/ul (0.8-2.9); LYMPHOCYTES % 22.9 % (15.0-51.0); MEAN CORPUSCULAR HEMOGLOBIN 31.1 pg (29.0-33.0); MEAN CORPUSCULAR HGB CONC 34.1 g/dl (32.0-37.0); MEAN CORPUSCULAR VOLUME 91.1 fl (82.0-101.0); MEAN PLATELET VOLUME 10.9 fl (7.4-10.4); MONOCYTE # 0.5 10^3/ul (0.3-0.9); MONOCYTES % 9.3 % (0.0-11.0); NEUTROPHIL # 3.8 10^3/ul (1.6-7.5); PLATELET COUNT 148 10^3/UL (140-415); RED BLOOD COUNT 3.83 10^6/ul (4.20-5.40); RED CELL DISTRIBUTION WIDTH 16.3 % (11.5-14.5); WHITE BLOOD COUNT 5.8 10^3/ul (4.8-10.8)
[2016-09-28 23:12] LABS: ALBUMIN 2.5 g/dl (3.3-4.9); ALBUMIN/GLOBULIN RATIO 0.73; BILIRUBIN,INDIRECT 0.2 mg/dl (0-1.1); BILIRUBIN,TOTAL 0.2 mg/dl (0.2-1.3); CREATININE 0.57 mg/dl (0.44-1.00); POTASSIUM 4.3 mmol/L (3.5-5.1); TOTAL PROTEIN 5.9 g/dl (6.1-8.1)
[2016-09-28 23:57] LABS: INR 1.18; PROTIME 15.1 Sec (12.2-14.2); PT RATIO 1.2
[2016-09-28 23:58] LABS: PARTIAL THROMBOPLASTIN TIME 25.6 Sec (25.0-35.0)
--- NOTE | 2016-09-29 00:06 | RADRPT ---
PROCEDURE: XR Chest. CLINICAL INDICATION: Shortness of breath. TECHNIQUE: Portable AP upright view of the chest was obtained. COMPARISON: 03/09/2015 FINDINGS: The cardiomediastinal silhouette is within normal limits. The lungs are clear. There is no evidenc e for pleural effusion, pneumothorax or pulmonary vascular congestion. The osseous structures are i ntact with no evidence for acute abnormality. RPTAT:HJJR IMPRESSION: No evidence for acute intrathoracic pathology. Physician [place] Date Time Electronically viewed and signed by Pepito Stevens Physician on 09/29/2016 00:06 JR/
--- NOTE | 2016-09-29 04:04 | HP ---
Date/Time of Note Date/Time of Note DATE: 09/29/16 TIME: 03:56 Assessment/Plan VTE Prophylaxis VTE Prophylaxis Intervention: SCD's Assessment/Plan Assessment/Plan IMPRESSION 1. Decompensated Liver cirrhosis 2. Diabetes mellitus 3. Hypertension 4. Dyslipidemia 5. Anemia of chronic disease 6. s/p Recent exploratory Laparotomy PLAN u/s Guided paracentesis cont current medical mgmt with adjustment as needed will f/u recent bx result. no report under pathology HPI/ROS Admit Date/Time Admit Date/Time Hx of Present Illness The patient is a 61-year-old female with hx of Diabetes mellitus, hypertension, dyslipidemia, anemia, Decompensated Liver cirrhosis presenting to the ER because of abdominal distention. She was admitted and discharged last week when she had abdominocentesis that remove a total of 14 liters on 3 different occasions. She said she has not been taking her diuretics saying she was suppose to get them from [facility]. During recent hospitalization, there was a concern for malignancy because of elevated tumor markers. cytology from paracentesis was negative for malignant cells. She had exploratory laparotomy for possible malignancy, with left salpingo-oophorectomy, left ureteral dissection and reposition, liver biopsy, enterolysis, umbilical herniorrhaphy. Her current complain is abdominal distension and pain. PMH/Family/Social Past Medical History Diabetes mellitus, hypertension, dyslipidemia, anemia, Decompensated Liver cirrhosis Social History Alcohol Use: none Smoking Status: Never smoker Drug Use: none Exam/Review of Systems Vital Signs Vitals Vital Signs Date Time Temp Pulse Resp B/P Pulse Ox O2 Delivery O2 Flow Rate FiO2 09/29/16 00:57 80 16 123/67 98 Room Air 09/28/16 21:03 99.4 Exam Constitutional: alert, oriented, other (apears weak/tired) Head: atraumatic, normocephalic Eyes: EOMI, PERRL Respiratory: diminished breath sounds Cardiovascular: nl pulses, regular rate and rhythm Gastrointestinal: distended, tender Extremities: normal pulses Labs Result Diagram: 09/28/16224609/[id number]/[id number] MELISSA BOSWELL MD Sep 29, 2016 04:03
[2016-09-29] MEDS ORDERED: IBUPROFEN 600 MG TAB PO ONE (04:30)
[2016-09-29] MEDS ORDERED: ONDANSETRON (ODT) 4 MG TAB ODT ONE (04:35)
[2016-09-29] MEDS ORDERED: IBUPROFEN 600 MG TAB PO PRN (07:00)
[2016-09-29] MEDS ORDERED: NACL 0.9% 3 ML SYG IV SCH (07:00)
[2016-09-29] MEDS ORDERED: morphine 2 MG INJ IV PRN (07:00)
[2016-09-29] MEDS ORDERED: ONDANSETRON 4 MG INJ IV PRN (07:00)
[2016-09-29] MEDS ORDERED: ALBUTEROL/IPRATROPIUM (NEB) 3 ML AMP HHN PRN (07:00)
[2016-09-29] MEDS ORDERED: ACETAMINOPHEN 325 MG TAB PO PRN (07:00)
[2016-09-29] MEDS: INSULIN ASPART [NOVOLOG] 3 ML PEN SC SCH ×2 (08:00→12:00)
[2016-09-29] MEDS ORDERED: GLUCOSE GEL 15 GRAM TUBE BUCCAL PRN (08:00)
[2016-09-29] MEDS ORDERED: GLUCAGON 1 MG INJ IM PRN (08:00)
[2016-09-29] MEDS ORDERED: DEXTROSE 50% 50 ML SYRINGE IV PRN ×2 (08:00)
[2016-09-29] MEDS ORDERED: INSULIN GLARGINE [LANtus] 3 ML PEN SC SCH (08:00)
[2016-09-29] MEDS ORDERED: GLUCOSE GEL 15 GRAM TUBE PO PRN ×2 (08:00)
[2016-09-29] MEDS ORDERED: FUROSEMIDE 20 MG TAB PO SCH (08:00)
[2016-09-29] MEDS: AMLODIPINE 5 MG TAB PO SCH ×2 (08:54→08:58)
[2016-09-29] MEDS ORDERED: SPIRONOLACTONE 50 MG TAB PO SCH (09:00)
[2016-09-29] MEDS ORDERED: LISINOPRIL 20 MG TAB PO SCH (09:00)
[2016-09-29] MEDS ORDERED: FAMOTIDINE 20 MG TAB PO SCH (09:00)
[2016-09-29] MEDS ORDERED: INSULIN ASPART [NOVOLOG] 3 ML PEN SC SCH (12:00)
--- NOTE | 2016-09-29 15:12 | PDOCDIS ---
Discharge Instructions CONDITION Patient Condition: Stable HOME CARE INSTRUCTIONS: Special Diet: low sodium diet ACTIVITY: Activity Restrictions: Slowly Increase Activity FOLLOW UP/APPOINTMENTS Appointments Please take your medications, see your doctor in the clinic in 1 week. MYLA MARTINEZ Sep 29, 2016 15:12
--- NOTE | 2016-09-29 15:19 | DS ---
Date/Time of Note Date/Time of Note DATE: 09/29/16 TIME: 15:15 Discharge Summary Admission/Discharge Info Admit Date/Time Discharge Date/Time Final Diagnosis FINAL DIAGNOSES: 1. Abdominal pain with ascites most likely secondary to a combination of cirrhosis and possible non-alcoholic steatohepatitis. Paracentesis attempted, but not enough fluid to aspirate this admission 2. Elevated tumor markers elevated CEA level, CA 19-9 level and CA-125 level, but negative biopsy results 1 week ago on biopsy 3. Iron deficiency anemia. 4. Type 2 diabetes with A1c of 9.3. 5. Elevated ammonia levels, now stable after getting lactulose. 6. Essential hypertension. Time spent discharging patient 50 minutes. Hx of Present Illness The patient is a 61-year-old female with hx of Diabetes mellitus, hypertension, dyslipidemia, anemia, Decompensated Liver cirrhosis presenting to the ER because of abdominal distention. She was admitted and discharged last week when she had abdominocentesis that remove a total of 14 liters on 3 different occasions. She said she has not been taking her diuretics saying she was suppose to get them from [facility]. During recent hospitalization, there was a concern for malignancy because of elevated tumor markers. cytology from paracentesis was negative for malignant cells. She had exploratory laparotomy for possible malignancy, with left salpingo-oophorectomy, left ureteral dissection and reposition, liver biopsy, enterolysis, umbilical herniorrhaphy. Her current complain is abdominal distension and pain. Hospital Course 61-year-old female originally admitted on 09/28/2016 and being discharged home on 09/29/2016. The patient initially came in with abdominal pain with a painful abdomen and swollen with fluid. She was diagnosed with decompensated liver, possible liver cirrhosis versus [place] with ascites. She was admitted and underwent ultrasound-guided paracentesis attempt during this hospital stay, but not enough fluid available to be removed, pt had not been able to fill her prescriptions x 1 week as well thought to be contributing to her symptoms. She received lasix, had less abd pain, and VS are stable, has been instructed to see her PMD, and will be discharged home today in an improved condition. Discharge Med List: 1. Elavil 25 mg at bedtime. 2. Amlodipine 5 mg daily. 3. Lisinopril 20 mg daily. 4. Aldactone 100 mg daily. 5. Lasix 20 mg b.i.d. 6. Aspart insulin 5 units with meals. 7. Lantus 15 units daily. 8. Zocor 10 mg at bedtime. Home Meds Active Scripts Spironolactone* (Aldactone*) 50 Mg Tablet, 100 MG PO DAILY for 30 Days, TAB 3 Refills Prov:RUBINA MARTINEZP S. 09/21/16 Amitriptyline Hcl* (Elavil*) 25 Mg Tab, 25 MG PO HS, #30 TAB 2 Refills Prov:RUBINA MARTINEZP S. 09/21/16 Lisinopril* (Lisinopril*) 20 Mg Tablet, 20 MG PO DAILY, #30 TAB 2 Refills Prov:RUBINA MARTINEZP S. 09/21/16 Amlodipine Besylate* (Amlodipine Besylate*) 5 Mg Tablet, 5 MG PO DAILY, #30 TAB 2 Refills Prov:RUBINA MARTINEZP S. 09/21/16 Insulin Glargine* (Lantus*) 100 Unit/Ml Soln, 15 UNIT SC DAILY@08 for 30 Days, # 1 4 Refills Prov:RUBINA MARTINEZP S. 09/21/16 Insulin Aspart* (Novolog Insulin Pen*) 100 Unit/Ml Soln, 5 UNIT SC WITH MEALS for 30 Days, #1 4 Refills Prov:MYLA MARTINEZ S. 09/21/16 Furosemide* (Furosemide*) 20 Mg Tablet, 20 MG PO BID, #60 TAB 2 Refills Prov:RUBINA MARTINEZP S. 09/21/16 Simvastatin* (Zocor*) 10 Mg Tablet, 10 MG PO HS, #30 TAB 3 Refills Prov:COOPER MARTINEZEEP S. 09/21/16 Reported Medications Ibuprofen* (Ibuprofen*) 800 Mg Tab, 800 MG PO QID, TAB 09/28/16 Ibuprofen* (Ibuprofen*) 600 Mg Tablet, 600 MG PO Q8 Y for PAIN, TAB 09/28/16 Pending Labs Laboratory Tests Test 09/28/16 22:47 09/28/16 22:51 09/28/16 23:00 09/29/16 08:00 White Blood Count 5.810^3/ul (4.8-10.8) Red Blood Count 3.8310^6/ul (4.20-5.40) Hemoglobin 11.9g/dl (12.0-16.0) Hematocrit 34.9% (37.0-47.0) Mean Corpuscular Volume 91.1fl (82.0-101.0) Mean Corpuscular Hemoglobin 31.1pg (29.0-33.0) Mean Corpuscular Hemoglobin Concent 34.1g/dl (32.0-37.0) Red Cell Distribution Width 16.3% (11.5-14.5) Platelet Count 40592^3/UL (140-415) Mean Platelet Volume 10.9fl (7.4-10.4) Neutrophils % 66.0% (39.0-77.0) Lymphocytes % 22.9% (15.0-51.0) Monocytes % 9.3% (0.0-11.0) Eosinophils % 1.0% (0.0-7.0) Basophils % 0.5% (0.0-2.0) Nucleated Red Blood Cells % 0.0/100WBC (0.0-0.0) Neutrophils # 3.810^3/ul (1.6-7.5) Lymphocytes # 1.310^3/ul (0.8-2.9) Monocytes # 0.510^3/ul (0.3-0.9) Eosinophils # 0.110^3/ul (0.0-0.5) Basophils # 0.010^3/ul (0.0-0.1) Nucleated Red Blood Cells # 0.010^3/ul (0.0-0.0) Sodium Level 132mmol/L (135-144) Potassium Level 4.3mmol/L (3.5-5.1) Chloride Level 105mmol/L (97-110) Carbon Dioxide Level 25mmol/L (21-31) Anion Gap 6 (8-16) Blood Urea Nitrogen 14mg/dl (7-20) Creatinine 0.57mg/dl (0.44-1.00) Glucose Level 318mg/dl (70-220) Calcium Level 8.0mg/dl (8.4-10.2) Total Bilirubin 0.2mg/dl (0.2-1.3) Direct Bilirubin 0.00mg/dl (0.00-0.20) Indirect Bilirubin 0.2mg/dl (0-1.1) Aspartate Amino Transf (AST/SGOT) 95IU/L (15-46) Alanine Aminotransferase (ALT/SGPT) 65IU/L (13-69) Alkaline Phosphatase 345IU/L (42-121) Total Protein 5.9g/dl (6.1-8.1) Albumin 2.5g/dl (3.3-4.9) Globulin 3.40g/dl (1.3-3.2) Albumin/Globulin Ratio 0.73 Lipase 100U/L (23-300) Bedside Urine pH (LAB) 5.5 (5.0-8.5) Bedside Urine Protein (LAB) Negative (NEGATIVE) Bedside Urine Glucose (UA) 0.50% (NEGATIVE) Bedside Urine Ketones (LAB) Negative (NEGATIVE) Bedside Urine Blood Negative (NEGATIVE) Bedside Urine Nitrite (LAB) Negative (NEGATIVE) Bedside Urine Leukocyte Esterase (L Negative (NEGATIVE) Prothrombin Time 15.1Sec (12.2-14.2) Prothrombin Time Ratio 1.2 INR International Normalized Ratio 1.18 Activated Partial Thromboplast Time 25.6Sec (25.0-35.0) Bedside Glucose 185mg/dL (70-220) Test 09/29/16 12:08 Bedside Glucose 234mg/dL (70-220) MYLA MARTINEZ Sep 29, 2016 15:19
[2016-09-29 15:35] VITALS: BP 98/58; PULSE 77; RESP 18; TEMP 98.2
--- NOTE | 2016-09-29 16:55 | RADRPT ---
PROCEDURE: US Abdomen (limited). CLINICAL INDICATION: Abdominal pain and distension. TECHNIQUE: Multiple real-time longitudinal and transverse images of the four quadrants of the abdo men were acquired utilizing a curved array transducer. Images were reviewed on a high-resolution PAC S workstation. COMPARISON: None FINDINGS: There is minimal free fluid in the abdomen. Paracentesis was not performed. IMPRESSION: 1. Minimal free fluid in the abdomen. 2. Paracentesis was not performed. RPTAT: QQ .Dudley Lanza MD, MD Date Time Electronically viewed and signed by .Dudley Lanza MD, on 09/29/2016 16:55 .R/
[2016-09-29] MEDS ORDERED: AMITRIPTYLINE 25 MG TAB PO SCH (21:00)
[2016-09-29] MEDS ORDERED: ATORVASTATIN 10 MG TAB PO SCH (21:00)
== END 2016-09-29 15:35 | disposition home or self-care (01) ==
LOC: E/R 20:11 → FTE 09-29 15:35
DX: R18.8 Other ascites (principal); E11.65 Type 2 diabetes mellitus with hyperglycemia; D64.9 Anemia, unspecified; I10 Essential (primary) hypertension
CPT/HCPCS: 71010; 76705; 80053; 81003; 82962; 83690; 85025; 85610; 85730; J1815; Z7610; 36415; 96372

== ENCOUNTER 2016-10-06 01:27 | Inpatient (IN) | payer MEDICAID ==
[~2016-10-06] VITALS: Ht 162.6 cm; Wt 84.2 kg
[~2016-10-06 01:27] MED LIST changes: +IBUP-1542 PO; +IBUP800T25 PO
[2016-10-06 02:18] VITALS: BP 127/60; PULSE 85; RESP 18
[2016-10-06] MEDS ORDERED: NACL 0.9% 3 ML SYG IV SCH (04:30)
[2016-10-06] MEDS ORDERED: GLUCAGON 1 MG INJ IM PRN (04:30)
[2016-10-06] MEDS ORDERED: DEXTROSE 50% 50 ML SYRINGE IV PRN ×2 (04:30)
[2016-10-06] MEDS ORDERED: ONDANSETRON 4 MG INJ IV PRN (04:30)
[2016-10-06] MEDS ORDERED: ACETAMINOPHEN 325 MG TAB PO PRN (04:30)
[2016-10-06] MEDS ORDERED: VANCOMYCIN IV PER PHARMACY XX SCH (04:30)
[2016-10-06] MEDS ORDERED: GLUCOSE GEL 15 GRAM TUBE PO PRN ×2 (04:30)
[2016-10-06] MEDS ORDERED: GLUCOSE GEL 15 GRAM TUBE BUCCAL PRN (04:30)
[2016-10-06 04:38] VITALS: Ht 162.6 cm; Wt 84.2 kg
[2016-10-06] MEDS ORDERED: VANCOMYCIN 1.5 GM in SOD CHLORIDE 0.9% 250 ML IVPB ONE (05:00)
[2016-10-06] MEDS ORDERED: FUROSEMIDE 20 MG TAB PO SCH (06:00)
[2016-10-06] MEDS: LACTULOSE 30ML CUP PO SCH ×4 (06:00→20:44)
--- NOTE | 2016-10-06 06:11 | HP ---
Date/Time of Note Date/Time of Note DATE: 10/06/16 TIME: 05:41 Assessment/Plan VTE Prophylaxis VTE Prophylaxis Intervention: SCD's Lines/Catheters [facility] Peripheral IV Central line still needed: No Urinary Cath still in place: No Assessment/Plan Chief Complaint/Hosp Course This is a 61-year-old female [facility]: #1 Ascites: Likely due to [place] cirrhosis however there also is a possibility of it being contributing from underlying pathology. At the present time will start patient on IV Lasix 40 mg IV twice daily. Will consult IR for ultrasound-guided paracentesis. We will also consult public relations senior associate/onc for further input.. #2 Cellulitis/soft tissue infection: On the CT scan from the outside facility there was a 3.2 x 3.5 cm rim-enhancing fluid collection. At the current time will treat with antibiotics vancomycin. Patient had an umbilical hernia repair by public relations senior associate/onc neurology on consult for #1 #3 cirrhosis: At this time there is consideration for decompensation: Patient started on Lasix 40 mg IV twice daily, restart spironolactone, will order an ammonia level and restart lactulose. #4 diabetes: Most recent A1c 9.3, will continue home Lantus and insulin sliding scale, continue statin #5 hypertension: Continue amlodipine and lisinopril along with sternal lactone #6 DVT and GI prophylaxis, SCDs, H2 maggie Problems: HPI/ROS Admit Date/Time Admit Date/Time October 06, 2016 at 01:27 Hx of Present Illness This is a 61-year-old female who was a direct admit from [facility]. Patient presented there on 10/05/2016 with complaints of increased abdominal fullness with ascites. Patient was also diagnosed with an abdominal subcutaneous skin infection for which she was started on antibiotics. As patient had her care at [facility] as well as her most recent diagnostic laparoscopic surgery she was transferred to [facility] for continuity of care. Patient states that after her procedure she has noticed worsening over abdominal ascites and fluid accumulation in areas that she did not have prior to her procedure. Patient also has noticed a rash on her abdomen around the umbilicus area. She states that she is on her Lasix however her urination has been less. Allergies: NKDA Medications: See ZACHARIAH ROS Const: Fatigue Eyes : No pain discharge or redness or change in visual acuity ENT: No pain, sore throat, congestion, congestion, dysphagia or discharge Respiratory: No shortness of breath, cough, sputum, wheezing, or pleuritic pain Cardiovascular: No chest pain, palpitation, PND, or edema GI : Increased abdominal ascites, abdominal skin changes Genitourinary: No dysuria, hematuria, flank pain , discharge or CVA tenderness Musculoskeletal: Increased swelling of the bilateral legs Skin: No rash, bruising or hives Neuro: No headache, dizziness, syncope, seizure, focal weakness Endocrine: No polyuria, polydipsia, temperature intolerance Psych: No hallucination, depression, anxiety or suicidal ideation PMH/Family/Social Past Medical History Diabetes mellitus, hypertension, dyslipidemia, anemia, Liver cirrhosis Past Surgical History ; Exploratory Laparotomy; Paracentesis , diagnostic laparotomy Family History Significant Family History: cancer (Father: Liver cancer) Social History Alcohol Use: none Smoking Status: Never smoker Drug Use: none Exam/Review of Systems Vital Signs Vitals Vital Signs Date Time Temp Pulse Resp B/P Pulse Ox O2 Delivery O2 Flow Rate FiO2 10/06/16 02:18 98.0 85 18 127/60 97 Room Air Exam Exam General: Pleasant female in no acute distress, lying in bed with discomfort from abdominal fluid The patient is alert oriented -3 HEENT: Atraumatic, normocephalic. The pupils are equal, round and reactive. Extraocular motor are intact Neck: Supple with full range of motion. No rigidity or meningismus Chest: Nontender Lungs: Clear to auscultation bilaterally no crackles rales or wheezing Heart: Normal S1-S2, Regular rhythm and rate. Abdomen: There appears to be a moderate amount of abdominal ascites, some tenderness to palpation at the umbilicus region, redness erythema noted at the umbilicus region, pue' d' orange appearing skin at the lower abdomen Extremities: Bilateral 1+ pitting edema of the lower extremities at the level above the knees Neurologic: Normal mental status, speech normal, cranial nerves II through XII are intact, motor and sensory are intact, Additional Comments CT findings from 10/05/2016 done at [facility] #1 cirrhotic morphology of the liver with large volume ascites and mild splenomegaly #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 #3 asymptomatic prominence of the right adnexa relative to the left adnexa an underlying lesion is not entirely excluded given elevated CEA consider further evaluation with pelvic ultrasound and TITLE SEARCH MANAGER consultation #4 rim-enhancing fluid collection in the subcutaneous periumbilical soft tissues measuring 3.2 x 3.5 cm concerning for abscess, correlate clinically no subcutaneous air identified Medications Medications Current Medications Ondansetron HCl (Zofran Inj) 4 mg Q6H PRN IV NAUSEA AND/OR VOMITING; Start 10/06 at 04:30 Acetaminophen (Tylenol Tab) 650 mg Q6H PRN PO PAIN LEVEL 1-3 OR FEVER; Start at 04:30 Famotidine (Pepcid) 20 mg Q12 PO ; Start 10/06/16 at 09:00 Amitriptyline HCl (Elavil) 25 mg HS PO ; Start 10/06/16 at 21:00 Amlodipine Besylate (Norvasc) 5 mg DAILY PO ; Start 10/06/16 at 09:00 Insulin Glargine (Lantus) 15 unit DAILY@08 SC ; Start 10/06/16 at 08:00 Lisinopril (Zestril) 20 mg DAILY PO ; Start 10/06/16 at 09:00 Spironolactone (Aldactone) 100 mg DAILY PO ; Start 10/06/16 at 09:00 Atorvastatin Calcium (Lipitor) 5 mg DAILY@21 PO ; Start 10/06/16 at 21:00 Lactulose (Enulose) 20 gm Q8 PO ; Start 10/06/16 at 06:00 Diagnostic Test (Pha) (Accu-Chek) 1 ea 02 XX ; Start 10/07/16 at 02:00 Miscellaneous Information 1 ea NOTE XX ; Start 10/06/16 at 04:30 Glucose (Glutose) 15 gm Q15M PRN PO DECREASED GLUCOSE; Start 10/06/16 at 04:30 Glucose (Glutose) 22.5 gm Q15M PRN PO DECREASED GLUCOSE; Start 10/06/16 at 04:30 Dextrose (D50w Syringe) 25 ml Q15M PRN IV DECREASED GLUCOSE; Start 10/06/16 at 04:30 Dextrose (D50w Syringe) 50 ml Q15M PRN IV DECREASED GLUCOSE; Start 10/06/16 at 04:30 Glucagon (Glucagen) 1 mg Q15M PRN IM DECREASED GLUCOSE; Start 5/6/17 at 04:30 Glucose 15 gm 15 gm Q15M PRN BUCCAL DECREASED GLUCOSE; Start 10/06/16 at 04:30 Vancomycin HCl 1.5 gm/Sodium Chloride 250 ml @ 83.333 mls/ hr ONCE ONCE IVPB ; Start 10/06/16 at 05:00; Stop 10/06/16 at 07:59 Vancomycin HCl (Vancocin) 250 ml @ 125 mls/hr Q12H IVPB ; Start 10/06/16 at 17: 00 DAYLIN JADE October 06, 2016 05:52
[2016-10-06] MEDS: FUROSEMIDE 40 MG INJ IV SCH ×2 (06:20→17:32)
[2016-10-06 08:07] VITALS: BP 126/66; PULSE 80
[2016-10-06] MEDS: SPIRONOLACTONE 50 MG TAB PO SCH (08:33)
[2016-10-06] MEDS: INSULIN GLARGINE [LANtus] 3 ML PEN SC SCH (08:39)
[2016-10-06] MEDS: INSULIN ASPART [NOVOLOG] 3 ML PEN SC SCH ×7 (08:40→21:00)
[2016-10-06] MEDS: LISINOPRIL 20 MG TAB PO SCH (08:44)
[2016-10-06] MEDS: AMLODIPINE 5 MG TAB PO SCH (08:44)
[2016-10-06] MEDS ORDERED: FAMOTIDINE 20 MG TAB PO SCH (09:00)
[2016-10-06 10:53] LABS: ADD SCAN DIFF NO
[2016-10-06 11:04] LABS: BASOPHILS % 0.8 % (0.0-2.0); EOSINOPHILS # 0.1 10^3/ul (0.0-0.5); EOSINOPHILS % 2.3 % (0.0-7.0); HEMATOCRIT 33.3 % (37.0-47.0); HEMOGLOBIN 10.9 g/dl (12.0-16.0); LYMPHOCYTES # 1.3 10^3/ul (0.8-2.9); LYMPHOCYTES % 27.7 % (15.0-51.0); MEAN CORPUSCULAR HEMOGLOBIN 30.1 pg (29.0-33.0); MEAN CORPUSCULAR HGB CONC 32.7 g/dl (32.0-37.0); MEAN PLATELET VOLUME 11.4 fl (7.4-10.4); MONOCYTE # 0.5 10^3/ul (0.3-0.9); MONOCYTES % 10.3 % (0.0-11.0); NEUTROPHIL # 2.8 10^3/ul (1.6-7.5); NEUTROPHILS % 58.7 % (39.0-77.0); PLATELET COUNT 127 10^3/UL (140-415); RED BLOOD COUNT 3.62 10^6/ul (4.20-5.40); RED CELL DISTRIBUTION WIDTH 16.4 % (11.5-14.5); WHITE BLOOD COUNT 4.8 10^3/ul (4.8-10.8)
[2016-10-06 11:12] LABS: INR 1.16; PROTIME 14.8 Sec (12.2-14.2); PT RATIO 1.2
[2016-10-06 11:13] LABS: ALBUMIN 2.1 g/dl (3.3-4.9); ALBUMIN/GLOBULIN RATIO 0.75; BILIRUBIN,INDIRECT 0.5 mg/dl (0-1.1); BILIRUBIN,TOTAL 0.5 mg/dl (0.2-1.3); CREATININE 0.49 mg/dl (0.44-1.00); POTASSIUM 3.8 mmol/L (3.5-5.1); TOTAL PROTEIN 4.9 g/dl (6.1-8.1)
--- NOTE | 2016-10-06 13:48 | CONS ---
Date/Time of Note Date/Time of Note DATE: 10/06/16 TIME: 13:44 Assessment/Plan Assessment/Plan Additional Assessment/Plan Transaminitis Likely secondary to liver cirrhosis Acute Hepatitis panel, negative Abdominal US in process Trend LFTs Liver cirrhosis/ascites May benefit from TIPS procedure Case management consult process Continue diuretics Paracentesis as needed Status post paracentesis 09/07/16: Ascitic fluid for cytology: Negative for malignant cells. Liver biopsies 09/17/16: #1-Liver biopsy: Consistent with non-alcoholic steatohepatitis showing grade 1 (mild), necroinflammatory change and stage 4, fibrosis (cirrhosis). There is no evidence of malignancy. #2-Liver, superficial wedge biopsy: Cirrhosis.There is no evidence of malignancy. May benefit from TIPS procedure Morbid obesity Management per Primary Encourage weight loss Type 2 diabetes Management per Primary Accu-Cheks per protocol Further recommendations depend on clinical course Patient seen in collaboration with Dr. Thorne Consultation Date/Type/Reason Admit Date/Time October 06, 2016 at 01:27 Type of Consultation: Gastroenterology Reason for Consultation Ascites Hx of Present Illness Ms. Ekta Godoy is a 61-year-old woman with a past medical history of diabetes and nonalcoholic liver cirrhosis. Patient previously evaluated September 07 underwent exploratory laparotomy, and also ended up undergoing a bilateral left salpingo-oophorectomy and left ureteral dissection with repositioning. A liver biopsy and needle biopsies were performed. There was an umbilical hernia repair and extent enterolysis was performed as well. The patient's pathology report was negative for malignancy, including negative in the ovarian area tube , fallopian tube area, omental area and liver area. Patient was discharged home and advised to continue inpatient medications and follow-up. Patient reports for the last week increasing abdominal girth and abdominal pain. At bedside patient reports incisional pain at umbilicus. Per patient's daughter, she is not a candidate for liver transplant secondary to crystallize gallbladder and history of diabetes. Patient has not followed up with outpatient derrick boat operator yet. Past Medical History Medical History: diabetes, other (Liver disease) Social History Alcohol Use: none Smoking Status: Never smoker Drug Use: none Exam/Review of Systems Vital Signs Vitals Vital Signs Date Time Temp Pulse Resp B/P Pulse Ox O2 Delivery O2 Flow Rate FiO2 10/06/16 08:07 98.2 80 126/66 96 Room Air 10/06/16 02:18 18 Intake and Output 10/05/16 10/05/16 10/06/16 14:59 22:59 06:59 Intake Total 200 ml Balance 200 ml Exam Constitutional: alert, oriented, well developed, morbidly obese Psych: nl mood/affect Head: normocephalic Eyes: EOMI, nl conjunctiva, nl lids ENMT: nl external ears & nose, nl lips & teeth, nl nasal mucosa & septum Respiratory: clear to auscultation, normal air movement Cardiovascular: regular rate and rhythm Gastrointestinal: soft, diffuse abdominal tenderness, abdominal incisions from exploratory laparotomy, bilat left salpingo-oophorectomy, left ureteral dissection with respositioning, liver biopsy, umbilical hernia repair and extent enterolysis Musculoskeletal: nl extremities to inspection Neurological: RESEARCH HYDROLOGIST II-XII intact Results Result Diagram: 10/06/16 1037 10/06/16 1037 Results 24 hrs Laboratory Tests Test 10/06/16 08:05 10/06/16 10:37 10/06/16 12:00 Bedside Glucose 149 201 White Blood Count 4.8 Red Blood Count 3.62 L Hemoglobin 10.9 L Hematocrit 33.3 L Mean Corpuscular Volume 92.0 Mean Corpuscular Hemoglobin 30.1 Mean Corpuscular Hemoglobin Concent 32.7 Red Cell Distribution Width 16.4 H Platelet Count 127 L Mean Platelet Volume 11.4 H Neutrophils % 58.7 Lymphocytes % 27.7 Monocytes % 10.3 Eosinophils % 2.3 Basophils % 0.8 Nucleated Red Blood Cells % 0.0 Neutrophils # 2.8 Lymphocytes # 1.3 Monocytes # 0.5 Eosinophils # 0.1 Basophils # 0.0 Nucleated Red Blood Cells # 0.0 Prothrombin Time 14.8 H Prothrombin Time Ratio 1.2 INR International Normalized Ratio 1.16 Activated Partial Thromboplast Time 31.0 Sodium Level 134 L Potassium Level 3.8 Chloride Level 107 Carbon Dioxide Level 24 Anion Gap 7 L Blood Urea Nitrogen 18 Creatinine 0.49 Glucose Level 144 Calcium Level 8.0 L Phosphorus Level 3.2 Magnesium Level 1.8 Total Bilirubin 0.5 Direct Bilirubin 0.00 Indirect Bilirubin 0.5 Aspartate Amino Transf (AST/SGOT) 72 H Alanine Aminotransferase (ALT/SGPT) 48 Alkaline Phosphatase 239 H Ammonia 30 Total Protein 4.9 L Albumin 2.1 L Globulin 2.80 Albumin/Globulin Ratio 0.75 Medications Medications Current Medications Ondansetron HCl (Zofran Inj) 4 mg Q6H PRN IV NAUSEA AND/OR VOMITING; Start 10/06 at 04:30 Acetaminophen (Tylenol Tab) 650 mg Q6H PRN PO PAIN LEVEL 1-3 OR FEVER; Start at 04:30 Amitriptyline HCl (Elavil) 25 mg HS PO ; Start 10/06/16 at 21:00 Amlodipine Besylate (Norvasc) 5 mg DAILY PO ; Start 10/06/16 at 09:00 Insulin Glargine (Lantus) 15 unit DAILY@08 SC Last administered on 10/06/16 08: 39; Admin Dose 15 UNIT; Start 10/06/16 at 08:00 Lisinopril (Zestril) 20 mg DAILY PO ; Start 10/06/16 at 09:00 Spironolactone (Aldactone) 100 mg DAILY PO Last administered on 10/06/16 08:33 ; Admin Dose 100 MG; Start 10/06/16 at 09:00 Atorvastatin Calcium (Lipitor) 5 mg DAILY@21 PO ; Start 10/06/16 at 21:00 Lactulose (Enulose) 20 gm Q8 PO ; Start 10/06/16 at 06:00 Diagnostic Test (Pha) (Accu-Chek) 1 ea 02 XX ; Start 10/07/16 at 02:00 Miscellaneous Information 1 ea NOTE XX ; Start 10/06/16 at 04:30 Glucose (Glutose) 15 gm Q15M PRN PO DECREASED GLUCOSE; Start 10/06/16 at 04:30 Glucose (Glutose) 22.5 gm Q15M PRN PO DECREASED GLUCOSE; Start 10/06/16 at 04:30 Dextrose (D50w Syringe) 25 ml Q15M PRN IV DECREASED GLUCOSE; Start 10/06/16 at 04:30 Dextrose (D50w Syringe) 50 ml Q15M PRN IV DECREASED GLUCOSE; Start 10/06/16 at 04:30 Glucagon (Glucagen) 1 mg Q15M PRN IM DECREASED GLUCOSE; Start 10/06/16 at 04:30 Glucose 15 gm 15 gm Q15M PRN BUCCAL DECREASED GLUCOSE; Start 10/06/16 at 04:30 Vancomycin HCl (Vancocin) 250 ml @ 125 mls/hr Q12H IVPB ; Start 10/06/16 at 17: 00 GANGA FERNÁNDEZ October 06, 2016 13:48
--- NOTE | 2016-10-06 16:34 | CONS ---
Date/Time of Note Date/Time of Note DATE: 10/06/16 TIME: 16:33 Consultation Date/Type/Reason Admit Date/Time October 06, 2016 at 01:27 Reason for Consultation Julien Wall M.D. [facility] History and Physical Examination Ekta Godoy Date: October 06, 2016 :1955 Age: 61 Physicians: Bonus Clerk Corporate Tax Preparer Oncologist Referring MD: History of the Present Illness: A 61 year old female with a known severe liver disease presumaly due to type 2 DM. Recently has increasing severe ascites. s/p recent laparoscopy with omental bx, liver bx and LSO. Now presents with cellulitis and questionable other wound issue. Medical history/ROS: dm,htn, reviewed. Surgical history: undoable GB by VERY competant GS and other procedure dueto "procelin liver", as above. Medications: reviewed gardisil Allergies: No active allergies recorded Family Hx: non-contributary Social HX: non-contributary ROS: as above Colonoscopy Physical Examination General: Alert. HEENT: Pupils are equal, round, reactive to light and accommodation. Neck: Supple with no masses of lymphadenopathy. Breast: Deferred due to recent examination and responsibility of primary care physician. Chest: Clear to auscultation Heart: Normal rhythm with no murmur. Abdomen: incision minimally erythmatous laterally and minimally tender, no massive or suggestion of an abscess. ascites with no organomeglay. Pelvic exam: deferred Rectal: deferrer Ext: NT, mild peripheral edema Neurological: Grossly intact Assessment: asciites with known liver failure/cirrhosis Concur with mild/moderate cellulitis; but not clear than collection per CT is wound abscess considering that it appears deeper than supcutaneous and can be drained, also WBC OK and aftbrile Plan: Continue abx and radiology to repeat imaging and drain loculated collection. If loculated ascites or seroma no further treatment for wound ther than abx needed. If purulent and superficial I can open and pack; although area not tender and not erythematous where hernia repair was 19 days ago. Julien Wall M.D. Past Medical History Medical History: diabetes, other (Liver disease) Social History Alcohol Use: none Smoking Status: Never smoker Drug Use: none Exam/Review of Systems Vital Signs Vitals Vital Signs Date Time Temp Pulse Resp B/P Pulse Ox O2 Delivery O2 Flow Rate FiO2 10/06/16 08:07 98.2 80 126/66 96 Room Air 10/06/16 02:18 18 Intake and Output 10/05/16 10/05/16 10/06/16 15:00 23:00 07:00 Intake Total 200 ml Balance 200 ml Results Result Diagram: 10/06/16 1037 10/06/16 1037 Results 24 hrs Laboratory Tests Test 10/06/16 08:05 10/06/16 10:37 10/06/16 12:00 Bedside Glucose 149 201 White Blood Count 4.8 Red Blood Count 3.62 L Hemoglobin 10.9 L Hematocrit 33.3 L Mean Corpuscular Volume 92.0 Mean Corpuscular Hemoglobin 30.1 Mean Corpuscular Hemoglobin Concent 32.7 Red Cell Distribution Width 16.4 H Platelet Count 127 L Mean Platelet Volume 11.4 H Neutrophils % 58.7 Lymphocytes % 27.7 Monocytes % 10.3 Eosinophils % 2.3 Basophils % 0.8 Nucleated Red Blood Cells % 0.0 Neutrophils # 2.8 Lymphocytes # 1.3 Monocytes # 0.5 Eosinophils # 0.1 Basophils # 0.0 Nucleated Red Blood Cells # 0.0 Prothrombin Time 14.8 H Prothrombin Time Ratio 1.2 INR International Normalized Ratio 1.16 Activated Partial Thromboplast Time 31.0 Sodium Level 134 L Potassium Level 3.8 Chloride Level 107 Carbon Dioxide Level 24 Anion Gap 7 L Blood Urea Nitrogen 18 Creatinine 0.49 Glucose Level 144 Calcium Level 8.0 L Phosphorus Level 3.2 Magnesium Level 1.8 Total Bilirubin 0.5 Direct Bilirubin 0.00 Indirect Bilirubin 0.5 Aspartate Amino Transf (AST/SGOT) 72 H Alanine Aminotransferase (ALT/SGPT) 48 Alkaline Phosphatase 239 H Ammonia 30 Total Protein 4.9 L Albumin 2.1 L Globulin 2.80 Albumin/Globulin Ratio 0.75 Medications Medications Current Medications Ondansetron HCl (Zofran Inj) 4 mg Q6H PRN IV NAUSEA AND/OR VOMITING; Start 10/06 at 04:30 Acetaminophen (Tylenol Tab) 650 mg Q6H PRN PO PAIN LEVEL 1-3 OR FEVER; Start at 04:30 Amitriptyline HCl (Elavil) 25 mg HS PO ; Start 10/06/16 at 21:00 Amlodipine Besylate (Norvasc) 5 mg DAILY PO ; Start 10/06/16 at 09:00 Insulin Glargine (Lantus) 15 unit DAILY@08 SC Last administered on 10/06/16 08: 39; Admin Dose 15 UNIT; Start 10/06/16 at 08:00 Lisinopril (Zestril) 20 mg DAILY PO ; Start 10/06/16 at 09:00 Spironolactone (Aldactone) 100 mg DAILY PO Last administered on 10/06/16 08:33 ; Admin Dose 100 MG; Start 10/06/16 at 09:00 Atorvastatin Calcium (Lipitor) 5 mg DAILY@21 PO ; Start 10/06/16 at 21:00 Lactulose (Enulose) 20 gm Q8 PO ; Start 10/06/16 at 06:00 Diagnostic Test (Pha) (Accu-Chek) 1 ea 02 XX ; Start 10/07/16 at 02:00 Miscellaneous Information 1 ea NOTE XX ; Start 10/06/16 at 04:30 Glucose (Glutose) 15 gm Q15M PRN PO DECREASED GLUCOSE; Start 10/06/16 at 04:30 Glucose (Glutose) 22.5 gm Q15M PRN PO DECREASED GLUCOSE; Start 10/06/16 at 04:30 Dextrose (D50w Syringe) 25 ml Q15M PRN IV DECREASED GLUCOSE; Start 10/06/16 at 04:30 Dextrose (D50w Syringe) 50 ml Q15M PRN IV DECREASED GLUCOSE; Start 10/06/16 at 04:30 Glucagon (Glucagen) 1 mg Q15M PRN IM DECREASED GLUCOSE; Start 10/06/16 at 04:30 Glucose 15 gm 15 gm Q15M PRN BUCCAL DECREASED GLUCOSE; Start 10/06/16 at 04:30 Vancomycin HCl (Vancocin) 250 ml @ 125 mls/hr Q12H IVPB ; Start 10/06/16 at 17: 00 JULIEN WALL MD October 06, 2016 16:33
[2016-10-06] MEDS: VANCOMYCIN 1 GM in NS 250 ML IVPB SCH (17:32)
--- NOTE | 2016-10-06 19:27 | RADRPT ---
PROCEDURE: Ultrasound of the soft tissues of the anterior abdominal wall. CLINICAL INDICATION: Palpable lesion in the umbilical region following umbilical hernia surgery.. TECHNIQUE: High-resolution sonography of the anterior abdominal wall at the site of the palpable l esion was performed in the axial and sagittal planes. COMPARISON: None FINDINGS: There is a fluid collection in the umbilical region measuring 1.2 x 0.8 x 1 x 1 cm. There is a smal l amount of internal debris. There is no other fluid collection or mass at the site of the prior um bilical hernia surgery. IMPRESSION: 1. Fluid collection in the umbilical region measuring 1.2 x 0.8 x 1.1 cm. This may be due to absce ss, hematoma, or seroma. 2. Any further management regarding the fluid collection should be based on clinical grounds. RPTAT: QQ .Dudley Lanza MD, Date Time Electronically viewed and signed by .Dudley Lanza MD, on 10/06/2016 19:27 .R/
[2016-10-06 20:00] VITALS: BP 126/60; PULSE 72; RESP 18
[2016-10-06] MEDS ORDERED: AMITRIPTYLINE 25 MG TAB PO SCH (21:00)
[2016-10-06] MEDS ORDERED: ATORVASTATIN 10 MG TAB PO SCH (21:00)
--- NOTE | 2016-10-06 23:33 | RADRPT ---
PROCEDURE: US Abdomen (limited). CLINICAL INDICATION: Abdominal pain and distension. TECHNIQUE: Multiple real-time longitudinal and transverse images of the four quadrants of the abdo men were acquired utilizing a curved array transducer. Images were reviewed on a high-resolution PAC S workstation. COMPARISON: None FINDINGS: There is minimal free fluid in the abdomen. IMPRESSION: 1. Minimal free fluid in the abdomen. 2. Paracentesis not performed. RPTAT: QQ .Dudley Lanza MD, MD Date Time Electronically viewed and signed by .Dudley Lanza MD, MD on 10/06/2016 23:32 .R/
[2016-10-07] MEDS ORDERED: ACCU-CHEK XX SCH (02:00)
[2016-10-07] MEDS: VANCOMYCIN 1 GM in NS 250 ML IVPB SCH ×2 (05:10→16:45)
[2016-10-07] MEDS: LACTULOSE 30ML CUP PO SCH ×2 (05:12→14:00)
[2016-10-07] MEDS: FUROSEMIDE 40 MG INJ IV SCH ×2 (05:12→17:46)
[2016-10-07 08:12] VITALS: BP 105/57; RESP 18
[2016-10-07] MEDS: INSULIN ASPART [NOVOLOG] 3 ML PEN SC SCH ×6 (08:15→17:50)
[2016-10-07] MEDS: INSULIN GLARGINE [LANtus] 3 ML PEN SC SCH (08:45)
[2016-10-07] MEDS: SPIRONOLACTONE 50 MG TAB PO SCH (08:46)
[2016-10-07] MEDS: LISINOPRIL 20 MG TAB PO SCH (08:47)
[2016-10-07] MEDS: AMLODIPINE 5 MG TAB PO SCH (08:47)
--- NOTE | 2016-10-07 09:44 | CONS ---
Date/Time of Note Date/Time of Note DATE: 10/07/16 TIME: 09:42 Assessment/Plan Assessment/Plan Chief Complaint/Hosp Course Ms. Ekta Godoy is a 61-year-old woman with a past medical history of diabetes and nonalcoholic liver cirrhosis. Patient previously evaluated September 07 underwent exploratory laparotomy, and also ended up undergoing a bilateral left salpingo-oophorectomy and left ureteral dissection with repositioning. A liver biopsy and needle biopsies were performed. There was an umbilical hernia repair and extent enterolysis was performed as well. The patient's pathology report was negative for malignancy, including negative in the ovarian area tube , fallopian tube area, omental area and liver area. Patient was discharged home and advised to continue inpatient medications and follow-up. Patient reports for the last week increasing abdominal girth and abdominal pain. At bedside patient reports incisional pain at umbilicus. Per patient's daughter, she is not a candidate for liver transplant secondary to crystallize gallbladder and history of diabetes. Patient has not followed up with outpatient automatic maintainer yet. Problems: Additional Assessment/Plan Transaminitis Likely secondary to liver cirrhosis Acute Hepatitis panel, negative Trend LFTs Liver cirrhosis/ascites May benefit from TIPS procedure Case management consult process Continue diuretics Paracentesis as needed Status post paracentesis 09/07/16: Ascitic fluid for cytology: Negative for malignant cells. Liver biopsies 09/17/16: #1-Liver biopsy: Consistent with non-alcoholic steatohepatitis showing grade 1 (mild), necroinflammatory change and stage 4, fibrosis (cirrhosis). There is no evidence of malignancy. #2-Liver, superficial wedge biopsy: Cirrhosis.There is no evidence of malignancy. May benefit from TIPS procedure Morbid obesity Management per Primary Encourage weight loss Type 2 diabetes Management per Primary Accu-Cheks per protocol Further recommendations depend on clinical course Patient seen in collaboration with Dr. Thorne Consultation Date/Type/Reason Admit Date/Time October 06, 2016 at 01:27 Initial Consult Date Type of Consultation: Gastroenterology 24 HR Interval Summary Free Text/Dictation Paracentesis canceled secondary to not enough fluid for procedure Patient tolerating diet Patient continues to report lower abdominal tenderness Exam/Review of Systems Vital Signs Vitals Vital Signs Date Time Temp Pulse Resp B/P Pulse Ox O2 Delivery O2 Flow Rate FiO2 10/07/16 08:12 97.7 86 18 105/57 96 10/06/16 20:00 Room Air Intake and Output 10/06/16 10/06/16 10/07/16 15:00 23:00 07:00 Intake Total 250 ml 970 ml 400 ml Balance 250 ml 970 ml 400 ml Exam Constitutional: alert, oriented, well developed, morbidly obese Psych: nl mood/affect Head: normocephalic Eyes: EOMI, nl conjunctiva, nl lids ENMT: nl external ears & nose, nl lips & teeth, nl nasal mucosa & septum Respiratory: clear to auscultation, normal air movement Cardiovascular: regular rate and rhythm Gastrointestinal: soft, lower abdominal tenderness bilaterally, abdominal incisions from exploratory laparotomy, bilat left salpingo-oophorectomy, left ureteral dissection with respositioning, liver biopsy, umbilical hernia repair and extent enterolysis Musculoskeletal: nl extremities to inspection Neurological: CLOTH FRAMER II-XII intact Results Result Diagram: 10/06/16 1037 10/06/16 1037 Results 24 hrs Laboratory Tests Test 10/06/16 10:37 10/06/16 12:00 10/06/16 17:30 10/06/16 21:44 White Blood Count 4.8 Red Blood Count 3.62 L Hemoglobin 10.9 L Hematocrit 33.3 L Mean Corpuscular Volume 92.0 Mean Corpuscular Hemoglobin 30.1 Mean Corpuscular Hemoglobin Concent 32.7 Red Cell Distribution Width 16.4 H Platelet Count 127 L Mean Platelet Volume 11.4 H Neutrophils % 58.7 Lymphocytes % 27.7 Monocytes % 10.3 Eosinophils % 2.3 Basophils % 0.8 Nucleated Red Blood Cells % 0.0 Neutrophils # 2.8 Lymphocytes # 1.3 Monocytes # 0.5 Eosinophils # 0.1 Basophils # 0.0 Nucleated Red Blood Cells # 0.0 Prothrombin Time 14.8 H Prothrombin Time Ratio 1.2 INR International Normalized Ratio 1.16 Activated Partial Thromboplast Time 31.0 Sodium Level 134 L Potassium Level 3.8 Chloride Level 107 Carbon Dioxide Level 24 Anion Gap 7 L Blood Urea Nitrogen 18 Creatinine 0.49 Glucose Level 144 Calcium Level 8.0 L Phosphorus Level 3.2 Magnesium Level 1.8 Total Bilirubin 0.5 Direct Bilirubin 0.00 Indirect Bilirubin 0.5 Aspartate Amino Transf (AST/SGOT) 72 H Alanine Aminotransferase (ALT/SGPT) 48 Alkaline Phosphatase 239 H Ammonia 30 Total Protein 4.9 L Albumin 2.1 L Globulin 2.80 Albumin/Globulin Ratio 0.75 Bedside Glucose 201 91 137 Test 10/07/16 05:30 10/07/16 08:12 Bedside Glucose 100 120 Medications Medications Current Medications Ondansetron HCl (Zofran Inj) 4 mg Q6H PRN IV NAUSEA AND/OR VOMITING; Start 10/06 at 04:30 Acetaminophen (Tylenol Tab) 650 mg Q6H PRN PO PAIN LEVEL 1-3 OR FEVER; Start at 04:30 Amitriptyline HCl (Elavil) 25 mg HS PO ; Start 10/06/16 at 21:00 Amlodipine Besylate (Norvasc) 5 mg DAILY PO ; Start 10/06/16 at 09:00 Insulin Glargine (Lantus) 15 unit DAILY@08 SC Last administered on 10/07/16 08: 45; Admin Dose 15 UNIT; Start 10/06/16 at 08:00 Lisinopril (Zestril) 20 mg DAILY PO ; Start 10/06/16 at 09:00 Spironolactone (Aldactone) 100 mg DAILY PO Last administered on 10/07/16 08:46 ; Admin Dose 100 MG; Start 10/06/16 at 09:00 Atorvastatin Calcium (Lipitor) 5 mg DAILY@21 PO ; Start 10/06/16 at 21:00 Lactulose (Enulose) 20 gm Q8 PO Last administered on 10/07/16 05:12; Admin Dose 20 GM; Start 10/06/16 at 06:00 Diagnostic Test (Pha) (Accu-Chek) 1 ea 02 XX ; Start 10/07/16 at 02:00 Miscellaneous Information 1 ea NOTE XX ; Start 10/06/16 at 04:30 Glucose (Glutose) 15 gm Q15M PRN PO DECREASED GLUCOSE; Start 10/06/16 at 04:30 Glucose (Glutose) 22.5 gm Q15M PRN PO DECREASED GLUCOSE; Start 10/06/16 at 04:30 Dextrose (D50w Syringe) 25 ml Q15M PRN IV DECREASED GLUCOSE; Start 10/06/16 at 04:30 Dextrose (D50w Syringe) 50 ml Q15M PRN IV DECREASED GLUCOSE; Start 10/06/16 at 04:30 Glucagon (Glucagen) 1 mg Q15M PRN IM DECREASED GLUCOSE; Start 10/06/16 at 04:30 Glucose 15 gm 15 gm Q15M PRN BUCCAL DECREASED GLUCOSE; Start 10/06/16 at 04:30 Vancomycin HCl (Vancocin) 250 ml @ 125 mls/hr Q12H IVPB Last administered on 05:10; Admin Dose 125 MLS/HR; Start 10/06/16 at 17:00 GANGA FERNÁNDEZ October 07, 2016 09:44
[2016-10-07 11:55] LABS: ADD SCAN DIFF NO
[2016-10-07 12:00] LABS: BASOPHIL # 0.1 10^3/ul (0.0-0.1); EOSINOPHILS # 0.1 10^3/ul (0.0-0.5); EOSINOPHILS % 1.8 % (0.0-7.0); HEMATOCRIT 36.2 % (37.0-47.0); HEMOGLOBIN 11.7 g/dl (12.0-16.0); LYMPHOCYTES # 1.5 10^3/ul (0.8-2.9); LYMPHOCYTES % 29.7 % (15.0-51.0); MEAN CORPUSCULAR HEMOGLOBIN 30.5 pg (29.0-33.0); MEAN CORPUSCULAR HGB CONC 32.3 g/dl (32.0-37.0); MEAN CORPUSCULAR VOLUME 94.3 fl (82.0-101.0); MEAN PLATELET VOLUME 11.5 fl (7.4-10.4); MONOCYTE # 0.5 10^3/ul (0.3-0.9); NEUTROPHILS % 58.3 % (39.0-77.0); PLATELET COUNT 146 10^3/UL (140-415); RED BLOOD COUNT 3.84 10^6/ul (4.20-5.40); RED CELL DISTRIBUTION WIDTH 16.9 % (11.5-14.5); WHITE BLOOD COUNT 5.1 10^3/ul (4.8-10.8)
[2016-10-07 12:04] LABS: ALBUMIN 2.4 g/dl (3.3-4.9); ALBUMIN/GLOBULIN RATIO 0.72; BILIRUBIN,INDIRECT 0.5 mg/dl (0-1.1); BILIRUBIN,TOTAL 0.5 mg/dl (0.2-1.3); CALCIUM 8.3 mg/dl (8.4-10.2); CREATININE 0.55 mg/dl (0.44-1.00); POTASSIUM 3.5 mmol/L (3.5-5.1); TOTAL PROTEIN 5.7 g/dl (6.1-8.1)
--- NOTE | 2016-10-07 13:57 | PDOCDIS ---
Discharge Instructions DIAGNOSIS Discharge Diagnosis: Ascites, Tiny post op abscess CONDITION Patient Condition: Stable HOME CARE INSTRUCTIONS: Special Diet: 1500 ADA, 2GM NA ACTIVITY: Activity Restrictions: Slowly Increase Activity Rest between Activity Keep Limb Elevated Activity Restrictions Comment: Use abd Binder for comfort FOLLOW UP/APPOINTMENTS Appointments Please followup with Dr Noyola regarding all issues related to your surgery. Name, Degree: Julien Noyola MD Specialty: Gynecologic Oncology Comments: Office Address: [address] [place] [address] Office Office KEDAR NINA October 07, 2016 13:57
[2016-10-07] MEDS ORDERED: SULF1TAB31 PO (14:00)
[2016-10-07] MEDS ORDERED: LACT1CAP57 PO (14:00)
--- NOTE | 2016-10-07 14:17 | DS ---
Date/Time of Note Date/Time of Note DATE: 10/07/16 TIME: 14:02 Discharge Summary Admission/Discharge Info Admit Date/Time October 06, 2016 at 01:27 Discharge Date/Time 10/07/16 . 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 Patient Condition: Stable Consults * Eisenkop: Rib Stiffener And Heel Dipper Surgery * Suchov: GI . Hx of Present Illness This is a 61-year-old female who was a direct admit from [facility]. Patient presented there on 10/05/2016 with complaints of increased abdominal fullness with ascites. Patient was also diagnosed with an abdominal subcutaneous skin infection for which she was started on antibiotics. As patient had her care at [facility] as well as her most recent diagnostic laparoscopic surgery she was transferred to [facility] for continuity of care. Patient states that after her procedure she has noticed worsening over abdominal ascites and fluid accumulation in areas that she did not have prior to her procedure. Patient also has noticed a rash on her abdomen around the umbilicus area. She states that she is on her Lasix however her urination has been less. Allergies: NKDA Medications: See AUG . Hospital Course Ms. Ekta Godoy is a 61-year-old woman with a past medical history of diabetes and nonalcoholic liver cirrhosis. Patient previously evaluated September 07 for a elevated tumor markers with severe ascites and underwent exploratory laparotomy , and also ended up having a bilateral left salpingo-oophorectomy and left ureteral dissection with repositioning. A liver biopsy and needle biopsies were performed. There was an umbilical hernia repair and extent enterolysis was performed as well. The patient's pathology report was negative for malignancy, including negative in the ovarian area tube, fallopian tube area, omental area and liver area and patient's findings were attributed to liver cirrhosis thought to be 2/2 BUSTOS. Patient was discharged home and advised to continue inpatient medications and follow-up. Patient reports for the last week increasing abdominal girth and abdominal pain. At bedside patient reports incisional pain at umbilicus. Patient has not followed up with outpatient money laundering investigator yet. Per patient's daughter, she is not a candidate for liver transplant secondary to crystallize gallbladder and history of diabetes and is not also a candidate for TIPS. On this visit, she was treated with broad spectrum abx fof cellulitis on abdominal wall and an USS guided paracentesis was attempted with no success. Patient's ascites is diffusely distributed around her girth and to her feet and hence is not very amenable to drainage. Regarding the infection, the symptoms improved significantly with antibiotics and a repeat soft tissue ultrasound showed "Fluid collection in the umbilical region measuring 1.2 x 0.8 x 1.1 cm. This may be due to abscess, hematoma, or seroma". On physical exam however, this was barely visible and hence was not amenable to bedside drainage and too small for IR drainage. It has then been decided that she will be discharged on antibiotics, follow up with Dr Noyola in the office on . He will reevaluate at that time and if non resolved can drain in the office. Regarding the ascites, she was encourage to use an abd band for comfort as she has a huge girth and followup regularly with her PCP for reevaluation for drainage. While hospitalized, she refused insulin and lactulose therapy multiple times and A1C was found to be elevated likely 2/2 poor med compliance. She was counselled on the need to take all meds as prescribed. Comorbidities were also aggressively managed as per Med records. Patient at this time has been evaluated and examined in detail and is assessed to be in stable condition and ready for discharge. Time spent on final evaluation and assessment, discharge planning, counselling and coordination has been >40mins. . Home Meds Active Scripts Lactobacillus Rhamnosus* (Culturelle*) 1 Each Cap.sprink, 1 CAP PO BID for 10 Days, CAP Prov:KELLE,BOLATITO M. 10/07/16 Sulfamethoxazole/Trimethoprim* (Bactrim Ds* Tablet) 1 Each Tablet, 1 TAB PO BID for 10 Days, TAB Prov:KELLE,BOLATITO M. 10/07/16 Spironolactone* (Aldactone*) 50 Mg Tablet, 100 MG PO DAILY for 30 Days, TAB 3 Refills Prov:MYLA MARTINEZ S. 09/21/16 Amitriptyline Hcl* (Elavil*) 25 Mg Tab, 25 MG PO HS, #30 TAB 2 Refills Prov:RUBINA MARTINEZP S. 09/21/16 Lisinopril* (Lisinopril*) 20 Mg Tablet, 20 MG PO DAILY, #30 TAB 2 Refills Prov:RUBINA MARTINEZP S. 09/21/16 Amlodipine Besylate* (Amlodipine Besylate*) 5 Mg Tablet, 5 MG PO DAILY, #30 TAB 2 Refills Prov:MYLA MARTINEZ S. 09/21/16 Insulin Glargine* (Lantus*) 100 Unit/Ml Soln, 15 UNIT SC DAILY@08 for 30 Days, # 1 4 Refills Prov:MYLA MARTINEZ S. 09/21/16 Insulin Aspart* (Novolog Insulin Pen*) 100 Unit/Ml Soln, 5 UNIT SC WITH MEALS for 30 Days, #1 4 Refills Prov:RUBINA MARTINEZP S. 09/21/16 Furosemide* (Furosemide*) 20 Mg Tablet, 20 MG PO BID, #60 TAB 2 Refills Prov:RUBINA MARTINEZP S. 09/21/16 Simvastatin* (Zocor*) 10 Mg Tablet, 10 MG PO HS, #30 TAB 3 Refills Prov:MYLA MARTINEZ S. 09/21/16 Reported Medications Ibuprofen* (Ibuprofen*) 600 Mg Tablet, 600 MG PO Q8 Y for PAIN, TAB 09/28/16 Discontinued Reported Medications Ibuprofen* (Ibuprofen*) 800 Mg Tab, 800 MG PO QID, TAB 09/28/16 Pending Labs Laboratory Tests Test 10/06/16 17:30 10/06/16 21:44 10/07/16 05:30 10/07/16 08:12 Bedside Glucose 91mg/dL (70-220) 137mg/dL (70-220) 100mg/dL (70-220) 120mg/dL (70-220) Test 10/07/16 11:15 10/07/16 12:16 White Blood Count 5.110^3/ul (4.8-10.8) Red Blood Count 3.8410^6/ul (4.20-5.40) Hemoglobin 11.7g/dl (12.0-16.0) Hematocrit 36.2% (37.0-47.0) Mean Corpuscular Volume 94.3fl (82.0-101.0) Mean Corpuscular Hemoglobin 30.5pg (29.0-33.0) Mean Corpuscular Hemoglobin Concent 32.3g/dl (32.0-37.0) Red Cell Distribution Width 16.9% (11.5-14.5) Platelet Count 72679^3/UL (140-415) Mean Platelet Volume 11.5fl (7.4-10.4) Neutrophils % 58.3% (39.0-77.0) Lymphocytes % 29.7% (15.0-51.0) Monocytes % 9.0% (0.0-11.0) Eosinophils % 1.8% (0.0-7.0) Basophils % 1.0% (0.0-2.0) Nucleated Red Blood Cells % 0.0/100WBC (0.0-0.0) Neutrophils # 3.010^3/ul (1.6-7.5) Lymphocytes # 1.510^3/ul (0.8-2.9) Monocytes # 0.510^3/ul (0.3-0.9) Eosinophils # 0.110^3/ul (0.0-0.5) Basophils # 0.110^3/ul (0.0-0.1) Nucleated Red Blood Cells # 0.010^3/ul (0.0-0.0) Sodium Level 136mmol/L (135-144) Potassium Level 3.5mmol/L (3.5-5.1) Chloride Level 108mmol/L (97-110) Carbon Dioxide Level 25mmol/L (21-31) Anion Gap 7 (8-16) Blood Urea Nitrogen 15mg/dl (7-20) Creatinine 0.55mg/dl (0.44-1.00) Glucose Level 160mg/dl (70-220) Calcium Level 8.3mg/dl (8.4-10.2) Total Bilirubin 0.5mg/dl (0.2-1.3) Direct Bilirubin 0.00mg/dl (0.00-0.20) Indirect Bilirubin 0.5mg/dl (0-1.1) Aspartate Amino Transf (AST/SGOT) 87IU/L (15-46) Alanine Aminotransferase (ALT/SGPT) 57IU/L (13-69) Alkaline Phosphatase 285IU/L (42-121) Total Protein 5.7g/dl (6.1-8.1) Albumin 2.4g/dl (3.3-4.9) Globulin 3.30g/dl (1.3-3.2) Albumin/Globulin Ratio 0.72 Bedside Glucose 141mg/dL (70-220) KEDAR NINA October 07, 2016 14:16
[2016-10-07] MEDS ORDERED: ALBUMIN HUMAN 25% 100 ML IV ONE (15:00)
[2016-10-07] MEDS ORDERED: MUPI22OI2 TOP (15:19)
== END 2016-10-07 19:45 | disposition home or self-care (01) | DRG 442 ==
LOC: MS2 01:27
PROVIDERS: ADMIT Family Medicine; ATTEND Family Medicine
DX: K75.81 Nonalcoholic steatohepatitis (NASH) (principal); R18.8 Other ascites; R16.1 Splenomegaly, not elsewhere classified; E11.9 Type 2 diabetes mellitus without complications; I10 Essential (primary) hypertension; L03.311 Cellulitis of abdominal wall; Z91.14 Patient's other noncompliance with medication regimen
CPT/HCPCS: 76536; 76705; 80053; 82140; 82962; 83735; 84100; 85025; 85610; 85730; 87070; 87081; J1815; J1940; J3370; J7050; P9047

== ENCOUNTER 2016-11-06 19:07 | Inpatient (IN) | payer MEDICAID, OTHER ==
[~2016-11-06] VITALS: Ht 149.9 cm; Wt 81.1 kg
[~2016-11-06 19:07] MED LIST changes: -IBUP800T25 PO; +LACT1CAP57 PO; +MUPI22OI2 TOP; +SULF1TAB31 PO
[2016-11-06 21:16] VITALS: TEMP 98.3
[2016-11-06] MEDS: morphine 4 MG/ML VIAL IV STA ×2 (22:00→22:27)
[2016-11-06] MEDS: ONDANSETRON 4 MG INJ IV STA ×2 (22:00→22:27)
[2016-11-06] MEDS ORDERED: IBUPROFEN 600 MG TAB PO ONE (22:30)
[2016-11-06 23:11] LABS: ADD SCAN DIFF NO; BASOPHILS % 0.7 % (0.0-2.0); EOSINOPHILS # 0.1 10^3/ul (0.0-0.5); EOSINOPHILS % 0.8 % (0.0-7.0); HEMATOCRIT 35.6 % (37.0-47.0); HEMOGLOBIN 12.1 g/dl (12.0-16.0); LYMPHOCYTES # 1.4 10^3/ul (0.8-2.9); LYMPHOCYTES % 22.4 % (15.0-51.0); MEAN CORPUSCULAR HEMOGLOBIN 31.8 pg (29.0-33.0); MEAN CORPUSCULAR VOLUME 93.4 fl (82.0-101.0); MEAN PLATELET VOLUME 12.2 fl (7.4-10.4); MONOCYTE # 0.5 10^3/ul (0.3-0.9); MONOCYTES % 8.4 % (0.0-11.0); NEUTROPHIL # 4.1 10^3/ul (1.6-7.5); NEUTROPHILS % 67.4 % (39.0-77.0); PLATELET COUNT 113 10^3/UL (140-415); RED BLOOD COUNT 3.81 10^6/ul (4.20-5.40); RED CELL DISTRIBUTION WIDTH 16.4 % (11.5-14.5); WHITE BLOOD COUNT 6.1 10^3/ul (4.8-10.8)
[2016-11-06 23:35] LABS: INR 1.2; PROTIME 15.3 Sec (12.2-14.2); PT RATIO 1.2
--- NOTE | 2016-11-06 23:36 | ERA ---
ER Documentation Chief Complaint Date/Time DATE: 11/06/16 TIME: 23:35 Chief Complaint AP, ascitis, liver cirrhosis HPI 61-year-old female with history of cirrhosis comes in with severely worsening ascites over the past week. No fevers or chills. No nausea no vomiting. Mild shortness of breath especially when she lies down. No other current complaints. ROS All systems reviewed and are negative except as per history of present illness. Medications Home Meds Active Scripts Mupirocin* (Bactroban*) 2% -22 Gram Oint...g., 1 APPLIC TOP TID, #1 TUB SITE OF APPLICATION: Prov:KELLECARLOATITO M. 10/07/16 Lactobacillus Rhamnosus* (Culturelle*) 1 Each Cap.sprink, 1 CAP PO BID for 10 Days, CAP Prov:KELLE,CARLOATITO M. 10/07/16 Sulfamethoxazole/Trimethoprim* (Bactrim Ds* Tablet) 1 Each Tablet, 1 TAB PO BID for 10 Days, TAB Prov:KELLE,CARLOATITO M. 10/07/16 Spironolactone* (Aldactone*) 50 Mg Tablet, 100 MG PO DAILY for 30 Days, TAB 3 Refills Prov:RAEDDIEMYLA S. 09/21/16 Amitriptyline Hcl* (Elavil*) 25 Mg Tab, 25 MG PO HS, #30 TAB 2 Refills Prov:RAEDDIE,MYLA S. 09/21/16 Lisinopril* (Lisinopril*) 20 Mg Tablet, 20 MG PO DAILY, #30 TAB 2 Refills Prov:JUANMYLA S. 09/21/16 Amlodipine Besylate* (Amlodipine Besylate*) 5 Mg Tablet, 5 MG PO DAILY, #30 TAB 2 Refills Prov:JUANMYLA S. 09/21/16 Insulin Glargine* (Lantus*) 100 Unit/Ml Soln, 15 UNIT SC DAILY@08 for 30 Days, # 1 4 Refills Prov:JUANMYLA S. 09/21/16 Insulin Aspart* (Novolog Insulin Pen*) 100 Unit/Ml Soln, 5 UNIT SC WITH MEALS for 30 Days, #1 4 Refills Prov:JUANMYLA S. 09/21/16 Furosemide* (Furosemide*) 20 Mg Tablet, 20 MG PO BID, #60 TAB 2 Refills Prov:COOPER MARTINEZEEP S. 09/21/16 Simvastatin* (Zocor*) 10 Mg Tablet, 10 MG PO HS, #30 TAB 3 Refills Prov:COOPER MARTINEZEEP S. 09/21/16 Reported Medications Ibuprofen* (Ibuprofen*) 600 Mg Tablet, 600 MG PO Q8 Y for PAIN, TAB 09/28/16 Allergies Allergies: Coded Allergies: No Known Allergy (Unverified , 09/28/16) PMhx/Soc History of Surgery: Yes (UNABLE TO STATE WHAT TYPE OF PROCEDURE) Anesthesia Reaction: No Hx Neurological Disorder: No Hx Respiratory Disorders: No Hx Cardiac Disorders: Yes (HTN) Hx Psychiatric Problems: No Hx Miscellaneous Medical Probl: Yes (THROMBOCYTOPENIA, cirrhosis) Hx Alcohol Use: No Hx Substance Use: No Hx Tobacco Use: No Smoking Status: Unknown if ever smoked Physical Exam Vitals Vital Signs Date Time Temp Pulse Resp B/P Pulse Ox O2 Delivery O2 Flow Rate FiO2 11/06/16 21:16 98.3 11/06/16 20:03 97.5 79 20 139/70 98 Physical Exam Const: [] Head: Atraumatic Eyes: Normal Conjunctiva ENT: Normal External Ears, Nose and Mouth. Neck: Full range of motion..~ No meningismus. Resp: Clear to auscultation bilaterally Cardio: Regular rate and rhythm, no murmurs Abd: Soft, non tender, non distended. Normal bowel sounds Skin: No petechiae or rashes Back: No midline or flank tenderness Ext: No cyanosis, or edema Neur: Awake and alert Psych: Normal Mood and Affect Result Diagram: 11/06/16 2100 Results 24 hrs Laboratory Tests Test 11/06/16 21:00 White Blood Count 6.110^3/ul Red Blood Count 3.8110^6/ul Hemoglobin 12.1g/dl Hematocrit 35.6% Mean Corpuscular Volume 93.4fl Mean Corpuscular Hemoglobin 31.8pg Mean Corpuscular Hemoglobin Concent 34.0g/dl Red Cell Distribution Width 16.4% Platelet Count 88514^3/UL Mean Platelet Volume 12.2fl Neutrophils % 67.4% Lymphocytes % 22.4% Monocytes % 8.4% Eosinophils % 0.8% Basophils % 0.7% Nucleated Red Blood Cells % 0.0/100WBC Neutrophils # 4.110^3/ul Lymphocytes # 1.410^3/ul Monocytes # 0.510^3/ul Eosinophils # 0.110^3/ul Basophils # 0.010^3/ul Nucleated Red Blood Cells # 0.010^3/ul Prothrombin Time 15.3Sec Prothrombin Time Ratio 1.2 INR International Normalized Ratio 1.20 Activated Partial Thromboplast Time Pending Current Medications Medications (Trade) Dose Ordered Sig/Paul Route PRN Reason Start Time Stop Time Status Last Admin Dose Admin Morphine Sulfate (morphine) 4 mg ONCE STAT IV 11/06/16 21:52 11/06/16 21:53 DC Ondansetron HCl (Zofran Inj) 4 mg ONCE STAT IV 11/06/16 21:52 11/06/16 21:53 DC Ibuprofen (Motrin) 600 mg ONCE ONCE PO 11/06/16 22:30 11/06/16 22:31 DC Procedures/MDM Medical decision-making: Very pleasant 7 year female with tense ascites. Patient will be admitted for diagnostic and therapeutic tap. Departure Diagnosis: Primary Impression: Abdominal pain Qualified Code: R10.9 - Abdominal pain, unspecified location Additional Impression: Ascites Qualified Code: K70.31 - Ascites due to alcoholic cirrhosis Condition: Serious MELISSA JACK Nov 06, 2016 23:36
[2016-11-06 23:41] LABS: PARTIAL THROMBOPLASTIN TIME 33.2 Sec (25.0-35.0)
[2016-11-06 23:59] LABS: ALBUMIN 3.7 g/dl (3.3-4.9); ALBUMIN/GLOBULIN RATIO 1.12; BILIRUBIN,INDIRECT 0.4 mg/dl (0-1.1); BILIRUBIN,TOTAL 0.4 mg/dl (0.2-1.3); CALCIUM 8.5 mg/dl (8.4-10.2); CREATININE 0.75 mg/dl (0.44-1.00)
[2016-11-07 03:11] VITALS: PULSE 74
[2016-11-07 03:53] VITALS: BP 128/72; RESP 18
[2016-11-07] MEDS ORDERED: morphine 2 MG INJ IV PRN (04:00)
[2016-11-07] MEDS ORDERED: NACL 0.9% 3 ML SYG IV SCH (04:00)
[2016-11-07] MEDS ORDERED: ACETAMINOPHEN 325 MG TAB PO PRN (04:00)
[2016-11-07] MEDS ORDERED: ALBUTEROL/IPRATROPIUM (NEB) 3 ML AMP HHN PRN (04:00)
[2016-11-07] MEDS ORDERED: GLUCOSE GEL 15 GRAM TUBE BUCCAL PRN (04:00)
[2016-11-07] MEDS ORDERED: DEXTROSE 50% 50 ML SYRINGE IV PRN ×2 (04:00)
[2016-11-07] MEDS ORDERED: GLUCOSE GEL 15 GRAM TUBE PO PRN ×2 (04:00)
[2016-11-07] MEDS ORDERED: GLUCAGON 1 MG INJ IM PRN (04:00)
[2016-11-07] MEDS ORDERED: IBUPROFEN 600 MG TAB PO PRN (04:00)
[2016-11-07] MEDS ORDERED: ONDANSETRON 4 MG INJ IV PRN (04:00)
[2016-11-07 04:47] VITALS: Ht 149.9 cm; Wt 81.1 kg
--- NOTE | 2016-11-07 05:24 | HP ---
DATE OF ADMISSION: 11/06/2016 CHIEF COMPLAINT: Abdominal distention and abdominal pain. HISTORY OF PRESENT ILLNESS: The patient is a 61-year-old female with a history of hypertension, omar betes, dyslipidemia and decompensated liver cirrhosis secondary to [place] with recurrent ascites who p resented to the emergency department with abdominal distention and pain. Her abdominal pain is diff use but mainly localized in the left and right lower quadrant area. She also reported occasional sh ortness of breath when lying flat on her back. The patient has been admitted here multiple times. Last admission was a month ago. Her last paracentesis in this hospital was in September of this year wi th removal of about 3.5 liters of ascitic fluid. On presentation to the ER today, vitals were stable. Laboratory value shows a glucose of almost 300 , her alkaline phosphatase about 280, AST 82. Otherwise, the rest of her vitals were within accepta ble range. REVIEW OF SYSTEMS: A 12-point review of systems performed and negative except as mentioned in HPI. PAST MEDICAL HISTORY: As per HPI. SOCIAL HISTORY: No report that a history of tobacco, alcohol or illicit drug use. ALLERGIES: NO KNOWN DRUG ALLERGIES. HOME MEDICATIONS: 1. Amitriptyline. 2. Lasix. 3. Zocor. 4. Insulin. 5. Lisinopril. 6. Aldactone. 7. Ibuprofen. PHYSICAL EXAMINATION: VITAL SIGNS: Stable. GENERAL: The patient lying in bed and she looks uncomfortable due to her abdominal distention and p ain. HEENT: No obvious head deformity. Pupils are reactive to light. Extraocular muscles intact. CARDIOVASCULAR: Regular rate and rhythm. No extra sounds. LUNGS: Clear with no wheezes or rhonchi. ABDOMEN: Distended. There is tenderness. Positive bowel sounds. EXTREMITIES: Without clubbing or edema. LABORATORY DATA: results as mentioned in HPI. IMPRESSION: 1. Decompensated liver cirrhosis secondary to nonalcoholic steatohepatitis with recurrent ascites. 2. Abdominal pain and distention secondary to above. 3. 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 History of diabetes with hypoglycemia. 5. History of hypertension. Currently, blood pressure within acceptable range. 6. Thrombocytopenia. PLAN: We will order ultrasound-guided paracentesis. She will be continued with her home medication s with adjustment as needed. She will be continued with her Lasix and Aldactone. We will monitor h er urine output and adjust her Lasix and Aldactone accordingly to minimize frequency of paracenteses . She will be on a diuretic and restricted sodium diet. Continue insulin with adjustment with bett er glycemic control. Currently, platelets are stable and no sign of bleeding. We will continue to monitor and transfuse as needed. Dictated By: MELISSA THURMAN/JEET Conf#: [id number] DID#: [id number]
[2016-11-07] MEDS ORDERED: FUROSEMIDE 20 MG TAB PO SCH (06:00)
[2016-11-07 07:28] VITALS: BP 114/61; RESP 18
[2016-11-07 07:45] LABS: ADD SCAN DIFF NO
[2016-11-07 07:48] LABS: BASOPHIL # 0.1 10^3/ul (0.0-0.1); EOSINOPHILS # 0.1 10^3/ul (0.0-0.5); EOSINOPHILS % 1.6 % (0.0-7.0); HEMATOCRIT 33.9 % (37.0-47.0); HEMOGLOBIN 11.4 g/dl (12.0-16.0); LYMPHOCYTES # 1.5 10^3/ul (0.8-2.9); LYMPHOCYTES % 30.4 % (15.0-51.0); MEAN CORPUSCULAR HEMOGLOBIN 31.2 pg (29.0-33.0); MEAN CORPUSCULAR HGB CONC 33.6 g/dl (32.0-37.0); MEAN CORPUSCULAR VOLUME 92.9 fl (82.0-101.0); MEAN PLATELET VOLUME 11.9 fl (7.4-10.4); MONOCYTE # 0.5 10^3/ul (0.3-0.9); MONOCYTES % 10.5 % (0.0-11.0); NEUTROPHIL # 2.9 10^3/ul (1.6-7.5); NEUTROPHILS % 56.3 % (39.0-77.0); PLATELET COUNT 125 10^3/UL (140-415); RED BLOOD COUNT 3.65 10^6/ul (4.20-5.40); RED CELL DISTRIBUTION WIDTH 16.2 % (11.5-14.5); WHITE BLOOD COUNT 5.1 10^3/ul (4.8-10.8)
[2016-11-07] MEDS ORDERED: INSULIN GLARGINE [LANtus] 3 ML PEN SC SCH (08:00)
[2016-11-07] MEDS: INSULIN ASPART [NOVOLOG] 3 ML PEN SC SCH ×4 (08:14→12:10)
[2016-11-07 08:18] LABS: ALBUMIN/GLOBULIN RATIO 0.9
[2016-11-07 08:21] LABS: ALBUMIN 2.9 g/dl (3.3-4.9); BILIRUBIN,INDIRECT 0.4 mg/dl (0-1.1); BILIRUBIN,TOTAL 0.4 mg/dl (0.2-1.3); CALCIUM 8.5 mg/dl (8.4-10.2); CREATININE 0.61 mg/dl (0.44-1.00); MAGNESIUM 2.2 mg/dl (1.7-2.5); PHOSPHORUS 3.6 mg/dl (2.5-4.9); TOTAL PROTEIN 6.1 g/dl (6.1-8.1)
[2016-11-07] MEDS: MUPIROCIN 2% 22 GM OINT TOP SCH ×2 (08:23→13:00)
[2016-11-07] MEDS ORDERED: TRIMETHOPRIM/SULFAMETHOX (DS) TAB PO SCH (09:00)
[2016-11-07] MEDS ORDERED: FAMOTIDINE 20 MG TAB PO SCH (09:00)
[2016-11-07] MEDS ORDERED: AMLODIPINE 5 MG TAB PO SCH (09:00)
[2016-11-07] MEDS ORDERED: LISINOPRIL 20 MG TAB PO SCH (09:00)
[2016-11-07] MEDS ORDERED: SPIRONOLACTONE 50 MG TAB PO SCH (09:00)
[2016-11-07] MEDS ORDERED: LACTOBACILLUS RHAMNOSUS CAP PO SCH (09:00)
[2016-11-07] MEDS ORDERED: LIDOCAINE 1% (MPF) 5 ML VIAL ONE (10:54)
--- NOTE | 2016-11-07 11:03 | RADRPT ---
PROCEDURE: US guided paracentesis CLINICAL INDICATION: Ascites TECHNIQUE: Multiple sonographic images were obtained through the patient's abdomen. A site in the patient's RIGHT upper abdomen was selected and marked. The area was prepped and draped in the usual sterile fashion. 1% lidocaine was utilized. A 19-gauge Yueh needle was advanced into the peritonea l space and the introducer was connected to a vacuum drainage bottle. A total of 4000 cc of clear y ellow fluid were drained at the end of the procedure. The patient tolerated the procedure well. The specimen was sent for laboratory evaluation. COMPARISON: None FINDINGS: Ascites. RPTAT: AA IMPRESSION: Successful ultrasound-guided paracentesis. Physician Alok Date Time Electronically viewed and signed by Physician Alok on 11/07/2016 11:03 /
--- NOTE | 2016-11-07 15:25 | PN ---
Date/Time of Note Date/Time of Note DATE: 11/07/16 TIME: 15:22 Assessment/Plan VTE Prophylaxis VTE Prophylaxis Intervention: ambulation, contraindicated Lines/Catheters IV [facility] [place] Assessment/Plan Chief Complaint/Hosp Course Subjective: Feels better post paracentesis Objective: Vital signs stable Physical examination No pallor adenopathy Regular Clear Ascitic Mild edema Assessment and plan 1. Decompensated cirrhosis with ascites, status post paracentesis. Stable discharge. No evidence of fever renal failure or GI bleed. 2. Chronic liver disease sequently with portal hypertension ascites 3. Diabetes/metabolic syndrome 4. Dyslipidemia 5. Bustos; status post liver biopsy- 09/17 #[id number] steatohepatitis; grade 1 (mild), necroinflammatory change and stage 4, fibrosis (cirrhosis).no malignancy. Not a candidate for liver biopsy due to porcelain gallbladder? 6. Ho expl laparotomy salpingo-oophorectomy left ureter dissection in September. Problems: Exam/Review of Systems Vital Signs Vitals Vital Signs Date Time Temp Pulse Resp B/P Pulse Ox O2 Delivery O2 Flow Rate FiO2 11/07/16 07:28 98.5 73 18 114/61 97 11/07/16 03:11 Room Air Results Result Diagram: 11/07/16 0719 11/07/16 07 Results 24 hrs Laboratory Tests Test 11/06/16 21:00 11/07/16 07:19 11/07/16 07:37 11/07/16 11:58 White Blood Count 6.1 5.1 Red Blood Count 3.81 L 3.65 L Hemoglobin 12.1 11.4 L Hematocrit 35.6 L 33.9 L Mean Corpuscular Volume 93.4 92.9 Mean Corpuscular Hemoglobin 31.8 31.2 Mean Corpuscular Hemoglobin Concent 34.0 33.6 Red Cell Distribution Width 16.4 H 16.2 H Platelet Count 113 #L 125 L Mean Platelet Volume 12.2 H 11.9 H Neutrophils % 67.4 56.3 Lymphocytes % 22.4 30.4 Monocytes % 8.4 10.5 Eosinophils % 0.8 1.6 Basophils % 0.7 1.0 Nucleated Red Blood Cells % 0.0 0.0 Neutrophils # 4.1 2.9 Lymphocytes # 1.4 1.5 Monocytes # 0.5 0.5 Eosinophils # 0.1 0.1 Basophils # 0.0 0.1 Nucleated Red Blood Cells # 0.0 0.0 Prothrombin Time 15.3 H Prothrombin Time Ratio 1.2 INR International Normalized Ratio 1.20 Activated Partial Thromboplast Time 33.2 Sodium Level 139 137 Potassium Level 4.0 4.0 Chloride Level 105 109 Carbon Dioxide Level 25 23 Anion Gap 13 9 Blood Urea Nitrogen 18 16 Creatinine 0.75 0.61 Glucose Level 293 H 200 Calcium Level 8.5 8.5 Total Bilirubin 0.4 0.4 Direct Bilirubin 0.00 0.00 Indirect Bilirubin 0.4 0.4 Aspartate Amino Transf (AST/SGOT) 82 H 80 H Alanine Aminotransferase (ALT/SGPT) 49 50 Alkaline Phosphatase 289 H 220 H Total Protein 7.0 6.1 Albumin 3.7 2.9 L Globulin 3.30 H 3.20 Albumin/Globulin Ratio 1.12 0.90 Lipase 95 Phosphorus Level 3.6 Magnesium Level 2.2 Bedside Glucose 196 187 Medications Medications Current Medications Ondansetron HCl (Zofran Inj) 4 mg Q6H PRN IV NAUSEA AND/OR VOMITING; Start 11/07 at 04:00 Acetaminophen (Tylenol Tab) 325 mg Q6H PRN PO PAIN LEVEL 1-3 OR FEVER; Start at 04:00 Morphine Sulfate (morphine) 2 mg Q4H PRN IV SEVERE PAIN LEVEL 7-10; Start at 04:00 Famotidine (Pepcid) 20 mg Q12 PO ; Start 11/07/16 at 09:00 Amitriptyline HCl (Elavil) 25 mg HS PO ; Start 11/07/16 at 21:00 Amlodipine Besylate (Norvasc) 5 mg DAILY PO ; Start 11/07/16 at 09:00 Ibuprofen (Motrin) 600 mg Q8H PRN PO PAIN; Start 11/07/16 at 04:00 Insulin Glargine (Lantus) 15 unit DAILY@08 SC Last administered on 11/07/16t 08: 13; Admin Dose 15 UNIT; Start 11/07/16 at 08:00 Lactobacillus Acidophilus/ Rhamnosus (Culturelle) 1 cap BID PO ; Start 11/07/16 at 09:00 Lisinopril (Zestril) 20 mg DAILY PO ; Start 11/07/16 at 09:00 Mupirocin (Bactroban) 1 applic TID TOP ; Start 11/07/16 at 09:00 Spironolactone (Aldactone) 100 mg DAILY PO ; Start 11/07/16 at 09:00 Atorvastatin Calcium (Lipitor) 5 mg DAILY@21 PO ; Start 11/07/16 at 21:00 Miscellaneous Information 1 ea NOTE XX ; Start 11/07/16 at 04:00 Glucose (Glutose) 15 gm Q15M PRN PO DECREASED GLUCOSE; Start 11/07/16 at 04:00 Glucose (Glutose) 22.5 gm Q15M PRN PO DECREASED GLUCOSE; Start 11/07/16 at 04:00 Dextrose (D50w Syringe) 25 ml Q15M PRN IV DECREASED GLUCOSE; Start 11/07/16 at 04:00 Dextrose (D50w Syringe) 50 ml Q15M PRN IV DECREASED GLUCOSE; Start 11/07/16 at 04:00 Glucagon (Glucagen) 1 mg Q15M PRN IM DECREASED GLUCOSE; Start 11/07/16 at 04:00 Glucose (Glutose) 15 gm Q15M PRN BUCCAL DECREASED GLUCOSE; Start 11/07/16 at 04: 00 Diagnostic Test (Pha) (Accu-Chek) 1 ea 02 XX ; Start 11/08/16 at 02:00 APRIL SAUCEDO MD Nov 07, 2016 15:25
--- NOTE | 2016-11-07 15:29 | PDOCDIS ---
Discharge Instructions CONDITION Patient Condition: Good HOME CARE INSTRUCTIONS: Special Diet: 1800 calorie ACTIVITY: Activity Restrictions: Slowly Increase Activity Do not Drive FOLLOW UP/APPOINTMENTS Appointments appt PCP 1wk Dr Thorne -1-2wks APRIL SAUCEDO MD Nov 07, 2016 15:29
--- NOTE | 2016-11-07 15:35 | PDOCDIS ---
Discharge Instructions DIAGNOSIS Discharge Diagnosis: ascites CONDITION Patient Condition: Good HOME CARE INSTRUCTIONS: Special Diet: 1800 calorie ACTIVITY: Activity Restrictions: Slowly Increase Activity Do not Drive FOLLOW UP/APPOINTMENTS Appointments Appt PCP 1wk Dr Thorne -[id number] Restart lisinopril saturday. APRIL SAUCEDO MD Nov 07, 2016 15:35
--- NOTE | 2016-11-07 20:12 | DS ---
DATE OF ADMISSION: 11/06/2016 DATE OF DISCHARGE: 11/07/2016 PRIMARY CARE PHYSICIAN: Unknown. INFORMATION SYSTEMS PROJECT MANAGER: None. DIAGNOSES ON ADMISSION: 1. Decompensated cirrhosis. 2. Ascites. DIAGNOSES ON DISCHARGE: 1. Decompensated cirrhosis. 2. Ascites. 3. Nonalcoholic steatohepatitis. 4. Diabetes/metabolic syndrome. HOSPITAL COURSE: A 61-year-old female admitted with symptomatic ascites. Underwent paracentesis. Four liters removed. This was essentially therapeutic, not diagnostic. The patient tolerated the p rocedure well. She is tolerating diet, ambulating, pain is controlled, and she is stable and fit fo r discharge. No evidence of end organ damage. No recent fever, GI bleed, etc. She is stable and f it for discharge. In terms of endstage cirrhosis, will need to follow up with GI. Daughter states she is not a candid ate for transplant. Probably need advanced care planning established. In terms of cirrhosis, the patient to continue her diuretics and follow up with GI. DISCHARGE PLAN: Home. Follow up with primary in 1 week, GI, Dr. Thorne, for referral in 2 weeks. DIET: 1800 ADA. ACTIVITY: As tolerated. No driving. DURABLE MEDICAL EQUIPMENT: None. CODE STATUS: FULL. CONDITION: Stable. BARRIERS TO DISCHARGE: None. PENDING TESTS: None. FUNCTIONAL STATUS: The patient is awake, alert, agrees with plan of care. REASON FOR ADMISSION: Ascites. ALLERGIES: NO KNOWN DRUG ALLERGIES. LABORATORY DATA: INR 1.2. CMP essentially unremarkable. BUN and creatinine of 16 and 0.6. AST of 80, alkaline phosphatase of 220, and ALT of 50. Lipase 95. Albumin of 2.9. White cell count of 5 , hemoglobin and hematocrit of 11 and 33, platelets of 125, a little low. Paracentesis was 4 liters of clear yellow fluid. MEDICATIONS: The patient to continue home medications. 1. Elavil 25. 2. Norvasc. 3. Lasix 20 b.i.d. 4. Motrin 600 q. p.r.n. 5. NovoLog 5 with meals. 6. Lantus 15. 7. Culturelle 1 capsule twice daily. 8. Bactroban topically as recommended. 9. Zocor 10. 10. Spironolactone 100. 11. Bactrim 1 tablet DS as before. 12. Lisinopril to be restarted in about 3 days, 20 mg daily. Dictated By: APRIL LARES/NTS Conf#: [id number] DID#: [id number] CC: ALBERTO THORNE; MELISSA BOSWELL MD;*End*
[2016-11-07] MEDS ORDERED: ATORVASTATIN 10 MG TAB PO SCH (21:00)
[2016-11-07] MEDS ORDERED: AMITRIPTYLINE 25 MG TAB PO SCH (21:00)
[2016-11-08] MEDS ORDERED: ACCU-CHEK XX SCH (02:00)
== END 2016-11-07 16:35 | disposition home or self-care (01) | DRG 434 ==
LOC: E/R 19:07 → MS2 23:15
PROVIDERS: ADMIT Internal Medicine; ATTEND Internal Medicine
PROC: 0W9G3ZZ Drainage of Peritoneal Cavity, Percutaneous Approach (ICD-10-PCS; principal; 2016-11-07)
DX: K70.31 Alcoholic cirrhosis of liver with ascites (principal); D69.6 Thrombocytopenia, unspecified; K75.81 Nonalcoholic steatohepatitis (NASH); E11.9 Type 2 diabetes mellitus without complications; E88.9 Metabolic disorder, unspecified
CPT/HCPCS: 36415; 80053; 82962; 83690; 83735; 84100; 85025; 85610; 85730; J1815; J2270; J2405

== ENCOUNTER 2016-12-07 13:16 | Emergency (ER) | payer OTHER ==
[~2016-12-07] VITALS: Ht 154.9 cm; Wt 83.5 kg
[~2016-12-07 13:16] MED LIST changes: -LISI20TA11 PO
[2016-12-07 13:30] VITALS: Ht 154.9 cm; Wt 83.5 kg
[2016-12-07 15:11] LABS: ADD SCAN DIFF NO
--- NOTE | 2016-12-07 15:14 | ERD ---
ER Documentation Chief Complaint Date/Time DATE: 12/07/16 TIME: 15:13 Chief Complaint 8/10 abd pain here for paracetesis HPI 61-year-old female history of idiopathic cirrhosis here for paracentesis. The patient states last paracentesis approximately 1 month ago. This is a typical timeframe. She describes abdominal bloating without pain, no fevers or chills, no hematemesis, no melena. ROS All systems reviewed and are negative except as per history of present illness. Medications Home Meds Active Scripts Insulin Glargine* (Lantus*) 100 Unit/Ml Soln, 15 UNIT SC DAILY@08 for 30 Days, # 1 4 Refills Prov:RAEDDIEMYLA S. 09/21/16 Discontinued Reported Medications Ibuprofen* (Ibuprofen*) 600 Mg Tablet, 600 MG PO Q8 Y for PAIN, TAB 09/28/16 Discontinued Scripts Mupirocin* (Bactroban*) 2% -22 Gram Oint...g., 1 APPLIC TOP TID, #1 TUB SITE OF APPLICATION: Prov:KELLECARLOATITO M. 10/07/16 Lactobacillus Rhamnosus* (Culturelle*) 1 Each Cap.sprink, 1 CAP PO BID for 10 Days, CAP Prov:KELLECARLOATITO M. 10/07/16 Sulfamethoxazole/Trimethoprim* (Bactrim Ds* Tablet) 1 Each Tablet, 1 TAB PO BID for 10 Days, TAB Prov:KELLECARLOATITO M. 10/07/16 Spironolactone* (Aldactone*) 50 Mg Tablet, 100 MG PO DAILY for 30 Days, TAB 3 Refills Prov:RUBINA MARTINEZP S. 09/21/16 Amitriptyline Hcl* (Elavil*) 25 Mg Tab, 25 MG PO HS, #30 TAB 2 Refills Prov:COOPER MARTINEZEEP S. 09/21/16 Amlodipine Besylate* (Amlodipine Besylate*) 5 Mg Tablet, 5 MG PO DAILY, #30 TAB 2 Refills Prov:JUANMYLA S. 09/21/16 Insulin Aspart* (Novolog Insulin Pen*) 100 Unit/Ml Soln, 5 UNIT SC WITH MEALS for 30 Days, #1 4 Refills Prov:COOPER MARTINEZEEP S. 09/21/16 Furosemide* (Furosemide*) 20 Mg Tablet, 20 MG PO BID, #60 TAB 2 Refills Prov:RAHI,MYLA S. 09/21/16 Simvastatin* (Zocor*) 10 Mg Tablet, 10 MG PO HS, #30 TAB 3 Refills Prov:RAHI,MYLA S. 09/21/16 Allergies Allergies: Coded Allergies: No Known Allergy (Unverified , 12/07/16) PMhx/Soc History of Surgery: Yes ('fallopian tube surgery, liver biopsy) Anesthesia Reaction: No Hx Neurological Disorder: No Hx Respiratory Disorders: No Hx Cardiac Disorders: No Hx Psychiatric Problems: No Hx Miscellaneous Medical Probl: Yes (THROMBOCYTOPENIA, DM, LIVER CIRRHOSIS R/T FATTY LIVER) Hx Alcohol Use: No Hx Substance Use: No Hx Tobacco Use: No Smoking Status: Never smoker FmHx Family History: No diabetes Physical Exam Vitals Vital Signs Date Time Temp Pulse Resp B/P Pulse Ox O2 Delivery O2 Flow Rate FiO2 12/07/16 17:22 71 16 144/66 100 Room Air 12/07/16 16:33 99.0 70 18 130/66 100 Room Air 12/07/16 15:07 73 18 127/70 98 Room Air 12/07/16 13:30 99.0 80 18 135/72 99 Physical Exam General: Well developed, well nourished, no acute distress Head: Normocephalic, atraumatic. Eyes: Pupils equally reactive, EOM intact ENT: Moist mucous membranes Neck: Supple, no lymphadenopathy Respiratory: Lungs clear bilaterally, no distress Cardiovascular: RRR, no murmurs, rubs, or gallops Abdominal: Soft, protuberant with fluid wave, nontender, no peritonitis : Deferred MSK: No edema, no unilateral swelling, 5/5 strength Neurologic: Alert and oriented, moving all extremities, normal speech, no focal weakness, no cerebellar signs Skin: No rash Psych: Normal mood Result Diagram: 12/07/16 1503 12/07/16 1503 Results 24 hrs Laboratory Tests Test 12/07/16 15:03 White Blood Count 4.610^3/ul Red Blood Count 3.6810^6/ul Hemoglobin 11.6g/dl Hematocrit 34.7% Mean Corpuscular Volume 94.3fl Mean Corpuscular Hemoglobin 31.5pg Mean Corpuscular Hemoglobin Concent 33.4g/dl Red Cell Distribution Width 14.1% Platelet Count 48443^3/UL Mean Platelet Volume 12.1fl Neutrophils % 59.0% Lymphocytes % 36.0% Monocytes % 3.0% Eosinophils % 1.0% Basophils % 1.0% Neutrophils # 2.710^3/ul Lymphocytes # 1.710^3/ul Monocytes # 0.110^3/ul Eosinophils # 0.010^3/ul Basophils # 0.010^3/ul Prothrombin Time 15.4Sec Prothrombin Time Ratio 1.2 INR International Normalized Ratio 1.21 Activated Partial Thromboplast Time 29.7Sec Sodium Level 139mmol/L Potassium Level 4.0mmol/L Chloride Level 108mmol/L Carbon Dioxide Level 25mmol/L Anion Gap 10 Blood Urea Nitrogen 13mg/dl Creatinine 0.62mg/dl Glucose Level 234mg/dl Calcium Level 8.4mg/dl Total Bilirubin 0.3mg/dl Direct Bilirubin 0.00mg/dl Indirect Bilirubin 0.3mg/dl Aspartate Amino Transf (AST/SGOT) 66IU/L Alanine Aminotransferase (ALT/SGPT) 37IU/L Alkaline Phosphatase 249IU/L Total Protein 6.7g/dl Albumin 3.4g/dl Globulin 3.30g/dl Albumin/Globulin Ratio 1.03 Current Medications Medications (Trade) Dose Ordered Sig/Paul Route PRN Reason Start Time Stop Time Status Last Admin Dose Admin Lidocaine (Xylocaine 1% (Mpf)) 5 ml STK-MED ONCE .ROUTE 12/07/16 16:57 12/07/16 16:58 DC Procedures/MDM EKG, MONITORS, & DIAGNOSTIC IMAGING: Large volume therapeutic paracentesis performed by interventional radiology. LAB INTERPRETATION: No significant coagulopathy noted. MEDICAL DECISION MAKING: The patient presents with abdominal ascites likely secondary to cirrhosis. Patient does not exhibit any signs or symptoms concerning for complications of cirrhosis such as GI bleed, hepatic encephalopathy or spontaneous bacterial peritonitis. There is no indication currently for diagnostic paracentesis. The patient will benefit from large volume therapeutic paracentesis by interventional radiology. If the patient remains stable without evidence of hemodynamic compromise secondary to fluid shifts the patient can be safely discharged home with close primary care and hepatology follow-up. ER COURSE: The patient had successful large volume therapeutic paracentesis. The patient remained hemodynamically stable and otherwise well-appearing. The patient is safe for discharge home. I kept the patient and/or family informed of laboratory and diagnostic imaging results throughout the emergency room course. DISPOSITION PLAN: We discussed follow up with the patient's primary care doctor within 24 to 48 hours as needed. We also discussed return to the emergency room for worsening symptoms or worsening condition. Discharge Medications: None Departure Diagnosis: Primary Impression: Ascites Ascites type: other type Qualified Code: R18.8 - Other ascites Condition: Stable LUIS CARDOZO MD Dec 07, 2016 15:14
[2016-12-07 15:36] LABS: HEMATOCRIT 34.7 % (37.0-47.0); HEMOGLOBIN 11.6 g/dl (12.0-16.0); MEAN CORPUSCULAR HEMOGLOBIN 31.5 pg (29.0-33.0); MEAN CORPUSCULAR HGB CONC 33.4 g/dl (32.0-37.0); MEAN CORPUSCULAR VOLUME 94.3 fl (82.0-101.0); MEAN PLATELET VOLUME 12.1 fl (7.4-10.4); PLATELET COUNT 118 10^3/UL (140-415); RED BLOOD COUNT 3.68 10^6/ul (4.20-5.40); RED CELL DISTRIBUTION WIDTH 14.1 % (11.5-14.5); WHITE BLOOD COUNT 4.6 10^3/ul (4.8-10.8)
[2016-12-07 15:39] LABS: ALBUMIN 3.4 g/dl (3.3-4.9); ALBUMIN/GLOBULIN RATIO 1.03; BILIRUBIN,INDIRECT 0.3 mg/dl (0-1.1); BILIRUBIN,TOTAL 0.3 mg/dl (0.2-1.3); CALCIUM 8.4 mg/dl (8.4-10.2); CREATININE 0.62 mg/dl (0.44-1.00); TOTAL PROTEIN 6.7 g/dl (6.1-8.1)
[2016-12-07 15:44] LABS: INR 1.21; PROTIME 15.4 Sec (12.2-14.2); PT RATIO 1.2
[2016-12-07 15:45] LABS: PARTIAL THROMBOPLASTIN TIME 29.7 Sec (25.0-35.0)
[2016-12-07 16:56] LABS: LYMPHOCYTES # 1.7 10^3/ul (0.8-2.9); MONOCYTE # 0.1 10^3/ul (0.3-0.9); NEUTROPHIL # 2.7 10^3/ul (1.6-7.5)
[2016-12-07] MEDS ORDERED: LIDOCAINE 1% (MPF) 5 ML VIAL ONE (16:57)
--- NOTE | 2016-12-07 17:17 | RADRPT ---
PROCEDURE: Ultrasound guided paracentesis. CLINICAL INDICATION: Ascites and shortness of breath. COMPARISON: 11/07/2016. TECHNIQUE: The risks, benefits, and alternatives were explained to the patient and/or the patient's family, inc luding but not limited to bleeding, infection, pain, visceral or vascular damage, shock, and . The patient and/or the patient's family understood the risks and the alternatives and wished to pro ceed with the procedure. Informed written consent was obtained. A procedural time out was performed . The patient's name, date of , and procedure to be performed were verified. Utilizing ultrasound guidance, optimal location for entry to the peritoneal cavity was ascertained. The overlying skin was prepped and draped in the usual sterile fashion. Approximately 10 ml of 1% Xylocaine was injected locally for pain control. Using ultrasound guidance, an 8 [place] catheter wa s introduced into the peritoneal cavity in the right upper quadrant without difficulty. FINDINGS: Initial images demonstrate ascites. Approximately 4.9 liters of serous fluid was aspirated and disc arded. The patient tolerated the procedure well without complication. IMPRESSION: 1. Successful ultrasound-guided paracentesis. RPTAT: QQ .Dudley Lanza MD, Date Time Electronically viewed and signed by .Dudley Lanza MD, on 12/07/2016 17:16 .R/
[2016-12-07] MEDS ORDERED: FURO-109 PO (17:39)
[2016-12-07 17:49] VITALS: BP 145/73; PULSE 71; RESP 16; TEMP 99
== END 2016-12-07 17:57 | disposition home or self-care (01) ==
LOC: E/R 13:16
DX: R18.8 Other ascites (principal); E11.9 Type 2 diabetes mellitus without complications; Z79.4 Long term (current) use of insulin
CPT/HCPCS: 36415; 80053; 85025; 85610; 85730; Z7502; Z7610

== ENCOUNTER 2016-12-21 08:38 | Emergency (ER) | payer OTHER ==
[~2016-12-21] VITALS: Ht 152.4 cm; Wt 72.0 kg
[~2016-12-21 08:38] MED LIST changes: -AMI25 PO; -AMLO-145 PO; +FURO-109 PO; -FURO20TA3 PO; -IBUP-1542 PO; -LACT1CAP57 PO; -MUPI22OI2 TOP; -NOVO3I SC; -SIMV10TA PO; -SPIR50TA PO; -SULF1TAB31 PO
[2016-12-21 08:40] VITALS: Ht 152.4 cm; Wt 72.0 kg
[2016-12-21 09:52] LABS: ADD SCAN DIFF NO
[2016-12-21 09:55] LABS: BASOPHILS % 0.6 % (0.0-2.0); EOSINOPHILS # 0.1 10^3/ul (0.0-0.5); EOSINOPHILS % 2.7 % (0.0-7.0); HEMATOCRIT 37.2 % (37.0-47.0); HEMOGLOBIN 12.3 g/dl (12.0-16.0); LYMPHOCYTES # 1.4 10^3/ul (0.8-2.9); LYMPHOCYTES % 29.6 % (15.0-51.0); MEAN CORPUSCULAR HEMOGLOBIN 31.3 pg (29.0-33.0); MEAN CORPUSCULAR HGB CONC 33.1 g/dl (32.0-37.0); MEAN CORPUSCULAR VOLUME 94.7 fl (82.0-101.0); MEAN PLATELET VOLUME 11.5 fl (7.4-10.4); MONOCYTE # 0.4 10^3/ul (0.3-0.9); MONOCYTES % 8.4 % (0.0-11.0); NEUTROPHIL # 2.8 10^3/ul (1.6-7.5); NEUTROPHILS % 58.5 % (39.0-77.0); PLATELET COUNT 118 10^3/UL (140-415); RED BLOOD COUNT 3.93 10^6/ul (4.20-5.40); WHITE BLOOD COUNT 4.8 10^3/ul (4.8-10.8)
[2016-12-21 10:13] LABS: ALBUMIN 3.1 g/dl (3.3-4.9); ALBUMIN/GLOBULIN RATIO 0.81; BILIRUBIN,INDIRECT 0.8 mg/dl (0-1.1); BILIRUBIN,TOTAL 0.8 mg/dl (0.2-1.3); CALCIUM 8.8 mg/dl (8.4-10.2); CREATININE 0.61 mg/dl (0.44-1.00); POTASSIUM 3.8 mmol/L (3.5-5.1); TOTAL PROTEIN 6.9 g/dl (6.1-8.1)
[2016-12-21 10:38] LABS: INR 1.15; PROTIME 14.7 Sec (12.2-14.2); PT RATIO 1.1
[2016-12-21] MEDS ORDERED: morphine 4 MG/ML VIAL IV STA (10:45)
[2016-12-21] MEDS ORDERED: IBUPROFEN 600 MG TAB PO ONE (11:00)
[2016-12-21] MEDS ORDERED: VANCOMYCIN 1 GM (PMX) 250 ML IVPB SCH (11:00)
--- NOTE | 2016-12-21 11:53 | RADRPT ---
PROCEDURE: CT scan of the abdomen and pelvis without IV contrast. CLINICAL INDICATION: History of cirrhosis with ascites and abdominal distension and pain. TECHNIQUE: Thin section axial, coronal and sagittal images were performed through the abdomen and pelvis without contrast. Radiation Dose: CTDI: 18.5 and DLP: 1230 One or more of the following dose reduction techniques were used: - Automated exposure control. - Adjustment of the mA and/or kV according to patient size. Use of iterative reconstruction technique. COMPARISON: Chest x-ray 07/06/2016 06:18 a.m. FINDINGS: Soft tissues: There is diffuse subcutaneous edema consistent with anasarca. There is umbilical herni a containing ascitic fluid. The hernia measures about 6.5 cm sagittal by 4.2 cm AP by 4.9 cm transv erse. Lungs and pleural spaces:There is peribronchial cuffing of the bronchioles leading to the right left lower lung correa which is unchanged compared to the earlier study. The moderate-sized left pleura l effusion seen on the earlier exam result.. Heart: Heart is normal in size. There is a trace pericardial effusion. The liver, common bile duct and gallbladder: The liver has a nodular border is enlarged measuring 19 .5 cm AP. No hepatic mass or intrahepatic biliary ductal dilatation is noted. A porcelain gallblad janett is again noted. Gastrointestinal: There is no evidence of a hiatal hernia. The stomach is incompletely distended bu t otherwise normal. The small bowel loops have a normal caliber. There is scattered fecal material in the colon but no evidence of diverticulosis, diverticulitis or appendicitis. The vermiform appe ndix is not clearly visualized. Pancreas: Normal. Kidneys, bladder and adrenal glands : Normal. Spleen: Normal. The spleen measures 11.95 cm. Lymph nodes: Normal. There are small inguinal lymph nodes. Reproductive system and pelvis : Normal. Bony elements: There are confluent vertical osteophytes from T5 to T9. There are ventral osteophyte s in the mid and lower lumbar spine. There are bridging dorsal osteophytes at T11-12 T12-L1 and L1- 2. Vasculature: There are vascular calcifications in the thoracic aorta, abdominal aorta and distal lef t common femoral artery. IMPRESSION: 1. Cirrhosis of the liver with ascites. 2. Porcelain gallbladder. 3. Anasarca. 4. Umbilical hernia containing ascitic fluid. 5. Atherosclerotic vascular disease. 6. Resolution of a moderate-sized left pleural effusion identified on 04/01/2015. RPTAT:AAJJ Lam Cervantes Physician Date Time Electronically viewed and signed by Lam Cervantes, Physician on 12/21/2016 11:52 JM/
[2016-12-21] MEDS ORDERED: SULF1TAB31 PO (12:37)
[2016-12-21] MEDS ORDERED: CEPH500C PO (12:37)
[2016-12-21] MEDS ORDERED: NAPR-688 PO (12:37)
[2016-12-21] MEDS ORDERED: LIDOCAINE 1% (MPF) 5 ML VIAL ONE (12:45)
--- NOTE | 2016-12-21 14:35 | ERD ---
ER Documentation Chief Complaint Date/Time DATE: 12/21/16 TIME: 14:31 Chief Complaint PARACENTISIS HPI This 7o-year-old female presents to the emergency room for abdominal distention. She has had no fevers or chills. However she does have a different type of pain is the skin around her bellybutton into the right side has become painful and some areas even hard. She has no nausea and otherwise feels well. She suffers from liver failure and has pristine paracenteses, the last being 2 weeks ago. ROS All systems reviewed and are negative except as per history of present illness. Medications Home Meds Active Scripts Naproxen* (Naproxen*) 500 Mg Tablet, 500 MG PO BID Y for PAIN, #14 TAB Prov:SHEILA MATIAS DO 12/21/16 Cephalexin* (Cephalexin*) 500 Mg Capsule, 500 MG PO Q8, #20 CAP Prov:SHEILA MATIAS DO 12/21/16 Sulfamethoxazole/Trimethoprim* (Bactrim Ds* Tablet) 1 Each Tablet, 1 TAB PO BID , #10 TAB Prov:SHEILA MATIAS DO 12/21/16 Insulin Glargine* (Lantus*) 100 Unit/Ml Soln, 15 UNIT SC DAILY@08 for 30 Days, # 1 4 Refills Prov:MYLA MARTINEZ 09/21/16 Discontinued Scripts Furosemide* (Lasix*) 40 Mg Tablet, 40 MG PO DAILY, #30 TAB Prov:LUIS CARDOZO MD 12/07/16 Allergies Allergies: Coded Allergies: No Known Allergy (Unverified , 12/21/16) PMhx/Soc History of Surgery: Yes ('fallopian tube surgery, liver biopsy) Anesthesia Reaction: No Hx Neurological Disorder: No Hx Respiratory Disorders: No Hx Cardiac Disorders: No Hx Psychiatric Problems: No Hx Miscellaneous Medical Probl: Yes (THROMBOCYTOPENIA, DM, LIVER CIRRHOSIS R/T FATTY LIVER) Hx Alcohol Use: No Hx Substance Use: No Hx Tobacco Use: No Smoking Status: Never smoker Physical Exam Vitals Vital Signs Date Time Temp Pulse Resp B/P Pulse Ox O2 Delivery O2 Flow Rate FiO2 12/21/16 13:09 71 20 140/72 100 Room Air 12/21/16 08:40 98.0 78 18 132/63 99 Physical Exam Const: [] Mild distress, appears uncomfortable Head: Atraumatic Eyes: Normal Conjunctiva ENT: Normal External Ears, Nose and Mouth. Neck: Full range of motion..~ No meningismus. Resp: Clear to auscultation bilaterally Cardio: Regular rate and rhythm, no murmurs Abd: Soft, no specific tenderness, distended with positive fluid wave, periumbilical erythema and calor extending approximately 3 cm to the left side of the umbilicus and approximately 8 cm to the right. No fluctuance Skin: No petechiae or rashes Back: No midline or flank tenderness Ext: No cyanosis, or edema Neur: Awake and alert and oriented 3, no focal deficit Psych: Normal Mood and Affect Result Diagram: 12/21/1694012/21/16940 Results 24 hrs Laboratory Tests Test 12/21/16 09:41 White Blood Count 4.810^3/ul Red Blood Count 3.9310^6/ul Hemoglobin 12.3g/dl Hematocrit 37.2% Mean Corpuscular Volume 94.7fl Mean Corpuscular Hemoglobin 31.3pg Mean Corpuscular Hemoglobin Concent 33.1g/dl Red Cell Distribution Width 14.0% Platelet Count 61323^3/UL Mean Platelet Volume 11.5fl Neutrophils % 58.5% Lymphocytes % 29.6% Monocytes % 8.4% Eosinophils % 2.7% Basophils % 0.6% Neutrophils # 2.810^3/ul Lymphocytes # 1.410^3/ul Monocytes # 0.410^3/ul Eosinophils # 0.110^3/ul Basophils # 0.010^3/ul Nucleated Red Blood Cells # 0.010^3/ul Prothrombin Time 14.7Sec Prothrombin Time Ratio 1.1 INR International Normalized Ratio 1.15 Activated Partial Thromboplast Time 31.0Sec Sodium Level 141mmol/L Potassium Level 3.8mmol/L Chloride Level 105mmol/L Carbon Dioxide Level 26mmol/L Anion Gap 14 Blood Urea Nitrogen 13mg/dl Creatinine 0.61mg/dl Glucose Level 215mg/dl Calcium Level 8.8mg/dl Total Bilirubin 0.8mg/dl Direct Bilirubin 0.00mg/dl Indirect Bilirubin 0.8mg/dl Aspartate Amino Transf (AST/SGOT) 69IU/L Alanine Aminotransferase (ALT/SGPT) 49IU/L Alkaline Phosphatase 273IU/L Total Protein 6.9g/dl Albumin 3.1g/dl Globulin 3.80g/dl Albumin/Globulin Ratio 0.81 Lipase 143U/L Current Medications Medications (Trade) Dose Ordered Sig/Paul Route PRN Reason Start Time Stop Time Status Last Admin Dose Admin Morphine Sulfate 4 mg 4 mg ONCE STAT IV 12/21/16 10:45 12/21/16 10:47 DC Vancomycin HCl (Vancocin) 250 ml @ 125 mls/hr ONCE IVPB 12/21/16 11:00 12/21/16 12:59 DC 12/21/16 13:05 Ibuprofen (Motrin) 600 mg ONCE ONCE PO 12/21/16 11:00 12/21/16 11:01 DC 12/21/16 13:05 Lidocaine (Xylocaine 1% (Mpf)) 5 ml STK-MED ONCE .ROUTE 12/21/16 12:45 12/21/16 12:46 DC Procedures/MDM Ascites secondary to liver failure as well as abdominal wall cellulitis. No suspicion for SBP currently. A post paracentesis which removed 6 L of IV fluid patient is feeling much better. She is smiling and eating with her daughter awaiting discharge. Discharge with primary care follow-up and instructions to see a GI specialist as well for routine paracenteses. She was given morphine as well as a gram of vancomycin in the emergency room to help treat the infection quicker. CT was performed to look for any extension of infection and none was found. Discharging with Bactrim and Keflex as well. CT abdomen pelvis interpretation: Moderate ascites with no other acute process, no abnormal fat stranding, no free air, no obstruction of bowel, no fractures Departure Diagnosis: Primary Impression: Ascites Additional Impressions: Cellulitis, abdominal wall Thrombocytopenia Condition: Stable Patient Instructions: Cellulitis, Ascites Referrals: COMMUNITY CLINICS YOU HAVE RECEIVED A MEDICAL SCREENING EXAM AND THE RESULTS INDICATE THAT YOU DO NOT HAVE A CONDITION THAT REQUIRES URGENT TREATMENT IN THE EMERGENCY DEPARTMENT. FURTHER EVALUATION AND TREATMENT OF YOUR CONDITION CAN WAIT UNTIL YOU ARE SEEN IN YOUR DOCTORS OFFICE WITHIN THE NEXT 1-2 DAYS. IT IS YOUR RESPONSIBILITY TO MAKE AN APPOINTMENT FOR FOLOW-UP CARE. IF YOU HAVE A PRIMARY DOCTOR --you should call your primary doctor and schedule an appointment IF YOU DO NOT HAVE A PRIMARY DOCTOR YOU CAN CALL OUR PHYSICIAN REFERRAL HOTLINE AT IF YOU CAN NOT AFFORD TO SEE A PHYSICIAN YOU CAN CHOSE FROM THE FOLLOWING [facility] [address] [facility] [address] [facility] [address] [facility] [address] [facility]. [facility] [address] [facility]. [facility]. [address] Additional Instructions: Llame al doctor MAANA y michael umu LISA PARA DENTRO DE 2-3 IGLESIAS.Dgale a la secretaria que nosotros le instruimos hacer esta lisa.Avise o llame si kimball condicin se empeora antes de la lisa. Regresa aqui si peor o no mejor. SHEILA MATIAS DO Dec 21, 2016 14:35
[2016-12-21 15:30] VITALS: BP 129/68; PULSE 68; RESP 20; TEMP 98.1
--- NOTE | 2016-12-21 15:49 | RADRPT ---
PROCEDURE: Ultrasound guided paracentesis. CLINICAL INDICATION: Ascites and shortness of breath. COMPARISON: 12/07/2016. TECHNIQUE: The risks, benefits, and alternatives were explained to the patient and/or the patient's family, inc luding but not limited to bleeding, infection, pain, visceral or vascular damage, shock, and . The patient and/or the patient's family understood the risks and the alternatives and wished to pro ceed with the procedure. Informed written consent was obtained. A procedural time out was performed . The patient's name, date of , and procedure to be performed were verified. Utilizing ultrasound guidance, optimal location for entry to the peritoneal cavity was ascertained. The overlying skin was prepped and draped in the usual sterile fashion. Approximately 10 ml of 1% Xylocaine was injected locally for pain control. Using ultrasound guidance, an 8 [place] catheter wa s introduced into the peritoneal cavity in the right lower quadrant without difficulty. FINDINGS: Initial images demonstrate ascites. Approximately 6.1 liters of serous fluid was aspirated and disc arded. The patient tolerated the procedure well without complication. IMPRESSION: 1. Successful ultrasound-guided paracentesis. RPTAT: QQ .Dudley Lanza MD, Date Time Electronically viewed and signed by .Dudley Lanza MD, on 12/21/2016 15:49 .R/
== END 2016-12-21 15:31 | disposition home or self-care (01) ==
LOC: E/R 08:38
DX: R18.8 Other ascites (principal); L03.311 Cellulitis of abdominal wall; D69.6 Thrombocytopenia, unspecified; E11.9 Type 2 diabetes mellitus without complications; Z79.4 Long term (current) use of insulin
CPT/HCPCS: 36415; 74176; 80053; 83690; 85025; 85610; 85730; 96374; J3370; Z7502; Z7610

== ENCOUNTER 2016-12-31 10:13 | Emergency (ER) | payer OTHER ==
[~2016-12-31] VITALS: Ht 160 cm; Wt 91.0 kg
[~2016-12-31 10:13] MED LIST changes: +CEPH500C PO; -FURO-109 PO; +NAPR-688 PO; +SULF1TAB31 PO
[2016-12-31 10:16] VITALS: Ht 160 cm; Wt 91.0 kg
[2016-12-31 11:15] LABS: BASOPHILS % 0.8 % (0.0-2.0); EOSINOPHILS # 0.1 10^3/ul (0.0-0.5); LYMPHOCYTES # 1.2 10^3/ul (0.8-2.9); WHITE BLOOD COUNT 4.7 10^3/ul (4.8-10.8)
--- NOTE | 2016-12-31 11:17 | RADRPT ---
PROCEDURE: XR Chest. CLINICAL INDICATION: Chest pain TECHNIQUE: Single portable view of the chest was obtained COMPARISON: 03/09/2015 FINDINGS: The heart and mediastinum are within normal limits. There are mild bibasilar atelectatic changes. The lungs are otherwise clear. There is no pleural effusion or pneumothorax. RPTAT: AA IMPRESSION: Mild bibasilar atelectatic changes. .Johann Jaeger MD, MD Date Time Electronically viewed and signed by .Johann Jaeger MD, MD on 12/31/2016 11:17 .S/
[2016-12-31 11:19] LABS: INR 1.3; PROTIME 16.3 Sec (12.2-14.2); PT RATIO 1.3
[2016-12-31 11:20] LABS: PARTIAL THROMBOPLASTIN TIME 32.2 Sec (25.0-35.0)
[2016-12-31 11:24] LABS: ALBUMIN 2.7 g/dl (3.3-4.9); ALBUMIN/GLOBULIN RATIO 0.81; BILIRUBIN,INDIRECT 0.4 mg/dl (0-1.1); BILIRUBIN,TOTAL 0.4 mg/dl (0.2-1.3); CALCIUM 8.3 mg/dl (8.4-10.2); CREATININE 0.9 mg/dl (0.44-1.00); POTASSIUM 4.2 mmol/L (3.5-5.1)
[2016-12-31 11:25] LABS: EOSINOPHILS % 1.5 % (0.0-7.0); HEMATOCRIT 33.5 % (37.0-47.0); HEMOGLOBIN 11.1 g/dl (12.0-16.0); LYMPHOCYTES % 24.9 % (15.0-51.0); MEAN CORPUSCULAR HEMOGLOBIN 31.1 pg (29.0-33.0); MEAN CORPUSCULAR HGB CONC 33.1 g/dl (32.0-37.0); MEAN CORPUSCULAR VOLUME 93.8 fl (82.0-101.0); MEAN PLATELET VOLUME 11.9 fl (7.4-10.4); MONOCYTE # 0.5 10^3/ul (0.3-0.9); MONOCYTES % 9.7 % (0.0-11.0); NEUTROPHILS % 62.9 % (39.0-77.0); PLATELET COUNT 119 10^3/UL (140-415); POSITIVE DIFF @See below; RED BLOOD COUNT 3.57 10^6/ul (4.20-5.40); RED CELL DISTRIBUTION WIDTH 14.5 % (11.5-14.5)
--- NOTE | 2016-12-31 12:13 | ERA ---
ER Documentation Chief Complaint Date/Time DATE: 12/31/16 TIME: 12:06 Chief Complaint Pt with increased AP girth from liver Cirrhosis and AP. para. X 1 week. HPI This is a 61-year-old female with a history of cirrhosis. The patient was here a week ago and had a paracentesis done. She says that this did not alleviate any of her abdominal swelling. She says she is leaking fluid from where the hole was made last week to drain her fluid. Leakage is mild to moderate in nature. She says she is having increasing swelling to her lower extremities with a lot of difficulty even getting out of bed to use the bathroom. The patient says she can no longer ambulate like usual because of the lower extremity swelling and pain in her legs. She says her abdominal girth is gotten worse. She says that she is not having any chest pain but does have some shortness of breath on exertion. She does not have any vomiting or diarrhea. ROS All systems reviewed and are negative except as per history of present illness. Medications Home Meds Active Scripts Cephalexin* (Cephalexin*) 500 Mg Capsule, 500 MG PO Q8, #20 CAP Prov:SHEILA MATIAS DO 12/21/16 Sulfamethoxazole/Trimethoprim* (Bactrim Ds* Tablet) 1 Each Tablet, 1 TAB PO BID , #10 TAB Prov:SHEILA MATIAS DO 12/21/16 Reported Medications Naproxen* (Naproxen*) 500 Mg Tablet, 500 MG PO BID Y for PAIN, TAB 12/31/16 Insulin Glargine* (Lantus*) 100 Unit/Ml Soln, 15 UNIT SC QHS, #1 VIAL 12/31/16 Discontinued Scripts Naproxen* (Naproxen*) 500 Mg Tablet, 500 MG PO BID Y for PAIN, #14 TAB Prov:SHEILA MATIAS DO 12/21/16 Insulin Glargine* (Lantus*) 100 Unit/Ml Soln, 15 UNIT SC DAILY@08 for 30 Days, # 1 4 Refills Prov:MYLA MARTINEZ 09/21/16 Allergies Allergies: Coded Allergies: No Known Allergy (Unverified , 12/21/16) PMhx/Soc History of Surgery: Yes ('fallopian tube surgery, liver biopsy) Anesthesia Reaction: No Hx Neurological Disorder: No Hx Respiratory Disorders: No Hx Cardiac Disorders: No Hx Psychiatric Problems: No Hx Miscellaneous Medical Probl: Yes (THROMBOCYTOPENIA, DM, LIVER CIRRHOSIS R/T FATTY LIVER) Hx Alcohol Use: No Hx Substance Use: No Hx Tobacco Use: No Smoking Status: Never smoker FmHx Family History: No coronary disease Physical Exam Vitals Vital Signs Date Time Temp Pulse Resp B/P Pulse Ox O2 Delivery O2 Flow Rate FiO2 12/31/16 12:39 98.6 72 18 114/65 98 Room Air 12/31/16 10:16 97.8 80 18 131/63 96 Physical Exam Const: Well-developed, well-nourished Head: Atraumatic, normocephalic Eyes: Normal Conjunctiva, PERRLA, EOMI, normal sclera, no nystagmus ENT: Normal External Ears, Nose and Mouth, moist mucus membranes. Neck: Full range of motion. No meningismus, no lymphadenopathy. Resp: Clear to auscultation bilaterally, no wheezing, rhonchi, rales Cardio: Regular rate and rhythm, no murmurs, S1 S2 present Abd: Soft, massive abdomen with peau d'orange type of skin on the abdominal wall which the patient says is chronic.. Unable to auscultate bowel sounds, no guarding or rebound, Skin: No petechiae or rashes, no ecchymosis , no maculopapular rash Back: No midline or flank tenderness Ext: No cyanosis, +3/4 edema, FROM x 4, normal inspection, neurovascularly intact x 4 Neur: Awake and alert, STR 5/5 x 4, sensation intact x 4, no focal findings, cerebellum intact Psych: Normal Mood and Affect Result Diagram: 12/31/16 1048 12/31/16 1048 Results 24 hrs Laboratory Tests Test 12/31/16 10:48 White Blood Count 4.710^3/ul Red Blood Count 3.5710^6/ul Hemoglobin 11.1g/dl Hematocrit 33.5% Mean Corpuscular Volume 93.8fl Mean Corpuscular Hemoglobin 31.1pg Mean Corpuscular Hemoglobin Concent 33.1g/dl Red Cell Distribution Width 14.5% Platelet Count 68090^3/UL Mean Platelet Volume 11.9fl Neutrophils % 62.9% Lymphocytes % 24.9% Monocytes % 9.7% Eosinophils % 1.5% Basophils % 0.8% Nucleated Red Blood Cells % 0.0/100WBC Neutrophils # 3.010^3/ul Lymphocytes # 1.210^3/ul Monocytes # 0.510^3/ul Eosinophils # 0.110^3/ul Basophils # 0.010^3/ul Nucleated Red Blood Cells # 0.010^3/ul Prothrombin Time 16.3Sec Prothrombin Time Ratio 1.3 INR International Normalized Ratio 1.30 Activated Partial Thromboplast Time 32.2Sec Sodium Level 144mmol/L Potassium Level 4.2mmol/L Chloride Level 109mmol/L Carbon Dioxide Level 22mmol/L Anion Gap 17 Blood Urea Nitrogen 24mg/dl Creatinine 0.90mg/dl Glucose Level 181mg/dl Calcium Level 8.3mg/dl Total Bilirubin 0.4mg/dl Direct Bilirubin 0.00mg/dl Indirect Bilirubin 0.4mg/dl Aspartate Amino Transf (AST/SGOT) 58IU/L Alanine Aminotransferase (ALT/SGPT) 39IU/L Alkaline Phosphatase 252IU/L B-Type Natriuretic Peptide 245PG/ML Total Protein 6.0g/dl Albumin 2.7g/dl Globulin 3.30g/dl Albumin/Globulin Ratio 0.81 Current Medications Medications (Trade) Dose Ordered Sig/Paul Route PRN Reason Start Time Stop Time Status Last Admin Dose Admin Lidocaine (Xylocaine 1% (Mpf)) 5 ml STK-MED ONCE .ROUTE 12/31/16 14:08 12/31/16 14:09 DC 12/31/16 14:30 Procedures/MDM PROCEDURE: XR Chest. CLINICAL INDICATION: Chest pain TECHNIQUE: Single portable view of the chest was obtained COMPARISON: 03/09/2015 FINDINGS: The heart and mediastinum are within normal limits. There are mild bibasilar atelectatic changes. The lungs are otherwise clear. There is no pleural effusion or pneumothorax. RPTAT: AA IMPRESSION: Mild bibasilar atelectatic changes. .Johann Jaeger MD, Date Time Electronically viewed and signed by .Johann Jaeger MD, on 12/31/2016 11: 17 .S/ CC: RICCO CHURCH DO The patient will get an ultrasound-guided paracentesis here today. Last week this did not seem to alleviate any of her symptoms. She does seem to be getting worse with worsening edema to her abdominal cavity and girth as well as lower extremity edema which she is quite symptomatic from. The patient is already on diuretics but is not helping. She says she is only urinating a few drops a day. I will admit her for paracentesis today as well as Acacian adjustment and she will also need intravenous diuresis to alleviate some of the fluid in her legs. She may be a candidate for rehab or [facility] facility placement due to her inability to ambulate in the massive size of her abdominal cavity is greatly limiting her ability to perform activities of daily living Patient was seen by and she wrote a prescription for spironolactone and Lasix given to the patient by her. She also arranged weekly paracentesis and follow-up with a liver doctor for possible and probable TIPS procedure Family is okay with her being discharged and she will be discharged home now Departure Diagnosis: Primary Impression: Ascites Qualified Code: R18.8 - Other ascites Additional Impressions: Physical deconditioning Pedal edema Condition: Stable RICCO CHURCH DO Dec 31, 2016 12:12
[2016-12-31] MEDS ORDERED: LIDOCAINE 1% (MPF) 5 ML VIAL ONE (14:08)
--- NOTE | 2016-12-31 14:37 | RADRPT ---
PROCEDURE: Ultrasound guided paracentesis. CLINICAL INDICATION: Ascites and shortness of breath. COMPARISON: 12/21/2016. TECHNIQUE: The risks, benefits, and alternatives were explained to the patient and/or the patient's family, inc luding but not limited to bleeding, infection, pain, visceral or vascular damage, shock, and . The patient and/or the patient's family understood the risks and the alternatives and wished to pro ceed with the procedure. Informed written consent was obtained. A procedural time out was performed . The patient's name, date of , and procedure to be performed were verified. Utilizing ultrasound guidance, optimal location for entry to the peritoneal cavity was ascertained. The overlying skin was prepped and draped in the usual sterile fashion. Approximately 10 ml of 1% Xylocaine was injected locally for pain control. Using ultrasound guidance, an 8 [place] catheter wa s introduced into the peritoneal cavity in the right upper quadrant without difficulty. FINDINGS: Initial images demonstrate ascites. Approximately 6.3 liters of serous fluid was aspirated and disc arded. The patient tolerated the procedure well without complication. IMPRESSION: 1. Successful ultrasound-guided paracentesis. RPTAT: QQ .Dudley Lanza MD, Date Time Electronically viewed and signed by .Dudley Lanza MD, on 12/31/2016 14:37 .R/
[2016-12-31 14:39] VITALS: BP 116/65; PULSE 68; RESP 18; TEMP 98.6
[2016-12-31] MEDS ORDERED: LANT3I SC (14:45)
[2016-12-31] MEDS ORDERED: NAPR-688 PO (14:46)
--- NOTE | 2016-12-31 15:27 | CONS ---
Date/Time of Note Date/Time of Note DATE: 12/31/16 TIME: 15:09 Assessment/Plan Assessment/Plan Additional Assessment/Plan 61-year-old female with; 1. Recurrent ascites, patient has not been taking diuretics however but has had at least 2 paracentesis so far with removal of approximately 6-7 L. She is status post paracentesis today with removal of 6.8 L. I have given her a prescription for Lasix and Aldactone to take at home and she is also referred to outpatient paracentesis weekly hopefully she will be able to space it out to every 2 weeks if compliant with diuretics. She already has an appointment to see Dr. Rowe press washer on 01/14/17 Disposition: Discharge home from ER with outpatient follow-up with hepatology and arrangement through [facility] for outpatient paracentesis weekly Consultation Date/Type/Reason Admit Date/Time Date of Consultation: Dec 31, 2016 Type of Consultation: Internal medicine Reason for Consultation Recurrent ascites Hx of Present Illness Chief complaint: Abdominal distention History of presenting illness: This is a 61-year-old female unfortunately with end-stage liver disease, large ascites due to her liver disease, she has been in the ER at least twice already for large volume paracentesis, the last one was approximately a couple of weeks ago with removal of 4-6 L ascites. Patient is supposed to be on some diuretics but she reports that she has not been taking any. On her last ER visit after paracentesis she was given prescriptions for antibiotics to cover for panniculitis. She reports that she has been doing fairly okay however her ascites have been recurred over the past week she has a distended abdomen upon arrival, she also has lower extremity edema at least +2-3. She reports that she has decreased urine output but again has not been taking any diuretics. She had paracentesis done in the emergency department today with removal of approximately 7.5 L of ascitic fluid. I have given her a prescription for Aldactone 50 mg p.o. twice daily along with Lasix 20 mg p.o. twice daily to help with diuresis at home, she will follow-up with hepatology Dr. Rowe as an outpatient in 2 weeks for evaluation for possible TIPS procedure Constitutional: no complaints Eyes: no complaints ENT: no complaints Respiratory: no complaints Cardiovascular: no complaints Gastrointestinal: other (Abdominal distention/ascites) Genitourinary: other (Decreased urine output) Musculoskeletal: no complaints Skin: no complaints Neurologic: no complaints Endocrine: no complaints Past Medical History Liver disease with recurrent ascites Past Surgical History Past Surgical Hx: noncontributory Family History Significant Family History: no pertinent family hx Social History Alcohol Use: none Smoking Status: Never smoker Drug Use: none Exam/Review of Systems Vital Signs Vitals Vital Signs Date Time Temp Pulse Resp B/P Pulse Ox O2 Delivery O2 Flow Rate FiO2 12/31/16 14:39 98.6 68 18 116/65 98 Room Air Exam Constitutional: alert, oriented, well developed Respiratory: clear to auscultation, normal air movement Cardiovascular: nl pulses, regular rate and rhythm Gastrointestinal: ascites (Minimal ascites status post 7.5 L fluid removal with paracentesis), non-tender, soft Extremities: edema (+2 bilaterally) Neurological: BEAMING INSPECTOR II-XII intact, nl mental status, nl speech Results Result Diagram: 12/31/16 1048 12/31/16 1048 Results 24 hrs Laboratory Tests Test 12/31/16 10:48 White Blood Count 4.7 L Red Blood Count 3.57 L Hemoglobin 11.1 L Hematocrit 33.5 L Mean Corpuscular Volume 93.8 Mean Corpuscular Hemoglobin 31.1 Mean Corpuscular Hemoglobin Concent 33.1 Red Cell Distribution Width 14.5 Platelet Count 119 L Mean Platelet Volume 11.9 H Neutrophils % 62.9 Lymphocytes % 24.9 Monocytes % 9.7 Eosinophils % 1.5 Basophils % 0.8 Nucleated Red Blood Cells % 0.0 Neutrophils # 3.0 Lymphocytes # 1.2 Monocytes # 0.5 Eosinophils # 0.1 Basophils # 0.0 Nucleated Red Blood Cells # 0.0 Prothrombin Time 16.3 H Prothrombin Time Ratio 1.3 INR International Normalized Ratio 1.30 Activated Partial Thromboplast Time 32.2 Sodium Level 144 Potassium Level 4.2 Chloride Level 109 Carbon Dioxide Level 22 Anion Gap 17 H Blood Urea Nitrogen 24 H Creatinine 0.90 Glucose Level 181 Calcium Level 8.3 L Total Bilirubin 0.4 Direct Bilirubin 0.00 Indirect Bilirubin 0.4 Aspartate Amino Transf (AST/SGOT) 58 H Alanine Aminotransferase (ALT/SGPT) 39 Alkaline Phosphatase 252 H B-Type Natriuretic Peptide 245 H Total Protein 6.0 L Albumin 2.7 L Globulin 3.30 H Albumin/Globulin Ratio 0.81 Procedures Procedures PROCEDURE: Ultrasound guided paracentesis. CLINICAL INDICATION: Ascites and shortness of breath. COMPARISON: 12/21/2016. TECHNIQUE: The risks, benefits, and alternatives were explained to the patient and/or the patient's family, including but not limited to bleeding, infection, pain, visceral or vascular damage, shock, and . The patient and/or the patient' s family understood the risks and the alternatives and wished to proceed with the procedure. Informed written consent was obtained. A procedural time out was performed. The patient's name, date of , and procedure to be performed were verified. Utilizing ultrasound guidance, optimal location for entry to the peritoneal cavity was ascertained. The overlying skin was prepped and draped in the usual sterile fashion. Approximately 10 ml of 1% Xylocaine was injected locally for pain control. Using ultrasound guidance, an 8 Sami catheter was introduced into the peritoneal cavity in the right upper quadrant without difficulty. FINDINGS: Initial images demonstrate ascites. Approximately 6.3 liters of serous fluid was aspirated and discarded. The patient tolerated the procedure well without complication. IMPRESSION: 1. Successful ultrasound-guided paracentesis. RPTAT: QQ .Dudley Lanza MD, Date Time Electronically viewed and signed by .Dudley Lanza MD, on 12/31/2016 14:37 .LINDSEY WOODWARD Dec 31, 2016 15:20
== END 2016-12-31 15:14 | disposition home or self-care (01) ==
LOC: E/R 10:13
DX: R18.8 Other ascites (principal); E11.9 Type 2 diabetes mellitus without complications; R07.9 Chest pain, unspecified; Z79.4 Long term (current) use of insulin
CPT/HCPCS: 36415; 71010; 80053; 83880; 85025; 85610; 85730; Z7502; Z7610

== ENCOUNTER 2017-01-11 13:22 | Emergency (ER) | payer OTHER ==
[~2017-01-11] VITALS: Ht 167.6 cm; Wt 87.5 kg
[2017-01-11 13:26] VITALS: Ht 167.6 cm; Wt 87.5 kg
[2017-01-11] MEDS ORDERED: LIDOCAINE 1% (MPF) 5 ML VIAL ONE (14:42)
--- NOTE | 2017-01-11 15:17 | ERD ---
ER Documentation Chief Complaint Date/Time DATE: 01/11/17 TIME: 15:16 Chief Complaint Complains of abdominal pain HX of Ascites HPI Patient is a 61-year-old female with fatty liver, diabetes, and cirrhosis who presents with abdominal pain and swelling. She needs a paracentesis done. She said that last night she had a slimy stool. She said that her last paracentesis was drawn on December 31. She denies fevers. Upon review of old medical record she has multiple visits to the ER for ascites. ROS All systems reviewed and are negative except as per history of present illness. Medications Home Meds Active Scripts Cephalexin* (Cephalexin*) 500 Mg Capsule, 500 MG PO Q8, #20 CAP Prov:SHEILA MATIAS DO 12/21/16 Sulfamethoxazole/Trimethoprim* (Bactrim Ds* Tablet) 1 Each Tablet, 1 TAB PO BID , #10 TAB Prov:SHEILA MATIAS DO 12/21/16 Reported Medications Naproxen* (Naproxen*) 500 Mg Tablet, 500 MG PO BID Y for PAIN, TAB 12/31/16 Insulin Glargine* (Lantus*) 100 Unit/Ml Soln, 15 UNIT SC QHS, #1 VIAL 12/31/16 Allergies Allergies: Coded Allergies: No Known Allergy (Unverified , 12/21/16) PMhx/Soc History of Surgery: Yes ('fallopian tube surgery, liver biopsy) Anesthesia Reaction: No Hx Neurological Disorder: No Hx Respiratory Disorders: No Hx Cardiac Disorders: No Hx Psychiatric Problems: No Hx Miscellaneous Medical Probl: Yes (THROMBOCYTOPENIA, DM, LIVER CIRRHOSIS R/T FATTY LIVER) Hx Alcohol Use: No Hx Substance Use: No Hx Tobacco Use: No FmHx Family History: diabetes Physical Exam Vitals Vital Signs Date Time Temp Pulse Resp B/P Pulse Ox O2 Delivery O2 Flow Rate FiO2 01/11/17 13:26 98.4 84 20 140/63 98 Physical Exam Const: Moderate distress Head: Atraumatic Eyes: Normal Conjunctiva ENT: Normal External Ears, Nose and Mouth. Neck: Full range of motion..~ No meningismus. Resp: Clear to auscultation bilaterally Cardio: Regular rate and rhythm, no murmurs Abd: Distended abdomen with positive fluid wave Skin: No petechiae or rashes Back: No midline or flank tenderness Ext: 2+ pitting edema bilaterally Neur: Awake and alert Psych: Normal Mood and Affect Results 24 hrs Current Medications Medications (Trade) Dose Ordered Sig/Paul Route PRN Reason Start Time Stop Time Status Last Admin Dose Admin Lidocaine (Xylocaine 1% (Mpf)) 5 ml STK-MED ONCE .ROUTE 01/11/17 14:42 01/11/17 14:43 DC Procedures/MDM Ultrasound-guided paracentesis performed by radiology. Laboratory studies from December 31 reviewed by myself. Patient is a 61-year-old female who presents with ascites. I doubt spontaneous bacterial peritonitis. The patient had a paracentesis performed by radiology and feels much better. Patient will be discharged and can follow-up with her primary doctor within 24-48 hours. They also have a specialist appointment scheduled for this month. The patient can return for any worsening symptoms. Departure Diagnosis: Primary Impression: Ascites Ascites type: other type Qualified Code: R18.8 - Other ascites Condition: Fair Patient Instructions: Ascites Referrals: Your doctor Additional Instructions: Llame al doctor MAANA y michael umu LISA PARA DENTRO DE 1-2 IGLESIAS.Dgale a la secretaria que nosotros le instruimos hacer esta lisa.Avise o llame si kimball condicin se empeora antes de la lisa. Regresa aqui si peor o no mejor. JUAN HEATH MD Jan 11, 2017 15:17
--- NOTE | 2017-01-11 15:17 | RADRPT ---
PROCEDURE: Ultrasound guided paracentesis CLINICAL INDICATION: Ascites TECHNIQUE: Risks benefits and alternatives of the procedure were explained to the patient. Inform ed written consent was obtained. A time out was performed. Informed written consent was obtained p rior to beginning the procedure. Preliminary rural sociologist ultrasound of the abdomen was performed. Fluid was identified in the lower quadrant. The overlying skin of the right lower quadrant was prepped an d draped in the usual sterile fashion. 5 cc of lidocaine was injected locally for pain control. Und er ultrasound guidance, a skinny 5-Mosotho Yueh catheter was introduced into the peritoneal cavity. F luid was obtained without difficulty. The fluid was sent the laboratory for further analysis. The patient tolerated procedure well without complication. COMPARISON: None FINDINGS: Approximately 6000 cc of clear yellow fluid was obtained. The fluid was not sent to the laboratory for further evaluation. IMPRESSION: Successful ultrasound-guided paracentesis. RPTAT: QQ RPTAT: AAEE Physician Quin Date Time Electronically viewed and signed by Physician Quin on 01/11/2017 15:17 KEN/
== END 2017-01-11 17:14 | disposition home or self-care (01) ==
LOC: E/R 13:22
DX: R18.8 Other ascites (principal); E11.9 Type 2 diabetes mellitus without complications; Z79.4 Long term (current) use of insulin
CPT/HCPCS: Z7502; Z7610

== ENCOUNTER 2017-01-25 10:07 | Emergency (ER) | payer OTHER ==
[~2017-01-25] VITALS: Ht 152.4 cm; Wt 83.5 kg
[2017-01-25 10:11] VITALS: Ht 152.4 cm; Wt 83.5 kg
[2017-01-25 11:15] LABS: BASOPHILS % 0.7 % (0.0-2.0); EOSINOPHILS # 0.1 10^3/ul (0.0-0.5); EOSINOPHILS % 2.6 % (0.0-7.0); HEMATOCRIT 34.5 % (37.0-47.0); HEMOGLOBIN 11.4 g/dl (12.0-16.0); LYMPHOCYTES # 1.2 10^3/ul (0.8-2.9); LYMPHOCYTES % 27.4 % (15.0-51.0); MEAN CORPUSCULAR HEMOGLOBIN 31.1 pg (29.0-33.0); MEAN PLATELET VOLUME 11.5 fl (7.4-10.4); MONOCYTE # 0.4 10^3/ul (0.3-0.9); MONOCYTES % 8.3 % (0.0-11.0); NEUTROPHILS % 60.8 % (39.0-77.0); PLATELET COUNT 127 10^3/UL (140-415); RED BLOOD COUNT 3.67 10^6/ul (4.20-5.40); RED CELL DISTRIBUTION WIDTH 14.1 % (11.5-14.5); WHITE BLOOD COUNT 4.2 10^3/ul (4.8-10.8)
[2017-01-25 11:16] LABS: POSITIVE DIFF @See below
[2017-01-25 11:38] LABS: INR 1.2; PROTIME 15.3 Sec (12.2-14.2); PT RATIO 1.2
[2017-01-25 11:39] LABS: PARTIAL THROMBOPLASTIN TIME 31.8 Sec (25.0-35.0)
[2017-01-25 12:05] LABS: ALBUMIN 2.6 g/dl (3.3-4.9); ALBUMIN/GLOBULIN RATIO 0.74; BILIRUBIN,INDIRECT 0.6 mg/dl (0-1.1); BILIRUBIN,TOTAL 0.6 mg/dl (0.2-1.3); CALCIUM 8.4 mg/dl (8.4-10.2); CREATININE 0.65 mg/dl (0.44-1.00); POTASSIUM 3.7 mmol/L (3.5-5.1); TOTAL PROTEIN 6.1 g/dl (6.1-8.1)
--- NOTE | 2017-01-25 12:36 | RADRPT ---
PROCEDURE: Ultrasound guided paracentesis. CLINICAL INDICATION: Ascites and shortness of breath. COMPARISON: 01/11/2017. TECHNIQUE: The risks, benefits, and alternatives were explained to the patient and/or the patient's family, inc luding but not limited to bleeding, infection, pain, visceral or vascular damage, shock, and . The patient and/or the patient's family understood the risks and the alternatives and wished to pro ceed with the procedure. Informed written consent was obtained. A procedural time out was performed . The patient's name, date of , and procedure to be performed were verified. Utilizing ultrasound guidance, optimal location for entry to the peritoneal cavity was ascertained. The overlying skin was prepped and draped in the usual sterile fashion. Approximately 10 ml of 1% Xylocaine was injected locally for pain control. Using ultrasound guidance, an 8 Czech catheter wa s introduced into the peritoneal cavity in the right upper quadrant without difficulty. FINDINGS: Initial images demonstrate ascites. Approximately 5.2 liters of serous fluid was aspirated and disc arded. The patient tolerated the procedure well without complication. IMPRESSION: 1. Successful ultrasound-guided paracentesis. RPTAT: QQ .Dudley Lanza MD, Date Time Electronically viewed and signed by .Dudley Lanza MD, on 01/25/2017 12:36 .R/
--- NOTE | 2017-01-25 13:11 | ERD ---
ER Documentation Chief Complaint Date/Time DATE: 01/25/17 TIME: 13:08 Chief Complaint pt bib self for paracentesis, last one 01/11/17 removed 6L HPI Patient is a 61-year-old female with ascites who presents with abdominal pain. She denies fevers but said that she had chills last night. Her last paracentesis was January 11. She gets frequent paracentesis. She does not know the name of her primary doctor. ROS All systems reviewed and are negative except as per history of present illness. Medications Home Meds Reported Medications Naproxen* (Naproxen*) 500 Mg Tablet, 500 MG PO BID Y for PAIN, TAB 12/31/16 Insulin Glargine* (Lantus*) 100 Unit/Ml Soln, 15 UNIT SC QHS, #1 VIAL 12/31/16 Discontinued Scripts Cephalexin* (Cephalexin*) 500 Mg Capsule, 500 MG PO Q8, #20 CAP Prov:SHEILA MATIAS DO 12/21/16 Sulfamethoxazole/Trimethoprim* (Bactrim Ds* Tablet) 1 Each Tablet, 1 TAB PO BID , #10 TAB Prov:POLLYSHEILA DO 12/21/16 Allergies Allergies: Coded Allergies: No Known Allergy (Unverified , 01/25/17) PMhx/Soc History of Surgery: Yes ('fallopian tube surgery, liver biopsy) Anesthesia Reaction: No Hx Neurological Disorder: No Hx Respiratory Disorders: No Hx Cardiac Disorders: No Hx Psychiatric Problems: No Hx Miscellaneous Medical Probl: Yes (THROMBOCYTOPENIA, DM, LIVER CIRRHOSIS R/T FATTY LIVER) Hx Alcohol Use: No Hx Substance Use: No Hx Tobacco Use: No Smoking Status: Former smoker FmHx Family History: diabetes Physical Exam Vitals Vital Signs Date Time Temp Pulse Resp B/P Pulse Ox O2 Delivery O2 Flow Rate FiO2 01/25/17 10:11 98.3 72 16 142/68 98 Physical Exam Const: Mild distress secondary to pain Head: Atraumatic Eyes: Normal Conjunctiva ENT: Normal External Ears, Nose and Mouth. Neck: Full range of motion..~ No meningismus. Resp: Clear to auscultation bilaterally Cardio: Regular rate and rhythm, no murmurs Abd: Diffuse abdominal swelling with positive fluid wave Skin: No petechiae or rashes Back: No midline or flank tenderness Ext: No cyanosis, or edema Neur: Awake and alert Psych: Normal Mood and Affect Result Diagram: 01/25/17 1046 01/25/17 1046 Results 24 hrs Laboratory Tests Test 01/25/17 10:46 White Blood Count 4.210^3/ul Red Blood Count 3.6710^6/ul Hemoglobin 11.4g/dl Hematocrit 34.5% Mean Corpuscular Volume 94.0fl Mean Corpuscular Hemoglobin 31.1pg Mean Corpuscular Hemoglobin Concent 33.0g/dl Red Cell Distribution Width 14.1% Platelet Count 17475^3/UL Mean Platelet Volume 11.5fl Neutrophils % 60.8% Lymphocytes % 27.4% Monocytes % 8.3% Eosinophils % 2.6% Basophils % 0.7% Nucleated Red Blood Cells % 0.0/100WBC Neutrophils # (Manual) 2.610^3/ul Lymphocytes # 1.210^3/ul Monocytes # 0.410^3/ul Eosinophils # 0.110^3/ul Basophils # 0.010^3/ul Nucleated Red Blood Cells # 0.010^3/ul Prothrombin Time 15.3Sec Prothrombin Time Ratio 1.2 INR International Normalized Ratio 1.20 Activated Partial Thromboplast Time 31.8Sec Sodium Level 137mmol/L Potassium Level 3.7mmol/L Chloride Level 100mmol/L Carbon Dioxide Level 28mmol/L Anion Gap 13 Blood Urea Nitrogen 12mg/dl Creatinine 0.65mg/dl Glucose Level 197mg/dl Calcium Level 8.4mg/dl Total Bilirubin 0.6mg/dl Direct Bilirubin 0.00mg/dl Indirect Bilirubin 0.6mg/dl Aspartate Amino Transf (AST/SGOT) 55IU/L Alanine Aminotransferase (ALT/SGPT) 36IU/L Alkaline Phosphatase 238IU/L Total Protein 6.1g/dl Albumin 2.6g/dl Globulin 3.50g/dl Albumin/Globulin Ratio 0.74 Procedures/MDM Ultrasound-guided paracentesis performed by radiology. Patient is a 61-year-old female presents with abdominal pain and ascites. I doubt spontaneous bacterial peritonitis at this time. Laboratory studies were done prior to ultrasound-guided paracentesis. The patient had a successful paracentesis will be discharged. The patient can return for any worsening symptoms. I believe outpatient management is appropriate at this time. I doubt appendicitis, cholecystitis, pancreatitis, or bowel obstruction. Departure Diagnosis: Primary Impression: Ascites Ascites type: other type Qualified Code: R18.8 - Other ascites Condition: Fair Patient Instructions: Ascites Additional Instructions: Llame al doctor MAANA y michael umu LISA PARA DENTRO DE 1-2 IGLESIAS.Dgale a la secretaria que nosotros le instruimos hacer esta lisa.Avise o llame si kimball condicin se empeora antes de la lisa. Regresa aqui si peor o no mejor. JUAN HEATH MD Jan 25, 2017 13:07
[2017-01-25 13:21] VITALS: BP 144/67; PULSE 74; RESP 17; TEMP 97.8
== END 2017-01-25 13:36 | disposition home or self-care (01) ==
LOC: E/R 10:07
DX: R18.8 Other ascites (principal); E11.9 Type 2 diabetes mellitus without complications; Z79.4 Long term (current) use of insulin; Z87.891 Personal history of nicotine dependence
CPT/HCPCS: 80053; 85025; 85610; 85730; Z7502; Z7610

== ENCOUNTER 2017-02-08 13:52 | Emergency (ER) | payer OTHER ==
[~2017-02-08] VITALS: Ht 152.4 cm; Wt 68.5 kg
[~2017-02-08 13:52] MED LIST changes: -CEPH500C PO; -SULF1TAB31 PO
[2017-02-08 14:06] VITALS: Ht 152.4 cm; Wt 68.5 kg
[2017-02-08] MEDS ORDERED: ONDANSETRON 4 MG INJ IV STA (17:35)
[2017-02-08] MEDS ORDERED: SOD CHLORIDE 0.9% 1,000 ML IV STA (17:35)
[2017-02-08] MEDS ORDERED: morphine 4 MG/ML VIAL IV STA (17:35)
[2017-02-08] MEDS ORDERED: FURO20TA3 PO (17:40)
[2017-02-08] MEDS ORDERED: SPIR100T31 PO (17:46)
[2017-02-08 18:32] LABS: BASOPHIL # 0.1 10^3/ul (0.0-0.1); BASOPHILS % 1.2 % (0.0-2.0); EOSINOPHILS # 0.2 10^3/ul (0.0-0.5); EOSINOPHILS % 3.7 % (0.0-7.0); HEMATOCRIT 35.1 % (37.0-47.0); HEMOGLOBIN 11.9 g/dl (12.0-16.0); LYMPHOCYTES # 1.5 10^3/ul (0.8-2.9); MEAN CORPUSCULAR HEMOGLOBIN 31.2 pg (29.0-33.0); MEAN CORPUSCULAR HGB CONC 33.9 g/dl (32.0-37.0); MEAN CORPUSCULAR VOLUME 91.9 fl (82.0-101.0); MONOCYTE # 0.4 10^3/ul (0.3-0.9); NEUTROPHILS % 51.9 % (39.0-77.0); PLATELET COUNT 121 10^3/UL (140-415); RED BLOOD COUNT 3.82 10^6/ul (4.20-5.40); RED CELL DISTRIBUTION WIDTH 13.6 % (11.5-14.5); WHITE BLOOD COUNT 4.3 10^3/ul (4.8-10.8)
--- NOTE | 2017-02-08 18:43 | RADRPT ---
PROCEDURE: CT Abdomen and Pelvis without contrast. CLINICAL INDICATION: Abdominal and pelvic pain. TECHNIQUE: CT scan of the abdomen and pelvis without contrast was performed. Coronal and sagittal reformatted images were obtained from the axial source images. Images were reviewed on a [employer] PACS workstation. Total exam DLP is 1009.48 mGy-cm. CTDIvol is 18.76 mGy. One or more of the following dose reduction techniques were used: Automated exposure control, adjustment of the mA and/ or kV according to patient size, use of iterative reconstruction technique. COMPARISON: Noncontrast CT scan of the abdomen and pelvis dated 12/21/2016. FINDINGS: The lung bases are normal. There is no pleural effusion or pericardial effusion. The liver is abnormal with a nodular surface and enlargement of the left lobe consistent with cirrho sis. There is no visualized focal hepatic lesion There is diffuse calcification of the gallbladder wall indicating porcelain gallbladder. The bile du cts are normal. The spleen is mildly enlarged. There is no focal splenic lesion. Both adrenals are normal with no enlargement or mass. The pancreas is unremarkable with no mass or evidence of pancreatitis. There is no renal mass or hydronephrosis. There is no renal calculus or ureteral calculus. The abdominal aorta is not dilated. There is calcification in the wall of the aorta consistent with atherosclerosis. There is no retroperitoneal lymphadenopathy or mass. There is no pelvic lymphadenopathy or mass. The bladder and distal ureters are normal. The periappendiceal region is unremarkable with no evidence of appendicitis. The bowel and mesentery are normal. There is moderate to large amount of ascites as seen previously. Fluid is present in an umbilical he rnia. There is diffuse edema of the anterior abdominal wall consistent with anasarca, slightly impro arleen. There are mild degenerative changes of the spine. There is no fracture or lytic lesion. IMPRESSION: 1. Cirrhotic liver. 2. Porcelain gallbladder. 3. Mild splenomegaly. 4. Atherosclerosis. 5. Moderate ascites and fluid in an umbilical hernia, unchanged. 6. Diffuse edema of the anterior abdominal wall, slightly improved. 7. Mild degenerative changes of the spine. RPTAT: QQ .Dudley Lanza MD, Date Time Electronically viewed and signed by .Dudley Lanza MD, on 02/08/2017 18:43 .R/
[2017-02-08 18:45] LABS: ALBUMIN 3.1 g/dl (3.3-4.9); ALBUMIN/GLOBULIN RATIO 0.81; BILIRUBIN,INDIRECT 0.4 mg/dl (0-1.1); BILIRUBIN,TOTAL 0.4 mg/dl (0.2-1.3); CALCIUM 8.8 mg/dl (8.4-10.2); CREATININE 0.71 mg/dl (0.44-1.00); TOTAL PROTEIN 6.9 g/dl (6.1-8.1)
[2017-02-08] MEDS ORDERED: SULF1TAB31 PO (20:33)
[2017-02-08] MEDS ORDERED: CEPH-443 PO (20:33)
[2017-02-08 20:44] VITALS: BP 124/82; PULSE 77; RESP 14; TEMP 98.7
--- NOTE | 2017-02-08 20:48 | ERD ---
ER Documentation Chief Complaint Date/Time DATE: 02/08/17 TIME: 20:41 Chief Complaint Complains of abdominal pain x 3 days HPI This 61-year-old female complains of 3 days of burning sensation in her ventral hernia site. She has no fevers or chills. She denies having actual pain to states that it is a burning sensation and is not pain. She has no nausea or vomiting. She is having normal bowel movements. She has a history of surgery there by Dr. Alcocer which she states was in November or December although according to Dr. Noyola who I spoke with on the phone it was done in September. ROS All systems reviewed and are negative except as per history of present illness. Medications Home Meds Active Scripts Cephalexin* (Keflex*) 500 Mg Capsule, 500 MG PO TID for 10 Days, CAP Prov:SHEILA MATIAS DO 02/08/17 Sulfamethoxazole/Trimethoprim* (Bactrim Ds* Tablet) 1 Each Tablet, 1 TAB PO BID , #20 TAB Prov:SHEILA MATIAS DO 02/08/17 Reported Medications Spironolactone* (Spironolactone*) 100 Mg Tablet, 100 MG PO BID, TAB 02/08/17 Furosemide* (Furosemide*) 20 Mg Tablet, 20 MG PO BID, #30 TAB 02/08/17 Insulin Glargine* (Lantus*) 100 Unit/Ml Soln, 15 UNIT SC QHS, #1 VIAL TAKE NEEDED 12/31/16 Discontinued Reported Medications Naproxen* (Naproxen*) 500 Mg Tablet, 500 MG PO BID Y for PAIN, TAB 12/31/16 Allergies Allergies: Coded Allergies: No Known Allergy (Unverified , 02/08/17) PMhx/Soc History of Surgery: Yes ('fallopian tube surgery, liver biopsy) Anesthesia Reaction: No Hx Neurological Disorder: No Hx Respiratory Disorders: No Hx Cardiac Disorders: No Hx Psychiatric Problems: No Hx Miscellaneous Medical Probl: Yes (THROMBOCYTOPENIA, DM, LIVER CIRRHOSIS R/T FATTY LIVER) Hx Alcohol Use: No Hx Substance Use: No Hx Tobacco Use: No Smoking Status: Never smoker Physical Exam Vitals Vital Signs Date Time Temp Pulse Resp B/P Pulse Ox O2 Delivery O2 Flow Rate FiO2 02/08/17 14:06 97.0 76 20 137/70 99 Physical Exam Const: [] No distress Head: Atraumatic Eyes: Normal Conjunctiva ENT: Normal External Ears, Nose and Mouth.. Resp: Clear to auscultation bilaterally Cardio: Regular rate and rhythm, no murmurs Abd: Soft, non tender, Moderate distention which the patient says is chronic , erythematous prior hernia area without calor, hernia is very reducible. Mild induration to inferior area of the abdomen and the patient says is been there for some time.. Normal bowel sounds Skin: No petechiae or rashes Ext: No cyanosis, or edema Neur: Awake and alert oriented 3, no focal deficits Psych: Normal Mood and Affect Result Diagram: 02/08/17181402/08/171814 Results 24 hrs Laboratory Tests Test 02/08/17 18:15 White Blood Count 4.310^3/ul Red Blood Count 3.8210^6/ul Hemoglobin 11.9g/dl Hematocrit 35.1% Mean Corpuscular Volume 91.9fl Mean Corpuscular Hemoglobin 31.2pg Mean Corpuscular Hemoglobin Concent 33.9g/dl Red Cell Distribution Width 13.6% Platelet Count 31908^3/UL Mean Platelet Volume 12.0fl Neutrophils % 51.9% Lymphocytes % 34.0% Monocytes % 9.0% Eosinophils % 3.7% Basophils % 1.2% Nucleated Red Blood Cells % 0.0/100WBC Neutrophils # (Manual) 2.210^3/ul Lymphocytes # 1.510^3/ul Monocytes # 0.410^3/ul Eosinophils # 0.210^3/ul Basophils # 0.110^3/ul Nucleated Red Blood Cells # 0.010^3/ul Sodium Level 136mmol/L Potassium Level 4.0mmol/L Chloride Level 101mmol/L Carbon Dioxide Level 30mmol/L Anion Gap 9 Blood Urea Nitrogen 19mg/dl Creatinine 0.71mg/dl Glucose Level 191mg/dl Calcium Level 8.8mg/dl Total Bilirubin 0.4mg/dl Direct Bilirubin 0.00mg/dl Indirect Bilirubin 0.4mg/dl Aspartate Amino Transf (AST/SGOT) 61IU/L Alanine Aminotransferase (ALT/SGPT) 43IU/L Alkaline Phosphatase 281IU/L Total Protein 6.9g/dl Albumin 3.1g/dl Globulin 3.80g/dl Albumin/Globulin Ratio 0.81 Lipase 154U/L Current Medications Medications (Trade) Dose Ordered Sig/Paul Route PRN Reason Start Time Stop Time Status Last Admin Dose Admin Sodium Chloride (NS) 1,000 ml @ 1,000 mls/hr Q1H STAT IV 02/08/17 17:35 02/08/17 18:34 DC Morphine Sulfate (morphine) 4 mg ONCE STAT IV 02/08/17 17:35 02/08/17 17:36 DC Ondansetron HCl (Zofran Inj) 4 mg ONCE STAT IV 02/08/17 17:35 02/08/17 17:36 DC Procedures/MDM Burning sensation without pain to the anterior abdomen the patient wanted to get checked out. She did have abdominal pain there would be multiple possible reasons for her cirrhosis and splenomegaly in addition to the hernia.I did speak with her oncologic surgeon who is aware of the patient and can see her in the office. There is no caloric indicated the acute infection with the patient still may have cellulitis as there is some mild induration around her erythematous area of her lower abdomen. CAT scan does say that the anterior abdominal wall inflammation has gotten better from prior. No other signs of acute infection or incarcerated hernia. Patient does have ascites within her hernia I believe she should follow-up with a general surgeon. I will discharge Her in stable condition with Bactrim and Keflex as well as general surgeons referral. She was hydrated with a liter of normal saline refused pain medication and she does not have any pain. CT abdomen pelvis interpretation: See no acute process to be causing the patient 's abdominal pain except for fluid within her hernia, also has liver cirrhosis and splenomegaly, I see no obstruction, no free air, no fractures. Departure Diagnosis: Primary Impression: Ventral hernia with obstruction, without gangrene Additional Impression: Abdominal pain Condition: Stable Patient Instructions: Abdominal Pain, Hernia (Inguinal, Ventral, Umbilical) Additional Instructions: Llame al doctor MAANA y michael umu LISA PARA DENTRO DE 2-3 IGLESIAS. Consigue un referral para un GENERAL SURGEON. Dgale a la secretaria que nosotros le instruimos hacer esta lisa.Avise o llame si kimball condicin se empeora antes de la lisa. Regresa aqui si peor o no mejor. SHEILA MATIAS DO Feb 08, 2017 20:48
== END 2017-02-08 20:51 | disposition home or self-care (01) ==
LOC: FTE 13:52 → E/R 20:51
DX: K43.9 Ventral hernia without obstruction or gangrene (principal); R14.0 Abdominal distension (gaseous); E11.9 Type 2 diabetes mellitus without complications; Z79.4 Long term (current) use of insulin
CPT/HCPCS: 36415; 74176; 80053; 83690; 85025; J7030; Z7502; J2270; J2405

== ENCOUNTER 2017-04-19 11:44 | Emergency (ER) | payer SELFPAY ==
[~2017-04-19] VITALS: Ht 157.5 cm; Wt 65.1 kg
[~2017-04-19 11:44] MED LIST changes: +CEPH-443 PO; +FURO20TA3 PO; -NAPR-688 PO; +SPIR100T31 PO; +SULF1TAB31 PO
[2017-04-19 11:46] VITALS: Ht 157.5 cm; Wt 65.1 kg
[2017-04-19] MEDS ORDERED: BELLADONNA/PHENOBARBITAL TAB PO STA (12:38)
[2017-04-19] MEDS ORDERED: ONDANSETRON 4 MG INJ IV STA (12:38)
[2017-04-19] MEDS ORDERED: LIDOCAINE/MYLANTA 40 ML BTL PO STA (12:38)
[2017-04-19] MEDS ORDERED: morphine 4 MG/ML VIAL IV STA (12:38)
[2017-04-19 13:16] LABS: BASOPHILS % 0.7 % (0.0-2.0); EOSINOPHILS # 0.1 10^3/ul (0.0-0.5); EOSINOPHILS % 1.1 % (0.0-7.0); HEMATOCRIT 25.7 % (37.0-47.0); HEMOGLOBIN 8.3 g/dl (12.0-16.0); LYMPHOCYTES # 1.1 10^3/ul (0.8-2.9); LYMPHOCYTES % 23.1 % (15.0-51.0); MEAN CORPUSCULAR HEMOGLOBIN 28.1 pg (29.0-33.0); MEAN CORPUSCULAR HGB CONC 32.3 g/dl (32.0-37.0); MEAN CORPUSCULAR VOLUME 87.1 fl (82.0-101.0); MEAN PLATELET VOLUME 11.6 fl (7.4-10.4); MONOCYTE # 0.5 10^3/ul (0.3-0.9); MONOCYTES % 10.5 % (0.0-11.0); NEUTROPHILS % 64.2 % (39.0-77.0); PLATELET COUNT 138 10^3/UL (140-415); RED BLOOD COUNT 2.95 10^6/ul (4.20-5.40); RED CELL DISTRIBUTION WIDTH 13.9 % (11.5-14.5); WHITE BLOOD COUNT 4.6 10^3/ul (4.8-10.8)
[2017-04-19 13:33] LABS: INR 1.14; PROTIME 14.6 Sec (12.2-14.2); PT RATIO 1.1
[2017-04-19 13:37] LABS: ALBUMIN 3.1 g/dl (3.3-4.9); ALBUMIN/GLOBULIN RATIO 0.81; BILIRUBIN,INDIRECT 0.5 mg/dl (0-1.1); BILIRUBIN,TOTAL 0.5 mg/dl (0.2-1.3); CALCIUM 8.5 mg/dl (8.4-10.2); CREATININE 0.8 mg/dl (0.44-1.00); POTASSIUM 4.4 mmol/L (3.5-5.1); TOTAL PROTEIN 6.9 g/dl (6.1-8.1)
[2017-04-19 13:41] VITALS: BP 110/67; PULSE 81; RESP 19
[2017-04-19] MEDS ORDERED: IBUP-1542 PO (14:57)
[2017-04-19] MEDS ORDERED: MAG355OR14 PO (14:57)
--- NOTE | 2017-04-19 18:40 | ERD ---
ER Documentation Chief Complaint Chief Complaint Complains of abdominal pain HPI 61-year-old woman complains of mid abdominal pain due to her hernia, she has a long history of ventral hernia and has not yet seen a surgeon. She also has a history of cirrhosis and ascites but denies recent abdominal distention, no dysuria, no fevers or chills, no vomiting or diarrhea. Patient states she feels nauseous. ROS All systems reviewed and are negative except as per history of present illness. Medications Home Meds Active Scripts Mag Hydrox/Al Hydrox/Simeth (Maalox Advanced Suspension) 355 Ml Oral.susp, 2 TSP PO TID for PAIN, #24 OZ Prov:PINO RIVERA MD 04/19/17 Ibuprofen* (Ibuprofen*) 600 Mg Tablet, 600 MG PO Q8 for PAIN, #30 TAB Prov:PINO RIVERA MD 04/19/17 Reported Medications Insulin Glargine* (Lantus*) 100 Unit/Ml Soln, 15 UNIT SC QHS, #1 VIAL TAKE NEEDED 12/31/16 Discontinued Reported Medications Spironolactone* (Spironolactone*) 100 Mg Tablet, 100 MG PO BID, TAB 02/08/17 Furosemide* (Furosemide*) 20 Mg Tablet, 20 MG PO BID, #30 TAB 02/08/17 Discontinued Scripts Cephalexin* (Keflex*) 500 Mg Capsule, 500 MG PO TID for 10 Days, CAP Prov:SHEILA MATIAS DO 02/08/17 Sulfamethoxazole/Trimethoprim* (Bactrim Ds* Tablet) 1 Each Tablet, 1 TAB PO BID , #20 TAB Prov:SHEILA MATIAS DO 02/08/17 Allergies Allergies: Coded Allergies: No Known Allergy (Unverified , 02/08/17) PMhx/Soc Diabetes mellitus, ascites, cirrhosis, hypertension, gastritis History of Surgery: Yes ('fallopian tube surgery, liver biopsy) Anesthesia Reaction: No Hx Neurological Disorder: No Hx Respiratory Disorders: No Hx Cardiac Disorders: No Hx Psychiatric Problems: No Hx Miscellaneous Medical Probl: Yes (THROMBOCYTOPENIA, DM, LIVER CIRRHOSIS R/T FATTY LIVER; PARACENTESIS; HERNIA) Hx Alcohol Use: No Hx Substance Use: No Hx Tobacco Use: No Smoking Status: Never smoker FmHx Family History: No diabetes Physical Exam Vitals Vital Signs Date Time Temp Pulse Resp B/P Pulse Ox O2 Delivery O2 Flow Rate FiO2 04/19/17 13:41 81 19 110/67 100 Room Air 04/19/17 11:46 98.6 98 20 127/62 98 Physical Exam GENERAL: Well-developed, well-nourished, well-hydrated, in no apparent distress , looks nontoxic in appearance HEENT: Moist mucous membranes, pink conjunctiva, no cervical spine tenderness or step-off deformities, no goiter, no jaundice or icterus, extraocular movements intact without pain. No submandibular induration, and no pharyngeal erythema NEURO: Alert and oriented 3, cranial nerves II through XII intact bilaterally, pupils equal round reactive to light, no focal deficits or facial asymmetry, sensation intact distally Strength 5/5 in upper and lower extremities bilaterally CARDIAC: Regular rate and rhythm, no murmurs rubs or gallops LUNGS: Clear bilaterally no wheezing crackles or stridor ABDOMEN: Soft nontender, reducible ventral hernia without overlying skin erythema or ecchymosis. SKIN: Warm and dry to touch, no abrasions, contusions, or hematomas, no lacerations, no ecchymosis, no target lesions, and without ulcers EXTREMITIES: No clubbing cyanosis or edema, calves are bilaterally symmetrical, no Homans sign, no popliteal cord sign. Distal pulses equal and bilateral PSYCH: Normal affect without agitation or irritability Result Diagram: 04/19/17 1300 04/19/17 1300 Results 24 hrs Laboratory Tests Test 04/19/17 13:00 White Blood Count 4.610^3/ul Red Blood Count 2.9510^6/ul Hemoglobin 8.3g/dl Hematocrit 25.7% Mean Corpuscular Volume 87.1fl Mean Corpuscular Hemoglobin 28.1pg Mean Corpuscular Hemoglobin Concent 32.3g/dl Red Cell Distribution Width 13.9% Platelet Count 26253^3/UL Mean Platelet Volume 11.6fl Neutrophils % 64.2% Lymphocytes % 23.1% Monocytes % 10.5% Eosinophils % 1.1% Basophils % 0.7% Nucleated Red Blood Cells % 0.0/100WBC Neutrophils # 3.010^3/ul Lymphocytes # 1.110^3/ul Monocytes # 0.510^3/ul Eosinophils # 0.110^3/ul Basophils # 0.010^3/ul Nucleated Red Blood Cells # 0.010^3/ul Prothrombin Time 14.6Sec Prothrombin Time Ratio 1.1 INR International Normalized Ratio 1.14 Sodium Level 136mmol/L Potassium Level 4.4mmol/L Chloride Level 104mmol/L Carbon Dioxide Level 25mmol/L Anion Gap 11 Blood Urea Nitrogen 23mg/dl Creatinine 0.80mg/dl Glucose Level 301mg/dl Calcium Level 8.5mg/dl Total Bilirubin 0.5mg/dl Direct Bilirubin 0.00mg/dl Indirect Bilirubin 0.5mg/dl Aspartate Amino Transf (AST/SGOT) 58IU/L Alanine Aminotransferase (ALT/SGPT) 55IU/L Alkaline Phosphatase 253IU/L Total Protein 6.9g/dl Albumin 3.1g/dl Globulin 3.80g/dl Albumin/Globulin Ratio 0.81 Lipase 201U/L Current Medications Medications (Trade) Dose Ordered Sig/Paul Route PRN Reason Start Time Stop Time Status Last Admin Dose Admin Morphine Sulfate (morphine) 4 mg ONCE STAT IV 04/19/17 12:38 04/19/17 12:42 DC Ondansetron HCl (Zofran Inj) 4 mg ONCE STAT IV 04/19/17 12:38 04/19/17 12:42 DC 04/19/17 13:02 Miscellaneous Medication (Gi Cocktail (2)) 40 ml ONCE STAT PO 04/19/17 12:38 04/19/17 12:42 DC 04/19/17 13:02 Belladonna/ Phenobarbital () 2 tab ONCE STAT PO 04/19/17 12:38 04/19/17 12:42 DC 04/19/17 13:02 Procedures/MDM IV line was established patient was placed on cardiac cath tech rhythm strip revealed a sinus rhythm at about 80 bpm with upright P and T waves. Patient was afebrile I administered morphine 4 mg IV, Zofran 4 mg IV, GI cocktail 50 cc p.o. CBC reveals thrombocytopenia with a hemoglobin of 8.3, electrolytes were unremarkable, liver function tests are normal. CT scan of the abdomen and pelvis: IMPRESSION: 1. Cirrhotic liver. 2. Porcelain gallbladder. 3. Mild splenomegaly. 4. Atherosclerosis. 5. Moderate ascites and fluid in an umbilical hernia, unchanged. 6. Diffuse edema of the anterior abdominal wall, slightly improved. 7. Mild degenerative changes of the spine. Differential diagnoses considered, included but not limited to acute coronary syndrome, pulmonary embolism, aortic dissection, abdominal aortic aneurysm, sepsis, stroke, meningitis, encephalitis, pneumonia, appendicitis, cholecystitis , bowel obstruction, pyelonephritis, nephrolithiasis, cystitis, as well as metabolic, hematologic, and electrolyte abnormalities. As well as abscess, cellulitis, fractures, and dislocations. Patient feels much better at this time, and vital signs are normal, symptoms have improved. I did give strict instructions to return to the ED if symptoms continue or worsen, patient will otherwise follow-up with primary care physician. Patient understood instructions and agreed to plan. Disclaimer: Inadvertent spelling and grammatical errors are likely due to EHR/ dictation software use and do not reflect on the overall quality of patient care. Also, please note that the electronic time recorded on this note does not necessarily reflect the actual time of the patient encounter. Departure Diagnosis: Primary Impression: Anemia Anemia type: iron deficiency Iron deficiency anemia type: unspecified iron deficiency Qualified Code: D50.9 - Iron deficiency anemia, unspecified iron deficiency anemia type Additional Impression: Hernia Condition: Good Patient Instructions: Anemia, Iron Deficiency (Adult), Hernia (Inguinal, Ventral, Umbilical), Traveler's Diarrhea (6Y-Adult) Referrals: LOAN CAMACHO MD, ANDREW I MD ZOHRABIAN, DAVID MD Apr 19, 2017 18:40
--- NOTE | 2017-04-20 08:46 | RADRPT ---
PROCEDURE: US Abdomen (limited). CLINICAL INDICATION: Abdominal pain. TECHNIQUE: Multiple real-time longitudinal and transverse images of the four quadrants of the abdo men were acquired utilizing a curved array transducer. Images were reviewed on a high-resolution PAC S workstation. COMPARISON: CT scan of the abdomen and pelvis dated 02/08/2017. FINDINGS: There is a small amount of ascites. There is not no fluid to safely aspirate. Paracentesis was not p erformed. IMPRESSION: 1. Small amount of ascites. 2. Paracentesis was not performed. RPTAT: QQ .Dudley Lanza MD, MD Date Time Electronically viewed and signed by .Dudley Lanza MD, on 04/19/2017 14:27 .R/
== END 2017-04-19 15:36 | disposition home or self-care (01) ==
LOC: E/R 11:44
DX: D50.9 Iron deficiency anemia, unspecified (principal); K46.9 Unspecified abdominal hernia without obstruction or gangrene; I10 Essential (primary) hypertension; E11.9 Type 2 diabetes mellitus without complications; Z79.4 Long term (current) use of insulin
CPT/HCPCS: 36415; 76705; 80053; 83690; 85025; 85610; 96374; 99285; J2270; J2405

== ENCOUNTER 2017-05-31 00:05 | Emergency (ER) | END 2017-05-31 08:43 | disposition home or self-care (01) ==

== ENCOUNTER 2017-06-18 19:17 | Inpatient (IN) | END 2017-06-27 15:10 | disposition home or self-care (01) | DRG 432 ==

== ENCOUNTER 2017-07-06 13:00 | Emergency (ER) | END 2017-07-06 19:30 | disposition home or self-care (01) ==

== ENCOUNTER 2017-07-18 15:16 | Emergency (ER) | END 2017-07-18 20:15 | disposition home or self-care (01) ==

== ENCOUNTER 2017-07-19 20:31 | Emergency (ER) | END 2017-07-19 22:25 | disposition left against medical advice (07) ==